=== PATIENT | female | born 1940 | race African-American/Black ===

== ENCOUNTER 2016-12-17 12:52 | Emergency (ER) | payer OTHER ==
[2016-12-17 12:58] VITALS: BP 150/73; PULSE 66; TEMP 97.8; BMI 30.1
[2016-12-17] MEDS ORDERED: DIPHTH,PERTUSS(ACELL),TET 0.5 ML DISP.SYRIN IM ONE (13:19)
--- NOTE | 2016-12-17 13:36 | PDOC ---
History of Present Illness - General Chief Complaint: Injury Stated Complaint: FALLL/ SWOLLEN LT EYE, PAIN Time Seen by Provider: 12/17/16 12:58 History Source: Patient - History of Present Illness Occurred: reports: yesterday Pain Location: reports: face Method of Injury: Yes: fall Past History - Past Medical History Allergies/Adverse Reactions: Allergies Allergy/AdvReac Type Severity Reaction Status Date / Time No Known Allergies Allergy Verified 12/17/16 12:57 Home Medications: Ambulatory Orders Clindamycin [Cleocin -] 300 mg PO Q6HPO #28 capsule 12/17/16 HTN: Yes - Psycho/Social/Smoking Cessation Hx Anxiety: No Suicidal Ideation: No Smoking History: Never smoked Information on smoking cessation initiated: No Hx Alcohol Use: No Drug/Substance Use Hx: No Substance Use Type: None Review of Systems - Review of Systems Respiratory: No: Shortness of Breath Cardiac (ROS): No: Chest Pain, Lightheadedness Musculoskeletal: No: Back Pain, Neck Pain Neurological: No: Headache, Dizziness *Physical Exam - Vital Signs Last Vital Signs Temp Pulse Resp BP Pulse Ox 97.8 F 66 20 150/73 97 12/17/16 12:53 12/17/16 12:53 12/17/16 12:53 12/17/16 12:53 12/17/16 12:53 - Physical Exam General Appearance: Yes: Appropriately Dressed. No: Apparent Distress HEENT: positive: Normal Voice, Other (moderate swelling with erythema and increased warmth to left periorbital area with small open wound with dried pus to lateral aspect of eyelid, + subconjunctival hemorrhage, EOMI w/ no facial crepitus or step-offs) Neck: positive: Supple. negative: Tender, Decreased range of motion Respiratory/Chest: negative: Respiratory Distress Gastrointestinal/Abdominal: positive: Soft. negative: Tender Integumentary: positive: Dry, Warm Neurologic: positive: Fully Oriented, Alert, Normal Mood/Affect, Motor Strength 5/5 ED Treatment Course - RADIOLOGY Radiology Studies Ordered: Category Date Time Status FACIAL BONES CT W/O CONTRAST [CT] Stat CT Scan 12/17/16 13:[address] WITHOUT CONTRAST [CT] Stat CT Scan 12/17/16 13:20 Ordered Medical Decision Making - Medical Decision Making 12/17/16 13:24 76 yo F, h/o HTN, not on blood thinners, here w/ facial injury s/p fall yesterday. Pt states while walking to [employer] yesterday afternoon, tripped over shopping cart and fell, hitting face. Denies LOC. States she was feeling ok after fall and was able to finish her shopping but states L eye since then L eye has been progressively swollen but denies pain. No visual changes, photophobia or tearing. Denies CUMMINGS, dizziness, n/v. No neck/back or hip pain and ambulating since fall. Denies dizziness or CP prior to fall. See exam Mechanical fall w/ head injury yesterday Witnessed by family No LOC Not on blood thinners Well juan and stable in ED Has L periorbital swelling/erythema/incr warmth w/ small wound to lateral lid w / minimal pus, concern for possible periorbital cellulitis No e/o entrapment or facial fx No uptake on slit lamp Rest of exam unremarkable -tetanus -CT head and facial bones -will consider abx for possible periorbital cellulitis -anticipate discharge 12/17/16 14:04 12/17/16 14:05 12/17/16 16:33 CT negative. Pt stable for discharge with abx. Wound check in 48 hrs 12/17/16 16:37 *DC/Admit/Observation/Transfer Diagnosis at time of Disposition: Periorbital swelling Facial injury Qualifiers: Encounter type: initial encounter Qualified Code(s): S09.93XA - Unspecified injury of face, initial encounter Fall Qualifiers: Encounter type: initial encounter Qualified Code(s): W19.XXXA - Unspecified fall, initial encounter Conjunctival hemorrhage Qualifiers: Laterality: left Qualified Code(s): H11.32 - Conjunctival hemorrhage, left eye - Discharge Dispostion Disposition: HOME Condition at time of disposition: Good - Prescriptions Prescriptions: Clindamycin [Cleocin -] 300 mg PO Q6HPO #28 capsule - Referrals Referrals: Anu Quinn MD [Primary Care Provider] - - Patient Instructions Printed Discharge Instructions: DI for Closed Head Injury Additional Instructions: The CAT scan of your head and facial bones were normal today. Your eye swelling could possibly be due from the trauma, but given small open wound and redness, we treated you for possible infection. Please return to ER 48 hours for wound reassessment.
--- NOTE | 2016-12-17 16:59 | PDOC ---
*Physical Exam - Vital Signs Last Vital Signs Temp Pulse Resp BP Pulse Ox 97.8 F 66 20 150/73 97 12/17/16 12:53 12/17/16 12:53 12/17/16 12:53 12/17/16 12:53 12/17/16 12:53 ED Treatment Course - RADIOLOGY Radiology Studies Ordered: Category Date Time Status FACIAL BONES CT W/O CONTRAST [CT] Stat CT Scan 12/17/16 13:[address] WITHOUT CONTRAST [CT] Stat CT Scan 12/17/16 13:20 Completed - Medications Given in the ED: ED Medications Discontinued Medications Generic Name Dose Route Start Last Admin Trade Name Freq PRN Reason Stop Dose Admin Diphtheria/Tetanus/Acell Pertussis 0.5 ml 12/17/16 13:19 12/17/16 13:24 Boostrix - IM 12/17/16 13:20 0.5 ml .ONCE ONE Administration *DC/Admit/Observation/Transfer Diagnosis at time of Disposition: Periorbital swelling Facial injury Qualifiers: Encounter type: initial encounter Qualified Code(s): S09.93XA - Unspecified injury of face, initial encounter Fall Qualifiers: Encounter type: initial encounter Qualified Code(s): W19.XXXA - Unspecified fall, initial encounter Conjunctival hemorrhage Qualifiers: Laterality: left Qualified Code(s): H11.32 - Conjunctival hemorrhage, left eye - Discharge Dispostion Disposition: HOME Condition at time of disposition: Good - Prescriptions Prescriptions: Clindamycin [Cleocin -] 300 mg PO Q6HPO #28 capsule - Referrals Referrals: Anu Quinn MD [Primary Care Provider] - - Patient Instructions Printed Discharge Instructions: DI for Closed Head Injury Additional Instructions: The CAT scan of your head and facial bones were normal today. Your eye swelling could possibly be due from the trauma, but given small open wound and redness, we treated you for possible infection. Please return to ER 48 hours for wound reassessment. - Post Discharge Activity
== END 2016-12-17 16:34 | disposition home or self-care (01) ==
LOC: JERFT 12:52
PROC: 3E0234Z Introduction of Serum, Toxoid and Vaccine into Muscle, Percutaneous Approach (ICD-10-PCS; principal; 2016-12-17)
DX: S09.8XXA Other specified injuries of head, initial encounter (principal); H05.222 Edema of left orbit; H11.32 Conjunctival hemorrhage, left eye; S01.102A Unspecified open wound of left eyelid and periocular area, initial encounter; I10 Essential (primary) hypertension; W01.198A Fall on same level from slipping, tripping and stumbling with subsequent striking against other object, initial encounter; Y93.89 Activity, other specified; Y92.512 Supermarket, store or market as the place of occurrence of the external cause; Y99.8 Other external cause status
CPT/HCPCS: 70450-TC; 70486-TC; 90471; 90715; 99281-25

== ENCOUNTER 2016-12-19 09:34 | Emergency (ER) | payer OTHER ==
[2016-12-19 09:43] VITALS: BMI 30.1
--- NOTE | 2016-12-19 12:07 | PDOC ---
History of Present Illness - General Chief Complaint: Eye Problem Stated Complaint: FOLLOW UP, LT EYE INJURY Time Seen by Provider: 12/19/16 11:08 History Source: Patient Exam Limitations: No Limitations - History of Present Illness Initial Comments: 12/19/16 12:02 My chief complaint: here for wound check of left eye area History of present illness: Patient is a 76-year-old female with a history of hypertension here today for a recheck of her left eye area due to a fall on . Patient was seen here and patient had fallen hitting her face while with her daughter at [employer]. Patient's daughter reports that she fell due to the shopping cart hitting a curb that patient was holding onto. She denies any loss of consciousness, nausea, vomiting, any change in vision or level of alertness or any severe headache or hemotympanum. Patient had a CT of her orbits that were negative for fracture and head CT that was negative for any intracranial bleed. Patient did have a very superficial cut to her left lateral eye area that has already healed. Patient denies any tenderness of area. Patient denies having had any fever. Patient's daughter also reports that her mother had been complaining about her right foot "not working well for about one month". Patient's daughter noticed today that her mother was walking differently with a slap of her rt. foot she had never noticed before. She reports that she's had decreased strength of her right foot prior to falling on 12/17/2016 that she cannot lacks her right foot or move her toes upward like her left foot. He denies any numbness of her right leg or any radiation of pain from her back to her legs. Patient denies any saddle anesthesia. Patient reports that last week she lost control of her bowels and also on 2016 remembers being incontinent of urine. Patient denies having any back pain or any abdominal pain. 12/19/16 12:08 12/19/16 12:17 Timing/Duration: changing over time Severity: mild Modifying Factors: improves with: other (not walking ) Associated Symptoms: reports: other (decreased strength rt. foot with flexion) Past History - Past Medical History Allergies/Adverse Reactions: Allergies Allergy/AdvReac Type Severity Reaction Status Date / Time No Known Allergies Allergy Verified 12/19/16 09:39 Home Medications: Ambulatory Orders Clindamycin [Cleocin -] 300 mg PO Q6HPO #28 capsule 12/17/16 Unobtainable 12/19/16 HTN: Yes - Immunization History Immunization Up to Date: No - Psycho/Social/Smoking Cessation Hx Anxiety: No Suicidal Ideation: No Smoking History: Never smoked Have you smoked in the past 12 months: No Information on smoking cessation initiated: No Hx Alcohol Use: No Drug/Substance Use Hx: No Substance Use Type: None Review of Systems - Review of Systems Able to Perform ROS?: Yes Constitutional: No: Symptoms Reported HEENTM: Yes: Other (left eye subconjuntiva hemorrhage noted ) Respiratory: No: Symptoms reported Cardiac (ROS): No: Symptoms Reported ABD/GI: No: Symptoms Reported : Yes: Incontinence (of urine on 12/17/16, incontinent of feces last week ). No: Flank Pain Musculoskeletal: No: Symptoms Reported Integumentary: Yes: Bruising (slight bruising b/l infraorbital area,), Erythema (minimal left lateral orbital area, no open areas ) Neurological: Yes: Weakness (of rt. foot with flexion of foot and toes), Other ( rt. foot slight slap of foot noted ). No: Numbness, Paresthesia, Tingling, Tremors *Physical Exam - Vital Signs Last Vital Signs Temp Pulse Resp BP Pulse Ox 98.0 F 69 18 150/100 100 12/19/16 09:40 12/19/16 09:40 12/19/16 09:40 12/19/16 09:40 12/19/16 09:40 - Physical Exam General Appearance: Yes: Appropriately Dressed HEENT: positive: EOMI, Other (pupils constricted equally reacts minimally to light, left sclera subconjunctiva hemorrhage noted ). negative: Orbits Neck: negative: Tender, Lymphadenopathy (R), Lymphadenopathy (L), Rigidity, Tender lateral, Tender midline Respiratory/Chest: positive: Lungs Clear, Normal Breath Sounds. negative: Chest Tender, Respiratory Distress Cardiovascular: positive: Regular Rhythm, Regular Rate, S1, S2 Rectal Exam: positive: other (decreased rectal tone ) Musculoskeletal: positive: Decreased Range of Motion (from waist ). negative: Normal Inspection, CVA Tenderness, CVA Tenderness (R), CVA Tenderness (L), Muscle Spasm, Vertebral Tenderness Extremity: positive: Normal Capillary Refill, Pedal Edema (slight b/l ), Swelling (ankles b/l non pitting ). 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 foot decreased motor/strengh), Respond to painful stimul (rt. leg), Responsive. negative: Numbness (legs ), Sensory Deficit (legs ), Babinski (rt. ) Deep Tendon Reflexes: Ankle (L): 3+, Ankle (R): 3+, Knee (L): 3+, Knee (R): 3+ ED Treatment Course - LABORATORY CBC & Chemistry Diagram: 12/19/16 13:15 12/19/16 13:15 Medical Decision Making - Medical Decision Making 12/19/16 12:17 Patient is a 76-year-old female with a history of hypertension here today for a recheck of her left eye area due to a fall on 12/17/2016. Patient was seen here and patient had fallen hitting her face while with her daughter at [employer]. Patient's daughter reports that she fell due to the shopping cart hitting a curb that patient was holding onto. She denies any loss of consciousness, nausea , vomiting, any change in vision or level of alertness or any severe headache or hemotympanum. Patient had a CT of her orbits that were negative for fracture and head CT that was negative for any intracranial bleed. Patient did have a very superficial cut to her left lateral eye area that has already healed. Patient denies any tenderness of area. Patient denies having had any fever. Patient's daughter also reports that her mother had been complaining about her right foot "not working well for about one month". Patient's daughter noticed today that her mother was walking differently with a slap of her rt. foot she had never noticed before. She reports that she's had decreased strength of her right foot prior to falling on 12/17/2016 that she cannot lacks her right foot or move her toes upward like her left foot. He denies any numbness of her right leg or any radiation of pain from her back to her legs. Patient denies any saddle anesthesia. Patient reports that last week she lost control of her bowels and also on 2016 remembers being incontinent of urine. Patient denies having any back pain or any abdominal pain. left eye subconjunctiva hemorrhage, no open area around left rt. foot decreased strength/motor with flexion, recent incontinency in last week feces and urine decreased rectal tone PLAN: spoke With Dr. zarate patient to be transferred to main ED for further evaluation , Teresita charge nurse aware 12/19/16 17:40 *DC/Admit/Observation/Transfer Diagnosis at time of Disposition: Spinal stenosis Qualifiers: Spinal region: lumbar Qualified Code(s): M48.06 - Spinal stenosis, lumbar region - Discharge Dispostion Disposition: HOME Condition at time of disposition: Improved - Referrals Referrals: Diana Mcnamara MD [Staff Physician] - Anu Quinn MD [Primary Care Provider] - - Patient Instructions Printed Discharge Instructions: Spinal Stenosis Additional Instructions: Return to the emergency department immediately with ANY new, persistent or worsening symptoms including any weakness, difficulty walking, back pain or any other concerns. You MUST call and follow up with your doctor and neurology within 3-4 days for further evaluation of your symptoms. Results were discussed with you. Please make sure your doctor reviews the results of your emergency evaluation. Print Language: AUSTRALIAN
--- NOTE | 2016-12-19 12:55 | PDOC ---
History of Present Illness - History of Present Illness Initial Comments: 12/19/16 16:15 The patient is a 76 year old female with a past medical hx of HTN who presents to the ED for a wound check. The patient was seen in the ED on 12/17/16 for evaluation of a fall on 12/16, no LOC, had a CT head and orbits that was negative. The patient came back to the ED today for a recheck of fo wound on her left eye, which was a result from the fall. The daughter notes that the pt has had a strange slapping sound when she is ambulating - pt notes that it has been going since atleast several days as the last time she went bowling approximately a week ago and had to ajust her technic for this. The pt also endorses occasional urinary leakage, but endroses that she is able to urinate/ stool when she wants to. Pt denies any back pain, headache, dizziness, f/c, cp, sob, vision changes, numbness/tingling. No weakness elsehwere. Pt notes her sypmtoms predates her fall. The patient denies blurred vision, changes in vision The patient denies back pain, neck pain Allergies: NKDA Social: No toxic habits reported PCP: Dr. Anu Quinn <Lin Aceves - Last Filed: 12/19/16 16:35> <Gopi English - Last Filed: 12/20/16 08:55> - General Chief Complaint: Eye Problem Stated Complaint: FOLLOW UP, LT EYE INJURY Time Seen by Provider: 12/19/16 11:08 Past History <Lin Aceves - Last Filed: 12/19/16 16:35> - Past Medical History HTN: Yes - Immunization History Immunization Up to Date: No - Psycho/Social/Smoking Cessation Hx Anxiety: No Suicidal Ideation: No Smoking History: Never smoked Have you smoked in the past 12 months: No Information on smoking cessation initiated: No Hx Alcohol Use: No Drug/Substance Use Hx: No Substance Use Type: None <Gopi English - Last Filed: 12/20/16 08:55> - Past Medical History Allergies/Adverse Reactions: Allergies Allergy/AdvReac Type Severity Reaction Status Date / Time No Known Allergies Allergy Verified 12/19/16 09:39 Home Medications: Ambulatory Orders Clindamycin [Cleocin -] 300 mg PO Q6HPO #28 capsule 12/17/16 Unobtainable 12/19/16 Review of Systems - Review of Systems Able to Perform ROS?: Yes Comments:: 12/19/16 16:16 CONSTITUTIONAL: No reported: Fever, Chills, Diaphoresis, Generalized Weakness, Malaise, Loss of Appetite HEENT: +Left eye redness. No reported: Rhinorrhea, Nasal Congestion, Throat Pain, Throat Swelling, Difficulty Swallowing, Mouth Swelling, Ear Pain, Eye Pain, Visual Changes CARDIOVASCULAR: No reported: Chest Pain, Syncope, Palpitations, Irregular Heart Rate, Lightheadedness, Peripheral Edema RESPIRATORY: No reported: Cough, Shortness of Breath, SOB with Exertion, Orthopnea, Wheezing , Stridor, Hemoptysis GASTROINTESTINAL: +Diarrhea. No reported: Abdominal pain, Abdominal Distension, Nausea, Vomiting, , Constipation, Melena, Hematochezia GENITOURINARY: No reported: Dysuria, Frequency, Urgency, Hesitancy, Flank Pain, Genital Pain MUSCULOSKELETAL: No reported: Myalgia, Arthralgia, Joint Swelling, Back pain, Neck Pain SKIN: No reported: Rash, Itching, Pallor HEMATOLOGIC/IMMUNOLOGIC: No reported: Easy Bleeding, Easy Bruising, Lymphadenopathy, Frequent infections ENDOCRINE: No reported: Unexplained Weight Gain, Unexplained Weight Loss, Heat Intolerance , Cold Intolerance NEUROLOGIC: +Difficulty moving right foot, numbness to bottom of right foot. +Urinary incontinence. +Bowel incontinence. No reported: Tingling, Headache, Focal Weakness, Vertigo, Lightheadedness, Seizure, Mental Status Changes, PSYCHIATRIC: No reported: Anxiety, Depression <Lin Aceves - Last Filed: 12/19/16 16:35> *Physical Exam - Vital Signs Last Vital Signs Temp Pulse Resp BP Pulse Ox 97.6 F 65 20 172/139 95 12/19/16 15:36 12/19/16 15:36 12/19/16 15:36 12/19/16 15:36 12/19/16 15:36 - Physical Exam Comments: 12/19/16 16:16 GENERAL: The patient is awake, alert, and fully oriented, Nontoxic - in no acute distress. HEAD: Normocephalic, contusion on the L orbit. EYES: +subconjunctival hemmorage. Extraocular movements intact ENT: Normal voice, Moist mucous membranes. NECK: Normal range of motion, No JVD LUNGS: Breath sounds equal, clear to auscultation bilaterally. No wheezes, no rhonchi, no rales. HEART: Regular rate and rhythm, normal S1 and S2 without murmur, rub or gallop. ABDOMEN: Soft, nontender, normoactive bowel sounds. No guarding, no rebound. No masses. No CVA tenderness EXTREMITIES: Normal range of motion, no edema. No clubbing or cyanosis. No cords , erythema, or tenderness. Mental status: The patient is oriented x3. Cranial nerves: Cranial nerves II through XII are intact Motor: +The upper extremities are 5/5 in the upper extremities, the lower extremities 5/5, 0/5 dorsiflexion of the right foot, 5/5 in left foot, plantar flexion 5/5 bilaterally, No pronator drift. Reflexes: + 2+ upper extremities, patellar reflex 2+ bilaterally Sensation: Sensation is intact to light touch throughout. Neg romberg. Gait: normal gait with foot drop. BACK: no focal tenderness in cerviacl/thoracic/lumbar region, no ecchymosis PSYCH: Normal mood, normal affect. SKIN: Warm, Dry, normal turgor. RECTAL: +rectal tone, No saddle anesthesia <Lin Aceves - Last Filed: 12/19/16 16:35> - Vital Signs Last Vital Signs Temp Pulse Resp BP Pulse Ox 98.0 F 69 18 150/100 100 12/19/16 09:40 12/19/16 09:40 12/19/16 09:40 12/19/16 09:40 12/19/16 09:40 <Gopi English - Last Filed: 12/20/16 08:55> ED Treatment Course - LABORATORY CBC & Chemistry Diagram: 12/19/16 13:15 12/19/16 13:15 - ADDITIONAL ORDERS Additional order review: Laboratory Results 12/19/16 12/19/16 13:53 13:15 Sodium 143 Potassium 3.7 Chloride 106 Carbon Dioxide 28 Anion Gap 9 BUN 26 H Creatinine 1.4 H Creat Clearance w eGFR 36.46 Random Glucose 105 Calcium 9.3 Total Bilirubin 0.5 AST 23 ALT 18 Alkaline Phosphatase 108 Total Protein 7.6 Albumin 3.8 Urine Color Yellow Urine Appearance Slcloudy Urine pH 5.0 Ur Specific Dow 1.015 Urine Protein 2+ H Urine Glucose (UA) Negative Urine Ketones Trace H Urine Blood Negative Urine Nitrite Negative Urine Bilirubin Negative Urine Urobilinogen Negative Ur Leukocyte Esterase Negative Urine RBC 1 Urine WBC 4 Ur Epithelial Cells Rare Urine Mucus Rare 12/19/16 13:15 RBC 4.75 MCV 87.9 MCHC 32.5 RDW 15.4 MPV 9.7 Neutrophils % 69.0 Lymphocytes % 17.6 Monocytes % 10.3 H Eosinophils % 2.6 Basophils % 0.5 - RADIOLOGY Radiograph Interpretation: 12/19/16 16:[address] Impression. No acute bony abnormalities are seen. L4-L5. Loss of disc space height. Vacuum phenomena. Moderate degenerative facet joint arthropathy with enlarged facet joints. Grade 1 degenerative anterior spondylolisthesis of L4 on L5. Spinal stenosis. Stenosis of the bilateral lateral recesses of L5. Horizontal orientation of the neural foramina with loss of vertical height. L5-S1. Loss of disc space height. Degenerative endplate sclerosis. Vacuum phenomena. Facet joint arthropathy. Reported By: Harsh Carrillo MD 12/19/[address] Impression. No evidence of acute intracranial hemorrhage, edema, midline shift, mass effect , or skull fracture. No CT evidence of acute territorial infarction Reported By: Harsh Carrillo MD 12/19/16 1510 <Lin Aceves - Last Filed: 12/19/16 16:35> - LABORATORY CBC & Chemistry Diagram: 12/19/16 13:15 12/19/16 13:15 <Gopi English - Last Filed: 12/20/16 08:55> Medical Decision Making - Medical Decision Making 12/19/16 13:42 76y F hx of htn presents s/p mechanical fall 3 days ago, presented to the ed 2 days ago for evaluation of eye swelling. Pt had CT head/orbit that was negative. The pt came back for a wound check in fast track and the pt was noted to have a food drop so was sent to the main ED for evaluation. The patient endorses having a foot drop that started atleast since last sunday (last time she went bowling) - she noticed it because she had to change her form when bowling. The pt also endorses that she has had occasionally urinary/bowel leakage - pt states she still has ability to go to the bathroom when she wants to. Pt denies any other weakness, numbness/tingling, neck pain, back pain, headache, vision changes. On exam pt has a R foot drop, but exam was otherwise unremarkable. Pts rectal tone also intact (thought to be slightly deminsihed in FT) 0 but i suspect this reyna be the pts baseline. will obtain CT head and L spine to r/o acute disease will discuss with neurology will obtain UA to ro UTI 12/19/16 15:[address] head negative ct lspine c/w spinal stenosis to L5 no signs of UTI on ua labs unremarkable case d/w dr. Mcnamara will d/c the pt to fu with dr. mcnamara as an outpatient for evalutaion of spinal stenosis I discussed the physical exam findings, ancillary test results and final diagnoses with the patient. I answered all of the patient's questions. The patient was satisfied with the care received and felt comfortable with the discharge plan and treatment plan. The patient will call their primary care physician within 24 hours to arrange follow-up and will return to the Emergency Department with any new, persistent or worsening symptoms. 12/19/16 16:08 pt is ambulating steadily without assistance will dc pt with outpatient fu <Gopi English - Last Filed: 12/20/16 08:55> *DC/Admit/Observation/Transfer - Attestations Scribe Attestion: 12/19/16 16:16 Documentation prepared by Lin Aceves, acting as medical and scientific illustrator for Gopi English MD. <Lin Aceves - Last Filed: 12/19/16 16:35> - Discharge Dispostion Admit: No <Gopi English - Last Filed: 12/20/16 08:55> Diagnosis at time of Disposition: Spinal stenosis Qualifiers: Spinal region: lumbar Qualified Code(s): M48.06 - Spinal stenosis, lumbar region - Discharge Dispostion Disposition: HOME Condition at time of disposition: Improved - Referrals Referrals: Anu Quinn MD [Primary Care Provider] - Diana Mcnamara MD [Staff Physician] - - Patient Instructions Printed Discharge Instructions: Spinal Stenosis Additional Instructions: Return to the emergency department immediately with ANY new, persistent or worsening symptoms including any weakness, difficulty walking, back pain or any other concerns. You MUST call and follow up with your doctor and neurology within 3-4 days for further evaluation of your symptoms. Results were discussed with you. Please make sure your doctor reviews the results of your emergency evaluation. Print Language: ARMENIAN
[2016-12-19 14:05] LABS: URINE APPEARANCE SLCLOUDY; URINE BILIRUBIN NEGATIVE (NEGATIVE); URINE BLOOD NEGATIVE (NEGATIVE); URINE COLOR YELLOW; URINE GLUCOSE (UA) NEGATIVE (NEGATIVE); URINE KETONE TRACE (NEGATIVE); URINE LEUK ESTERASE NEGATIVE (NEGATIVE); URINE NITRITE NEGATIVE (NEGATIVE); URINE UROBILINOGEN NEGATIVE E.U./dl (0.2-1.0)
[2016-12-19 14:21] LABS: BASOPHIL 0.5 % (0-2.0); EOSINOPHIL 2.6 % (0-4.5); MCH 28.6 pg (25.7-33.7); MCHC 32.5 g/dl (32.0-36.0); MEAN CELL VOLUME 87.9 fl (80-96); MEAN PLT VOLUME 9.7 fl (7.5-11.1); PLATELET COUNT 204 K/MM3 (134-434); RDW 15.4 % (11.6-15.6); WHITE BLOOD COUNT 5.9 K/mm3 (4.0-10.0)
[2016-12-19 14:25] LABS: URINE PROTEIN 2+ (NEGATIVE)
[2016-12-19 14:33] LABS: ALBUMIN 3.8 g/dl (3.4-5.0); BILIRUBIN,TOTAL 0.5 mg/dL (0.2-1.0); CALCIUM 9.3 mg/dL (8.5-10.1); CREATININE 1.4 mg/dL (0.55-1.02); TOT PROT 7.6 g/dl (6.4-8.2)
[2016-12-19 14:34] LABS: URINE MUCUS RARE; URINE RBC 1 /hpf (0-3); URINE WBC 4 /hpf (3-5)
[2016-12-19 16:44] VITALS: BP 215/94; PULSE 84; TEMP 98.6
--- NOTE | 2016-12-19 23:13 | EKG ---
Test Reason : Blood Pressure : / mmHG Vent. Rate : 062 BPM Atrial Rate : 062 BPM P-R Int : 160 ms QRS Dur : 078 ms QT Int : 440 ms P-R-T Axes : 089 001 007 degrees QTc Int : 446 ms NORMAL SINUS RHYTHM NORMAL ECG NO PREVIOUS ECGS AVAILABLE Confirmed by NAM RAMÍREZ MD ([id number]) on 12/19/2016 11:13:16 PM Referred By: Confirmed By:NAM RAMÍREZ MD
== END 2016-12-19 16:29 | disposition home or self-care (01) ==
LOC: JER 09:34 → JERFT 09:34 → JER 16:29
DX: M48.06 Spinal stenosis, lumbar region (principal); I10 Essential (primary) hypertension
CPT/HCPCS: 36415; 70450-TC; 72131-TC; 80053; 81003; 81015; 85025; 93005; 93010; 99283-25

== ENCOUNTER 2018-09-11 17:09 | Inpatient (IN) | payer OTHER ==
--- NOTE | 2018-09-11 17:25 | PDOC ---
Rapid Medical Evaluation Chief Complaint: Edema Time Seen by Provider: 09/11/18 17:16 Medical Evaluation: Allergies Allergy/AdvReac Type Severity Reaction Status Date / Time No Known Allergies Allergy Verified 12/19/16 09:39 09/11/18 17:22 I have performed a brief in-person evaluation of this patient. The patient presents with a chief complaint of: BLE edema x1 week Pertinent physical exam findings: 3+ b/l pedal edema. Irregular HR. I have ordered the following: labs, CXR, EKG The patient will proceed to the ED for further evaluation. Discharge Disposition - Diagnosis Edema - Referrals - Patient Instructions - Post Discharge Activity
[2018-09-11 17:36] VITALS: BMI 31.8
--- NOTE | 2018-09-11 18:17 | PDOC ---
History of Present Illness - History of Present Illness Initial Comments: Martha Bateman is a 77yo woman with a PMH of HTN who presents to the ED today complaining of BLE pitting edema and generalized fatigue. Ms Bateman is a poor historian, and it is difficult to determine the exact timeline of her symptoms. She states that about a week ago she started noticing swelling in her legs; she is unable to report whether she has had similar swelling in the past. She also noticed several wounds and blisters on her left leg, but she is not sure exactly when these appeared. She reports trying to " cut back" on her blood pressure medications, but she does not remember whether the swelling started before or afterwards. She is unable to state whether she stopped taking any of her medications entirely or whether she is taking a lower dose than prescribed. She presents with metoprolol, amlodipine, hydralazine, and hydrochlorothiazide. Neither Ms Bateman nor her know what she has been taking at home. She denies any SOB, chest pain, racing heart/palpitations, drainage from the wounds, leg pain or other new symptoms. Her , present at bedside, states that she has been walking more slowly than normal for a few days and appears very fatigued. Ms Bateman denies any ELDER or symptoms of claudication, but her reports that she is minimally ambulatory. Ms Bateman denies any medical history of diabetes, CHF, a-fib, or kidney disease. On questioning, she additionally reports incontinence and inability to hold urine when she stands. She has questionable dysuria and has noticed an unusual odor to her urine. She has never seen uro-gyne or been worked up for incontinence and does not have a known history of UTI. <Paz Mcgee - Last Filed: 09/11/18 19:05> <Alma Junior - Last Filed: 09/11/18 20:03> - General Chief Complaint: Edema Stated Complaint: BILATERAL LEG SWELLING Time Seen by Provider: 09/11/18 17:16 Past History - Past Medical History COPD: No CHF: No HTN: Yes - Immunization History Immunization Up to Date: No - Suicide/Smoking/Psychosocial Hx Smoking History: Never smoked Have you smoked in the past 12 months: No Information on smoking cessation initiated: No Hx Alcohol Use: No Drug/Substance Use Hx: No Substance Use Type: None <Paz Mcgee - Last Filed: 09/11/18 19:05> <Alma Junior - Last Filed: 09/11/18 20:03> - Past Medical History Allergies/Adverse Reactions: Allergies Allergy/AdvReac Type Severity Reaction Status Date / Time No Known Allergies Allergy Verified 12/19/16 09:39 Home Medications: Ambulatory Orders Clindamycin [Cleocin -] 300 mg PO Q6HPO #28 capsule 12/17/16 Unobtainable 12/19/16 Review of Systems - Review of Systems Comments:: General: No fevers, no chills, no weight or appetite change, no malaise. + Fatigue HEENT: No changes in vision, no changes in hearing, no congestion, no sore throat CV: No chest pain, no palpitations, no orthopnea. +BLE edema. Pulm: No SOB, no cough, no wheezing GI: No nausea or vomiting, no change in bowel habits, no melena, no change in abdominal girth : +incontinence, +dysuria Musc: No back pain, no joint swelling, no recent injury Skin:+ulcers and blisters on LE Endo: No excessive thirst, no heat/cold intolerance Heme: No unusual bruising or bleeding, no swollen glands Neuro: No syncope, no numbness/tingling, no focal weakness Vasc: No claudication Psych: No recent change in mood, no SI or HI <Paz Mcgee - Last Filed: 09/11/18 19:05> *Physical Exam - Vital Signs Last Vital Signs Temp Pulse Resp BP Pulse Ox 97.5 F L 67 16 143/89 98 09/11/18 17:20 09/11/18 17:20 09/11/18 17:20 09/11/18 17:20 09/11/18 17:20 - Physical Exam Comments: General: Fatigued, no acute distress HEENT: PERRL, EOMI, MMM, voice normal, normal neck ROM, no LAD Cards: Mildly tachycardic Pulm: Comfortable on room air, clear to auscultation bilaterally Abd: Soft, nontender, nondistended Ext: Atraumatic. BLE 4+ pitting edema to knees. Nickel-sized venous stasis ulcer on left anterior barnes. Fibrinous exudate in base. Nontender to palpation, no surrounding erythema or edema, no drainage (socks clean). Posterior distal LLE with multiple fluid-filled bullae, nontender, intact. Vasc: Extremities WWP. Neuro: A&Ox3, CN grossly intact, normal speech, motor/sensory grossly intact and symmetric Psych: Mood appropriate to situation <EverardoPaz - Last Filed: 09/11/18 19:05> - Vital Signs Last Vital Signs Temp Pulse Resp BP Pulse Ox 99.0 F 121 H 18 124/74 99 09/11/18 19:53 09/11/18 19:53 09/11/18 19:53 09/11/18 19:53 09/11/18 19:53 <Alma Junior - Last Filed: 09/11/18 20:03> ED Treatment Course - LABORATORY CBC & Chemistry Diagram: 09/11/18 17:51 09/11/18 17:51 <EverardoPaz - Last Filed: 09/11/18 19:05> - LABORATORY CBC & Chemistry Diagram: 09/11/18 17:51 09/11/18 17:51 - ADDITIONAL ORDERS Additional order review: Laboratory Results 09/11/18 17:51 Sodium Cancelled Potassium Cancelled Chloride Cancelled Carbon Dioxide Cancelled Anion Gap Cancelled BUN Cancelled Creatinine Cancelled Creat Clearance w eGFR Cancelled Random Glucose Cancelled Calcium Cancelled Total Bilirubin Cancelled AST Cancelled ALT Cancelled Alkaline Phosphatase Cancelled Troponin I Cancelled B-Natriuretic Peptide Cancelled Total Protein Cancelled Albumin Cancelled 09/11/18 17:51 RBC 5.37 H MCV 87.6 MCHC 31.4 L RDW 17.6 H MPV 10.5 Neutrophils % 92.0 H D Lymphocytes % 2.8 L D Monocytes % 4.9 Eosinophils % 0.1 D Basophils % 0.2 <Alma Junior - Last Filed: 09/11/18 20:03> Medical Decision Making - Medical Decision Making 09/11/18 18:23 Martha Bateman is a 77yo woman with a PMH of HTN who presents with BLE pitting edema, new LLE ulcers and bullae consistent with significant fluid overload and venous stasis, and fatigue - Poor historian, unclear whether she has any additional cardiac or renal disease. Edema and fatigue could be due to underlying CHF or CKD - Tachycardic on exam - concern for new onset a-fib as a cause of edema and fatigue - Symptoms may be due medication non-compliance as it is unclear which of her prescribed medications Ms Bateman has been taking and whether her symptoms started before or after she started "cutting back" on her meds - Also complaining of incontinence when standing up, most likely overflow incontinence, as well as possibly an unusual odor to her urine. UA and culture ordered. - CBC, CMP, trop, BNP, EKG, CXR, UA, urine culture - pending 09/11/18 19:05 - CBC returned with WBC 19 - Blood cultures ordered - If patient can be moved out of the hallway, will obtain rectal temperature - Remainder of labs pending - Vancomycin and ceftriaxone ordered for suspected UTI vs infected skin ulcer - B/L duplex ordered to r/o DVT. Pt is sedentary and may be at risk Ms Bateman was endorsed to Dr Rowell, who will take over care at this time. Discussed with Dr Junior. Paz Mcgee PGY1 <Paz Mcgee - Last Filed: 09/11/18 19:05> *DC/Admit/Observation/Transfer - Discharge Dispostion Decision to Admit order: Yes <Paz Mcgee - Last Filed: 09/11/18 19:05> - Discharge Dispostion Decision to Admit order: Yes Decision to Admit order Date/Time: Decision to Admit Order Category Date Time Status Decision to Admit to Hospital Routine Admission 09/11/18 20:02 Ordered <Alma Junior - Last Filed: 09/11/18 20:03> Diagnosis at time of Disposition: Edema, Bilateral leg ulcer, Leg edema, Left leg cellulitis, Atrial fibrillation with RVR - Discharge Dispostion Condition at time of disposition: Good - Referrals Referrals: Marco Ruiz MD [Staff Physician] -
[2018-09-11 18:25] LABS: BASO % 0.2 % (0-2.0); EOS % 0.1 % (0-4.5); HEMOGLOBIN 14.8 GM/dL (10.7-15.3); LYMPH % 2.8 % (8-40); MCH 27.5 pg (25.7-33.7); MCHC 31.4 g/dl (32.0-36.0); MEAN CELL VOLUME 87.6 fl (80-96); MEAN PLT VOLUME 10.5 fl (7.5-11.1); MONO % 4.9 % (3.8-10.2); PLATELET COUNT 176 K/MM3 (134-434); RBC 5.37 M/mm3 (3.60-5.2); RDW 17.6 % (11.6-15.6); WHITE BLOOD COUNT 19.2 K/mm3 (4.0-10.0)
[2018-09-11] MEDS ORDERED: CEFTRIAXONE 1,000 MG in DEXTROSE 5%-WATER - 50 ML IVPB ONE (19:04)
[2018-09-11] MEDS ORDERED: VANCOMYCIN 1 GRAM (PRE-DOCKED) 1,000 MG/250 ML BAG IVPB ONE ×2 (19:04→21:37)
[2018-09-11] MEDS ORDERED: FUROSEMIDE 40 MG/4 ML INJECTABLE VIAL IVPUSH ONE (19:05)
--- NOTE | 2018-09-11 19:32 | PDOC ---
*Physical Exam - Vital Signs Last Vital Signs Temp Pulse Resp BP Pulse Ox 97.5 F L 67 16 143/89 98 09/11/18 17:20 09/11/18 17:20 09/11/18 17:20 09/11/18 17:20 09/11/18 17:20 - Physical Exam Comments: 09/11/18 21:02 General Appearance: Nourished. No Apparent Distress HEENT: No Pharyngeal Erythema, Tonsillar Exudate, Tonsillar Erythema Neck: No Cervical Lymphadenopathy Respiratory/Chest: Lungs Clear, Normal Breath Sounds. No Crackles, Rales, Rhonchi, Wheezing Cardiovascular: Irregularly Irregular Rhythm, Tachycardic Rate. No Murmur, Gallops, Rubs Gastrointestinal/Abdominal: Normal Bowel Sounds, Soft. No Guarding, Rebound, Tenderness Musculoskeletal: No CVA Tenderness Extremity: Normal Capillary Refill Integumentary: Normal Color, Dry, Warm Neurologic:Fully Oriented, Alert, Normal Mood/Affect, Normal Response, ED Treatment Course - LABORATORY CBC & Chemistry Diagram: 09/11/18 17:51 09/11/18 21:31 - ADDITIONAL ORDERS Additional order review: Laboratory Results 09/11/18 17:51 Sodium Cancelled Potassium Cancelled Chloride Cancelled Carbon Dioxide Cancelled Anion Gap Cancelled BUN Cancelled Creatinine Cancelled Creat Clearance w eGFR Cancelled Random Glucose Cancelled Calcium Cancelled Total Bilirubin Cancelled AST Cancelled ALT Cancelled Alkaline Phosphatase Cancelled Troponin I Cancelled B-Natriuretic Peptide Cancelled Total Protein Cancelled Albumin Cancelled 09/11/18 17:51 RBC 5.37 H MCV 87.6 MCHC 31.4 L RDW 17.6 H MPV 10.5 Neutrophils % 92.0 H D Lymphocytes % 2.8 L D Monocytes % 4.9 Eosinophils % 0.1 D Basophils % 0.2 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 - 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: The patient is a 77 year old female who presents for concerns of edema and ulcerating wound to the lower extremity. She was found to have an elevated wbc to 19. The patient was also found to be in new onset afib with rvr with a rate of 120. The patient is pending cmp, troponin, bnp and admission for further management. Medical Decision Making - Medical Decision Making 09/12/18 03:49 CBC demonstrates an elevated wbc. CMP demonstrates an elevated bnp to 7000s. We discussed the case with the admitting team who accepted the patient for admission. *DC/Admit/Observation/Transfer Diagnosis at time of Disposition: Edema, Bilateral leg ulcer, Leg edema, Left leg cellulitis, Atrial fibrillation with RVR - Discharge Dispostion Condition at time of disposition: Good - Referrals - Patient Instructions - Post Discharge Activity
[2018-09-11] MEDS ORDERED: CEFTRIAXONE 1 GM/50 ML BAG ONE (19:56)
[2018-09-11] MEDS ORDERED: FUROSEMIDE 40 MG/4 ML INJECTABLE VIAL ONE (19:57)
[2018-09-11] MEDS ORDERED: dilTIAZem HCL 60 MG TABLET (FP) PO ONE (20:01)
[2018-09-11] MEDS ORDERED: dilTIAZem HCL 50 MG/10 ML - 10 ML VIAL IVPUSH ONE (20:01)
--- NOTE | 2018-09-11 20:01 | PDOC ---
Attending Attestation - Resident Resident Name: EverardoPaz - ED Attending Attestation I have performed the following: I have examined & evaluated the patient, The case was reviewed & discussed with the resident, I agree w/resident's findings & plan - HPI HPI: 09/11/18 19:55 The patient is a 77 year old female with past medical history is significant for HTN presents to the emergency department with bilateral leg edema a/w increased malaise and weakness, difficulty walking x 1 week. The patient presents with a week of bilateral lower extremity pitting edema with a new onset of L. leg venous stasis ulcer, no bloody or purulent discharge or draining. At baseline, patient is minimally ambulatory. The patient reports, for unclear reasons, patient decided to cut back on her HTN medication, unclear if the decision was make before or after the presentation of leg swelling. The patient is a poor historian. Denies any known history of heart failure, AFib, or cardiac issues. - Physicial Exam PE: 09/11/18 19:56 NAD, well appearing, MMM, nl conjunctiva, anicteric; neck supple. lungs clear, + irregularly irregular, tachycardic., abdomen soft nontender. COBOS x4, no focal neuro deficits. 4+ peripheral edema bilaterally with significant warm, erythema and tenderness in BLE. +ulcers without active drainage over LLE (one large crater like ulcer) and one superficial on RLE.. normal color for ethnicity, [facility]. 09/11/18 19:57 - Medical Decision Making 09/11/18 19:57 77 YOF with HTN presenting with leg edema, weakness, difficulty ambulating vitals notable for Tachycardia, temp mildly low 97.5 orally, needs rectal temp. continuous surveillance system monitor with new arrhythmia. basic labs and lytes notable for significant leukocytosis 19K. UA_signs of UTI, treated with abx. CT chest hiatal hernia. parenchymal scarring, cardiomegaly, copd changes, elevated PA pressure. Cardiac panel_trop neg, bnp elevated, +lymphedema vs chf. EKG new onset Afib RVR at 150s, nonspecific T wave abnormalities, normal intervals and QRS. no significant elevation or depressions in ST segments. ED course: no acute events, remained stable and well appearing. Clinically improved after interventions, including IV abx ceftriaxone and vancomycin for LE celluliitis. Duplex to r/o DVT. needs rectal temp blood cultures ordered and pending, infectious workup. cards cs for new onset arrhythmia. EKG with Afib RVR, will rate control with diltiazem for now. may need AC. Dispo: Admit for new onset Afib, leg ulcer/infection, PT eval and fall prevention/safety concerns. Discussed results and management plan with pt and family member at bedside, agree with impression and plan admit to Dr. Rendon 09/17/18 01:42 Heart Score/ECG Review - ECG Impressions Normal ECG: No Comment:: 09/17/18 01:43 EKG new onset Afib RVR at 150s, nonspecific T wave abnormalities, normal intervals and QRS. no significant elevation or depressions in ST segments.
[2018-09-11] MEDS ORDERED: dilTIAZem HCL 30 MG TABLET (FP) PO ONE (21:36)
[2018-09-11] MEDS ORDERED: dilTIAZem HCL 125 MG/25 ML - 25 ML VIAL ONE (21:44)
[2018-09-11 22:29] LABS: ALBUMIN 3.1 g/dl (3.4-5.0); ALK PHOS 178 U/L (45-117); ANION GAP 9 MMOL/L (8-16); BILIRUBIN,TOTAL 1.6 mg/dL (0.2-1); BLOOD UREA NITROGEN 46 mg/dL (7-18); CALCIUM 9.1 mg/dL (8.5-10.1); CHLORIDE 106 mmol/L (98-107); CO2 24 mmol/L (21-32); CREATININE 1.7 mg/dL (0.55-1.3); GLUCOSE,RANDOM 141 mg/dL (74-106); N-TERMINAL BNP 7300.9 pg/ml (5-450); POTASSIUM 4.7 mmol/L (3.5-5.1); SGOT/AST 28 U/L (15-37); SGPT/ALT 38 U/L (13-61); SODIUM 140 mmol/L (136-145); TOT PROT 6.8 g/dl (6.4-8.2)
[2018-09-11] MEDS ORDERED: dilTIAZem HCL 30 MG TABLET (FP) ONE (22:50)
--- NOTE | 2018-09-12 01:05 | HP ---
CHIEF COMPLAINT: leg swelling PCP: Kai HISTORY OF PRESENT ILLNESS: This is a 77 year old female with a past medical history of HTN who presented to the ED with bilat lower extremity edema and fatigue x 1 week. Pt reports that she has not been taking her BP medications as prescribed and has been skipping doses. She is unclear on exactly what meds she has been taking. Her brought in her medication bottles and she appears to be on norvasc, hydralazine, hydrochlorothiazide and ergocalciferol. notices pt has been more forgetful in general recently. ER course was notable for: (1) BP 143/89 (2) WBC 19.2 (3) US with DVT R popliteal and PT veins Recent Travel: pt denies PAST MEDICAL HISTORY: HTN PAST SURGICAL HISTORY: pt denies Social History: Smoking: pt denies Alcohol: occ glass of wine Drugs: pt denies Family History: unclear, mother may have due to liver disease Allergies No Known Allergies Allergy (Verified 12/19/16 09:39) HOME MEDICATIONS: 3 Medication Instructions Recorded Clindamycin [Cleocin -] 300 mg PO Q6HPO #28 capsule 12/17/16 Unobtainable 12/19/16 REVIEW OF SYSTEMS CONSTITUTIONAL: Present: malaise Absent: fever, chills, diaphoresis, generalized weakness, loss of appetite, weight change HEENT: Absent: rhinorrhea, nasal congestion, throat pain, throat swelling, difficulty swallowing, mouth swelling, ear pain, eye pain, visual changes CARDIOVASCULAR: Present: peripheral edema Absent: chest pain, syncope, palpitations, irregular heart rate, lightheadedness , RESPIRATORY: Absent: cough, shortness of breath, dyspnea with exertion, orthopnea, wheezing, stridor, hemoptysis GASTROINTESTINAL: Absent: abdominal pain, abdominal distension, nausea, vomiting, diarrhea, constipation, melena, hematochezia GENITOURINARY: Absent: dysuria, frequency, urgency, hesitancy, hematuria, flank pain, genital pain MUSCULOSKELETAL: Absent: myalgia, arthralgia, joint swelling, back pain, neck pain SKIN: Absent: rash, itching, pallor HEMATOLOGIC/IMMUNOLOGIC: Absent: easy bleeding, easy bruising, lymphadenopathy, frequent infections ENDOCRINE: Absent: unexplained weight gain, unexplained weight loss, heat intolerance, cold intolerance NEUROLOGIC: Absent: headache, focal weakness or paresthesias, dizziness, unsteady gait, seizure, mental status changes, bladder or bowel incontinence PSYCHIATRIC: Absent: anxiety, depression, suicidal or homicidal ideation, hallucinations. PHYSICAL EXAMINATION Vital Signs - 24 hr 3 09/11/18 09/11/18 17:20 19:53 Temperature 97.5 F L 99.0 F Pulse Rate 67 Pulse Rate [ 121 H Left Brachial] Respiratory 16 18 Rate Blood Pressure 143/89 Blood Pressure 124/74 [Left Arm] O2 Sat by Pulse 98 99 Oximetry (%) GENERAL: Awake, alert, and fully oriented, in no acute distress. HEAD: Normal with no signs of trauma. EYES: Pupils equal, round and reactive to light, extraocular movements intact, sclera anicteric, conjunctiva clear. No lid lag. EARS, NOSE, THROAT: Ears normal, nares patent, oropharynx clear without exudates. Moist mucous membranes. NECK: Normal range of motion, supple without lymphadenopathy, JVD, or masses. LUNGS: Breath sounds equal, clear to auscultation bilaterally. No wheezes, and no crackles. No accessory muscle use. HEART: Regular rate and rhythm, normal S1 and S2 without murmur, rub or gallop. ABDOMEN: Soft, nontender, not distended, normoactive bowel sounds, no guarding, no rebound, no masses. No hepatomegaly or splenomegaly. MUSCULOSKELETAL: Normal range of motion at all joints. No bony deformities or tenderness. No CVA tenderness. UPPER EXTREMITIES: 2+ pulses, warm, well-perfused. No cyanosis. No clubbing. No peripheral edema. LOWER EXTREMITIES: 2+ pulses, warm, well-perfused. No calf tenderness. peripheral edema 3+ bilat lower legs. NEUROLOGICAL: Cranial nerves II-XII intact. Normal speech. PSYCHIATRIC: Cooperative. Good eye contact. Appropriate mood and affect. SKIN: Warm, dry, normal turgor, no rashes or lesions noted, normal capillary refill. B/L LE with open areas, ? popped blisters, left barnes noted with approx 1.5cm x 1.5cm round open area with slough covering wound. Mild erythema to surrounding skin, no excessive warmth Laboratory Results - last 24 hr 3 09/11/18 09/11/18 09/11/18 17:51 17:51 21:31 WBC 19.2 H RBC 5.37 H Hgb 14.8 Hct 47.0 H D MCV 87.6 MCH 27.5 MCHC 31.4 L RDW 17.6 H Plt Count 176 D MPV 10.5 Absolute Neuts (auto) 17.7 H Neutrophils % 92.0 H D Lymphocytes % 2.8 L D Monocytes % 4.9 Eosinophils % 0.1 D Basophils % 0.2 Nucleated RBC % 0 Sodium Cancelled 140 Potassium Cancelled 4.7 Chloride Cancelled 106 Carbon Dioxide Cancelled 24 Anion Gap Cancelled 9 BUN Cancelled 46 H Creatinine Cancelled 1.7 H Creat Clearance w eGFR Cancelled 29.07 Random Glucose Cancelled 141 H Calcium Cancelled 9.1 Total Bilirubin Cancelled 1.6 H AST Cancelled 28 ALT Cancelled 38 Alkaline Phosphatase Cancelled 178 H Troponin I Cancelled < 0.02 B-Natriuretic Peptide Cancelled 7300.9 H Total Protein Cancelled 6.8 Albumin Cancelled 3.1 L ECG Atrial fibrillation with RVR vent rate 156, QTC 451 ST/T wave abnormality, TWI lead I, II, III, aVF, V5-V6, NO MAGDALENA/STD Radiology Reports EXAM: DUPLEX VASCULAR US-2 LEGS THIS IS A PRELIMINARY REPORT FROM IMAGING ON CALLFINDINGS/IMPRESSION: Occlusive intraluminal thrombus within the right popliteal vein and right posterior tibial vein No evidence of deep venous thrombosis within the left lower extremity THIS DOCUMENT HAS BEEN ELECTRONICALLY SIGNED Narciso Jimenez MD 09/12/2018 01:05 EST ASSESSMENT/PLAN: 77yF with PMH HTN presented to the ED with B/L LE edema and pain. New onset Afib - given cardizem IV and PO in ED with good response, start 30mg q6h - cardiology consult - echo - repeat ECG in am - trend troponins, unclear what triggered Afib - given lasix 40 in ED, cont daily for edema, possible CHF in setting of new onset afib HTN - hold home amlodipine in favor of cardizem for dual therapy rate control/ antihypertensive - hold hydralazine for now to allow room for cardizem increase if needed for rate control, would add back if BP elevated on cardizem once rate controlled DVT - will start eliquis, 10mg bid x 7 days then 5mg bid WILL - current - monitor BMP FEN - tolerating po fluids - bmp in am - low sodium diet as tolerated Dispo: pt currently requires further inpatient management of her emergent condition. Visit type - Emergency Visit Emergency Visit: Yes ED Registration Date: 09/11/18 Care time: The patient presented to the Emergency Department on the above date and was hospitalized for further evaluation of their emergent condition. - New Patient This patient is new to me today: Yes Date on this admission: 09/12/18 - Critical Care Critical Care patient: No
[2018-09-12 02:00] LABS: PLATELET ESTIMATE ADEQUATE
[2018-09-12] MEDS ORDERED: dilTIAZem HCL 30 MG TABLET (FP) PO ONE (02:58)
[2018-09-12] MEDS ORDERED: dilTIAZem HCL 30 MG TABLET (FP) ONE ×2 (03:30→06:59)
[2018-09-12] MEDS ORDERED: HEPARIN NA (PORCINE) 5,000 UNITS/ML 1ML VIAL SQ SCH (06:00)
[2018-09-12 06:56] LABS: BASO % 0.2 % (0-2.0); EOS % 0.1 % (0-4.5); HEMATOCRIT 43.9 % (32.4-45.2); HEMOGLOBIN 13.8 GM/dL (10.7-15.3); MCH 27.3 pg (25.7-33.7); MCHC 31.5 g/dl (32.0-36.0); MEAN CELL VOLUME 86.7 fl (80-96); MEAN PLT VOLUME 9.8 fl (7.5-11.1); MONO % 6.2 % (3.8-10.2); NEUT % 90.5 % (42.8-82.8); PLATELET COUNT 141 K/MM3 (134-434); RBC 5.07 M/mm3 (3.60-5.2); RDW 16.6 % (11.6-15.6)
[2018-09-12] MEDS: dilTIAZem HCL 30 MG TABLET (FP) PO SCH ×2 (07:04→13:42)
[2018-09-12 07:25] LABS: ANION GAP 9 MMOL/L (8-16); BLOOD UREA NITROGEN 45 mg/dL (7-18); CALCIUM 9.1 mg/dL (8.5-10.1); CHLORIDE 104 mmol/L (98-107); CO2 29 mmol/L (21-32); CREATININE 1.6 mg/dL (0.55-1.3); GLUCOSE,RANDOM 116 mg/dL (74-106); MAGNESIUM 2.2 mg/dL (1.8-2.4); PHOSPHOROUS 3.6 mg/dL (2.5-4.9); POTASSIUM 3.9 mmol/L (3.5-5.1); SODIUM 142 mmol/L (136-145)
[2018-09-12] MEDS ORDERED: hydrALAZINE HCL 25 MG TABLET (FP) PO SCH (10:00)
[2018-09-12] MEDS ORDERED: FUROSEMIDE 40 MG/4 ML INJECTABLE VIAL IVPUSH SCH (10:00)
[2018-09-12] MEDS ORDERED: APIXABAN 5 MG TABLET PO SCH (10:00)
[2018-09-12] MEDS: APIXABAN 5 MG TABLET PO SCH ×2 (10:15→21:46)
[2018-09-12 10:28] LABS: ANISOCYTOSIS 1+; MACROCYTOSIS 0; OVALOCYTE 1+; PLATELET ESTIMATE DECREASED; TEAR DROP CELLS 1+
--- NOTE | 2018-09-12 12:17 | EKG ---
Test Reason : Blood Pressure : / mmHG Vent. Rate : 156 BPM Atrial Rate : 150 BPM P-R Int : 000 ms QRS Dur : 078 ms QT Int : 280 ms P-R-T Axes : 000 041 207 degrees QTc Int : 451 ms ATRIAL FIBRILLATION WITH RAPID VENTRICULAR RESPONSE CANNOT RULE OUT ANTERIOR INFARCT , AGE UNDETERMINED ABNORMAL ECG WHEN COMPARED WITH ECG OF 19-DEC-2016 14:06, SIGNIFICANT CHANGES HAVE OCCURRED Confirmed by JUANY GUADARRAMA, [place] ([id number]) on 09/12/2018 12:17:47 PM Referred By: Confirmed By:PARIS HARRINGTON MD
--- NOTE | 2018-09-12 13:21 | ECHO ---
Name: SRIKANTH VALENZUELA Exam:Adult Echocardiogram Study Date: 09/12/2018 09:19 AM Age: 77 yrs Reason For Study: EDEMA,NEW ONSET A FIB Height: 63 in Weight: 180 lb BSA: 1.8 m2 MMode/2D Measurements & Calculations IVSd: 0.71 cm Ao root diam: 2.8 cm LVIDd: 3.8 cm LA dimension: 3.5 cm LVIDs: 2.5 cm ACS: 1.7 cm LVPWd: 0.91 cm IVSs: 1.1 cm LVPWs: 1.2 cm EDV(Teich): 62.0 ml ESV(Teich): 22.5 ml Doppler Measurements & Calculations Ao V2 max: 111.8 cm/sec AI max chivo: 184.8 cm/sec Ao max P.0 mmHg AI max P.7 mmHg Ao V2 mean: 86.6 cm/sec Ao mean P.2 mmHg AI dec slope: 185.0 cm/sec2 Ao V2 VTI: 18.9 cm AI P1/2t: 292.6 msec MR max chivo: 477.4 cm/sec TR max chivo: 304.8 cm/sec MR max P.2 mmHg TR max P.4 mmHg PI end-d chivo: 127.1 cm/sec Procedure A complete two-dimensional transthoracic echocardiogram was performed (2D, M-mode, Doppler and color flow Doppler). The patient was in atrial fibrillation with rapid ventricular response during the exam with a heart rate exceeding 100 bpm. Left Ventricle The left ventricular size, thickness and function are normal. The left ventricular ejection fraction is normal. Ejection Fraction = 55-60%. The left ventricular wall motion is normal. Right Ventricle The right ventricle is normal in size and function. Atria The left atrium is moderately dilated. The right atrium is moderately dilated. Mitral Valve There is mild mitral regurgitation. Tricuspid Valve There is moderate tricuspid regurgitation. Right ventricular systolic pressure is normal. Aortic Valve The aortic valve is trileaflet. No hemodynamically significant valvular aortic stenosis. No aortic regurgitation is present. Pulmonic Valve There is no pulmonic valvular regurgitation. Great Vessels The aortic root is normal size. Pericardium/Pleura There is no pericardial effusion. Interpretation Summary The patient was in atrial fibrillation with rapid ventricular response during the exam. The left ventricular size, thickness and function are normal The right ventricle is normal in size and function. The left atrium is moderately dilated. The right atrium is moderately dilated. There is mild mitral regurgitation. There is moderate tricuspid regurgitation. MD Jordan Malik 09/12/2018 01:21 PM
--- NOTE | 2018-09-12 16:25 | CON.CARD ---
Consult Consult Specialty:: Cardiology Referred by:: Dr. Quinn Reason for Consultation:: afib, chf - History of Present Illness Chief Complaint: edema, sob History of Present Illness: 77 year old woman with pmh HTN, admitted with progressively worsening b/l LE edema, sob, fatigue and found to be in newly dx Afib with RVR with a newly dx RLE DVT elevated wbc, DAYNA, peripheral and pulmonary edema. Pt seen and examined today in nad. states her symptoms have been going on for a few weeks. states she was previously very active playing bingo and [employer] but since her legs have been swollen she hasnt been able to walk much. denies chest pain, palpitations. no lightheadedness dizziness, syncope or near syncope - History Source History Provided By: Patient, Family Member, Medical Record Limitations to Obtaining History: No Limitations - Past Medical History Cardio/Vascular: Yes: HTN - Alcohol/Substance Use Hx Alcohol Use: No - Smoking History Smoking history: Never smoked Have you smoked in the past 12 months: No - Social History Usual Living Arrangement: Alone ADL: Independent History of Recent Travel: No Home Medications - Allergies Allergies/Adverse Reactions: Allergies Allergy/AdvReac Type Severity Reaction Status Date / Time No Known Allergies Allergy Verified 12/19/16 09:39 - Home Medications Home Medications: Ambulatory Orders Amlodipine Besylate 10 mg PO DAILY 09/12/18 Ergocalciferol (Vitamin D2) [Drisdol] 50,000 unit PO WEEKLY 09/12/18 Hydralazine HCl 25 mg PO BID 09/12/18 Hydrochlorothiazide 25 mg PO DAILY 09/12/18 Family Disease History - Family Disease History Family History: Denies Review of Systems - Review of Systems Constitutional: reports: Malaise, Weakness. denies: No Symptoms, Chills, Diaphoresis, Fever, Lethargy, Loss of Appetite, Night Sweats, Unintentional Wgt. Loss, Other Eyes: denies: No Symptoms, Blind Spots, Blurred Vision, Double Vision, Eye Pain , Floaters, Photophobia, Recent Change in Vision, Other HENT: denies: No Symptoms, Difficult Swallowing, Ear Discharge, Ear Pain, Epistaxis, Gingival Bleeding, Hearing Loss, Mouth Swelling, Nasal Congestion, Ocular Prosthesis, Throat Pain, Toothache, Ringing in Ears, Other Neck: denies: No Symptoms, Decreased ROM, Lumps, Pain on Movement, Stiffness, Swollen Glands, Tenderness, Other Cardiovascular: reports: Edema, Shortness of Breath. denies: No Symptoms, Chest Pain, Palpitations, Other Respiratory: reports: Exercise Intolerance, Orthopnea, SOB, SOB on Exertion. denies: No Symptoms, Cough, Hemoptysis, PND, Snoring, Wheezing, Other Gastrointestinal: denies: No Symptoms, Abdominal Pain, Bloating, Constipation, Diarrhea, Dysphagia, Indigestion, Melena, Nausea, Rectal Bleeding, Vomiting, Vomiting Blood, Other Genitourinary: denies: No Symptoms, Burning, Discharge, Dysuria, Flank Pain, Frequency, Hematuria, Incontinence, Lesions, Menses, Pain, Testicular Mass, Testicular Pain, Testicular Swelling, Urgency, Vaginal Bleeding, Other Breasts: denies: No Symptoms Reported, See HPI, Breast Implants, Discharge from Nipple, Lumps, Pain, Skin Changes, Other Musculoskeletal: denies: No Symptoms, Back Pain, Crepitus, Decreased ROM, Extremity Pain, Joint Pain, Joint Swelling, Muscle Pain, Muscle Cramps, Muscle Weakness, Other Integumentary: denies: No Symptoms, Blister, Bruising, Change in Color, Eczema, Erythema, Incision, Lesions, Lump, Pallor, Pruritis, Rash, Wound, Other Neurological: denies: No Symptoms, Change in LOC, Change in Speech, Confusion, Dizziness, Headache, Incoordination, Numbness, Parasthesia, Pre-Existing Deficit , Seizure, Syncope, Tremors, Unsteady Gait, Weakness, Other Endocrine: denies: No Symptoms, Excessive Sweating, Flushing, Increased Hunger, Increased Thirst, Intolerance to Cold, Intolerance to Heat, Unexplained Weight Gain, Unexplained Weight Loss, Other Hematology/Lymphatic: denies: No Symptoms, Easily Bruised, Excessive Bleeding, Swollen Glands, Other Psychiatric: denies: No Symptoms, Altered Sleep Pattern, Anxiety, Depression, Hallucinations, Panic, Paranoia, Suicidal, Other - Risk Factors Known Risk Factors: Yes: Hypertension Vital Signs: Vital Signs Temperature 98 F 09/12/18 13:09 Pulse Rate 120 H 09/12/18 13:09 Respiratory Rate 18 09/12/18 13:09 Blood Pressure 130/72 09/12/18 13:09 O2 Sat by Pulse Oximetry (%) 96 09/12/18 09:12 Constitutional: Yes: Well Nourished, No Distress, Calm Eyes: Yes: WNL, Conjunctiva Clear, EOM Intact, PERRL HENT: Yes: WNL, Atraumatic, Normocephalic Neck: Yes: WNL, Supple, Trachea Midline Respiratory: Yes: Regular, Diminished, Rales. No: Rhonchi, SOB, Wheezes Gastrointestinal: Yes: WNL, Normal Bowel Sounds, Soft. No: Distention, Tenderness Cardiovascular: Yes: Tachycardia, Pulse Irregular. No: Regular Rate and Rhythm , Bradycardia, Gallop, Rub, Varicosities JVD: No Carotid Bruit: No PMI: Non-Displaced Heart Sounds: Yes: S1, S2. No: Split S2, S3, S4, Clicks, Gallop, Rub, Bruit Murmur: No: Systolic Murmur, Diastolic Murmur Musculoskeletal: Yes: Muscle Weakness Edema: Yes Edema: LLE: 2+, RLE: 2+ Peripheral Pulses WNL: Yes Peripheral Pulses: 2+ Left Doralis Pedis, 2+ Right Dorsalis Pedis Neurological: Yes: Alert, Oriented Psychiatric: Yes: Alert, Oriented - Other Data Labs, Other Data: CBC, BMP 09/12/18 06:30 09/12/18 06:30 Troponin, BNP 09/11/18 09/11/18 09/12/18 17:51 21:31 06:30 Troponin I Cancelled < 0.02 < 0.02 B-Natriuretic Peptide Cancelled 7300.9 H Troponin, BNP 09/11/18 09/11/18 09/12/18 17:51 21:31 06:30 Troponin I Cancelled < 0.02 < 0.02 B-Natriuretic Peptide Cancelled 7300.9 H ekg-afib with RVR 150bpm, poor R progression Echo: Report Reviewed Imaging - Results Chest X-ray: Report Reviewed, Image Reviewed EKG: Report Reviewed, Image Reviewed Other: Report Reviewed, Image Reviewed Assessment/Plan 77 year old woman with pmh HTN, admitted with progressively worsening b/l LE edema, sob, fatigue and found to be in newly dx Afib with RVR with a newly dx RLE DVT elevated wbc, DAYNA, peripheral and pulmonary edema. states her symptoms have been going on for a few weeks. states she was previously very active playing bingo and bowling but since her legs have been swollen she hasnt been able to walk much. denies chest pain, palpitations. no lightheadedness dizziness, syncope or near syncope Edema/sob-acute decompensated diastolic CHF -likely related to AF with RVR -ECHO 09/12/18 showed normal LV/RV function, mild mr, mod tr, mod LAE/ANASTASIA -Control HR and ultimately may need to consider THOMAS/DCCV for episcopalian of NSR -start Lasix 40mg IV BID -monitor strict I/Os daily weights, bun/creat eletrolytes and replete as needed -Consider pulmonary embolism as source of new Afib given pt has a RLE DVT, cannot due CTA now due to DAYNA and she is already on eliquis, will have pulmonary evaluate Afib with RVR-newly diagnosed, unknown duration -HR control with Metoprolol uptitrate as needed -already on eliquis -tele monitoriong -may need consideration for THOMAS/DCCV during admission if not controlled -PE evaluation as above' -echo as above nl LVEF, no sig valvular abnl DVT -newly dx, unclear etiology -already on eliquis -will have Heme/onc evaluate to assist with possible etiologies, should have routine cancer screening
[2018-09-12] MEDS: FUROSEMIDE 40 MG/4 ML INJECTABLE VIAL IVPUSH SCH (16:50)
[2018-09-12] MEDS: metoPROLOL SUCCINATE 25 MG TAB.SR.24H (FP) PO SCH ×2 (16:50→21:46)
[2018-09-12] MEDS: METOPROLOL TARTRATE 5 MG/5 ML VIAL IVPUSH PRN (16:51)
[2018-09-12] MEDS ORDERED: PNEUMOC 13-VAL CONJ-DIP CRM/PF 0.5 ML DISP.SYRIN IM ONE (17:29)
[2018-09-12] MEDS ORDERED: FLU VACCINE QUAD 60 MCG/0.5 ML (MDV 18-19) IM ONE (17:31)
--- NOTE | 2018-09-12 20:35 | PN ---
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 (short form) - Note 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: events noted pt has B/L lower ext edema Vital Signs - 24 hr 09/12/18 09/12/18 09/12/18 09:09 09:12 13:09 Temperature 97.5 F L 98 F Pulse Rate 70 120 H Respiratory 18 18 Rate Blood Pressure 142/88 130/72 O2 Sat by Pulse 96 Oximetry (%) 09/12/18 09/12/18 09/12/18 16:51 17:00 17:25 Temperature 98.4 F Pulse Rate 151 H 125 H Respiratory 19 18 Rate Blood Pressure 118/80 118/80 O2 Sat by Pulse 96 Oximetry (%) 09/12/18 09/12/18 17:40 19:58 Temperature 98.4 F Pulse Rate 125 H Respiratory 19 Rate Blood Pressure 118/80 O2 Sat by Pulse 95 Oximetry (%) Current Medications Generic Name Dose Route Start Last Admin Trade Name Freq PRN Reason Stop Dose Admin Apixaban 5 mg 09/18/18 22:00 Eliquis - PO BID NEERAJ Apixaban 10 mg 09/12/18 03:01 09/12/18 10:15 Eliquis - PO 09/18/18 10:01 10 mg BID NEERAJ Administration Furosemide 40 mg 09/13/18 16:30 09/12/18 16:50 Lasix Injection - IVPUSH 40 mg BID@0600,1400 NEERAJ Administration Metoprolol Succinate 25 mg 09/12/18 16:29 09/12/18 16:50 Toprol Xl - PO 25 mg BID NEERAJ Administration Metoprolol Tartrate 5 mg 09/12/18 16:28 09/12/18 16:51 Lopressor Injection - IVPUSH 5 mg Q4H PRN Administration TACHYCARDIA Laboratory Results - last 24 hr 09/11/18 09/11/18 09/12/18 17:51 21:31 06:30 WBC 15.0 H RBC 5.07 Hgb 13.8 Hct 43.9 MCV 86.7 MCH 27.3 MCHC 31.5 L RDW 16.6 H Plt Count 141 MPV 9.8 Absolute Neuts (auto) 13.6 H Total Counted 100 Neutrophils % 90.5 H Neutrophils % (Manual) 86.0 H 95.0 H Band Neutrophils % 5.0 1.0 Lymphocytes % 3.0 L Lymphocytes % (Manual) 6.0 L 2.0 L D Monocytes % 6.2 Monocytes % (Manual) 3 L 0 L D Eosinophils % 0.1 Eosinophils % (Manual) 0.0 Basophils % 0.2 Basophils % (Manual) 0.0 Myelocytes % (Man) 0 Promyelocytes % (Man) 1 Blast Cells % (Manual) 0 Nucleated RBC % 0 Metamyelocytes 1 Hypochromia 0 Platelet Estimate Adequate Decreased Platelet Comment No clumping noted Present Polychromasia 1+ Poikilocytosis 1+ Anisocytosis 1+ Microcytosis 0 Macrocytosis 0 Spherocytes 1+ Tear Drop Cells 1+ Ovalocytes 1+ Sodium 140 Potassium 4.7 Chloride 106 Carbon Dioxide 24 Anion Gap 9 BUN 46 H Creatinine 1.7 H Creat Clearance w eGFR 29.07 Random Glucose 141 H Calcium 9.1 Phosphorus Magnesium Total Bilirubin 1.6 H AST 28 ALT 38 Alkaline Phosphatase 178 H Creatine Kinase Troponin I < 0.02 B-Natriuretic Peptide 7300.9 H Total Protein 6.8 Albumin 3.1 L 09/12/18 06:30 WBC RBC Hgb Hct MCV MCH MCHC RDW Plt Count MPV Absolute Neuts (auto) Total Counted Neutrophils % Neutrophils % (Manual) Band Neutrophils % Lymphocytes % Lymphocytes % (Manual) Monocytes % Monocytes % (Manual) Eosinophils % Eosinophils % (Manual) Basophils % Basophils % (Manual) Myelocytes % (Man) Promyelocytes % (Man) Blast Cells % (Manual) Nucleated RBC % Metamyelocytes Hypochromia Platelet Estimate Platelet Comment Polychromasia Poikilocytosis Anisocytosis Microcytosis Macrocytosis Spherocytes Tear Drop Cells Ovalocytes Sodium 142 Potassium 3.9 Chloride 104 Carbon Dioxide 29 Anion Gap 9 BUN 45 H Creatinine 1.6 H Creat Clearance w eGFR 31.17 Random Glucose 116 H Calcium 9.1 Phosphorus 3.6 Magnesium 2.2 Total Bilirubin AST ALT Alkaline Phosphatase Creatine Kinase 21 L Troponin I < 0.02 B-Natriuretic Peptide Total Protein Albumin S1 S2 irregular Lungs decreased Abd- soft,NT edema+ PLAN On [employer] noted BP control Tele monitoring Cardiology eval Problem List - Problems (1) CKD (chronic kidney disease) Code(s): N18.9 - CHRONIC KIDNEY DISEASE, UNSPECIFIED (2) DVT (deep venous thrombosis) Code(s): I82.409 - ACUTE EMBOLISM AND THOMBOS UNSP DEEP VN UNSP LOWER EXTREMITY (3) Edema Code(s): R60.9 - EDEMA, UNSPECIFIED (4) HTN (hypertension) Code(s): I10 - ESSENTIAL (PRIMARY) HYPERTENSION (5) Atrial fibrillation with RVR Code(s): I48.91 - UNSPECIFIED ATRIAL FIBRILLATION
[2018-09-13] MEDS: METOPROLOL TARTRATE 5 MG/5 ML VIAL IVPUSH PRN ×2 (00:28→18:12)
[2018-09-13] MEDS ORDERED: ACETAMINOPHEN 325 MG TABLET (FP) PO ONE (00:33)
[2018-09-13] MEDS ORDERED: SODIUM CHLORIDE 250 ML IV STA (00:34)
[2018-09-13 06:49] LABS: URINE APPEARANCE CLEAR; URINE BILIRUBIN NEGATIVE (<2.0 mg/dL); URINE COLOR LTYELLOW; URINE GLUCOSE (UA) NEGATIVE (NEGATIVE); URINE KETONE NEGATIVE (NEGATIVE); URINE LEUK ESTERASE TRACE (NEGATIVE); URINE NITRITE NEGATIVE (NEGATIVE); URINE PROTEIN NEGATIVE (NEGATIVE); URINE UROBILINOGEN NEGATIVE mg/dL (0.2-1.0)
[2018-09-13 06:52] LABS: EPI CELLS RARE /HPF (FEW); URINE BACTERIA RARE /hpf (NONE SEEN); URINE HYALINE CAST 4 /lpf; URINE MUCUS RARE
[2018-09-13] MEDS: APIXABAN 5 MG TABLET PO SCH ×2 (09:09→21:00)
[2018-09-13] MEDS: metoPROLOL SUCCINATE 25 MG TAB.SR.24H (FP) PO SCH ×2 (09:09→20:59)
--- NOTE | 2018-09-13 11:02 | PN ---
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 (short form) - Note 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: Pt seen / examined. Chart reviewed Office records reviewed-- Last visit 02/03-- did not come for f/u. Overall feels better Denies chest pain or shortness of breath Vital Signs Temp 98.3 F 09/13/18 10:20 Pulse 101 H 09/13/18 10:20 Resp 18 09/13/18 10:20 BP 131/69 09/13/18 10:20 Pulse Ox 98 09/13/18 10:20 Intake & Output 09/12/18 09/12/18 09/13/18 11:59 23:59 11:59 Intake Total 250 Balance 250 Weight 180 lb Intake: IVPB 250 Other: Voiding Method Diaper Diaper Diaper # Unmeasured Voids Void 4 Height 5 ft 3 in Body Mass Index (BMI) 31.8 Weight Measurement Method Stated by Patient Active Medications Apixaban (Eliquis -) 5 mg PO BID [facility] Apixaban (Eliquis -) 10 mg PO BID [facility] Stop: 09/18/18 10:01 Last Admin: 09/13/18 09:09 Dose: 10 mg Furosemide (Lasix Injection -) 40 mg IVPUSH BID@0600,1400 [facility] Last Admin: 09/12/18 16:50 Dose: 40 mg Metoprolol Succinate (Toprol Xl -) 25 mg PO BID [facility] Last Admin: 09/13/18 09:09 Dose: 25 mg Metoprolol Tartrate (Lopressor Injection -) 5 mg IVPUSH Q4H PRN PRN Reason: TACHYCARDIA Last Admin: 09/13/18 00:28 Dose: 5 mg CBC, BMP 09/12/18 06:30 09/12/18 06:30 Microbiology 09/11/18 21:31 Blood Culture - Preliminary Blood - Peripheral Venous NO GROWTH OBTAINED AFTER 24 HOURS, INCUBATION TO CONTINUE FOR 4 DAYS. 09/11/18 21:31 Blood Culture - Preliminary Blood - Peripheral Venous NO GROWTH OBTAINED AFTER 24 HOURS, INCUBATION TO CONTINUE FOR 4 DAYS. u/s / cxr/ ekg/ echo reviewed Physical exam Conscious cooperative alert and awake Neck--supple Lungs--diminished at bases Heart sounds--- regular Abdomen--soft Extremities--trace edema Neuro--alert and awake assessment and plan Medications reviewed clinically better Monitor on telemetry Pulmonary and hematology evaluations Monitor lites Consider--- CT chest--- as patient still tachycardic Will follow . Problem List - Problems (1) Atrial fibrillation with RVR Code(s): I48.91 - UNSPECIFIED ATRIAL FIBRILLATION (2) CKD (chronic kidney disease) Code(s): N18.9 - CHRONIC KIDNEY DISEASE, UNSPECIFIED (3) DVT (deep venous thrombosis) Code(s): I82.409 - ACUTE EMBOLISM AND THOMBOS UNSP DEEP VN UNSP LOWER EXTREMITY (4) HTN (hypertension) Code(s): I10 - ESSENTIAL (PRIMARY) HYPERTENSION
--- NOTE | 2018-09-13 11:56 | CONSULT ---
Consult Consult Specialty:: Heme/Onc Referred by:: Dr. Larkin Reason for Consultation:: new DVT - History of Present Illness Chief Complaint: brianne swelling and fatigue History of Present Illness: This is a 77 year old female with a past medical history of HTN who presented to the ED with bilateral lower extremity edema and weakness for the past 1-2 weeks. patient states she usually goes bowling on but lately has not had the energy to do it. She is accompanied by her daughter and son. Daughter reports her mom not taking her BP medications like she was supposed to and she has been more forgetful. She is not as sharp as she usually is although she does know where she is the date and her name and date of . She was found to have a RLE PT and popliteal DVT and started on eliqus. She denies a history of any blood or oncological disorders in her family. She has been recently having bilateral lower extremity edema and has not been ambulating as much as she used to. It is not uncommon for her to spend more than 4-6 hours in bed or on the couch without movement. She was found to have new onset A fib with RVR and also started on eliquis for that as well. Creatinine 1.6 which seems to be at baseline when compared to labs done last year. - History Source History Provided By: Patient, Family Member, Medical Record Limitations to Obtaining History: Poor Historian - Past Medical History Cardio/Vascular: Yes: HTN Renal/: Yes: Renal Inusuff - Alcohol/Substance Use Hx Alcohol Use: No - Smoking History Smoking history: Never smoked Have you smoked in the past 12 months: No - Social History Usual Living Arrangement: Alone ADL: Independent History of Recent Travel: No Home Medications - Allergies Allergies/Adverse Reactions: Allergies Allergy/AdvReac Type Severity Reaction Status Date / Time No Known Allergies Allergy Verified 12/19/16 09:39 - Home Medications Home Medications: Ambulatory Orders Amlodipine Besylate 10 mg PO DAILY 09/12/18 Ergocalciferol (Vitamin D2) [Drisdol] 50,000 unit PO WEEKLY 09/12/18 Hydralazine HCl 25 mg PO BID 09/12/18 Hydrochlorothiazide 25 mg PO DAILY 09/12/18 Family Disease History - Family Disease History Family History: Denies Review of Systems - Review of Systems Constitutional: reports: Weakness Eyes: reports: No Symptoms HENT: reports: No Symptoms Neck: reports: No Symptoms Cardiovascular: reports: Palpitations Gastrointestinal: reports: No Symptoms Genitourinary: reports: No Symptoms Breasts: reports: No Symptoms Reported Musculoskeletal: reports: No Symptoms Integumentary: reports: Blister (LLE noticed after admission by the patient and her family) Neurological: reports: No Symptoms Endocrine: reports: No Symptoms Hematology/Lymphatic: reports: No Symptoms Psychiatric: reports: Other (forgetful) Physical Exam Vital Signs: Vital Signs Temperature 98.3 F 09/13/18 10:20 Pulse Rate 101 H 09/13/18 10:20 Respiratory Rate 18 09/13/18 10:20 Blood Pressure 131/69 09/13/18 10:20 O2 Sat by Pulse Oximetry (%) 98 09/13/18 10:20 Constitutional: Yes: Well Nourished, No Distress Eyes: Yes: Conjunctiva Clear, EOM Intact HENT: Yes: Atraumatic, Normocephalic Neck: Yes: Supple. No: Lymphadenopathy Cardiovascular: Yes: Pulse Irregular Respiratory: Yes: Regular, CTA Bilaterally Gastrointestinal: Yes: Normal Bowel Sounds, Soft Renal/: No: CVA Tenderness - Left, CVA Tenderness - Right Breast(s): Yes: Other (no masses palpated no supraclavicular or inguinal lymphadenopathy). No: Dimpling, Discharge from Nipple, Nipple Inversion, Skin Changes Extremities: Yes: Other (bilateral lower extremity pitting edema. RLE with small 1cm skin tear anterior barnes. LLE with 2 about 2-3 cm ulcers on anterior barnes and lateral leg. do not look infected. minor ertyhema surrounding the ulcers. no drainage. tender left calf. negative homans sign.) Labs: CBC, BMP 09/12/18 06:30 09/12/18 06:30 Imaging - Results X-ray: Report Reviewed, Image Reviewed Ultrasound: Report Reviewed (duplex) Other: Report Reviewed (echo reviewed) Assessment/Plan 77F with history of HTN and CKD presents to the hospital with fatigue and bilateral lower extremity edema found to have LLE DVT and new onset A.fib with RVR. Problem List: A. fib with RVR - new onset RLE DVT-PT and popliteal - new onset LLE ulcers leukocytosis HTN CKD Plan: DVT likely from venous stasis drom lower extremity edema and not being mobile. Patient follow up with Dr. Gutierrez as an outpatient and have hypercoagulability workup as outpatient continue elquis per cardiology and primary team.- 10mg po daily for 7 days then 5mg po BID Thank you for this consultative opportunity
--- NOTE | 2018-09-13 15:06 | PN ---
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 (short form) - Note 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: PULMONARY CONSULTATION DICTATED 09/13/18 IMP RLL DVT AFIB NEW ONSET HTN CKD 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 PLAN ELIQUIS CHEST CT NON-CONTRAST V/Q RATE CONTROL PER CARDIOLOGY MONITOR LYTES,RENAL FUNCTION SLEEP SCREEN W/U FOR HYPERCOAGULABLE STATE OUTPATIENT DR WIN Problem List - Problems (1) Atrial fibrillation with RVR Code(s): I48.91 - UNSPECIFIED ATRIAL FIBRILLATION (2) Edema Code(s): R60.9 - EDEMA, UNSPECIFIED (3) Leg edema Code(s): R60.0 - LOCALIZED EDEMA (4) HTN (hypertension) Code(s): I10 - ESSENTIAL (PRIMARY) HYPERTENSION (5) DVT (deep venous thrombosis) Code(s): I82.409 - ACUTE EMBOLISM AND THOMBOS UNSP DEEP VN UNSP LOWER EXTREMITY (6) CKD (chronic kidney disease) Code(s): N18.9 - CHRONIC KIDNEY DISEASE, UNSPECIFIED
--- NOTE | 2018-09-13 15:47 | CONS ---
DATE OF CONSULTATION: 09/13/2018 REFERRING PHYSICIAN: Anu Quinn MD HISTORY: The patient is a 77-year-old white female with a past medical history of hypertension, nonsmoker admitted to [facility] with the complaint of bilateral lower extremity edema, increased malaise, and weakness for approximately 1 week and difficulty walking for approximately 1 week. The patient presented to the emergency room with bilateral lower extremity pitting edema. She also had the new onset of left lower extremity stasis ulcer. There was no bloody purulent drainage. The patient, according to the family, is ambulatory, works at a [employer] 4 hours a week, and does her housework. Apparently, at current hospitalization, the patient was noted to be in acute new onset atrial fibrillation. She also underwent a duplex to the lower extremities, which revealed an occlusive thrombus in the right popliteal and posterior tibial veins. She was subsequently started on Eliquis. A CTA was unable to be performed secondary to elevated creatinine. The patient denies any history of COPD or asthma. Denies any history of cardiac disease. There is no history of occupational exposure to chemicals or fumes. She denies any shortness of breath, PND, or orthopnea. Denies any chronic cough or hemoptysis. PAST MEDICAL HISTORY: Again, includes hypertension. REVIEW OF SYSTEMS: No orthopnea, no PND. Positive weakness. No chest pain, no palpitations, no nausea, no vomiting. Positive lower extremity edema. CURRENT MEDICATIONS: Include Eliquis, Toprol, Lopressor, and Lasix. PHYSICAL EXAMINATION: General: The patient is an elderly black female well developed, well nourished, awake, alert in no acute distress. Vital Signs: She is afebrile. Blood pressure 131/69, respiratory rate is 18, O2 saturation is 98% on 2 L. HEENT: Normocephalic and atraumatic. Neck: Supple. Heart: Irregularly irregular. S1, S2. Chest: Clear. Abdomen: Soft. Bowel sounds are positive. Extremities: Bilateral lower extremity edema. LABORATORIES: WBC 15, hemoglobin 13.8, hematocrit 43.9 with a platelet count of 141,000. BUN 45, creatinine 1.6. BNP 7300. Chest x-ray: Cardiomegaly right cardiophrenic angle. Duplex as noted earlier. IMPRESSION: 1. New onset atrial fibrillation. 2. Right lower extremity deep vein thrombosis. 3. Density right cardiophrenic angle. 4. Hypertension. 5. Chronic kidney disease. PLAN: Continue Eliquis. Supplemental O2. CT scan of the chest without contrast to evaluate right cardiophrenic density. Also obtain ventilation perfusion lung scan. Workup hypercoagulable state as an outpatient. Monitor renal function. ZOYA WIN M.D. BRAEDEN/[id number]
--- NOTE | 2018-09-13 16:06 | PN ---
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, Physician Chief Complaint: CHF History of Present Illness: This is a 77 year old woman with pmh HTN, admitted with progressively worsening b/l LE edema, sob, fatigue and found to be in newly dx Afib with RVR with a newly dx RLE DVT elevated wbc, DAYNA, peripheral and pulmonary edema. The symptoms have progressively worsened over the past weeks. ECHO 09/12/18 showed normal LV/RV function, mild mr, mod tr, mod LAE/ANASTASIA. - Current Medication List Current Medications: Active Medications Apixaban (Eliquis -) 5 mg PO BID [facility] Apixaban (Eliquis -) 10 mg PO BID [facility] Stop: 09/18/18 10:01 Last Admin: 09/13/18 09:09 Dose: 10 mg Furosemide (Lasix Injection -) 40 mg IVPUSH BID@0600,1400 [facility] Last Admin: 09/12/18 16:50 Dose: 40 mg Metoprolol Succinate (Toprol Xl -) 25 mg PO BID [facility] Last Admin: 09/13/18 09:09 Dose: 25 mg Metoprolol Tartrate (Lopressor Injection -) 5 mg IVPUSH Q4H PRN PRN Reason: TACHYCARDIA Last Admin: 09/13/18 00:28 Dose: 5 mg - Objective Vital Signs: Vital Signs Temperature 98.6 F 09/13/18 14:15 Pulse Rate 132 H 09/13/18 14:15 Respiratory Rate 18 09/13/18 14:15 Blood Pressure 106/60 09/13/18 14:15 O2 Sat by Pulse Oximetry (%) 98 09/13/18 10:20 Constitutional: Yes: Well Nourished Eyes: Yes: WNL HENT: Yes: WNL Neck: Yes: WNL Cardiovascular: Yes: Pulse Irregular (N1S2) Respiratory: Yes: Diminished (Basilar rales) Gastrointestinal: Yes: Normal Bowel Sounds Edema: LLE: 1+, RLE: 1+ Neurological: Yes: Alert, Oriented (Grossly nonfocal) Labs: CBC, BMP 09/12/18 06:30 09/12/18 06:30 Assessment/Plan 77 year old woman with pmh HTN, admitted with progressively worsening b/l LE edema, sob, fatigue and found to be in newly dx Afib with RVR with a newly dx RLE DVT elevated wbc, DAYNA, peripheral and pulmonary edema. The symptoms have progressively worsened over the past weeks. ECHO 09/12/18 showed normal LV/RV function, mild mr, mod tr, mod LAE/ANASTASIA. CHF Acute on chronic diastolic CHF Likely related to AF with RVR Continue Lasix 40 mg IVSS BID. Daily Wt's/Lytes/I's/O's AFIB Continue AC with Apixaban Continue rate control with Metoprolol Succinate 25 mg PO BID PE evaluation DVT Newly dx, unclear etiology Already on eliquis Heme/onc evaluate to assist with possible etiologies, should have routine cancer screening
[2018-09-13] MEDS: FUROSEMIDE 40 MG/4 ML INJECTABLE VIAL IVPUSH SCH (16:38)
[2018-09-13] MEDS: ACETAMINOPHEN 325 MG TABLET (FP) PO PRN (20:57)
[2018-09-14] MEDS: FUROSEMIDE 40 MG/4 ML INJECTABLE VIAL IVPUSH SCH ×2 (05:50→13:53)
[2018-09-14 07:36] LABS: BASO % 0.1 % (0-2.0); EOS % 0.2 % (0-4.5); HEMATOCRIT 41.1 % (32.4-45.2); HEMOGLOBIN 12.8 GM/dL (10.7-15.3); LYMPH % 3.5 % (8-40); MCH 26.9 pg (25.7-33.7); MCHC 31.2 g/dl (32.0-36.0); MEAN CELL VOLUME 86.4 fl (80-96); MEAN PLT VOLUME 9.9 fl (7.5-11.1); MONO % 4.8 % (3.8-10.2); NEUT % 91.4 % (42.8-82.8); PLATELET COUNT 139 K/MM3 (134-434); RBC 4.75 M/mm3 (3.60-5.2); RDW 16.7 % (11.6-15.6); WHITE BLOOD COUNT 18.1 K/mm3 (4.0-10.0)
[2018-09-14 08:29] LABS: ALK PHOS 124 U/L (45-117); ANION GAP 11 MMOL/L (8-16); BILIRUBIN,TOTAL 0.9 mg/dL (0.2-1); BLOOD UREA NITROGEN 37 mg/dL (7-18); CALCIUM 7.9 mg/dL (8.5-10.1); CHLORIDE 104 mmol/L (98-107); CHOLESTEROL 79 mg/dL (50-200); CO2 27 mmol/L (21-32); CREATININE 1.3 mg/dL (0.55-1.3); GLUCOSE,RANDOM 92 mg/dL (74-106); HDL CHOLESTEROL 37 mg/dL (40-60); POTASSIUM 3.2 mmol/L (3.5-5.1); SGOT/AST 23 U/L (15-37); SGPT/ALT 25 U/L (13-61); SODIUM 142 mmol/L (136-145); TOT PROT 4.8 g/dl (6.4-8.2); TRIGLYCERIDES 55 mg/dL (0-150)
[2018-09-14] MEDS: APIXABAN 5 MG TABLET PO SCH ×2 (09:30→21:31)
[2018-09-14] MEDS: metoPROLOL SUCCINATE 25 MG TAB.SR.24H (FP) PO SCH ×2 (09:30→21:31)
[2018-09-14 11:45] LABS: ACANTHOCYTES 0; ANISOCYTOSIS 0; HELMET CELLS 0; HOWELL-JOLLY BODIES 0; MACROCYTOSIS 0; OVALOCYTE 0; PLATELET ESTIMATE DECREASED; ROULEAU 0; SICKELED CELLS 0; TARGET CELLS 0; TEAR DROP CELLS 0; TOXIC GRANULATION 0
--- NOTE | 2018-09-14 11:47 | PN ---
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 (short form) - Note 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: pt seen/ examined comfortable non toxic appearance afebrile. ct chest-- Large Retrocardic hernia remains tachy overall feels ok Vital Signs Temp 98.1 F 09/14/18 10:00 Pulse 116 H 09/14/18 10:00 Resp 18 09/14/18 10:00 BP 114/62 09/14/18 10:00 Pulse Ox 97 09/14/18 10:06 Intake & Output 09/13/18 09/13/18 09/14/18 11:59 23:59 11:59 Intake Total 250 300 Balance 250 300 Weight 180 lb Intake: IVPB 250 Oral 300 Other: Voiding Method Diaper Diaper Incontinent # Unmeasured Voids Void 4 1 1 Bowel Movement No Height 5 ft 3 in Body Mass Index (BMI) 31.8 Active Medications Acetaminophen (Tylenol -) 650 mg PO Q6H PRN PRN Reason: FEVER Last Admin: 09/13/18 20:57 Dose: 650 mg Apixaban (Eliquis -) 5 mg PO BID [facility] Apixaban (Eliquis -) 10 mg PO BID [facility] Stop: 09/18/18 10:01 Last Admin: 09/14/18 09:30 Dose: 10 mg Furosemide (Lasix Injection -) 40 mg IVPUSH BID@0600,1400 [facility] Last Admin: 09/14/18 05:50 Dose: 40 mg Metoprolol Succinate (Toprol Xl -) 25 mg PO BID [facility] Last Admin: 09/14/18 09:30 Dose: 25 mg Metoprolol Tartrate (Lopressor Injection -) 5 mg IVPUSH Q4H PRN PRN Reason: TACHYCARDIA Last Admin: 09/13/18 18:12 Dose: 5 mg CBC, BMP 09/14/18 06:14 09/14/18 06:14 Microbiology 09/13/18 06:20 Urine Culture - Preliminary Urine - Urine - Catheterized Group D Strep Or Entero Coccus 09/11/18 21:31 Blood Culture - Preliminary Blood - Peripheral Venous NO GROWTH OBTAINED AFTER 48 HOURS, INCUBATION TO CONTINUE FOR 3 DAYS. 09/11/18 21:31 Blood Culture - Preliminary Blood - Peripheral Venous NO GROWTH OBTAINED AFTER 48 HOURS, INCUBATION TO CONTINUE FOR 3 DAYS. Physical exam Conscious cooperative alert and awake Neck--supple/ no jvd Lungs--diminished at bases Heart sounds--- regular Abdomen--soft/ non tender . Extremities--trace edema Neuro--alert and awake Assessment and plan clinically better/ stable. continue present care elevated wbc-- monitor off abx likely due to acute dvt hematology eval pending Hernia-- No active issues F/u with surgeon as out pt. daily oob - chair. Physical Therapy will follow. Problem List - Problems (1) Atrial fibrillation with RVR Code(s): I48.91 - UNSPECIFIED ATRIAL FIBRILLATION (2) CKD (chronic kidney disease) Code(s): N18.9 - CHRONIC KIDNEY DISEASE, UNSPECIFIED (3) DVT (deep venous thrombosis) Code(s): I82.409 - ACUTE EMBOLISM AND THOMBOS UNSP DEEP VN UNSP LOWER EXTREMITY (4) HTN (hypertension) Code(s): I10 - ESSENTIAL (PRIMARY) HYPERTENSION
[2018-09-14] MEDS: ACETAMINOPHEN 325 MG TABLET (FP) PO PRN (13:06)
--- NOTE | 2018-09-14 13:32 | PN ---
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, Physician Chief Complaint: Mild left leg pain Afib better controlled but still tachy History of Present Illness: 77 year old woman with pmh HTN, admitted with progressively worsening b/l LE edema, sob, fatigue and found to be in newly dx Afib with RVR with a newly dx RLE DVT elevated wbc, DAYNA, peripheral and pulmonary edema. The symptoms have progressively worsened over the past weeks. ECHO 09/12/18 showed normal LV/RV function, mild mr, mod tr, mod LAE/ANASTASIA. - Current Medication List Current Medications: Active Medications Acetaminophen (Tylenol -) 650 mg PO Q6H PRN PRN Reason: FEVER Last Admin: 09/14/18 13:06 Dose: 650 mg Apixaban (Eliquis -) 5 mg PO BID [facility] Apixaban (Eliquis -) 10 mg PO BID [facility] Stop: 09/18/18 10:01 Last Admin: 09/14/18 09:30 Dose: 10 mg Furosemide (Lasix Injection -) 40 mg IVPUSH BID@0600,1400 [facility] Last Admin: 09/14/18 05:50 Dose: 40 mg Metoprolol Succinate (Toprol Xl -) 25 mg PO BID [facility] Last Admin: 09/14/18 09:30 Dose: 25 mg Metoprolol Tartrate (Lopressor Injection -) 5 mg IVPUSH Q4H PRN PRN Reason: TACHYCARDIA Last Admin: 09/13/18 18:12 Dose: 5 mg - Objective Vital Signs: Vital Signs Temperature 98.1 F 09/14/18 10:00 Pulse Rate 116 H 09/14/18 10:00 Respiratory Rate 18 09/14/18 10:00 Blood Pressure 114/62 09/14/18 10:00 O2 Sat by Pulse Oximetry (%) 97 09/14/18 10:06 Constitutional: Yes: No Distress Neck: Yes: Supple Cardiovascular: Yes: Pulse Irregular, JVD, S1, S2 Respiratory: Yes: Rales Gastrointestinal: Yes: Soft Edema: LLE: 1+, RLE: 1+ Labs: CBC, BMP 09/14/18 06:14 09/14/18 06:14 Assessment/Plan 77 year old woman with pmh HTN, admitted with progressively worsening b/l LE edema, sob, fatigue and found to be in newly dx Afib with RVR with a newly dx RLE DVT elevated wbc, DAYNA, peripheral and pulmonary edema. The symptoms have progressively worsened over the past weeks. ECHO 09/12/18 showed normal LV/RV function, mild mr, mod tr, mod LAE/ANASTASIA. CHF Acute on chronic diastolic CHF Likely related to AF with RVR Continue Lasix 40 mg IVSS BID. Daily Wt's/Lytes/I's/O's AFIB Continue AC with Apixaban Continue rate control with Metoprolol Succinate 25 mg PO BID Would add digoxin for better rate control. Give two doses today of digoxin 0.25 once and second dose 6 hours later. Start daily digoxin 0.125 tomorrow PE evaluation DVT Newly dx, unclear etiology Already on eliquis Heme/onc evaluate to assist with possible etiologies, should have routine cancer screening
--- NOTE | 2018-09-14 14:58 | PN ---
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 (short form) - Note 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: PULMONARY Denies shortness of breath, chest pain or palpitations. Vital Signs Period Temp Pulse Resp BP Sys/Cisneros Pulse Ox Last 24 Hr 88 F-98.8 F 88-130 18-20 101-124/57-70 95-97 Gen: NAD at rest Heart: RRR Lung: decreased breath sounds at the bases Abd: soft, nontender Ext: LLE edema CBC, BMP 09/14/18 06:14 09/14/18 06:14 Active Medications Acetaminophen (Tylenol -) 650 mg PO Q6H PRN PRN Reason: FEVER Last Admin: 09/14/18 13:06 Dose: 650 mg Apixaban (Eliquis -) 5 mg PO BID [facility] Apixaban (Eliquis -) 10 mg PO BID [facility] Stop: 09/18/18 10:01 Last Admin: 09/14/18 09:30 Dose: 10 mg Furosemide (Lasix Injection -) 40 mg IVPUSH BID@0600,1400 [facility] Last Admin: 09/14/18 13:53 Dose: 40 mg Metoprolol Succinate (Toprol Xl -) 25 mg PO BID [facility] Last Admin: 09/14/18 09:30 Dose: 25 mg Metoprolol Tartrate (Lopressor Injection -) 5 mg IVPUSH Q4H PRN PRN Reason: TACHYCARDIA Last Admin: 09/13/18 18:12 Dose: 5 mg A/P Acute on Chronic Diastolic Heart Failure RLL DVT Atrial Fibrillation HTN CKD Likely EMELIA - rate control - continue anticoagulation - O2 as needed - continue lasix - monitor urine output, creatinine - replete lytes - can defer V/Q scan as pt already being anticoagulated for atrial fibrillation and DVT, no RV dysfunction on echocardiogram so V/Q scan will not change control analyst
--- NOTE | 2018-09-14 17:37 | PN ---
Teaching Attending Note ATTENDING PHYSICIAN STATEMENT I saw and evaluated the patient. I reviewed the resident's note and discussed the case with the resident. I agree with the resident's findings and plan as documented. SUBJECTIVE: OBJECTIVE: ASSESSMENT AND PLAN:
--- NOTE | 2018-09-14 17:38 | PN ---
Teaching Attending Note Name of Resident: Dilip Santos ATTENDING PHYSICIAN STATEMENT I saw and evaluated the patient. I reviewed the resident's note. I agree with the resident's findings and plan as documented, with exceptions noted below. ASSESSMENT AND PLAN: Newly diagnosed LE DVT. Possibly provoked in setting of recent decreased mobility - however cannot exclude possibility that DVT resulted in her decreased mobility. Requires full anticoagulation - agree with a DOAC. Also indicated for newly diagnosed AF. 'Hypercoagulability workup' NOT warranted in this 77 year old female, will in no way affect management. Age appropriate cancer screening. Directed screening for malignancy only if clinical findings suggestive thereof. Consideration of duration of anticoagulation for her DVT is diane, since long- term AC is indicated for her AF.
[2018-09-15] MEDS: FUROSEMIDE 40 MG/4 ML INJECTABLE VIAL IVPUSH SCH ×2 (06:39→14:45)
[2018-09-15 06:54] LABS: BASO % 0.2 % (0-2.0); EOS % 0.2 % (0-4.5); HEMATOCRIT 39.6 % (32.4-45.2); HEMOGLOBIN 12.7 GM/dL (10.7-15.3); LYMPH % 2.9 % (8-40); MCH 27.3 pg (25.7-33.7); MCHC 32.2 g/dl (32.0-36.0); MEAN CELL VOLUME 85.1 fl (80-96); MEAN PLT VOLUME 9.8 fl (7.5-11.1); MONO % 5.1 % (3.8-10.2); NEUT % 91.6 % (42.8-82.8); PLATELET COUNT 168 K/MM3 (134-434); RBC 4.66 M/mm3 (3.60-5.2); WHITE BLOOD COUNT 19.8 K/mm3 (4.0-10.0)
[2018-09-15 07:24] LABS: ALBUMIN 1.8 g/dl (3.4-5.0); ALK PHOS 119 U/L (45-117); ANION GAP 10 MMOL/L (8-16); BILIRUBIN,TOTAL 0.8 mg/dL (0.2-1); BLOOD UREA NITROGEN 35 mg/dL (7-18); CALCIUM 7.6 mg/dL (8.5-10.1); CHLORIDE 103 mmol/L (98-107); CO2 30 mmol/L (21-32); CREATININE 1.2 mg/dL (0.55-1.3); GLUCOSE,RANDOM 121 mg/dL (74-106); POTASSIUM 3.2 mmol/L (3.5-5.1); SGOT/AST 26 U/L (15-37); SGPT/ALT 26 U/L (13-61); SODIUM 143 mmol/L (136-145); TOT PROT 4.6 g/dl (6.4-8.2)
[2018-09-15] MEDS: METOPROLOL TARTRATE 5 MG/5 ML VIAL IVPUSH PRN (08:09)
[2018-09-15 09:15] LABS: ANISOCYTOSIS 2+; MACROCYTOSIS 1+; PLATELET ESTIMATE DECREASED
[2018-09-15] MEDS: APIXABAN 5 MG TABLET PO SCH ×2 (09:55→21:00)
[2018-09-15] MEDS: metoPROLOL SUCCINATE 25 MG TAB.SR.24H (FP) PO SCH (09:55)
--- NOTE | 2018-09-15 10:28 | PN ---
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 (short form) - Note 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: comfortable remains tachy otherwise ok Vital Signs Temp 97.9 F 09/15/18 08:13 Pulse 141 H 09/15/18 08:13 Resp 18 09/15/18 08:13 BP 137/80 09/15/18 08:13 Pulse Ox 97 09/14/18 21:00 Intake & Output 09/14/18 09/14/18 09/15/18 11:59 23:59 11:59 Intake Total 500 160 Balance 500 160 Intake: IV 40 sl 40 Oral 500 120 Other: Voiding Method Incontinent Incontinent Diaper # Unmeasured Voids Void 1 2 2 Bowel Movement No Active Medications Acetaminophen (Tylenol -) 650 mg PO Q6H PRN PRN Reason: FEVER Last Admin: 09/14/18 13:06 Dose: 650 mg Apixaban (Eliquis -) 5 mg PO BID [facility] Apixaban (Eliquis -) 10 mg PO BID [facility] Stop: 09/18/18 10:01 Last Admin: 09/15/18 09:55 Dose: 10 mg Furosemide (Lasix Injection -) 40 mg IVPUSH BID@0600,1400 [facility] Last Admin: 09/15/18 06:39 Dose: 40 mg Metoprolol Tartrate (Lopressor Injection -) 5 mg IVPUSH Q4H PRN PRN Reason: TACHYCARDIA Last Admin: 09/15/18 08:09 Dose: 5 mg CBC, BMP 09/15/18 06:19 09/15/18 06:19 Microbiology 09/11/18 21:31 Blood Culture - Preliminary Blood - Peripheral Venous NO GROWTH OBTAINED AFTER 72 HOURS, INCUBATION TO CONTINUE FOR 2 DAYS. 09/11/18 21:31 Blood Culture - Preliminary Blood - Peripheral Venous NO GROWTH OBTAINED AFTER 72 HOURS, INCUBATION TO CONTINUE FOR 2 DAYS. 09/13/18 06:20 Urine Culture - Preliminary Urine - Urine - Catheterized Group D Strep Or Entero Coccus Physical exam Conscious cooperative alert and awake Neck--supple/ no jvd Lungs--diminished at bases Heart sounds--- tachy Abdomen--soft/ non tender . Extremities--trace edema Neuro--alert and awake Assessment and plan clinically better/ stable. continue present care elevated wbc-- monitor off abx likely due to acute dvt hematology eval still pending Hernia-- No active issues F/u with surgeon as out pt. Increase metoprolol daily oob - chair. Physical Therapy will follow. Discussed with nursing staff Problem List - Problems (1) Atrial fibrillation with RVR Code(s): I48.91 - UNSPECIFIED ATRIAL FIBRILLATION (2) CKD (chronic kidney disease) Code(s): N18.9 - CHRONIC KIDNEY DISEASE, UNSPECIFIED (3) DVT (deep venous thrombosis) Code(s): I82.409 - ACUTE EMBOLISM AND THOMBOS UNSP DEEP VN UNSP LOWER EXTREMITY (4) HTN (hypertension) Code(s): I10 - ESSENTIAL (PRIMARY) HYPERTENSION
[2018-09-15] MEDS: POTASSIUM CHLORIDE ORAL LIQUID 20 MEQ/15 ML PO SCH (12:04)
[2018-09-15] MEDS: ACETAMINOPHEN 325 MG TABLET (FP) PO PRN (12:29)
--- NOTE | 2018-09-15 13:15 | PN ---
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, Physician Chief Complaint: SOB improved LE edema Afib with elevated heart rates - Current Medication List Current Medications: Active Medications Acetaminophen (Tylenol -) 650 mg PO Q6H PRN PRN Reason: FEVER Last Admin: 09/15/18 12:29 Dose: 650 mg Apixaban (Eliquis -) 5 mg PO BID [facility] Apixaban (Eliquis -) 10 mg PO BID [facility] Stop: 09/18/18 10:01 Last Admin: 09/15/18 09:55 Dose: 10 mg Furosemide (Lasix Injection -) 40 mg IVPUSH BID@0600,1400 [facility] Last Admin: 09/15/18 06:39 Dose: 40 mg Metoprolol Succinate (Toprol Xl -) 50 mg PO BID [facility] Last Admin: 09/15/18 12:03 Dose: Not Given Metoprolol Tartrate (Lopressor Injection -) 5 mg IVPUSH Q4H PRN PRN Reason: TACHYCARDIA Last Admin: 09/15/18 08:09 Dose: 5 mg Potassium Chloride (Potassium Chloride Oral Liquid) 40 meq PO DAILY [facility] Last Admin: 09/15/18 12:04 Dose: 40 meq - Objective Vital Signs: Vital Signs Temperature 97.9 F 09/15/18 08:13 Pulse Rate 141 H 09/15/18 08:13 Respiratory Rate 18 09/15/18 08:13 Blood Pressure 137/80 09/15/18 08:13 O2 Sat by Pulse Oximetry (%) 97 09/14/18 21:00 Constitutional: Yes: No Distress Neck: Yes: WNL Cardiovascular: Yes: Regular Rate and Rhythm, S1, S2. No: JVD Respiratory: Yes: CTA Bilaterally Gastrointestinal: Yes: WNL Edema: LLE: 1+, RLE: 1+ Labs: CBC, BMP 09/15/18 06:19 09/15/18 06:19 Problem List - Problems (1) Atrial fibrillation with RVR Code(s): I48.91 - UNSPECIFIED ATRIAL FIBRILLATION Assessment/Plan 77 year old woman with pmh HTN, admitted with progressively worsening b/l LE edema, sob, fatigue and found to be in newly dx Afib with RVR with a newly dx RLE DVT elevated wbc, DAYNA, peripheral and pulmonary edema. The symptoms have progressively worsened over the past weeks. ECHO 09/12/18 showed normal LV/RV function, mild mr, mod tr, mod LAE/ANASTASIA. CHF Acute on chronic diastolic CHF Likely related to AF with RVR Continue Lasix 40 mg IVSS BID. Daily Wt's/Lytes/I's/O's AFIB Continue AC with Apixaban Continue rate control with Metoprolol Succinate 25 mg PO BID Would add digoxin for better rate control. Give two doses today of digoxin 0.25 once and second dose 6 hours later. Start daily digoxin 0.125 tomorrow PE evaluation DVT Newly dx, unclear etiology Already on eliquis Heme/onc evaluate to assist with possible etiologies, should have routine cancer screening
[2018-09-15] MEDS ORDERED: DIGOXIN 0.25 MG TABLET (FP) PO ONE (13:16)
--- NOTE | 2018-09-15 13:30 | PN ---
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 (short form) - Note 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: PULMONARY Denies shortness of breath, chest pain or palpitations. Vital Signs Period Temp Pulse Resp BP Sys/Cisneros Pulse Ox Last 24 Hr 97.9 F-99.7 F 95-141 18-19 100-137/56-80 96-97 Gen: NAD at rest Heart: RRR Lung: decreased breath sounds at the bases Abd: soft, nontender Ext: LLE edema CBC, BMP 09/15/18 06:19 09/15/18 06:19 Active Medications Acetaminophen (Tylenol -) 650 mg PO Q6H PRN PRN Reason: FEVER Last Admin: 09/15/18 12:29 Dose: 650 mg Apixaban (Eliquis -) 5 mg PO BID [facility] Apixaban (Eliquis -) 10 mg PO BID [facility] Stop: 09/18/18 10:01 Last Admin: 09/15/18 09:55 Dose: 10 mg Digoxin (Lanoxin -) 0.25 mg PO ONCE ONE Stop: 09/15/18 13:17 Digoxin (Lanoxin -) 0.125 mg PO DAILY [facility] Furosemide (Lasix Injection -) 40 mg IVPUSH BID@0600,1400 [facility] Last Admin: 09/15/18 06:39 Dose: 40 mg Metoprolol Succinate (Toprol Xl -) 50 mg PO BID [facility] Last Admin: 09/15/18 12:03 Dose: Not Given Metoprolol Tartrate (Lopressor Injection -) 5 mg IVPUSH Q4H PRN PRN Reason: TACHYCARDIA Last Admin: 09/15/18 08:09 Dose: 5 mg Potassium Chloride (Potassium Chloride Oral Liquid) 40 meq PO DAILY [facility] Last Admin: 09/15/18 12:04 Dose: 40 meq A/P Acute on Chronic Diastolic Heart Failure RLL DVT Atrial Fibrillation HTN CKD Likely EMELIA - rate control - continue anticoagulation - O2 as needed - continue lasix - monitor urine output, creatinine - replete lytes - can defer V/Q scan as pt already being anticoagulated for atrial fibrillation and DVT, no RV dysfunction on echocardiogram so V/Q scan will not change management consultant
--- NOTE | 2018-09-15 22:02 | PN ---
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 (short form) - Note 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: Patient seen in follow up. No new complaints. No significant events overnight. Inpatient Meds reviewed. Current Medications Generic Name Dose Route Start Last Admin Trade Name Freq PRN Reason Stop Dose Admin Acetaminophen 650 mg 09/13/18 20:52 09/15/18 12:29 Tylenol - PO 650 mg Q6H PRN Administration FEVER Apixaban 5 mg 09/18/18 22:00 Eliquis - PO BID [facility] Apixaban 10 mg 09/12/18 03:01 09/15/18 21:00 Eliquis - PO 09/18/18 10:01 10 mg BID [facility] Administration Digoxin 0.125 mg 09/16/18 10:00 Lanoxin - PO DAILY [facility] Furosemide 40 mg 09/13/18 16:30 09/15/18 14:45 Lasix Injection - IVPUSH Not Given BID@0600,1400 [facility] Metoprolol Succinate 50 mg 09/15/18 11:00 09/15/18 21:00 Toprol Xl - PO 50 mg BID [facility] Administration Metoprolol Tartrate 5 mg 09/12/18 16:28 09/15/18 08:09 Lopressor Injection - IVPUSH 5 mg Q4H PRN Administration TACHYCARDIA Potassium Chloride 40 meq 09/15/18 11:15 09/15/18 12:04 Potassium Chloride Oral Liquid PO 40 meq DAILY [facility] Administration On Examination: Last Vital Signs Temp Pulse Resp BP Pulse Ox 98.0 F 112 H 18 114/50 L 95 09/15/18 21:37 09/15/18 21:37 09/15/18 21:37 09/15/18 21:37 09/15/18 21:00 General: In no acute distress, lying comfortably in bed. Extremities: No pallor or icterus. No pedal edema. No palpable lymphadenopathy. CVS: S1, S2, no gallop or murmur. Chest: good air entry bilaterally, clear Abdomen: Non-distended, non-tender, no palpable organomegaly. Neuro: Alert, oriented, non-focal. Labs: CBC, BMP 09/15/18 06:19 09/15/18 06:19 Assessment. Newly diagnosed LE DVT. Possibly provoked in setting of recent decreased mobility - however cannot exclude possibility that DVT resulted in her decreased mobility. Requires full anticoagulation - agree with a DOAC. Also indicated for newly diagnosed AF. 'Hypercoagulability workup' NOT warranted in this 77 year old female, will in no way affect management. Age appropriate cancer screening. Directed screening for malignancy only if clinical findings suggestive thereof. Consideration of duration of anticoagulation for her DVT is diane, since long- term AC is indicated for her AF. Persistent neutrophilia, unexplained, with no apparent signs of sepsis. Not typical as 'reactive' finding following DVT. If persists then will screen for CML,with BCR-ABL assay.
[2018-09-16] MEDS: FUROSEMIDE 40 MG/4 ML INJECTABLE VIAL IVPUSH SCH ×2 (05:52→14:06)
[2018-09-16 07:03] LABS: EOS % 0.2 % (0-4.5); HEMATOCRIT 39.9 % (32.4-45.2); HEMOGLOBIN 12.4 GM/dL (10.7-15.3); LYMPH % 3.1 % (8-40); MCH 26.7 pg (25.7-33.7); MCHC 31.2 g/dl (32.0-36.0); MEAN CELL VOLUME 85.6 fl (80-96); MEAN PLT VOLUME 9.7 fl (7.5-11.1); NEUT % 91.7 % (42.8-82.8); PLATELET COUNT 194 K/MM3 (134-434); RBC 4.66 M/mm3 (3.60-5.2); RDW 16.5 % (11.6-15.6); WHITE BLOOD COUNT 20.5 K/mm3 (4.0-10.0)
[2018-09-16 07:42] LABS: ALBUMIN 1.7 g/dl (3.4-5.0); ALK PHOS 116 U/L (45-117); ANION GAP 8 MMOL/L (8-16); BILIRUBIN,TOTAL 0.8 mg/dL (0.2-1); BLOOD UREA NITROGEN 32 mg/dL (7-18); CHLORIDE 102 mmol/L (98-107); CO2 31 mmol/L (21-32); CREATININE 1.2 mg/dL (0.55-1.3); GLUCOSE,RANDOM 110 mg/dL (74-106); MAGNESIUM 1.9 mg/dL (1.8-2.4); POTASSIUM 3.9 mmol/L (3.5-5.1); SGOT/AST 60 U/L (15-37); SGPT/ALT 40 U/L (13-61); SODIUM 140 mmol/L (136-145); TOT PROT 4.7 g/dl (6.4-8.2)
[2018-09-16] MEDS: DIGOXIN 0.125 MG TABLET (FP) PO SCH (09:29)
[2018-09-16] MEDS: POTASSIUM CHLORIDE ORAL LIQUID 20 MEQ/15 ML PO SCH (09:29)
[2018-09-16] MEDS: APIXABAN 5 MG TABLET PO SCH ×2 (09:30→21:37)
[2018-09-16 10:15] LABS: ANISOCYTOSIS 1+; MACROCYTOSIS 0; OVALOCYTE 1+; PLATELET ESTIMATE NORMAL; TEAR DROP CELLS 1+
--- NOTE | 2018-09-16 12:10 | PN ---
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, Physician History of Present Illness: pulmonary alert,no distress,-sob. sleep screen ahi 20.6 - Current Medication List Current Medications: Active Medications Acetaminophen (Tylenol -) 650 mg PO Q6H PRN PRN Reason: FEVER Last Admin: 09/15/18 12:29 Dose: 650 mg Apixaban (Eliquis -) 5 mg PO BID [facility] Apixaban (Eliquis -) 10 mg PO BID [facility] Stop: 09/18/18 10:01 Last Admin: 09/16/18 09:30 Dose: 10 mg Digoxin (Lanoxin -) 0.125 mg PO DAILY [facility] Last Admin: 09/16/18 09:29 Dose: 0.125 mg Furosemide (Lasix Injection -) 40 mg IVPUSH BID@0600,1400 [facility] Last Admin: 09/16/18 05:52 Dose: 40 mg Metoprolol Succinate (Toprol Xl -) 50 mg PO BID [facility] Last Admin: 09/16/18 09:29 Dose: 50 mg Metoprolol Tartrate (Lopressor Injection -) 5 mg IVPUSH Q4H PRN PRN Reason: TACHYCARDIA Last Admin: 09/15/18 08:09 Dose: 5 mg Potassium Chloride (Potassium Chloride Oral Liquid) 40 meq PO DAILY [facility] Last Admin: 09/16/18 09:29 Dose: 40 meq - Objective Vital Signs: Vital Signs Temperature 97.8 F 09/16/18 08:44 Pulse Rate 107 H 09/16/18 09:29 Respiratory Rate 18 09/16/18 08:44 Blood Pressure 107/75 09/16/18 08:44 O2 Sat by Pulse Oximetry (%) 95 09/16/18 08:44 Constitutional: Yes: Well Nourished, Calm Eyes: Yes: WNL HENT: Yes: WNL Neck: Yes: WNL Cardiovascular: Yes: Pulse Irregular, S1, S2 Respiratory: Yes: CTA Bilaterally Gastrointestinal: Yes: Normal Bowel Sounds, Soft Extremities: Yes: WNL Edema: Yes Labs: CBC, BMP 09/16/18 05:50 09/16/18 05:50 Problem List - Problems (1) Atrial fibrillation with RVR Code(s): I48.91 - UNSPECIFIED ATRIAL FIBRILLATION (2) Edema Code(s): R60.9 - EDEMA, UNSPECIFIED (3) Leg edema Code(s): R60.0 - LOCALIZED EDEMA (4) HTN (hypertension) Code(s): I10 - ESSENTIAL (PRIMARY) HYPERTENSION (5) DVT (deep venous thrombosis) Code(s): I82.409 - ACUTE EMBOLISM AND THOMBOS UNSP DEEP VN UNSP LOWER EXTREMITY (6) CKD (chronic kidney disease) Code(s): N18.9 - CHRONIC KIDNEY DISEASE, UNSPECIFIED Assessment/Plan IMP RLL DVT AFIB NEW ONSET HTN CKD 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 PLAN ELIQUIS SLEEP STUDIES OUTPATIENT RATE CONTROL PER CARDIOLOGY MONITOR LYTES,RENAL FUNCTION W/U FOR HYPERCOAGULABLE STATE OUTPATIENT DR WIN Problem List - Problems (1) Atrial fibrillation with RVR Code(s): I48.91 - UNSPECIFIED ATRIAL FIBRILLATION (2) Edema Code(s): R60.9 - EDEMA, UNSPECIFIED (3) Leg edema Code(s): R60.0 - LOCALIZED EDEMA (4) HTN (hypertension) Code(s): I10 - ESSENTIAL (PRIMARY) HYPERTENSION (5) DVT (deep venous thrombosis) Code(s): I82.409 - ACUTE EMBOLISM AND THOMBOS UNSP DEEP VN UNSP LOWER EXTREMITY (6) CKD (chronic kidney disease) Code(s): N18.9 - CHRONIC KIDNEY DISEASE, UNSPECIFIED
--- NOTE | 2018-09-16 13:37 | PN ---
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, Physician Chief Complaint: SOB improved LE edema Afib with elevated heart rates History of Present Illness: 77 year old woman with pmh HTN, admitted with progressively worsening b/l LE edema, sob, fatigue and found to be in newly dx Afib with RVR with a newly dx RLE DVT elevated wbc, DAYNA, peripheral and pulmonary edema. The symptoms have progressively worsened over the past weeks. ECHO 09/12/18 showed normal LV/RV function, mild mr, mod tr, mod LAE/ANASTASIA. - Current Medication List Current Medications: Active Medications Acetaminophen (Tylenol -) 650 mg PO Q6H PRN PRN Reason: FEVER Last Admin: 09/15/18 12:29 Dose: 650 mg Apixaban (Eliquis -) 5 mg PO BID [facility] Apixaban (Eliquis -) 10 mg PO BID [facility] Stop: 09/18/18 10:01 Last Admin: 09/16/18 09:30 Dose: 10 mg Digoxin (Lanoxin -) 0.125 mg PO DAILY [facility] Last Admin: 09/16/18 09:29 Dose: 0.125 mg Furosemide (Lasix Injection -) 40 mg IVPUSH BID@0600,1400 [facility] Last Admin: 09/16/18 05:52 Dose: 40 mg Metoprolol Succinate (Toprol Xl -) 50 mg PO BID [facility] Last Admin: 09/16/18 09:29 Dose: 50 mg Metoprolol Tartrate (Lopressor Injection -) 5 mg IVPUSH Q4H PRN PRN Reason: TACHYCARDIA Last Admin: 09/15/18 08:09 Dose: 5 mg Potassium Chloride (Potassium Chloride Oral Liquid) 40 meq PO DAILY [facility] Last Admin: 09/16/18 09:29 Dose: 40 meq - Objective Vital Signs: Vital Signs Temperature 97.8 F 09/16/18 08:44 Pulse Rate 107 H 09/16/18 09:29 Respiratory Rate 18 09/16/18 08:44 Blood Pressure 107/75 09/16/18 08:44 O2 Sat by Pulse Oximetry (%) 95 09/16/18 08:44 Constitutional: Yes: No Distress Neck: Yes: Supple Cardiovascular: Yes: Tachycardia, Pulse Irregular, S1, S2. No: JVD Respiratory: Yes: CTA Bilaterally Gastrointestinal: Yes: Soft Edema: LLE: 1+, RLE: 1+ Labs: CBC, BMP 09/16/18 05:50 09/16/18 05:50 Problem List - Problems (1) Atrial fibrillation with RVR Code(s): I48.91 - UNSPECIFIED ATRIAL FIBRILLATION Assessment/Plan 77 year old woman with pmh HTN, admitted with progressively worsening b/l LE edema, sob, fatigue and found to be in newly dx Afib with RVR with a newly dx RLE DVT elevated wbc, DAYNA, peripheral and pulmonary edema. The symptoms have progressively worsened over the past weeks. ECHO 09/12/18 showed normal LV/RV function, mild mr, mod tr, mod LAE/ANASTASIA. CHF Acute on chronic diastolic CHF Likely related to AF with RVR Continue Lasix 40 mg IVSS BID. Daily Wt's/Lytes/I's/O's AFIB Continue AC with Apixaban Continue rate control with Metoprolol Succinate which had been increased to 50 mg PO BID Digoxin started yesterday. Will monitor to see if HR's improve If no improvement in rate control tomorrow will discuss possible THOMAS/DCCV. Would tentatively make npo in am DVT Newly dx, unclear etiology Already on eliquis Heme/onc evaluate to assist with possible etiologies, should have routine cancer screening
--- NOTE | 2018-09-16 13:59 | PN ---
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 (short form) - Note 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: awake/ comfortable all f/u noted persistant leukocytosis afebrile denies pain Still tachy-- digoxin also added Vital Signs Temp 97.8 F 09/16/18 08:44 Pulse 107 H 09/16/18 09:29 Resp 18 09/16/18 08:44 BP 107/75 09/16/18 08:44 Pulse Ox 95 09/16/18 08:44 Intake & Output 09/15/18 09/16/18 09/16/18 23:59 11:59 23:59 Intake Total 420 Balance 420 Intake: Oral 420 Other: Voiding Method Diaper Incontinent # Unmeasured Voids Void 1 1 Bowel Movement No No Active Medications Acetaminophen (Tylenol -) 650 mg PO Q6H PRN PRN Reason: FEVER Last Admin: 09/15/18 12:29 Dose: 650 mg Apixaban (Eliquis -) 5 mg PO BID [facility] Apixaban (Eliquis -) 10 mg PO BID [facility] Stop: 09/18/18 10:01 Last Admin: 09/16/18 09:30 Dose: 10 mg Digoxin (Lanoxin -) 0.125 mg PO DAILY [facility] Last Admin: 09/16/18 09:29 Dose: 0.125 mg Furosemide (Lasix Injection -) 40 mg IVPUSH BID@0600,1400 [facility] Last Admin: 09/16/18 05:52 Dose: 40 mg Metoprolol Succinate (Toprol Xl -) 50 mg PO BID [facility] Last Admin: 09/16/18 09:29 Dose: 50 mg Metoprolol Tartrate (Lopressor Injection -) 5 mg IVPUSH Q4H PRN PRN Reason: TACHYCARDIA Last Admin: 09/15/18 08:09 Dose: 5 mg Potassium Chloride (Potassium Chloride Oral Liquid) 40 meq PO DAILY [facility] Last Admin: 09/16/18 09:29 Dose: 40 meq CBC, BMP 09/16/18 05:50 09/16/18 05:50 Microbiology 09/11/18 21:31 Blood Culture - Preliminary Blood - Peripheral Venous NO GROWTH OBTAINED AFTER 96 HOURS, INCUBATION TO CONTINUE FOR 1 DAYS. 09/11/18 21:31 Blood Culture - Preliminary Blood - Peripheral Venous NO GROWTH OBTAINED AFTER 96 HOURS, INCUBATION TO CONTINUE FOR 1 DAYS. 09/13/18 06:20 Urine Culture - Final Urine - Urine - Catheterized Enterococcus Faecalis Physical exam Conscious cooperative alert and awake Neck--supple/ no jvd Lungs--diminished at bases Heart sounds--- s1, s2 irregular Abdomen--soft/ non tender . Extremities--trace edema Neuro--alert and awake Assessment and plan clinically stable. continue present care elevated wbc-- monitor off abx likely due to acute dvt hematology eval noted Hernia-- No active issues F/u with surgeon as out pt for hernia will consult i/d also check ct abd daily oob - chair. Physical Therapy will follow. cardiology also considering cardioversion. Discussed with nursing staff Problem List - Problems (1) Atrial fibrillation with RVR Code(s): I48.91 - UNSPECIFIED ATRIAL FIBRILLATION (2) CKD (chronic kidney disease) Code(s): N18.9 - CHRONIC KIDNEY DISEASE, UNSPECIFIED (3) DVT (deep venous thrombosis) Code(s): I82.409 - ACUTE EMBOLISM AND THOMBOS UNSP DEEP VN UNSP LOWER EXTREMITY (4) HTN (hypertension) Code(s): I10 - ESSENTIAL (PRIMARY) HYPERTENSION
[2018-09-17] MEDS: FUROSEMIDE 40 MG/4 ML INJECTABLE VIAL IVPUSH SCH ×2 (05:55→13:05)
[2018-09-17 06:48] LABS: BASO % 0.1 % (0-2.0); EOS % 0.5 % (0-4.5); HEMATOCRIT 38.7 % (32.4-45.2); HEMOGLOBIN 12.1 GM/dL (10.7-15.3); MCH 26.8 pg (25.7-33.7); MCHC 31.4 g/dl (32.0-36.0); MEAN CELL VOLUME 85.5 fl (80-96); MEAN PLT VOLUME 9.4 fl (7.5-11.1); MONO % 4.9 % (3.8-10.2); NEUT % 91.5 % (42.8-82.8); PLATELET COUNT 229 K/MM3 (134-434); RBC 4.52 M/mm3 (3.60-5.2); RDW 16.2 % (11.6-15.6)
[2018-09-17 07:31] LABS: ALBUMIN 1.6 g/dl (3.4-5.0); ALK PHOS 126 U/L (45-117); ANION GAP 6 MMOL/L (8-16); BILIRUBIN,TOTAL 0.8 mg/dL (0.2-1); BLOOD UREA NITROGEN 30 mg/dL (7-18); CHLORIDE 102 mmol/L (98-107); CO2 32 mmol/L (21-32); CREATININE 1.1 mg/dL (0.55-1.3); GLUCOSE,RANDOM 109 mg/dL (74-106); POTASSIUM 4.3 mmol/L (3.5-5.1); SGOT/AST 155 U/L (15-37); SGPT/ALT 87 U/L (13-61); SODIUM 140 mmol/L (136-145); TOT PROT 4.6 g/dl (6.4-8.2)
[2018-09-17] MEDS: APIXABAN 5 MG TABLET PO SCH ×2 (09:16→21:25)
[2018-09-17 10:29] LABS: ANISOCYTOSIS 1+; MACROCYTOSIS 1+; PLATELET ESTIMATE NORMAL; TARGET CELLS 1+
[2018-09-17] MEDS: POTASSIUM CHLORIDE ORAL LIQUID 20 MEQ/15 ML PO SCH (10:52)
[2018-09-17] MEDS: DIGOXIN 0.125 MG TABLET (FP) PO SCH (10:52)
--- NOTE | 2018-09-17 11:50 | PN ---
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 (short form) - Note 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: ID Consult dictated Leukocytosis ? skin source Cellulitis L LE + urine c/s= contaminant Elevted LFTs Repeat BC Cefazolin 1gm q8h
[2018-09-17] MEDS ORDERED: ceFAZolin SODIUM 1 GM VIAL ONE ×2 (12:04→17:23)
[2018-09-17] MEDS ORDERED: DEXTROSE 5%-WATER - 50 ML IVPB ONE ×2 (12:04→17:23)
[2018-09-17] MEDS: CEFAZOLIN 1 GM in DEXTROSE 5%-WATER - 50 ML IVPB SCH ×2 (12:15→17:30)
--- NOTE | 2018-09-17 12:19 | PN ---
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, Physician History of Present Illness: seen and examined today in nad. feeling better. no overnight events. no new complaints. - Current Medication List Current Medications: Active Medications Acetaminophen (Tylenol -) 650 mg PO Q6H PRN PRN Reason: FEVER Last Admin: 09/15/18 12:29 Dose: 650 mg Apixaban (Eliquis -) 5 mg PO BID [facility] Apixaban (Eliquis -) 10 mg PO BID [facility] Stop: 09/18/18 10:01 Last Admin: 09/17/18 09:16 Dose: 10 mg Digoxin (Lanoxin -) 0.125 mg PO DAILY [facility] Last Admin: 09/17/18 10:52 Dose: 0.125 mg Furosemide (Lasix Injection -) 40 mg IVPUSH BID@0600,1400 [facility] Last Admin: 09/17/18 05:55 Dose: 40 mg Cefazolin Sodium 1 gm/ (Dextrose) 50 mls @ 100 mls/hr IVPB Q8H-IV [facility] Last Admin: 09/17/18 12:15 Dose: 100 mls/hr Metoprolol Succinate (Toprol Xl -) 50 mg PO BID [facility] Last Admin: 09/17/18 09:16 Dose: 50 mg Metoprolol Tartrate (Lopressor Injection -) 5 mg IVPUSH Q4H PRN PRN Reason: TACHYCARDIA Last Admin: 09/15/18 08:09 Dose: 5 mg Potassium Chloride (Potassium Chloride Oral Liquid) 40 meq PO DAILY [facility] Last Admin: 09/17/18 10:52 Dose: 40 meq - Objective Vital Signs: Vital Signs Temperature 98.0 F 09/17/18 11:00 Pulse Rate 100 H 09/17/18 11:00 Respiratory Rate 18 09/17/18 11:00 Blood Pressure 137/69 09/17/18 11:00 O2 Sat by Pulse Oximetry (%) 95 09/17/18 09:00 Constitutional: Yes: No Distress, Calm Eyes: Yes: Conjunctiva Clear, EOM Intact HENT: Yes: Atraumatic, Normocephalic Neck: Yes: Supple, Trachea Midline Cardiovascular: Yes: Pulse Irregular, Murmur, S1, S2. No: Regular Rate and Rhythm, Bradycardia, Tachycardia, Bruit, JVD, Gallop, Rub, S3, S4, Varicosities Respiratory: Yes: Regular, Diminished, Rales, Rhonchi. No: SOB Gastrointestinal: Yes: Normal Bowel Sounds, Soft Extremities: Yes: WNL Edema: Yes Edema: LLE: Trace, RLE: 1+ Peripheral Pulses WNL: Yes Neurological: Yes: Alert, Oriented Psychiatric: Yes: Alert, Oriented Labs: CBC, BMP 09/17/18 06:00 09/17/18 06:00 - ....Imaging Chest X-ray: Report Reviewed, Image Reviewed EKG: Report Reviewed, Image Reviewed Other: Report Reviewed, Image Reviewed (tele-AF HR trend improving 90s-100s) Assessment/Plan 77 year old woman with pmh HTN, admitted with progressively worsening b/l LE edema, sob, fatigue and found to be in newly dx Afib with RVR with a newly dx RLE DVT elevated wbc, DAYNA, peripheral and pulmonary edema. The symptoms have progressively worsened over the past weeks. ECHO 09/12/18 showed normal LV/RV function, mild mr, mod tr, mod LAE/ANASTASIA. CHF Acute on chronic diastolic CHF Still volume overloaded but improving Likely related to AF with RVR Continue Lasix 40 mg IVSS BID. Daily Wt's/Lytes/I's/O's AFIB Continue AC with Apixaban Continue rate control with Metoprolol Succinate which had been increased to 50 mg PO BID Digoxin started yesterday, cont 0.125mg daily, fup levels HR trend is improving Would hold off on THOMAS/DCCV at this time as HR is improving cont tele monitoring DVT Newly dx, unclear etiology Already on eliquis Heme/onc felt no role in hypercoagulable work up, should have routine cancer screening uncertain etiology of elevated wbc, currently being monitored off Abx
--- NOTE | 2018-09-17 12:25 | CONS ---
DATE OF CONSULTATION: DATE OF DICTATION: 09/17/2018 The patient is a 77-year-old female who is evaluated for leukocytosis. She was admitted to the hospital on September 11, 2018, with worsening bilateral lower extremity edema for 1 week prior to admission. Hospital course has been complicated by new-onset atrial fibrillation with rapid ventricular response and development of a right lower extremity DVT. During her hospitalization, she had been noted to have a persistently elevated white blood cell count. She has had 1 or 2 low-grade temperatures, however, has generally been afebrile. She is awake and alert. She has no focal complaint. She denies any chest pain, shortness of breath, cough, or sputum production. No dysuria or hematuria. No vomiting or diarrhea. She is noted to have an ulceration of the left lower extremity with some surrounding erythema. Past medical history positive for hypothyroidism and hypertension. No known allergies. Medications include Tylenol, Eliquis, Toprol, Lopressor, Lanoxin, Lasix. SOCIAL HISTORY: She resides in the community with her significant other. She is a nonsmoker, nondrinker. SYSTEMS REVIEW: Neurologic: No loss of consciousness, seizure activity, or focal weakness. Cardiac: As per HPI. Respiratory: Negative cough or sputum production. Gastrointestinal: Negative vomiting or diarrhea. Genitourinary: Negative for urinary tract infection. LABORATORY DATA: White count 18.0, neutrophils 91, lymphocytes 3, monocytes 4. Hematocrit 38.7, platelets 229. Creatinine 1.1. Urinalysis: White cells 12. Urine culture: 10,000 to 20,000 enterococcus species. Total bilirubin 1.9, alkaline phosphatase 126, AST 155. CAT scan of the chest shows a pulmonary nodule, no focal consolidation. There is some subcutaneous emphysema in the flanks. PHYSICAL EXAMINATION: General: She is an awake and alert elderly female. She is in no acute distress. Vital Signs: Temperature 98.0. Blood pressure 137/69. Pulse 100, regular. Respirations 18 per minute. Eyes: Sclerae anicteric. Heart Sounds: Irregular, S1, S2. Lungs: Clear bilaterally. No rhonchi, rales, or wheezing. Abdomen: Soft. No tenderness elicited. No mass, rebound or rigidity. Extremities: Examination of the lower extremities, there is an ulceration present over the lateral aspect of the left lower extremity. There is some surrounding erythema and warmth present and slightly tender to palpation. IMPRESSION: 1. Leukocytosis, possible skin source. 2. Cellulitis of the left lower extremity. 3. Positive urine culture, likely contaminant. 4. Elevated liver enzymes. The left lower extremity ulceration does not appear infected, however, there is surrounding erythema consistent with a cellulitis. Will repeat blood cultures, start cefazolin 1 g IV piggyback every 8 hours for coverage of skin pathogens. No treatment for urine culture. Local wound care. Follow up liver enzymes. Case discussed with family members present at the time of the examination. Thank you for the kind referral. SANTOSH PATTERSON M.D. [id number]
--- NOTE | 2018-09-17 12:48 | PN ---
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 (short form) - Note 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: pt seen/ examined all f/u noted hr better i/d consult noted started on abx. family at bedside denies cp/sob. Vital Signs Temp 98.0 F 09/17/18 11:00 Pulse 100 H 09/17/18 11:00 Resp 18 09/17/18 11:00 BP 137/69 09/17/18 11:00 Pulse Ox 95 09/17/18 09:00 Intake & Output 09/16/18 09/17/18 09/17/18 23:59 11:59 23:59 Intake Total 300 Balance 300 Intake: Oral 300 Other: Voiding Method Diaper Diaper # Unmeasured Voids Void 1 Bowel Movement No Active Medications Acetaminophen (Tylenol -) 650 mg PO Q6H PRN PRN Reason: FEVER Last Admin: 09/15/18 12:29 Dose: 650 mg Apixaban (Eliquis -) 5 mg PO BID [facility] Apixaban (Eliquis -) 10 mg PO BID [facility] Stop: 09/18/18 10:01 Last Admin: 09/17/18 09:16 Dose: 10 mg Digoxin (Lanoxin -) 0.125 mg PO DAILY [facility] Last Admin: 09/17/18 10:52 Dose: 0.125 mg Furosemide (Lasix Injection -) 40 mg IVPUSH BID@0600,1400 [facility] Last Admin: 09/17/18 05:55 Dose: 40 mg Cefazolin Sodium 1 gm/ (Dextrose) 50 mls @ 100 mls/hr IVPB Q8H-IV [facility] Last Admin: 09/17/18 12:15 Dose: 100 mls/hr Metoprolol Succinate (Toprol Xl -) 50 mg PO BID [facility] Last Admin: 09/17/18 09:16 Dose: 50 mg Metoprolol Tartrate (Lopressor Injection -) 5 mg IVPUSH Q4H PRN PRN Reason: TACHYCARDIA Last Admin: 09/15/18 08:09 Dose: 5 mg Potassium Chloride (Potassium Chloride Oral Liquid) 40 meq PO DAILY [facility] Last Admin: 09/17/18 10:52 Dose: 40 meq CBC, BMP 09/17/18 06:00 09/17/18 06:00 Microbiology 09/11/18 21:31 Blood Culture - Final Blood - Peripheral Venous NO GROWTH AFTER 5 DAYS INCUBATION 09/11/18 21:31 Blood Culture - Final Blood - Peripheral Venous NO GROWTH AFTER 5 DAYS INCUBATION Physical exam Conscious cooperative alert and awake Neck--supple/ no jvd Lungs--diminished at bases Heart sounds--- s1, s2 irregular Abdomen--soft/ non tender . Extremities--trace edema. Neuro--alert and awake Assessment and plan clinically stable. continue present care abx f/u labs ct abd-- pending daily oob - chair. Physical Therapy will follow. Discussed with nursing staff also. Problem List - Problems (1) Atrial fibrillation with RVR Code(s): I48.91 - UNSPECIFIED ATRIAL FIBRILLATION (2) CKD (chronic kidney disease) Code(s): N18.9 - CHRONIC KIDNEY DISEASE, UNSPECIFIED (3) DVT (deep venous thrombosis) Code(s): I82.409 - ACUTE EMBOLISM AND THOMBOS UNSP DEEP VN UNSP LOWER EXTREMITY (4) HTN (hypertension) Code(s): I10 - ESSENTIAL (PRIMARY) HYPERTENSION
--- NOTE | 2018-09-17 12:55 | PN ---
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, Physician History of Present Illness: pulmonary alert,no distress,-cp,-sob - Current Medication List Current Medications: Active Medications Acetaminophen (Tylenol -) 650 mg PO Q6H PRN PRN Reason: FEVER Last Admin: 09/15/18 12:29 Dose: 650 mg Apixaban (Eliquis -) 5 mg PO BID [facility] Apixaban (Eliquis -) 10 mg PO BID [facility] Stop: 09/18/18 10:01 Last Admin: 09/17/18 09:16 Dose: 10 mg Digoxin (Lanoxin -) 0.125 mg PO DAILY [facility] Last Admin: 09/17/18 10:52 Dose: 0.125 mg Furosemide (Lasix Injection -) 40 mg IVPUSH BID@0600,1400 [facility] Last Admin: 09/17/18 05:55 Dose: 40 mg Cefazolin Sodium 1 gm/ (Dextrose) 50 mls @ 100 mls/hr IVPB Q8H-IV [facility] Last Admin: 09/17/18 12:15 Dose: 100 mls/hr Metoprolol Succinate (Toprol Xl -) 50 mg PO BID [facility] Last Admin: 09/17/18 09:16 Dose: 50 mg Metoprolol Tartrate (Lopressor Injection -) 5 mg IVPUSH Q4H PRN PRN Reason: TACHYCARDIA Last Admin: 09/15/18 08:09 Dose: 5 mg Potassium Chloride (Potassium Chloride Oral Liquid) 40 meq PO DAILY [facility] Last Admin: 09/17/18 10:52 Dose: 40 meq - Objective Vital Signs: Vital Signs Temperature 98.0 F 09/17/18 11:00 Pulse Rate 100 H 09/17/18 11:00 Respiratory Rate 18 09/17/18 11:00 Blood Pressure 137/69 09/17/18 11:00 O2 Sat by Pulse Oximetry (%) 95 09/17/18 09:00 Constitutional: Yes: Well Nourished, Calm Eyes: Yes: WNL HENT: Yes: WNL Neck: Yes: WNL Cardiovascular: Yes: Pulse Irregular, S1, S2 Respiratory: Yes: CTA Bilaterally Gastrointestinal: Yes: Normal Bowel Sounds, Soft Extremities: Yes: WNL Edema: Yes Labs: CBC, BMP 09/17/18 06:00 09/17/18 06:00 Problem List - Problems (1) Atrial fibrillation with RVR Code(s): I48.91 - UNSPECIFIED ATRIAL FIBRILLATION (2) Edema Code(s): R60.9 - EDEMA, UNSPECIFIED (3) Leg edema Code(s): R60.0 - LOCALIZED EDEMA (4) HTN (hypertension) Code(s): I10 - ESSENTIAL (PRIMARY) HYPERTENSION (5) DVT (deep venous thrombosis) Code(s): I82.409 - ACUTE EMBOLISM AND THOMBOS UNSP DEEP VN UNSP LOWER EXTREMITY (6) CKD (chronic kidney disease) Code(s): N18.9 - CHRONIC KIDNEY DISEASE, UNSPECIFIED Assessment/Plan IMP RLL DVT AFIB NEW ONSET HTN CKD 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 PLAN ELIQUIS SLEEP STUDIES OUTPATIENT RATE CONTROL PER CARDIOLOGY MONITOR LYTES,RENAL FUNCTION W/U FOR HYPERCOAGULABLE STATE OUTPATIENT DR WIN Problem List - Problems (1) Atrial fibrillation with RVR Code(s): I48.91 - UNSPECIFIED ATRIAL FIBRILLATION (2) Edema Code(s): R60.9 - EDEMA, UNSPECIFIED (3) Leg edema Code(s): R60.0 - LOCALIZED EDEMA (4) HTN (hypertension) Code(s): I10 - ESSENTIAL (PRIMARY) HYPERTENSION (5) DVT (deep venous thrombosis) Code(s): I82.409 - ACUTE EMBOLISM AND THOMBOS UNSP DEEP VN UNSP LOWER EXTREMITY (6) CKD (chronic kidney disease) Code(s): N18.9 - CHRONIC KIDNEY DISEASE, UNSPECIFIED
[2018-09-18] MEDS ORDERED: ceFAZolin SODIUM 1 GM VIAL ONE ×3 (02:29→16:46)
[2018-09-18] MEDS ORDERED: DEXTROSE 5%-WATER - 50 ML IVPB ONE ×3 (02:29→16:46)
[2018-09-18] MEDS: CEFAZOLIN 1 GM in DEXTROSE 5%-WATER - 50 ML IVPB SCH ×3 (02:31→17:00)
[2018-09-18] MEDS: FUROSEMIDE 40 MG/4 ML INJECTABLE VIAL IVPUSH SCH ×2 (05:59→15:01)
[2018-09-18] MEDS: APIXABAN 5 MG TABLET PO SCH ×2 (10:12→21:10)
[2018-09-18] MEDS: DIGOXIN 0.125 MG TABLET (FP) PO SCH (10:15)
[2018-09-18] MEDS: POTASSIUM CHLORIDE ORAL LIQUID 20 MEQ/15 ML PO SCH (10:15)
--- NOTE | 2018-09-18 11:48 | PN ---
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, Physician History of Present Illness: PULMONARY NO DISTRESS,-CP,-SOB,-COUGH - Current Medication List Current Medications: Active Medications Acetaminophen (Tylenol -) 650 mg PO Q6H PRN PRN Reason: FEVER Last Admin: 09/15/18 12:29 Dose: 650 mg Apixaban (Eliquis -) 5 mg PO BID [facility] Digoxin (Lanoxin -) 0.125 mg PO DAILY [facility] Last Admin: 09/18/18 10:15 Dose: 0.125 mg Furosemide (Lasix Injection -) 40 mg IVPUSH BID@0600,1400 [facility] Last Admin: 09/18/18 05:59 Dose: 40 mg Cefazolin Sodium 1 gm/ (Dextrose) 50 mls @ 100 mls/hr IVPB Q8H-IV [facility] Last Admin: 09/18/18 10:12 Dose: 100 mls/hr Metoprolol Succinate (Toprol Xl -) 50 mg PO BID [facility] Last Admin: 09/18/18 10:15 Dose: 50 mg Metoprolol Tartrate (Lopressor Injection -) 5 mg IVPUSH Q4H PRN PRN Reason: TACHYCARDIA Last Admin: 09/15/18 08:09 Dose: 5 mg Potassium Chloride (Potassium Chloride Oral Liquid) 40 meq PO DAILY [facility] Last Admin: 09/18/18 10:15 Dose: 40 meq - Objective Vital Signs: Vital Signs Temperature 97.8 F 09/18/18 10:15 Pulse Rate 100 H 09/18/18 10:15 Respiratory Rate 19 09/18/18 10:15 Blood Pressure 106/77 09/18/18 10:15 O2 Sat by Pulse Oximetry (%) 95 09/18/18 09:00 Constitutional: Yes: Well Nourished, Calm Eyes: Yes: WNL HENT: Yes: WNL Neck: Yes: WNL Cardiovascular: Yes: Pulse Irregular, S1, S2 Respiratory: Yes: Diminished Gastrointestinal: Yes: Normal Bowel Sounds, Soft Extremities: Yes: WNL Edema: Yes Labs: CBC, BMP Problem List - Problems (1) Atrial fibrillation with RVR Code(s): I48.91 - UNSPECIFIED ATRIAL FIBRILLATION (2) Edema Code(s): R60.9 - EDEMA, UNSPECIFIED (3) Leg edema Code(s): R60.0 - LOCALIZED EDEMA (4) HTN (hypertension) Code(s): I10 - ESSENTIAL (PRIMARY) HYPERTENSION (5) DVT (deep venous thrombosis) Code(s): I82.409 - ACUTE EMBOLISM AND THOMBOS UNSP DEEP VN UNSP LOWER EXTREMITY (6) CKD (chronic kidney disease) Code(s): N18.9 - CHRONIC KIDNEY DISEASE, UNSPECIFIED Assessment/Plan IMP RLL DVT AFIB NEW ONSET HTN CKD 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 PLAN ELIQUIS SLEEP STUDIES OUTPATIENT RATE CONTROL PER CARDIOLOGY MONITOR LYTES,RENAL FUNCTION W/U FOR HYPERCOAGULABLE STATE OUTPATIENT DR WIN Problem List - Problems (1) Atrial fibrillation with RVR Code(s): I48.91 - UNSPECIFIED ATRIAL FIBRILLATION (2) Edema Code(s): R60.9 - EDEMA, UNSPECIFIED (3) Leg edema Code(s): R60.0 - LOCALIZED EDEMA (4) HTN (hypertension) Code(s): I10 - ESSENTIAL (PRIMARY) HYPERTENSION (5) DVT (deep venous thrombosis) Code(s): I82.409 - ACUTE EMBOLISM AND THOMBOS UNSP DEEP VN UNSP LOWER EXTREMITY (6) CKD (chronic kidney disease) Code(s): N18.9 - CHRONIC KIDNEY DISEASE, UNSPECIFIED
--- NOTE | 2018-09-18 12:28 | PN ---
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 (short form) - Note 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: events noted pt has B/L lower ext edema- decreased left leg wound family at bedside Vital Signs - 24 hr 09/17/18 09/17/18 09/17/18 14:19 18:34 21:00 Temperature 97.3 F L 99.5 F Pulse Rate 121 H 101 H Respiratory 16 18 18 Rate Blood Pressure 130/77 107/67 O2 Sat by Pulse 97 Oximetry (%) 09/17/18 09/18/18 09/18/18 22:00 02:00 06:00 Temperature 98.4 F 98.8 F 98.0 F Pulse Rate 108 H 102 H 99 H Respiratory 18 18 18 Rate Blood Pressure 129/78 118/74 101/58 L O2 Sat by Pulse Oximetry (%) 09/18/18 09/18/18 09/18/18 08:39 09:00 10:15 Temperature 98.2 F 97.8 F Pulse Rate 100 H 100 H Respiratory 18 19 Rate Blood Pressure 103/42 L 106/77 O2 Sat by Pulse 95 Oximetry (%) Current Medications Generic Name Dose Route Start Last Admin Trade Name Freq PRN Reason Stop Dose Admin Acetaminophen 650 mg 09/13/18 20:52 09/15/18 12:29 Tylenol - PO 650 mg Q6H PRN Administration FEVER Apixaban 5 mg 09/18/18 22:00 Eliquis - PO BID [facility] Digoxin 0.125 mg 09/16/18 10:00 09/18/18 10:15 Lanoxin - PO 0.125 mg DAILY [facility] Administration Furosemide 40 mg 09/13/18 16:30 09/18/18 05:59 Lasix Injection - IVPUSH 40 mg BID@0600,1400 [facility] Administration Cefazolin Sodium 1 gm/ 50 mls @ 100 mls/hr 09/17/18 12:00 09/18/18 10:12 Dextrose IVPB 100 mls/hr Q8H-IV [facility] Administration Metoprolol Succinate 50 mg 09/15/18 11:00 09/18/18 10:15 Toprol Xl - PO 50 mg BID [facility] Administration Metoprolol Tartrate 5 mg 09/12/18 16:28 09/15/18 08:09 Lopressor Injection - IVPUSH 5 mg Q4H PRN Administration TACHYCARDIA Mupirocin 1 applic 09/18/18 13:00 Bactroban 2% Ointment - TP BID [facility] Potassium Chloride 40 meq 09/15/18 11:15 09/18/18 10:15 Potassium Chloride Oral Liquid PO 40 meq DAILY [facility] Administration Silver Sulfadiazine 1 applic 09/18/18 13:00 Silvadene - TP DAILY [facility] Laboratory Results - last 24 hr 09/16/18 05:50 Digoxin 0.53 L S1 S2 irregular Lungs decreased Abd- soft,NT edema+ PLAN On Eliquis rate is controlled PT eval- pt has unsteady gait - may need STR meds noted BP control Tele monitoring iv antibiotics for cellulitis CT abd noted on Lasix Problem List - Problems (1) CKD (chronic kidney disease) Code(s): N18.9 - CHRONIC KIDNEY DISEASE, UNSPECIFIED (2) DVT (deep venous thrombosis) Code(s): I82.409 - ACUTE EMBOLISM AND THOMBOS UNSP DEEP VN UNSP LOWER EXTREMITY (3) Edema Code(s): R60.9 - EDEMA, UNSPECIFIED (4) HTN (hypertension) Code(s): I10 - ESSENTIAL (PRIMARY) HYPERTENSION (5) Atrial fibrillation with RVR Code(s): I48.91 - UNSPECIFIED ATRIAL FIBRILLATION (6) Left leg cellulitis Code(s): L03.116 - CELLULITIS OF LEFT LOWER LIMB
--- NOTE | 2018-09-18 14:41 | PN ---
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, Physician History of Present Illness: seen and examined today in nad. states she is feeling better. no overnight events. no new complaints. - Current Medication List Current Medications: Active Medications Acetaminophen (Tylenol -) 650 mg PO Q6H PRN PRN Reason: FEVER Last Admin: 09/15/18 12:29 Dose: 650 mg Apixaban (Eliquis -) 5 mg PO BID [facility] Digoxin (Lanoxin -) 0.125 mg PO DAILY [facility] Last Admin: 09/18/18 10:15 Dose: 0.125 mg Furosemide (Lasix Injection -) 40 mg IVPUSH BID@0600,1400 [facility] Last Admin: 09/18/18 05:59 Dose: 40 mg Cefazolin Sodium 1 gm/ (Dextrose) 50 mls @ 100 mls/hr IVPB Q8H-IV [facility] Last Admin: 09/18/18 10:12 Dose: 100 mls/hr Metoprolol Succinate (Toprol Xl -) 50 mg PO BID [facility] Last Admin: 09/18/18 10:15 Dose: 50 mg Metoprolol Tartrate (Lopressor Injection -) 5 mg IVPUSH Q4H PRN PRN Reason: TACHYCARDIA Last Admin: 09/15/18 08:09 Dose: 5 mg Mupirocin (Bactroban 2% Ointment -) 1 applic TP BID [facility] Potassium Chloride (Potassium Chloride Oral Liquid) 40 meq PO DAILY [facility] Last Admin: 09/18/18 10:15 Dose: 40 meq Silver Sulfadiazine (Silvadene -) 1 applic TP DAILY [facility] - Objective Vital Signs: Vital Signs Temperature 98 F 09/18/18 14:00 Pulse Rate 90 09/18/18 14:00 Respiratory Rate 18 09/18/18 14:00 Blood Pressure 98/66 09/18/18 14:00 O2 Sat by Pulse Oximetry (%) 95 09/18/18 09:00 Constitutional: Yes: No Distress, Calm Eyes: Yes: Conjunctiva Clear, EOM Intact, PERRL HENT: Yes: Atraumatic, Normocephalic Neck: Yes: Supple, Trachea Midline Cardiovascular: Yes: Pulse Irregular, S1, S2. No: Regular Rate and Rhythm, Bradycardia, Tachycardia, Bruit, JVD, Gallop, Murmur, Rub, S3, S4, Varicosities Respiratory: Yes: Regular, Diminished, Rales. No: Rhonchi, SOB, Wheezes Gastrointestinal: Yes: Normal Bowel Sounds, Soft. No: Distention, Tenderness Musculoskeletal: Yes: Muscle Weakness Extremities: Yes: WNL Edema: Yes Edema: LLE: Trace, RLE: 1+ Peripheral Pulses WNL: Yes Peripheral Pulses: Left Doralis Pedis: 2+, Right Dorsalis Pedis: 2+ Neurological: Yes: Alert, Oriented Psychiatric: Yes: Alert, Oriented Labs: CBC, BMP 09/17/18 06:00 09/17/18 06:00 - ....Imaging Chest X-ray: Report Reviewed, Image Reviewed EKG: Report Reviewed, Image Reviewed Other: Report Reviewed, Image Reviewed (tele-AFib/aflutter, HR control improving 90s-100s) Assessment/Plan 77 year old woman with pmh HTN, admitted with progressively worsening b/l LE edema, sob, fatigue and found to be in newly dx Afib with RVR with a newly dx RLE DVT elevated wbc, DAYNA, peripheral and pulmonary edema. The symptoms have progressively worsened over the past weeks. ECHO 09/12/18 showed normal LV/RV function, mild mr, mod tr, mod LAE/ANASTASIA. CHF Acute on chronic diastolic CHF Still volume overloaded but improving Likely related to AF with RVR Continue Lasix 40 mg IVSS BID. Daily Wt's/Lytes/I's/O's AFIB Continue AC with Apixaban Continue rate control with Metoprolol Succinate 50 mg PO BID Cont 0.125mg daily, fup level HR trend is improving Would hold off on THOMAS/DCCV at this time as HR is improving. Additionally pt has a Hiatal hernia with stomach in the thorax, This would make performing a THOMAS very difficult. The risk > benefit at this time. cont tele monitoring DVT Newly dx, unclear etiology Already on eliquis Heme/onc felt no role in hypercoagulable work up, should have routine cancer screening uncertain etiology of elevated wbc, currently on Abx
[2018-09-18] MEDS: MUPIROCIN 2% TOPICAL OINTMENT 22 GM TUBE TP SCH (14:55)
[2018-09-18] MEDS: SILVER SULFADIAZINE 1% TOP CREAM 50 GM JAR TP SCH (14:56)
[2018-09-18] MEDS ORDERED: PT OWN MED DRAWER 7, Y5N ONE (16:53)
[2018-09-19] MEDS ORDERED: ceFAZolin SODIUM 1 GM VIAL ONE ×2 (01:26→08:51)
[2018-09-19] MEDS ORDERED: DEXTROSE 5%-WATER - 50 ML IVPB ONE ×2 (01:27→08:51)
[2018-09-19] MEDS: CEFAZOLIN 1 GM in DEXTROSE 5%-WATER - 50 ML IVPB SCH ×2 (01:34→09:07)
[2018-09-19 06:44] LABS: BASO % 0.2 % (0-2.0); HEMATOCRIT 39.5 % (32.4-45.2); HEMOGLOBIN 12.2 GM/dL (10.7-15.3); LYMPH % 5.2 % (8-40); MCH 26.6 pg (25.7-33.7); MEAN CELL VOLUME 85.8 fl (80-96); MEAN PLT VOLUME 9.2 fl (7.5-11.1); MONO % 5.3 % (3.8-10.2); NEUT % 88.3 % (42.8-82.8); PLATELET COUNT 340 K/MM3 (134-434); RBC 4.61 M/mm3 (3.60-5.2); RDW 16.2 % (11.6-15.6); WHITE BLOOD COUNT 11.9 K/mm3 (4.0-10.0)
[2018-09-19] MEDS: MUPIROCIN 2% TOPICAL OINTMENT 22 GM TUBE TP SCH ×3 (06:55→21:31)
[2018-09-19] MEDS: FUROSEMIDE 40 MG/4 ML INJECTABLE VIAL IVPUSH SCH ×2 (06:56→13:25)
[2018-09-19 07:19] LABS: ALBUMIN 1.5 g/dl (3.4-5.0); ALK PHOS 137 U/L (45-117); ANION GAP 10 MMOL/L (8-16); BILIRUBIN,TOTAL 0.5 mg/dL (0.2-1); BLOOD UREA NITROGEN 28 mg/dL (7-18); CALCIUM 7.8 mg/dL (8.5-10.1); CHLORIDE 97 mmol/L (98-107); CO2 32 mmol/L (21-32); CREATININE 1.2 mg/dL (0.55-1.3); GLUCOSE,RANDOM 96 mg/dL (74-106); POTASSIUM 4.6 mmol/L (3.5-5.1); SGOT/AST 267 U/L (15-37); SGPT/ALT 107 U/L (13-61); SODIUM 139 mmol/L (136-145); TOT PROT 4.5 g/dl (6.4-8.2)
[2018-09-19] MEDS: APIXABAN 5 MG TABLET PO SCH ×2 (09:08→21:31)
[2018-09-19] MEDS: DIGOXIN 0.125 MG TABLET (FP) PO SCH (09:08)
[2018-09-19] MEDS: POTASSIUM CHLORIDE ORAL LIQUID 20 MEQ/15 ML PO SCH (09:08)
[2018-09-19] MEDS: SILVER SULFADIAZINE 1% TOP CREAM 50 GM JAR TP SCH (09:09)
--- NOTE | 2018-09-19 12:30 | PN ---
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 (short form) - Note 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: Resting in NAD. No CP or SOB. No acute events overnight. Intake & Output 09/16/18 09/17/18 09/18/18 09/19/18 23:59 23:59 23:59 23:59 Intake Total 514 980 2761 520 Balance 521 850 7991 520 Last Vital Signs Temp Pulse Resp BP Pulse Ox 97.4 F L 89 18 133/76 95 09/19/18 10:00 09/19/18 10:00 09/19/18 10:00 09/19/18 10:00 09/19/18 09:00 Active Medications Acetaminophen (Tylenol -) 650 mg PO Q6H PRN PRN Reason: FEVER Last Admin: 09/15/18 12:29 Dose: 650 mg Apixaban (Eliquis -) 5 mg PO BID [facility] Last Admin: 09/19/18 09:08 Dose: 5 mg Digoxin (Lanoxin -) 0.125 mg PO DAILY [facility] Last Admin: 09/19/18 09:08 Dose: 0.125 mg Furosemide (Lasix Injection -) 40 mg IVPUSH BID@0600,1400 [facility] [place] Last Admin: 09/19/18 06:56 Dose: 40 mg Cefazolin Sodium 1 gm/ (Dextrose) 50 mls @ 100 mls/hr IVPB Q8H-IV [facility] [place] Last Admin: 09/19/18 09:07 Dose: 100 mls/hr Metoprolol Succinate (Toprol Xl -) 50 mg PO BID [facility] [place] Last Admin: 09/19/18 09:08 Dose: 50 mg Metoprolol Tartrate (Lopressor Injection -) 5 mg IVPUSH Q4H PRN PRN Reason: TACHYCARDIA Last Admin: 09/15/18 08:09 Dose: 5 mg Mupirocin (Bactroban 2% Ointment -) 1 applic TP BID [facility] [place] Last Admin: 09/19/18 09:08 Dose: Not Given Potassium Chloride (Potassium Chloride Oral Liquid) 40 meq PO DAILY [facility] [place] Last Admin: 09/19/18 09:08 Dose: 40 meq Silver Sulfadiazine (Silvadene -) 1 applic TP DAILY [facility] [place] Last Admin: 09/19/18 09:09 Dose: Not Given Constitutional: Yes: NAD Eyes: Yes: WNL HENT: Yes: WNL Neck: Yes: WNL Cardiovascular: Yes: Pulse Irregular, S1, S2 Respiratory: Yes: Diminished at the bases Gastrointestinal: Yes: Normal Bowel Sounds, Soft Extremities: Yes: WNL Edema: Yes Labs: Laboratory Results - last 24 hr 09/19/18 09/19/18 06:00 06:00 WBC 11.9 H RBC 4.61 Hgb 12.2 Hct 39.5 MCV 85.8 MCH 26.6 MCHC 31.0 L RDW 16.2 H Plt Count 340 D MPV 9.2 Absolute Neuts (auto) 10.5 H Neutrophils % 88.3 H Lymphocytes % 5.2 L D Monocytes % 5.3 Eosinophils % 1.0 D Basophils % 0.2 Nucleated RBC % 0 Sodium 139 Potassium 4.6 Chloride 97 L Carbon Dioxide 32 Anion Gap 10 BUN 28 H Creatinine 1.2 Creat Clearance w eGFR 43.45 Random Glucose 96 Calcium 7.8 L Total Bilirubin 0.5 AST 267 H ALT 107 H Alkaline Phosphatase 137 H Total Protein 4.5 L Albumin 1.5 L Problem List - Problems (1) Atrial fibrillation with RVR Code(s): I48.91 - UNSPECIFIED ATRIAL FIBRILLATION (2) Edema Code(s): R60.9 - EDEMA, UNSPECIFIED (3) Leg edema Code(s): R60.0 - LOCALIZED EDEMA (4) HTN (hypertension) Code(s): I10 - ESSENTIAL (PRIMARY) HYPERTENSION (5) DVT (deep venous thrombosis) Code(s): I82.409 - ACUTE EMBOLISM AND THOMBOS UNSP DEEP VN UNSP LOWER EXTREMITY (6) CKD (chronic kidney disease) Code(s): N18.9 - CHRONIC KIDNEY DISEASE, UNSPECIFIED Assessment/Plan IMP RLL DVT AFIB NEW ONSET HTN CKD 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
--- NOTE | 2018-09-19 12:46 | PN ---
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 (short form) - Note 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: events noted no complaints feels well pt has B/L lower ext edema- decreased left leg wound family at bedside Vital Signs - 24 hr 09/18/18 09/18/18 09/18/18 13:59 14:00 18:21 Temperature 97.7 F 98 F 99.1 F Pulse Rate 117 H 90 100 H Respiratory 18 18 20 Rate Blood Pressure 100/59 L 98/66 116/61 O2 Sat by Pulse Oximetry (%) 09/18/18 09/18/18 09/19/18 20:30 22:00 02:00 Temperature 98.4 F 97.8 F Pulse Rate 88 96 H Respiratory 20 20 20 Rate Blood Pressure 119/66 116/76 O2 Sat by Pulse 95 Oximetry (%) 09/19/18 09/19/18 09/19/18 06:00 09:00 09:08 Temperature 97.9 F Pulse Rate 100 H 80 Respiratory 20 Rate Blood Pressure 111/64 O2 Sat by Pulse 95 Oximetry (%) 09/19/18 10:00 Temperature 97.4 F L Pulse Rate 89 Respiratory 18 Rate Blood Pressure 133/76 O2 Sat by Pulse Oximetry (%) Current Medications Generic Name Dose Route Start Last Admin Trade Name Freq PRN Reason Stop Dose Admin Acetaminophen 650 mg 09/13/18 20:52 09/15/18 12:29 Tylenol - PO 650 mg Q6H PRN Administration FEVER Apixaban 5 mg 09/18/18 22:00 09/19/18 09:08 Eliquis - PO 5 mg BID [facility] Administration Digoxin 0.125 mg 09/16/18 10:00 09/19/18 09:08 Lanoxin - PO 0.125 mg DAILY [facility] Administration Furosemide 40 mg 09/13/18 16:30 09/19/18 06:56 Lasix Injection - IVPUSH 40 mg BID@0600,1400 [facility] Administration Cefazolin Sodium 1 gm/ 50 mls @ 100 mls/hr 09/17/18 12:00 09/19/18 09:07 Dextrose IVPB 100 mls/hr Q8H-IV [facility] Administration Metoprolol Succinate 50 mg 09/15/18 11:00 09/19/18 09:08 Toprol Xl - PO 50 mg BID [facility] Administration Metoprolol Tartrate 5 mg 09/12/18 16:28 09/15/18 08:09 Lopressor Injection - IVPUSH 5 mg Q4H PRN Administration TACHYCARDIA Mupirocin 1 applic 09/18/18 13:00 09/19/18 09:08 Bactroban 2% Ointment - TP Not Given BID [facility] Potassium Chloride 40 meq 09/15/18 11:15 09/19/18 09:08 Potassium Chloride Oral Liquid PO 40 meq DAILY [facility] Administration Silver Sulfadiazine 1 applic 09/18/18 13:00 09/19/18 09:09 Silvadene - TP Not Given DAILY [facility] Laboratory Results - last 24 hr 09/19/18 09/19/18 06:00 06:00 WBC 11.9 H RBC 4.61 Hgb 12.2 Hct 39.5 MCV 85.8 MCH 26.6 MCHC 31.0 L RDW 16.2 H Plt Count 340 D MPV 9.2 Absolute Neuts (auto) 10.5 H Neutrophils % 88.3 H Lymphocytes % 5.2 L D Monocytes % 5.3 Eosinophils % 1.0 D Basophils % 0.2 Nucleated RBC % 0 Sodium 139 Potassium 4.6 Chloride 97 L Carbon Dioxide 32 Anion Gap 10 BUN 28 H Creatinine 1.2 Creat Clearance w eGFR 43.45 Random Glucose 96 Calcium 7.8 L Total Bilirubin 0.5 AST 267 H ALT 107 H Alkaline Phosphatase 137 H Total Protein 4.5 L Albumin 1.5 L S1 S2 irregular Lungs decreased Abd- soft,NT edema+ PLAN On Eliquis rate is controlled PT eval- pt has unsteady gait - may need STR meds noted BP control Tele monitoring iv antibiotics for cellulitis- may need to DC as LFT elevated-- CT abd does not show abnormality in the liver Check hep profile CT abd noted on Lasix Problem List - Problems (1) CKD (chronic kidney disease) Code(s): N18.9 - CHRONIC KIDNEY DISEASE, UNSPECIFIED (2) DVT (deep venous thrombosis) Code(s): I82.409 - ACUTE EMBOLISM AND THOMBOS UNSP DEEP VN UNSP LOWER EXTREMITY (3) Edema Code(s): R60.9 - EDEMA, UNSPECIFIED (4) HTN (hypertension) Code(s): I10 - ESSENTIAL (PRIMARY) HYPERTENSION (5) Atrial fibrillation with RVR Code(s): I48.91 - UNSPECIFIED ATRIAL FIBRILLATION (6) Left leg cellulitis Code(s): L03.116 - CELLULITIS OF LEFT LOWER LIMB
--- NOTE | 2018-09-19 14:25 | PN ---
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, Physician Chief Complaint: No sob or chest pain Aflutter with VR 90s History of Present Illness: 77 year old woman with pmh HTN, admitted with progressively worsening b/l LE edema, sob, fatigue and found to be in newly dx Afib with RVR with a newly dx RLE DVT elevated wbc, DAYNA, peripheral and pulmonary edema. The symptoms have progressively worsened over the past weeks. ECHO 09/12/18 showed normal LV/RV function, mild mr, mod tr, mod LAE/ANASTASIA. - Current Medication List Current Medications: Active Medications Acetaminophen (Tylenol -) 650 mg PO Q6H PRN PRN Reason: FEVER Last Admin: 09/15/18 12:29 Dose: 650 mg Apixaban (Eliquis -) 5 mg PO BID [facility] Last Admin: 09/19/18 09:08 Dose: 5 mg Digoxin (Lanoxin -) 0.125 mg PO DAILY [facility] Last Admin: 09/19/18 09:08 Dose: 0.125 mg Furosemide (Lasix Injection -) 40 mg IVPUSH BID@0600,1400 [facility] Last Admin: 09/19/18 13:25 Dose: 40 mg Cefazolin Sodium 1 gm/ (Dextrose) 50 mls @ 100 mls/hr IVPB Q8H-IV [facility] Last Admin: 09/19/18 09:07 Dose: 100 mls/hr Metoprolol Succinate (Toprol Xl -) 50 mg PO BID [facility] Last Admin: 09/19/18 09:08 Dose: 50 mg Metoprolol Tartrate (Lopressor Injection -) 5 mg IVPUSH Q4H PRN PRN Reason: TACHYCARDIA Last Admin: 09/15/18 08:09 Dose: 5 mg Mupirocin (Bactroban 2% Ointment -) 1 applic TP BID [facility] Last Admin: 09/19/18 09:08 Dose: Not Given Potassium Chloride (Potassium Chloride Oral Liquid) 40 meq PO DAILY [facility] Last Admin: 09/19/18 09:08 Dose: 40 meq Silver Sulfadiazine (Silvadene -) 1 applic TP DAILY [facility] Last Admin: 09/19/18 09:09 Dose: Not Given - Objective Vital Signs: Vital Signs Temperature 97.4 F L 09/19/18 10:00 Pulse Rate 89 09/19/18 10:00 Respiratory Rate 18 09/19/18 10:00 Blood Pressure 133/76 09/19/18 10:00 O2 Sat by Pulse Oximetry (%) 95 09/19/18 09:00 Constitutional: Yes: No Distress Neck: Yes: Supple Cardiovascular: Yes: Pulse Irregular, S1, S2. No: JVD Respiratory: Yes: Diminished Gastrointestinal: Yes: Soft Edema: LLE: Trace, RLE: Trace Labs: CBC, BMP 09/19/18 06:00 09/19/18 06:00 Problem List - Problems (1) Atrial fibrillation with RVR Code(s): I48.91 - UNSPECIFIED ATRIAL FIBRILLATION Assessment/Plan 77 year old woman with pmh HTN, admitted with progressively worsening b/l LE edema, sob, fatigue and found to be in newly dx Afib with RVR with a newly dx RLE DVT elevated wbc, DAYNA, peripheral and pulmonary edema. The symptoms have progressively worsened over the past weeks. ECHO 09/12/18 showed normal LV/RV function, mild mr, mod tr, mod LAE/ANASTASIA. CHF Acute on chronic diastolic CHF Likely related to AF with RVR Continue Lasix 40 mg IVSS BID. Daily Wt's/Lytes/I's/O's. Improving. AFIB Continue AC with Apixaban HR's controlled in 90s all day. Continue metoprolol and digoxin DVT Newly dx, unclear etiology Already on eliquis Heme/onc evaluate to assist with possible etiologies, should have routine cancer screening LFTs - trending up last few days. Unclear why. Volume status seems to be improving. Consider liver sono. Trends labs.
--- NOTE | 2018-09-19 16:43 | PN ---
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, Physician History of Present Illness: Awake, alert in bed Offers no complaints No c/o leg pain Afebrile WBC improved Elevated LFTs noted - Current Medication List Current Medications: Active Medications Acetaminophen (Tylenol -) 650 mg PO Q6H PRN PRN Reason: FEVER Last Admin: 09/15/18 12:29 Dose: 650 mg Apixaban (Eliquis -) 5 mg PO BID [facility] Last Admin: 09/19/18 09:08 Dose: 5 mg Digoxin (Lanoxin -) 0.125 mg PO DAILY [facility] Last Admin: 09/19/18 09:08 Dose: 0.125 mg Furosemide (Lasix Injection -) 40 mg IVPUSH BID@0600,1400 [facility] Last Admin: 09/19/18 13:25 Dose: 40 mg Cefazolin Sodium 1 gm/ (Dextrose) 50 mls @ 100 mls/hr IVPB Q8H-IV [facility] Last Admin: 09/19/18 09:07 Dose: 100 mls/hr Metoprolol Succinate (Toprol Xl -) 50 mg PO BID [facility] Last Admin: 09/19/18 09:08 Dose: 50 mg Metoprolol Tartrate (Lopressor Injection -) 5 mg IVPUSH Q4H PRN PRN Reason: TACHYCARDIA Last Admin: 09/15/18 08:09 Dose: 5 mg Mupirocin (Bactroban 2% Ointment -) 1 applic TP BID [facility] Last Admin: 09/19/18 09:08 Dose: Not Given Potassium Chloride (Potassium Chloride Oral Liquid) 40 meq PO DAILY [facility] Last Admin: 09/19/18 09:08 Dose: 40 meq Silver Sulfadiazine (Silvadene -) 1 applic TP DAILY [facility] Last Admin: 09/19/18 09:09 Dose: Not Given - Objective Vital Signs: Vital Signs Temperature 98.1 F 09/19/18 14:05 Pulse Rate 88 09/19/18 14:05 Respiratory Rate 16 09/19/18 14:05 Blood Pressure 104/64 09/19/18 14:05 O2 Sat by Pulse Oximetry (%) 95 09/19/18 09:00 Constitutional: Yes: No Distress Cardiovascular: Yes: S1, S2. No: Regular Rate and Rhythm Respiratory: Yes: Diminished Gastrointestinal: Yes: Normal Bowel Sounds, Soft. No: Tenderness Extremities: Yes: Other (L leg ulcer with necrotic eschar. no purulent drainage. + erythema) Labs: CBC, BMP 09/19/18 06:00 09/19/18 06:00 Assessment/Plan Necrotic leg ulcer with surrounding cellulitis Leukocytosis- improved Elevated LFTs ? RX Will switch to vancomycin qd Repeat CBC LFTs
[2018-09-19] MEDS: VANCOMYCIN 1 GRAM (PRE-DOCKED) 1,000 MG/250 ML BAG IVPB SCH (17:13)
[2018-09-20] MEDS: FUROSEMIDE 40 MG/4 ML INJECTABLE VIAL IVPUSH SCH ×2 (06:05→13:14)
[2018-09-20 07:08] LABS: BASO % 0.6 % (0-2.0); EOS % 1.6 % (0-4.5); HEMATOCRIT 40.2 % (32.4-45.2); HEMOGLOBIN 12.7 GM/dL (10.7-15.3); LYMPH % 5.1 % (8-40); MCHC 31.7 g/dl (32.0-36.0); MEAN CELL VOLUME 85.2 fl (80-96); MEAN PLT VOLUME 9.4 fl (7.5-11.1); MONO % 5.7 % (3.8-10.2); PLATELET COUNT 395 K/MM3 (134-434); RBC 4.71 M/mm3 (3.60-5.2); RDW 16.1 % (11.6-15.6); WHITE BLOOD COUNT 9.9 K/mm3 (4.0-10.0)
[2018-09-20 07:23] LABS: ALBUMIN 1.6 g/dl (3.4-5.0); ALK PHOS 145 U/L (45-117); ANION GAP 6 MMOL/L (8-16); BILIRUBIN,TOTAL 0.5 mg/dL (0.2-1); BLOOD UREA NITROGEN 29 mg/dL (7-18); CALCIUM 8.3 mg/dL (8.5-10.1); CHLORIDE 95 mmol/L (98-107); CO2 36 mmol/L (21-32); CREATININE 1.1 mg/dL (0.55-1.3); GAMMA GLUTAMYL TRANSPEPTIDASE 124 U/L (5-85); GLUCOSE,RANDOM 93 mg/dL (74-106); POTASSIUM 4.8 mmol/L (3.5-5.1); SGOT/AST 282 U/L (15-37); SGPT/ALT 86 U/L (13-61); SODIUM 137 mmol/L (136-145); TOT PROT 4.6 g/dl (6.4-8.2)
[2018-09-20] MEDS: APIXABAN 5 MG TABLET PO SCH ×2 (09:14→22:34)
[2018-09-20] MEDS: POTASSIUM CHLORIDE ORAL LIQUID 20 MEQ/15 ML PO SCH (09:15)
[2018-09-20] MEDS: DIGOXIN 0.125 MG TABLET (FP) PO SCH (09:15)
[2018-09-20] MEDS: SILVER SULFADIAZINE 1% TOP CREAM 50 GM JAR TP SCH (09:16)
[2018-09-20] MEDS: MUPIROCIN 2% TOPICAL OINTMENT 22 GM TUBE TP SCH ×2 (09:16→22:35)
--- NOTE | 2018-09-20 10:32 | PN ---
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 (short form) - Note 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: PULMONARY AWAKE/ALERT/? MILD CONFUSION AFEBRILE HR 88 IRREGULAR ANICTERIC DIMINISHED BREATH SOUNDS BILATERALLY/MORE AT BASES S1S2 SYST M APEX/LSB IRREG BS+ SOFT LEFT LOWER EXT BANDAGED/RIGHT CALF DVT/2+ B/L EDEMA LABS/IMAGES/MEDS/NOTES REVIEWED RLL DVT/LLL VENOUS ULCER/CELLULITIS AFIB NEW ONSET RISING LFT'S HTN CKD DENSITY R CARDIO-PHRENIC ANGLE/HIATAL HERNIA LIKELY OSAS PLAN ELIQUIS/ANTIBIOTICS HEPATIC SEROLOGY PENDING SLEEP STUDIES OUTPATIENT RATE CONTROL PER CARDIOLOGY MONITOR LYTES,RENAL FUNCTION/LFT'S W/U FOR HYPERCOAGULABLE STATE OUTPATIENT CONSIDER GI RANJIT KULKARNI MD
--- NOTE | 2018-09-20 11:48 | PN ---
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 (short form) - Note 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: Patient seen and examined today. chart reviewed Comfortable All follow-ups noted at bedside Antibiotics changed to vancomycin--due to elevated LFTs Vital Signs Temp 97.5 F L 09/20/18 10:00 Pulse 83 09/20/18 10:00 Resp 18 09/20/18 10:00 BP 115/79 09/20/18 10:00 Pulse Ox 99 09/20/18 09:00 Intake & Output 09/19/18 09/19/18 09/20/18 11:59 23:59 11:59 Intake Total 520 630 370 Balance 520 630 370 Intake: IVPB 50 Oral 470 630 370 Other: Voiding Method Incontinent Incontinent Incontinent # Unmeasured Voids Void 1 1 2 Bowel Movement No Active Medications Acetaminophen (Tylenol -) 650 mg PO Q6H PRN PRN Reason: FEVER Last Admin: 09/15/18 12:29 Dose: 650 mg Apixaban (Eliquis -) 5 mg PO BID [facility] Last Admin: 09/20/18 09:14 Dose: 5 mg Digoxin (Lanoxin -) 0.125 mg PO DAILY [facility] Last Admin: 09/20/18 09:15 Dose: 0.125 mg Furosemide (Lasix Injection -) 40 mg IVPUSH BID@0600,1400 [facility] Last Admin: 09/20/18 06:05 Dose: 40 mg Vancomycin HCl (Vancomycin (Pre-Docked)) 1,000 mg in 250 mls @ 166.667 mls/hr IVPB DAILY@1700 [facility]; Protocol Last Admin: 09/19/18 17:13 Dose: 166.667 mls/hr Metoprolol Succinate (Toprol Xl -) 50 mg PO BID [facility] Last Admin: 09/20/18 09:11 Dose: 50 mg Metoprolol Tartrate (Lopressor Injection -) 5 mg IVPUSH Q4H PRN PRN Reason: TACHYCARDIA Last Admin: 09/15/18 08:09 Dose: 5 mg Mupirocin (Bactroban 2% Ointment -) 1 applic TP BID [facility] Last Admin: 09/20/18 09:16 Dose: 1 applic Potassium Chloride (Potassium Chloride Oral Liquid) 40 meq PO DAILY [facility] Last Admin: 09/20/18 09:15 Dose: 40 meq Silver Sulfadiazine (Silvadene -) 1 applic TP DAILY [facility] Last Admin: 09/20/18 09:16 Dose: 1 applic CBC, BMP 09/20/18 05:50 09/20/18 05:50 Microbiology 09/17/18 12:45 Blood Culture - Preliminary Blood - Peripheral Venous NO GROWTH OBTAINED AFTER 48 HOURS, INCUBATION TO CONTINUE FOR 3 DAYS. 09/17/18 12:40 Blood Culture - Preliminary Blood - Peripheral Venous NO GROWTH OBTAINED AFTER 48 HOURS, INCUBATION TO CONTINUE FOR 3 DAYS. Physical exam S1 S2 irregular Lungs decreased Abd- soft,NT edema+ left leg--- dressing alert and awake Assessment and plan On Eliquis rate is controlled PT eval- pt has unsteady gait - may need STR ---so far patient and family refusing meds noted BP control Tele monitoring iv antibiotics for cellulitis- vancomycin Monitor liver function tests Check hep profile--- pending follow-up labs Daily out of bed to chair Will follow Discussed with nursing staff also Problem List - Problems (1) Atrial fibrillation with RVR Code(s): I48.91 - UNSPECIFIED ATRIAL FIBRILLATION (2) CKD (chronic kidney disease) Code(s): N18.9 - CHRONIC KIDNEY DISEASE, UNSPECIFIED (3) DVT (deep venous thrombosis) Code(s): I82.409 - ACUTE EMBOLISM AND THOMBOS UNSP DEEP VN UNSP LOWER EXTREMITY (4) HTN (hypertension) Code(s): I10 - ESSENTIAL (PRIMARY) HYPERTENSION
--- NOTE | 2018-09-20 16:08 | PN ---
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, Physician Chief Complaint: The patient feels good. She reports no palpitation, SOB or chest pain. Tele shows persistent afib with average VR 70-90 BPM. Occasional slow afib in the low 50s. No pauses longer than 3 seconds. History of Present Illness: 77 year old woman with a PMHx of HTN, admitted with progressively worsening b/l LE edema, sob, fatigue and found to be in newly Afib with RVR with a newly dx RLE DVT elevated wbc, DAYNA, peripheral and pulmonary edema. The symptoms have progressively worsened over the past weeks. ECHO 09/12/18 showed normal LV/RV function, mild mr, mod tr, mod LAE/ANASTASIA. VR is under control with current regimen. - Current Medication List Current Medications: Active Medications Acetaminophen (Tylenol -) 650 mg PO Q6H PRN PRN Reason: FEVER Last Admin: 09/15/18 12:29 Dose: 650 mg Apixaban (Eliquis -) 5 mg PO BID [facility] Last Admin: 09/20/18 09:14 Dose: 5 mg Digoxin (Lanoxin -) 0.125 mg PO DAILY [facility] Last Admin: 09/20/18 09:15 Dose: 0.125 mg Furosemide (Lasix Injection -) 40 mg IVPUSH BID@0600,1400 [facility] Last Admin: 09/20/18 13:14 Dose: 40 mg Vancomycin HCl (Vancomycin (Pre-Docked)) 1,000 mg in 250 mls @ 166.667 mls/hr IVPB DAILY@1700 [facility]; Protocol Last Admin: 09/19/18 17:13 Dose: 166.667 mls/hr Metoprolol Succinate (Toprol Xl -) 50 mg PO BID [facility] Last Admin: 09/20/18 09:11 Dose: 50 mg Metoprolol Tartrate (Lopressor Injection -) 5 mg IVPUSH Q4H PRN PRN Reason: TACHYCARDIA Last Admin: 09/15/18 08:09 Dose: 5 mg Mupirocin (Bactroban 2% Ointment -) 1 applic TP BID [facility] Last Admin: 09/20/18 09:16 Dose: 1 applic Potassium Chloride (Potassium Chloride Oral Liquid) 40 meq PO DAILY [facility] Last Admin: 09/20/18 09:15 Dose: 40 meq Silver Sulfadiazine (Silvadene -) 1 applic TP DAILY [facility] Last Admin: 09/20/18 09:16 Dose: 1 applic - Objective Vital Signs: Vital Signs Temperature 97.8 F 09/20/18 14:35 Pulse Rate 82 09/20/18 14:35 Respiratory Rate 16 09/20/18 14:35 Blood Pressure 105/50 L 09/20/18 14:35 O2 Sat by Pulse Oximetry (%) 99 09/20/18 09:00 General: Well developed. Well nourished. No acute distress. Head: Normocephalic. Atraumatic, Eyes: PERRLA, EOMI. Sclerae anicteric. Conjunctivae clear. Neck: Supple. No JVD. No bruits. Heart: Normal S1, S2: Irregular rhythm and rate. No murmur. No gallop or rub. Lungs: Symmetrical air entry. Clear to auscultation. No crackles. No wheezing or rhonchi. Abdomen: Soft. Bowel sound positive. Non tender. No masses. Extremities: 1+ edema. No clubbing or cyanosis. PD 2+, equal bilaterally. Neuro: Intact, no focal findings. AAO X3. Labs: CBC, BMP 09/20/18 05:50 09/20/18 05:50 Assessment/Plan 77 year old woman with a PMHx of HTN, admitted with progressively worsening b/l LE edema, sob, fatigue and found to be in newly Afib with RVR with a newly dx RLE DVT elevated wbc, DAYNA, peripheral and pulmonary edema. The symptoms have progressively worsened over the past weeks. ECHO 09/12/18 showed normal LV/RV function, mild mr, mod tr, mod LAE/ANASTASIA. VR is under control with current regimen. CHF Acute on chronic diastolic CHF: Improved. Likely related to AF with RVR May change Lasix to PO 40 mg BID. AFIB: VR controlled 70-90 BPM. Continue AC with Apixaban Continue metoprolol and digoxin May d/c tele. DVT Newly dx, unclear etiology Already on eliquis Heme/onc evaluate to assist with possible etiologies, should have routine cancer screening Please call us for reconsult as needed.
--- NOTE | 2018-09-20 17:34 | PN ---
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, Physician History of Present Illness: Awake, alert in bed Offers no complaints No c/o leg pain Afebrile WBC improved Now WNL LFTs remain elevated - Current Medication List Current Medications: Active Medications Acetaminophen (Tylenol -) 650 mg PO Q6H PRN PRN Reason: FEVER Last Admin: 09/15/18 12:29 Dose: 650 mg Apixaban (Eliquis -) 5 mg PO BID [facility] Last Admin: 09/20/18 09:14 Dose: 5 mg Digoxin (Lanoxin -) 0.125 mg PO DAILY [facility] Last Admin: 09/20/18 09:15 Dose: 0.125 mg Furosemide (Lasix Injection -) 40 mg IVPUSH BID@0600,1400 [facility] Last Admin: 09/20/18 13:14 Dose: 40 mg Vancomycin HCl (Vancomycin (Pre-Docked)) 1,000 mg in 250 mls @ 166.667 mls/hr IVPB DAILY@1700 [facility]; Protocol Last Admin: 09/19/18 17:13 Dose: 166.667 mls/hr Metoprolol Succinate (Toprol Xl -) 50 mg PO BID [facility] Last Admin: 09/20/18 09:11 Dose: 50 mg Metoprolol Tartrate (Lopressor Injection -) 5 mg IVPUSH Q4H PRN PRN Reason: TACHYCARDIA Last Admin: 09/15/18 08:09 Dose: 5 mg Mupirocin (Bactroban 2% Ointment -) 1 applic TP BID [facility] Last Admin: 09/20/18 09:16 Dose: 1 applic Potassium Chloride (Potassium Chloride Oral Liquid) 40 meq PO DAILY [facility] Last Admin: 09/20/18 09:15 Dose: 40 meq Silver Sulfadiazine (Silvadene -) 1 applic TP DAILY [facility] Last Admin: 09/20/18 09:16 Dose: 1 applic - Objective Vital Signs: Vital Signs Temperature 97.8 F 09/20/18 14:35 Pulse Rate 82 09/20/18 14:35 Respiratory Rate 16 09/20/18 14:35 Blood Pressure 105/50 L 09/20/18 14:35 O2 Sat by Pulse Oximetry (%) 99 09/20/18 09:00 Constitutional: Yes: No Distress Eyes: Yes: Conjunctiva Clear Cardiovascular: Yes: S1, S2. No: Regular Rate and Rhythm Respiratory: Yes: CTA Bilaterally Gastrointestinal: Yes: Normal Bowel Sounds, Soft. No: Tenderness Extremities: Yes: Other (+ L LE with necrotic tissue No purulence Cellulitis resolved) Labs: CBC, BMP 09/20/18 05:50 09/20/18 05:50 Assessment/Plan Necrotic leg ulcer with surrounding cellulitis improved Leukocytosis- resolved Elevated LFTs ? RX D/C antibiotics, observe off
[2018-09-20] MEDS: VANCOMYCIN 1 GRAM (PRE-DOCKED) 1,000 MG/250 ML BAG IVPB SCH (17:42)
[2018-09-20] MEDS ORDERED: PT OWN MED DRAWER 7, Y5N ONE (23:42)
[2018-09-21 06:11] LABS: HBSAG SCREEN Negative (Negative); HEP B CORE AB, TOT Negative (Negative)
[2018-09-21] MEDS: FUROSEMIDE 40 MG/4 ML INJECTABLE VIAL IVPUSH SCH ×2 (06:22→15:05)
[2018-09-21 08:35] LABS: BASO % 0.7 % (0-2.0); EOS % 1.5 % (0-4.5); HEMOGLOBIN 13.7 GM/dL (10.7-15.3); LYMPH % 7.2 % (8-40); MCH 28.8 pg (25.7-33.7); MCHC 33.6 g/dl (32.0-36.0); MEAN CELL VOLUME 85.8 fl (80-96); MEAN PLT VOLUME 9.7 fl (7.5-11.1); MONO % 6.9 % (3.8-10.2); NEUT % 83.7 % (42.8-82.8); PLATELET COUNT 529 K/MM3 (134-434); RBC 4.77 M/mm3 (3.60-5.2)
[2018-09-21] MEDS ORDERED: PT OWN MED DRAWER 7, Y5N ONE ×2 (08:35→17:24)
[2018-09-21 08:52] LABS: ALBUMIN 1.8 g/dl (3.4-5.0); ALK PHOS 155 U/L (45-117); ANION GAP 9 MMOL/L (8-16); BILIRUBIN,TOTAL 0.5 mg/dL (0.2-1); BLOOD UREA NITROGEN 29 mg/dL (7-18); CALCIUM 8.4 mg/dL (8.5-10.1); CHLORIDE 95 mmol/L (98-107); CO2 33 mmol/L (21-32); CREATININE 1.1 mg/dL (0.55-1.3); GLUCOSE,RANDOM 84 mg/dL (74-106); POTASSIUM 5.1 mmol/L (3.5-5.1); SGOT/AST 185 U/L (15-37); SGPT/ALT 73 U/L (13-61); SODIUM 137 mmol/L (136-145)
[2018-09-21] MEDS: SILVER SULFADIAZINE 1% TOP CREAM 50 GM JAR TP SCH (09:11)
[2018-09-21] MEDS: DIGOXIN 0.125 MG TABLET (FP) PO SCH (09:11)
[2018-09-21] MEDS: APIXABAN 5 MG TABLET PO SCH ×2 (09:11→21:10)
[2018-09-21] MEDS: POTASSIUM CHLORIDE ORAL LIQUID 20 MEQ/15 ML PO SCH (09:11)
[2018-09-21] MEDS: MUPIROCIN 2% TOPICAL OINTMENT 22 GM TUBE TP SCH ×2 (09:12→21:12)
--- NOTE | 2018-09-21 14:19 | PN ---
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 (short form) - Note 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: awake no complaints pt has unsteady gait left leg wound family at bedside Vital Signs - 24 hr 09/20/18 09/20/18 09/20/18 14:35 18:00 20:19 Temperature 97.8 F 98.5 F Pulse Rate 82 79 Respiratory 16 18 Rate Blood Pressure 105/50 L 123/61 O2 Sat by Pulse 100 Oximetry (%) 09/20/18 09/21/18 09/21/18 20:30 02:00 06:00 Temperature 97.9 F 98.0 F 97.8 F Pulse Rate 80 78 93 H Respiratory 18 20 16 Rate Blood Pressure 106/60 105/70 136/75 O2 Sat by Pulse Oximetry (%) 09/21/18 09/21/18 09/21/18 09:11 10:00 13:52 Temperature 97.6 F 98.7 F Pulse Rate 77 77 81 Respiratory 16 18 Rate Blood Pressure 126/68 119/64 O2 Sat by Pulse 98 Oximetry (%) Current Medications Generic Name Dose Route Start Last Admin Trade Name Freq PRN Reason Stop Dose Admin Acetaminophen 650 mg 09/13/18 20:52 09/15/18 12:29 Tylenol - PO 650 mg Q6H PRN Administration FEVER Apixaban 5 mg 09/18/18 22:00 09/21/18 09:11 Eliquis - PO 5 mg BID [facility] Administration Digoxin 0.125 mg 09/16/18 10:00 09/21/18 09:11 Lanoxin - PO 0.125 mg DAILY [facility] Administration Furosemide 40 mg 09/13/18 16:30 09/21/18 06:22 Lasix Injection - IVPUSH 40 mg BID@0600,1400 [facility] Administration Metoprolol Succinate 50 mg 09/15/18 11:00 09/21/18 09:11 Toprol Xl - PO 50 mg BID [facility] Administration Metoprolol Tartrate 5 mg 09/12/18 16:28 09/15/18 08:09 Lopressor Injection - IVPUSH 5 mg Q4H PRN Administration TACHYCARDIA Mupirocin 1 applic 09/18/18 13:00 09/21/18 09:12 Bactroban 2% Ointment - TP 1 applic BID [facility] Administration Potassium Chloride 40 meq 09/15/18 11:15 09/21/18 09:11 Potassium Chloride Oral Liquid PO 40 meq DAILY [facility] Administration Silver Sulfadiazine 1 applic 09/18/18 13:00 09/21/18 09:11 Silvadene - TP 1 applic DAILY [facility] Administration Laboratory Results - last 24 hr 09/20/18 09/21/18 09/21/18 05:50 06:10 06:10 WBC 9.0 RBC 4.77 Hgb 13.7 Hct 41.0 MCV 85.8 MCH 28.8 MCHC 33.6 RDW 16.0 H Plt Count 529 H D MPV 9.7 Absolute Neuts (auto) 7.5 Neutrophils % 83.7 H Lymphocytes % 7.2 L D Monocytes % 6.9 Eosinophils % 1.5 Basophils % 0.7 Nucleated RBC % 0 Sodium 137 Potassium 5.1 Chloride 95 L Carbon Dioxide 33 H Anion Gap 9 BUN 29 H Creatinine 1.1 Creat Clearance w eGFR 48.04 Random Glucose 84 Calcium 8.4 L Total Bilirubin 0.5 AST 185 H ALT 73 H Alkaline Phosphatase 155 H Total Protein 5.0 L Albumin 1.8 L Hepatitis A Ab Total Negative Hep Bs Antigen Negative Hep Bs Antibody Non reactive Hep B Core Total Ab Negative S1 S2 irregular Lungs decreased B/L Abd- soft,NT edema+ PLAN On Eliquis rate is controlled PT eval- pt has unsteady gait - may need STR - family now agreeing meds noted BP control Tele monitoring iv antibiotics for cellulitis-LFT trending down- antibiotics changed Check hep profile- so far unremarkable CT abd noted on Lasix Problem List - Problems (1) CKD (chronic kidney disease) Code(s): N18.9 - CHRONIC KIDNEY DISEASE, UNSPECIFIED (2) DVT (deep venous thrombosis) Code(s): I82.409 - ACUTE EMBOLISM AND THOMBOS UNSP DEEP VN UNSP LOWER EXTREMITY (3) Edema Code(s): R60.9 - EDEMA, UNSPECIFIED (4) HTN (hypertension) Code(s): I10 - ESSENTIAL (PRIMARY) HYPERTENSION (5) Atrial fibrillation with RVR Code(s): I48.91 - UNSPECIFIED ATRIAL FIBRILLATION (6) Left leg cellulitis Code(s): L03.116 - CELLULITIS OF LEFT LOWER LIMB
[2018-09-22] MEDS: FUROSEMIDE 40 MG/4 ML INJECTABLE VIAL IVPUSH SCH (05:48)
[2018-09-22 08:51] LABS: ALBUMIN 1.9 g/dl (3.4-5.0); ALK PHOS 163 U/L (45-117); ANION GAP 9 MMOL/L (8-16); BILIRUBIN,TOTAL 0.6 mg/dL (0.2-1); BLOOD UREA NITROGEN 24 mg/dL (7-18); CALCIUM 8.6 mg/dL (8.5-10.1); CHLORIDE 95 mmol/L (98-107); CO2 34 mmol/L (21-32); CREATININE 1.2 mg/dL (0.55-1.3); GLUCOSE,RANDOM 73 mg/dL (74-106); POTASSIUM 5.2 mmol/L (3.5-5.1); SGOT/AST 99 U/L (15-37); SGPT/ALT 60 U/L (13-61); SODIUM 138 mmol/L (136-145); TOT PROT 5.4 g/dl (6.4-8.2)
[2018-09-22] MEDS: DIGOXIN 0.125 MG TABLET (FP) PO SCH (09:35)
[2018-09-22] MEDS: APIXABAN 5 MG TABLET PO SCH ×2 (09:35→21:10)
[2018-09-22] MEDS: POTASSIUM CHLORIDE ORAL LIQUID 20 MEQ/15 ML PO SCH (09:35)
[2018-09-22] MEDS: MUPIROCIN 2% TOPICAL OINTMENT 22 GM TUBE TP SCH ×2 (09:36→21:12)
[2018-09-22] MEDS: SILVER SULFADIAZINE 1% TOP CREAM 50 GM JAR TP SCH (09:36)
[2018-09-22] MEDS ORDERED: APIXABAN 2.5 MG TABLET PO SCH (10:00)
--- NOTE | 2018-09-22 11:56 | PN ---
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 (short form) - Note 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: PULMONARY AWAKE/ALERT/FAMILY PRESENT AFEBRILE HR 88 IRREGULAR ANICTERIC DIMINISHED BREATH SOUNDS BILATERALLY/MORE AT BASES S1S2 SYST M APEX/LSB BS+ SOFT LEFT LOWER EXT BANDAGED/RIGHT CALF DVT/2+ B/L EDEMA LABS/IMAGES/MEDS/NOTES REVIEWED RLL DVT/LLL VENOUS ULCER/CELLULITIS AFIB NEW ONSET TRANSAMINITIS IMPROVED HTN CKD DENSITY R CARDIO-PHRENIC ANGLE/HIATAL HERNIA LIKELY OSAS PLAN ELIQUIS/ANTIBIOTICS HEPATIC SEROLOGY NEGATIVE THUS FAR SLEEP STUDIES OUTPATIENT RATE CONTROL PER CARDIOLOGY MONITOR LYTES,RENAL FUNCTION/LFT'S W/U FOR HYPERCOAGULABLE STATE OUTPATIENT James KULKARNI MD
--- NOTE | 2018-09-22 13:22 | PN ---
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 (short form) - Note 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: awake no complaints pt has unsteady gait left leg wound family at bedside Vital Signs - 24 hr 09/21/18 09/21/18 09/21/18 18:00 21:00 22:00 Temperature 97.9 F 98 F Pulse Rate 79 84 Respiratory 18 18 18 Rate Blood Pressure 128/66 125/66 O2 Sat by Pulse 98 Oximetry (%) 09/22/18 09/22/18 09/22/18 02:00 05:33 09:00 Temperature 97.7 F 97.6 F 98.4 F Pulse Rate 72 86 83 Respiratory 20 18 18 Rate Blood Pressure 121/59 L 122/67 107/73 O2 Sat by Pulse 98 Oximetry (%) 09/22/18 09:35 Temperature Pulse Rate 83 Respiratory Rate Blood Pressure O2 Sat by Pulse Oximetry (%) Current Medications Generic Name Dose Route Start Last Admin Trade Name Freq PRN Reason Stop Dose Admin Acetaminophen 650 mg 09/13/18 20:52 09/15/18 12:29 Tylenol - PO 650 mg Q6H PRN Administration FEVER Apixaban 5 mg 09/18/18 22:00 09/22/18 09:35 Eliquis - PO 5 mg BID [facility] Administration Digoxin 0.125 mg 09/16/18 10:00 09/22/18 09:35 Lanoxin - PO 0.125 mg DAILY [facility] Administration Furosemide 40 mg 09/22/18 14:00 Lasix - PO BID@0600,1400 [facility] Metoprolol Succinate 50 mg 09/15/18 11:00 09/22/18 09:35 Toprol Xl - PO 50 mg BID [facility] Administration Metoprolol Tartrate 5 mg 09/12/18 16:28 09/15/18 08:09 Lopressor Injection - IVPUSH 5 mg Q4H PRN Administration TACHYCARDIA Mupirocin 1 applic 09/18/18 13:00 09/22/18 09:36 Bactroban 2% Ointment - TP 1 applic BID [facility] Administration Silver Sulfadiazine 1 applic 09/18/18 13:00 09/22/18 09:36 Silvadene - TP 1 applic DAILY [facility] Administration Laboratory Results - last 24 hr 09/22/18 06:30 Sodium 138 Potassium 5.2 H Chloride 95 L Carbon Dioxide 34 H Anion Gap 9 BUN 24 H Creatinine 1.2 Creat Clearance w eGFR 43.45 Random Glucose 73 L Calcium 8.6 Total Bilirubin 0.6 AST 99 H ALT 60 Alkaline Phosphatase 163 H Total Protein 5.4 L Albumin 1.9 L S1 S2 irregular Lungs decreased B/L Abd- soft,NT edema+ PLAN On Eliquis rate is controlled PT eval- pt has unsteady gait - may need STR - family now agreeing meds noted BP control Tele monitoring iv antibiotics for cellulitis-LFT trending down- antibiotics discontinued change IV lasix to PO dc planning hep profile- negative CT abd noted Problem List - Problems (1) CKD (chronic kidney disease) Code(s): N18.9 - CHRONIC KIDNEY DISEASE, UNSPECIFIED (2) DVT (deep venous thrombosis) Code(s): I82.409 - ACUTE EMBOLISM AND THOMBOS UNSP DEEP VN UNSP LOWER EXTREMITY (3) Edema Code(s): R60.9 - EDEMA, UNSPECIFIED (4) HTN (hypertension) Code(s): I10 - ESSENTIAL (PRIMARY) HYPERTENSION (5) Atrial fibrillation with RVR Code(s): I48.91 - UNSPECIFIED ATRIAL FIBRILLATION (6) Left leg cellulitis Code(s): L03.116 - CELLULITIS OF LEFT LOWER LIMB
[2018-09-22] MEDS: FUROSEMIDE 40 MG TABLET (FP) PO SCH (15:10)
[2018-09-23] MEDS: FUROSEMIDE 40 MG TABLET (FP) PO SCH (05:53)
[2018-09-23 07:54] LABS: ALBUMIN 1.9 g/dl (3.4-5.0); ALK PHOS 150 U/L (45-117); ANION GAP 8 MMOL/L (8-16); BILIRUBIN,TOTAL 0.8 mg/dL (0.2-1); BLOOD UREA NITROGEN 25 mg/dL (7-18); CALCIUM 8.3 mg/dL (8.5-10.1); CHLORIDE 97 mmol/L (98-107); CO2 34 mmol/L (21-32); CREATININE 1.2 mg/dL (0.55-1.3); GLUCOSE,RANDOM 70 mg/dL (74-106); POTASSIUM 5.1 mmol/L (3.5-5.1); SGOT/AST 77 U/L (15-37); SGPT/ALT 48 U/L (13-61); SODIUM 140 mmol/L (136-145)
[2018-09-23 08:36] VITALS: BP 134/70; PULSE 78; TEMP 97.4
[2018-09-23] MEDS: APIXABAN 5 MG TABLET PO SCH (09:05)
[2018-09-23] MEDS: DIGOXIN 0.125 MG TABLET (FP) PO SCH (09:05)
--- NOTE | 2018-09-23 11:08 | PN ---
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, Physician History of Present Illness: pulmonary alert,feeling better,-resp distress - Current Medication List Current Medications: Active Medications Acetaminophen (Tylenol -) 650 mg PO Q6H PRN PRN Reason: FEVER Last Admin: 09/15/18 12:29 Dose: 650 mg Apixaban (Eliquis -) 5 mg PO BID [facility] Last Admin: 09/23/18 09:05 Dose: 5 mg Digoxin (Lanoxin -) 0.125 mg PO DAILY [facility] Last Admin: 09/23/18 09:05 Dose: 0.125 mg Furosemide (Lasix -) 40 mg PO BID@0600,1400 [facility] Last Admin: 09/23/18 05:53 Dose: 40 mg Metoprolol Succinate (Toprol Xl -) 50 mg PO BID [facility] Last Admin: 09/23/18 09:05 Dose: 50 mg Metoprolol Tartrate (Lopressor Injection -) 5 mg IVPUSH Q4H PRN PRN Reason: TACHYCARDIA Last Admin: 09/15/18 08:09 Dose: 5 mg Mupirocin (Bactroban 2% Ointment -) 1 applic TP BID [facility] Last Admin: 09/22/18 21:12 Dose: 1 applic Silver Sulfadiazine (Silvadene -) 1 applic TP DAILY [facility] Last Admin: 09/22/18 09:36 Dose: 1 applic - Objective Vital Signs: Vital Signs Temperature 97.4 F L 09/23/18 08:35 Pulse Rate 78 09/23/18 09:05 Respiratory Rate 18 09/23/18 08:35 Blood Pressure 134/70 09/23/18 08:35 O2 Sat by Pulse Oximetry (%) 97 09/23/18 09:00 Constitutional: Yes: Well Nourished, Calm Eyes: Yes: WNL HENT: Yes: WNL Neck: Yes: WNL Cardiovascular: Yes: Pulse Irregular, S1, S2 Respiratory: Yes: CTA Bilaterally Gastrointestinal: Yes: Normal Bowel Sounds, Soft Extremities: Yes: WNL Edema: Yes Labs: CBC, BMP 09/23/18 05:50 Problem List - Problems (1) Atrial fibrillation with RVR Code(s): I48.91 - UNSPECIFIED ATRIAL FIBRILLATION (2) Edema Code(s): R60.9 - EDEMA, UNSPECIFIED (3) Leg edema Code(s): R60.0 - LOCALIZED EDEMA (4) HTN (hypertension) Code(s): I10 - ESSENTIAL (PRIMARY) HYPERTENSION (5) DVT (deep venous thrombosis) Code(s): I82.409 - ACUTE EMBOLISM AND THOMBOS UNSP DEEP VN UNSP LOWER EXTREMITY (6) CKD (chronic kidney disease) Code(s): N18.9 - CHRONIC KIDNEY DISEASE, UNSPECIFIED Assessment/Plan IMP RLL DVT AFIB NEW ONSET HTN CKD 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 PLAN ELIQUIS SLEEP STUDIES OUTPATIENT W/U FOR HYPERCOAGULABLE STATE OUTPATIENT DR WIN Problem List - Problems (1) Atrial fibrillation with RVR Code(s): I48.91 - UNSPECIFIED ATRIAL FIBRILLATION (2) Edema Code(s): R60.9 - EDEMA, UNSPECIFIED (3) Leg edema Code(s): R60.0 - LOCALIZED EDEMA (4) HTN (hypertension) Code(s): I10 - ESSENTIAL (PRIMARY) HYPERTENSION (5) DVT (deep venous thrombosis) Code(s): I82.409 - ACUTE EMBOLISM AND THOMBOS UNSP DEEP VN UNSP LOWER EXTREMITY (6) CKD (chronic kidney disease) Code(s): N18.9 - CHRONIC KIDNEY DISEASE, UNSPECIFIED
--- NOTE | 2018-09-23 11:31 | PN ---
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 (short form) - Note 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: Heme/Onc follow up Patient is for discharge today Patient can continue eluqis for DVT Should followup with Pulmonology and have a repeat CT scan in 3 months to monitor of possible right middle lobe nodule
[2018-09-23] MEDS: MUPIROCIN 2% TOPICAL OINTMENT 22 GM TUBE TP SCH (12:21)
[2018-09-23] MEDS: SILVER SULFADIAZINE 1% TOP CREAM 50 GM JAR TP SCH (12:21)
--- NOTE | 2018-09-23 12:28 | DS ---
Physical Examination Vital Signs: Vital Signs Temperature 97.4 F L 09/23/18 08:35 Pulse Rate 78 09/23/18 09:05 Respiratory Rate 18 09/23/18 08:35 Blood Pressure 134/70 09/23/18 08:35 O2 Sat by Pulse Oximetry (%) 97 09/23/18 09:00 Findings/Remarks: Patient seen and examined. Feels better Denies chest pain or shortness of breath Denies abdominal pain Afebrile off antibiotics Constitutional: Yes: No Distress, Calm Eyes: Yes: Conjunctiva Clear Neck: Yes: Supple Cardiovascular: Yes: Pulse Irregular Respiratory: Yes: Diminished Gastrointestinal: Yes: Normal Bowel Sounds, Soft Extremities: Yes: Other (Left lower extremity--- dressing in place) Edema: No Neurological: Yes: Alert Psychiatric: Yes: Alert Labs: CBC, BMP 09/21/18 06:10 09/23/18 05:50 Discharge Summary Reason For Visit: LEUKOCYTOSIS Current Active Problems Atrial fibrillation with RVR (Acute) Bilateral leg ulcer (Acute) CKD (chronic kidney disease) (Acute) DVT (deep venous thrombosis) (Acute) DVT of axillary vein, acute right (Acute) Edema (Acute) HTN (hypertension) (Acute) Left leg cellulitis (Acute) Leg edema (Acute) Hospital Course: patient with extensive past medical history--- admitted due to leg swelling Workup showed positive for DVT and rapid A. fib Cardiology and ID followed Treated with antibiotics for left lower extremity cellulitis LFTs--- worsened with antibiotics---antibiotics when she stopped LFT started improving Hepatitis profile negative Heart rate also better controlled Patient overall still weak and unsteady gait Stable for discharge to [facility]--- for short-term rehabilitation I also discussed with patient's family in detail Medications reconciled Discussed with nursing staff Blood work to be monitored in [facility] Patient to follow in office--- after discharge from [facility] Patient and patient's family in agreement Compliance stressed Time spend approximately 30 minutes--examining documenting and coordinating care. Condition: Good - Instructions Referrals: Marco Ruiz MD [Staff Physician] - Anu Quinn MD [Primary Care Provider] - Disposition: [facility] - Home Medications Comprehensive Discharge Medication List: Ambulatory Orders Ergocalciferol (Vitamin D2) [Drisdol] 50,000 unit PO WEEKLY 09/12/18 Acetaminophen [Tylenol .Regular Strength -] 650 mg PO Q6H PRN tablet 09/22/18 Apixaban [Eliquis -] 5 mg PO BID #60 tablet 09/22/18 Digoxin [Lanoxin -] 0.125 mg PO DAILY #60 tablet 09/22/18 Furosemide [Lasix -] 40 mg PO BID@0600,1400 #60 tablet 09/22/18 Metoprolol Succinate [Toprol XL -] 50 mg PO BID #60 tab.sr.24h 09/22/18 Silver Sulfadiazine 1% Top Cr [Silvadene -] 1 applic TP DAILY #1 jar 09/22/18
== END 2018-09-23 14:34 | DRG 299 ==
LOC: JER 17:09 → JERBED 19:11 → UNDOADMIN 23:54 → J4S 09-12 15:59
PROVIDERS: ADMIT Internal Medicine; ATTEND Internal Medicine
DX: I82.431 Acute embolism and thrombosis of right popliteal vein (principal); I50.33 Acute on chronic diastolic (congestive) heart failure; L03.116 Cellulitis of left lower limb; I13.0 Hypertensive heart and chronic kidney disease with heart failure and stage 1 through stage 4 chronic kidney disease, or unspecified chronic kidney disease; L97.929 Non-pressure chronic ulcer of unspecified part of left lower leg with unspecified severity; L97.919 Non-pressure chronic ulcer of unspecified part of right lower leg with unspecified severity; N17.9 Acute kidney failure, unspecified; I82.441 Acute embolism and thrombosis of right tibial vein; N18.9 Chronic kidney disease, unspecified; I48.91 Unspecified atrial fibrillation; G47.33 Obstructive sleep apnea (adult) (pediatric); I34.0 Nonrheumatic mitral (valve) insufficiency; K44.9 Diaphragmatic hernia without obstruction or gangrene
CPT/HCPCS: 36415; 71046-TC-FY; 71250-TC; 74176-TC; 80048; 80053; 80061; 80162; 81003; 81015; 82550; 82962; 82977; 83721; 83735; 83880; 84100; 84443; 84484; 85025; 86704; 86706; 86708; 87040; 87086; 87186; 87340; 87522; 90670; 90688; 93005; 93010; 93306-TC; 93970-TC; 97116-GP; 97161-GP; 99283-25; G0008; G0009; Q9967

== ENCOUNTER 2019-03-14 11:23 | Emergency (ER) | payer OTHER ==
[2019-03-14 11:38] VITALS: TEMP 98; BMI 22.4
--- NOTE | 2019-03-14 13:41 | PDOC ---
History of Present Illness - General Chief Complaint: Pain, Acute Stated Complaint: LT LEG SWOLLEN Time Seen by Provider: 03/14/19 12:04 History Source: Patient Exam Limitations: No Limitations - History of Present Illness Initial Comments: 03/14/19 13:41 78 y/o female presents to the ED with c/o left knee swelling x 1 week causing difficulty walking. Pt goes to wound clinic for a lower posteriow wound x 1 year. pt denies pain, swelling, or increased drainage from wound since onset. pt states dsg last changed 3 days ago. pt denies redness to left knee, decreased sensation, or previous sx to left knee Timing/Duration: 1 week Severity: mild Associated Symptoms: reports: other Past History - Travel Traveled outside of the country in the last 30 days: No - Past Medical History Allergies/Adverse Reactions: Allergies Allergy/AdvReac Type Severity Reaction Status Date / Time No Known Allergies Allergy Verified 03/14/19 11:32 Home Medications: Ambulatory Orders Ergocalciferol (Vitamin D2) [Drisdol] 50,000 unit PO WEEKLY 09/12/18 Acetaminophen [Tylenol .Regular Strength -] 650 mg PO Q6H PRN tablet 09/22/18 Apixaban [Eliquis -] 5 mg PO BID #60 tablet 09/22/18 Digoxin [Lanoxin -] 0.125 mg PO DAILY #60 tablet 09/22/18 Metoprolol Succinate [Toprol XL -] 50 mg PO BID #60 tab.sr.24h 09/22/18 Furosemide [Lasix -] 40 mg PO DAILY 01/03/19 Lisinopril 10 mg PO DAILY 03/04/19 Anemia: No Asthma: No Cancer: No Cardiac Disorders: Yes (Afib- on eliquis) CVA: No COPD: No CHF: No Diabetes: No GI Disorders: No Disorders: No HTN: Yes Hypercholesterolemia: No Liver Disease: No Seizures: No Other medical history: BLOOD CLOT - Surgical History Abdominal Surgery: No Appendectomy: No Cardiac Surgery: No Cholecystectomy: No Lung Surgery: No Neurologic Surgery: No Orthopedic Surgery: No - Immunization History Immunization Up to Date: No - Suicide/Smoking/Psychosocial Hx Smoking History: Never smoked Have you smoked in the past 12 months: No Hx Alcohol Use: No Drug/Substance Use Hx: No Substance Use Type: None Hx Substance Use Treatment: No Patient Lives Alone: No Lives with/in: spouse/SO Review of Systems - Review of Systems Able to Perform ROS?: No Is the patient limited Wallisian proficient: No Constitutional: No: Symptoms Reported HEENTM: No: Symptoms Reported Respiratory: No: Symptoms reported ABD/GI: No: Symptoms Reported : No: Symptoms Reported Musculoskeletal: Yes: Joint Pain (left knee), Joint Swelling (left knee) Integumentary: No: Symptoms Reported Neurological: No: Symptoms reported *Physical Exam - Vital Signs Last Vital Signs Temp Pulse Resp BP Pulse Ox 98.0 F 62 18 198/114 H 96 03/14/19 11:35 03/14/19 11:35 03/14/19 11:35 03/14/19 11:35 03/14/19 11:35 - Physical Exam General Appearance: Yes: Nourished, Appropriately Dressed. No: Apparent Distress HEENT: negative: Pale Conjunctivae Respiratory/Chest: positive: Lungs Clear, Normal Breath Sounds. negative: Respiratory Distress, Accessory Muscle Use Cardiovascular: positive: Regular Rhythm, Regular Rate. negative: Murmur Vascular Pulses: Doralis-Pedis (L): 2+ Integumentary: positive: Normal Color, Warm, Swelling (noted diffuse nonpitting edema to left patella, no tenderness or increased warmth, no skin discoloration) , Other (noted 1 x 2 cm to posterior distal aspect of left calf, area dry, no drainage) Neurologic: positive: Normal Mood/Affect, Motor Strength 5/5 (FROM of left patella) ED Treatment Course - RADIOLOGY Radiology Studies Ordered: Category Date Time Status DUPLEX VASCUL US-1 LEG [US] Stat Ultrasound 03/14/19 13:19 Ordered Medical Decision Making - Medical Decision Making 03/14/19 13:57 CC: left knee swelling x 1 week, no other complaints Exam : noted diffuse edema to left patella, no other abnormal findings Plan: duplex of lower extremity 03/14/19 14:48 repeat bp 181/90. Pt takes 10mg of lisinopril at 2pm. Dose given here 03/14/19 16:04 DUPLEX - FOR DVT. Pt will be dc'd home with info on dependent edema. pt will also be given referral to ortho if swelling continues for further w/u. Felix wrap applied 03/14/19 16:07 *DC/Admit/Observation/Transfer Diagnosis at time of Disposition: Edema, lower extremity - Discharge Dispostion Disposition: HOME Condition at time of disposition: Good - Referrals Referrals: Anu Quinn MD [Primary Care Provider] - Felipe Solomon MD [Staff Physician] - - Patient Instructions Printed Discharge Instructions: DI for Knee Effusion Additional Instructions: Please elevate when not walking. use felix wrap during day and remove at night. If no improvement in 1 week, please make appt with orthopedist - Post Discharge Activity
[2019-03-14] MEDS ORDERED: LISINOPRIL 5 MG TABLET (FP) ONE (14:35)
[2019-03-14] MEDS ORDERED: LISINOPRIL 10 MG TABLET (FP) PO ONE (14:47)
[2019-03-14 16:58] VITALS: BP 140/96; PULSE 72
== END 2019-03-14 16:59 | disposition home or self-care (01) ==
LOC: JER 11:23
DX: M79.89 Other specified soft tissue disorders (principal); I10 Essential (primary) hypertension; I74.9 Embolism and thrombosis of unspecified artery; I48.91 Unspecified atrial fibrillation; Z79.01 Long term (current) use of anticoagulants
CPT/HCPCS: 93971-TC; 99281-25

== ENCOUNTER 2019-10-28 13:51 | Inpatient (IN) | payer OTHER ==
[2019-10-28] MEDS ORDERED: FUROSEMIDE 40 MG/4 ML INJECTABLE VIAL IVPUSH ONE (14:46)
[2019-10-28] MEDS ORDERED: METOPROLOL TARTRATE 5 MG/5 ML VIAL IVPUSH ONE (14:46)
--- NOTE | 2019-10-28 14:46 | PDOC ---
History of Present Illness - General Chief Complaint: Congestive Heart Failure Stated Complaint: SENT BY PCP LEG PAIN Time Seen by Provider: 10/28/19 14:36 History Source: Patient Exam Limitations: No Limitations - History of Present Illness Initial Comments: Martha is a 78 yo F w a pmh of HTN, heart failure, and A-fib with RVR who presents to the [facility] er sent by Dr. Larkin because she has been experiencing increased leg swelling, SOB, dyspnea with exertion, and non-stop palpitations associated with her A-fib which have been hard to manage as an outpatient. She presents for admission for a medication tune-up/optimization. She states her legs have been swelling up very badly for the past week and now she is having a hard time walking because her legs are getting heavy and she feels tired all the time. She says that even walking around the house is getting to be very difficult for her. Denies chest pain, nausea, vomiting, diaphoresis, abdominal or back pain, headache, blurry vision, dysuria, frequency, or urgency PCP: Na Quinn Cards: Dr. Larkin PSH: None reported Allergies: NKA, NKDA Social Hx: Occasional glasses of wine. Denies smoking or other substance abuse. Past History - Past Medical History Allergies/Adverse Reactions: Allergies Allergy/AdvReac Type Severity Reaction Status Date / Time No Known Allergies Allergy Verified 10/28/19 17:48 Home Medications: Ambulatory Orders Ergocalciferol (Vitamin D2) [Drisdol] 50,000 unit PO WEEKLY 09/12/18 Apixaban [Eliquis -] 5 mg PO BID #60 tablet 09/22/18 Metoprolol Succinate [Toprol XL -] 50 mg PO BID #60 tab.sr.24h 09/22/18 Furosemide [Lasix -] 40 mg PO DAILY 01/03/19 Lisinopril 10 mg PO DAILY 03/04/19 Mirtazapine 15 mg PO DAILY 03/21/19 Anemia: No Asthma: No Cancer: No Cardiac Disorders: Yes (Afib -on eliquis) CVA: No COPD: No CHF: No Diabetes: No GI Disorders: No Disorders: No HTN: Yes Hypercholesterolemia: No Liver Disease: No Seizures: No - Surgical History Abdominal Surgery: No Appendectomy: No Cardiac Surgery: No Cholecystectomy: No Lung Surgery: No Neurologic Surgery: No Orthopedic Surgery: No - Immunization History Immunization Up to Date: No - Psycho Social/Smoking Cessation Hx Smoking History: Never smoked Have you smoked in the past 12 months: No Information on smoking cessation initiated: No Hx Alcohol Use: No Drug/Substance Use Hx: No Substance Use Type: None Hx Substance Use Treatment: No Cardiac Specific PMH - Complaint Specific PMHX Pacemaker: No Review of Systems - Review of Systems Able to Perform ROS?: Yes Comments:: CONSTITUTIONAL: Present: fatigue Absent: fever, no chills EYES: Absent: visual changes ENT: Absent: ear pain, no sore throat CARDIOVASCULAR: Absent: chest pain, no palpitations RESPIRATORY: Present: SOB Absent: cough GI: Absent: abdominal pain, no nausea, no vomiting, no constipation, no diarrhea GENITOURINARY: Absent: dysuria, no frequency, no hematuria MUSKULOSKELETAL: Absent: back pain, no arthralgia, no myalgia SKIN: Absent: rash NEURO: Absent: headache *Physical Exam - Vital Signs Last Vital Signs Temp Pulse Resp BP Pulse Ox 99.1 F 95 H 18 121/89 99 10/28/19 17:40 10/28/19 17:40 10/28/19 17:40 10/28/19 17:40 10/28/19 17:40 - Physical Exam GENERAL: Well-appearing, well-nourished. Mild distress. HEENT: Normocephalic, atraumatic. PERRL, EOM intact. CARDIOVASCULAR: Tachycardic rate. Irregularly irregular. Normal S1, S2. PULMONARY: bilateral crackles at the bases. Mild evidence of respiratory distress. No wheezing or rhonchi. ABDOMEN: Soft, non-distended, non-tender. EXTREMITIES: 3+ edema in both lower legs. Normal ROM in all four extremities. SKIN: Warm, dry. No rash NEUROLOGICAL: No focal neurological deficits. ED Treatment Course - LABORATORY CBC & Chemistry Diagram: 10/28/19 15:46 10/28/19 15:46 - ADDITIONAL ORDERS Additional order review: Laboratory Results 10/28/19 10/28/19 15:46 15:46 PT with INR Cancelled INR Cancelled PTT (Actin FS) Cancelled Sodium 143 Potassium 5.4 H Chloride 106 Carbon Dioxide 31 Anion Gap 6 L BUN 32.3 H Creatinine 1.6 H Est GFR (CKD-EPI)AfAm 35.15 Est GFR (CKD-EPI)NonAf 30.33 Random Glucose 119 H Calcium 9.5 Magnesium 2.3 Total Bilirubin 0.9 AST 46 H ALT 21 Alkaline Phosphatase 134 H Creatine Kinase 145 Troponin I < 0.02 B-Natriuretic Peptide 6368.4 H Total Protein 6.8 Albumin 2.8 L 10/28/19 15:46 RBC 5.44 H MCV 88.0 MCHC 32.0 RDW 18.0 H MPV 9.8 Neutrophils % 86.0 H Lymphocytes % 5.2 L D Monocytes % 8.0 Eosinophils % 0.4 Basophils % 0.4 - RADIOLOGY Radiology Studies Ordered: Category Date Time Status CHEST X-RAY PORTABLE* [RAD] Stat Radiology 10/28/19 14:47 Ordered - Medications Given in the ED: ED Medications Discontinued Medications Generic Name Dose Route Start Last Admin Trade Name Freq PRN Reason Stop Dose Admin Furosemide 40 mg 10/28/19 14:46 10/28/19 16:38 Lasix Injection - IVPUSH 10/28/19 14:47 40 mg ONCE ONE Administration Metoprolol Tartrate 5 mg 10/28/19 14:46 10/28/19 16:38 Lopressor Injection - IVPUSH 10/28/19 14:47 5 mg ONCE ONE Administration Medical Decision Making - Medical Decision Making Martha is a 78 yo F w a pmh of HTN, heart failure, and A-fib with RVR who presents to the [facility] er sent by Dr. Larkin because she has been experiencing increased leg swelling, SOB, dyspnea with exertion, and non-stop palpitations associated with her A-fib which have been hard to manage as an outpatient. She presents for admission for a medication tune-up/optimization. She states her legs have been swelling up very badly for the past week and now she is having a hard time walking because her legs are getting heavy and she feels tired all the time. She says that even walking around the house is getting to be very difficult for her. Denies chest pain, nausea, vomiting, diaphoresis, abdominal or back pain, headache, blurry vision, dysuria, frequency, or urgency Vital Signs Temp Pulse Resp BP Pulse Ox 98.7 F 92 H 18 145/98 99 10/28/19 13:57 10/28/19 13:57 10/28/19 13:57 10/28/19 13:57 10/28/19 13:57 DDx IBNLT: Heart failure, renal injury, electrolyte/metabolic disturbance, ACS/ [place], PNA, pulm edema vs pleural effusion, A-fib w RVR, other Arrythmia Plan: Labs, Urine, EKG, CXR, Cardiac consult, admission to hospital EKG: Irregularly irregular vent rate of 114, narrow complexes, normal axis, no hypertrophy, no ST elevations or depressions, TWI's in III and aVF, QTc 416 cardiac Consult: Dr. larkin - recommends starting with lasix and lopressor and then admit to hospital disposition: [facility] Discharge - Discharge Information Problems reviewed: Yes Clinical Impression/Diagnosis: Leg edema, Atrial fibrillation with RVR Edema Qualifiers: Edema type: localized Qualified Code(s): R60.0 - Localized edema Heart failure Qualifiers: Heart failure type: unspecified Heart failure chronicity: unspecified Qualified Code(s): I50.9 - Heart failure, unspecified - Admission Yes - Follow up/Referral - Patient Discharge Instructions - Post Discharge Activity
[2019-10-28] MEDS ORDERED: FUROSEMIDE 40 MG/4 ML INJECTABLE VIAL ONE (15:07)
[2019-10-28] MEDS ORDERED: METOPROLOL TARTRATE 5 MG/5 ML VIAL ONE (15:07)
--- NOTE | 2019-10-28 15:15 | PDOC ---
Documentation entered by Ruby Haro SCRIBE, acting as scribe for Kuldip Wilkins MD. Kuldip Wilkins MD: This documentation has been prepared by the Estrellita nieves Adrianna, SCRIBE, under my direction and personally reviewed by me in its entirety. I confirm that the documentation accurately reflects all work, treatment, procedures, and medical decision making performed by me. Attending Attestation - Resident Resident Name: Manolo Boone - ED Attending Attestation I have performed the following: I have examined & evaluated the patient, The case was reviewed & discussed with the resident, I agree w/resident's findings & plan, Exceptions are as noted - HPI HPI: The patient is a 78 year old female, with a significant PMH of Afib with RVR ( on Eliquis), HTN, and heart failure, who presents to the ED sent by Dr. Larkin for evaluation of lower extremity edema, SOB, and palpitations. Patient complains of progressively worsening bilateral lower extremity edema for the past week, and notes it has become hard for her to walk as her legs are too heavy and she constantly feels tired. She reports feeling SOB, and endorses dyspnea on exertion. Patient notes ambulating around the house has become difficult to do. She reports constant palpitations, which she notes are related to her Afib (patient has had difficulty managing this as an outpatient). Allergies: NKA, NKDA Surgical History: None reported Social History: Occasional EtoH use. Denies tobacco or illicit drug use PCP: Dr. Quinn End Lathe Operator: Dr. Larkin - Physicial Exam PE: 10/28/19 15:15 See resident exam - Critical Care Time Total Critical Care Time: 60 Critical Care Statement: The care of this patient involved high complexity decision making to prevent further life threatening deterioration of the patient 's condition and/or to evaluate & treat vital organ system(s) failure or risk of failure. - Medical Decision Making 10/28/19 15:15 78 F presenting with afib w/ RVR and signs of volume overload. - Labs - CXR - Rate control with metoprolol - IV diuresis - Admit tele
[2019-10-28 15:56] LABS: BASO % 0.4 % (0-2.0); EOS % 0.4 % (0-4.5); HEMATOCRIT 47.9 % (32.4-45.2); HEMOGLOBIN 15.3 GM/dL (10.7-15.3); LYMPH % 5.2 % (8-40); MCH 28.2 pg (25.7-33.7); MEAN PLT VOLUME 9.8 fl (7.5-11.1); PLATELET COUNT 236 K/MM3 (134-434); RBC 5.44 M/mm3 (3.60-5.2); WHITE BLOOD COUNT 12.5 K/mm3 (4.0-10.0)
[2019-10-28 16:47] LABS: ALBUMIN 2.8 g/dl (3.4-5.0); ALK PHOS 134 U/L (45-117); BILIRUBIN,TOTAL 0.9 mg/dL (0.2-1); BLOOD UREA NITROGEN 32.3 mg/dL (7-18); CALCIUM 9.5 mg/dL (8.5-10.1); CHLORIDE 106 mmol/L (98-107); CO2 31 mmol/L (21-32); CREATININE 1.6 mg/dL (0.55-1.3); GLUCOSE,RANDOM 119 mg/dL (74-106); N-TERMINAL BNP 6368.4 pg/ml (5-450); SGPT/ALT 21 U/L (13-61); SODIUM 143 mmol/L (136-145); TOT PROT 6.8 g/dl (6.4-8.2)
[2019-10-28 16:48] LABS: ANION GAP 6 MMOL/L (8-16); MAGNESIUM 2.3 mg/dL (1.8-2.4); POTASSIUM 5.4 mmol/L (3.5-5.1); SGOT/AST 46 U/L (15-37)
[2019-10-28 19:27] LABS: EPI CELLS 4.2 /HPF (0-5/HPF); HYALINE CASTS 36 /lpf (0-8); URINE APPEARANCE CLOUDY; URINE BACTERIA 2219.7 /hpf (NEGATIVE); URINE BILIRUBIN NEGATIVE (NEGATIVE); URINE COLOR YELLOW; URINE GLUCOSE (UA) NEGATIVE (NEGATIVE); URINE KETONE NEGATIVE (NEGATIVE); URINE LEUK ESTERASE 3+ (NEGATIVE); URINE NITRITE POSITIVE (NEGATIVE); URINE PROTEIN 2+ (NEGATIVE); URINE RBC 37 /hpf (0-4); URINE UROBILINOGEN 0.2 mg/dL (0.2-1.0); URINE WBC 132 /hpf (0-5)
--- NOTE | 2019-10-28 22:20 | HP ---
Admitting History and Physical - Primary Care Physician PCP: Anu Quinn - Admission Chief Complaint: Palpitations, LE Edema History of Present Illness: This is a 78 y/o woman with a PMHx of HTN, CHF, Afib with RVR. Who presents to the ED sent in by her optical scientist for worsening lower extremity edema, SOB, ELDER and palpitations. Patient reports having difficulty ambulating due to her leg swelling. She reports increased fatigue as well for the past week. Patient denies fever, chills, CUMMINGS, CP, AP, N/V/D, constipation, dysuria. History Source: Patient, Family Member, Caregiver Limitations to Obtaining History: Clinical Condition - Past Medical History Cardiovascular: Yes: AFIB, HTN Renal/: Yes: Renal Inusuff Endocrine: Yes: Hypothyroidism - Past Surgical History Past Surgical History: Yes: None - Smoking History Smoking history: Never smoked Have you smoked in the past 12 months: No - Alcohol/Substance Use Hx Alcohol Use: No History of Substance Use: reports: None - Social History Usual Living Arrangement: Yes: With Spouse ADL: Family Assistance History of Recent Travel: No Home Medications - Allergies Allergies/Adverse Reactions: Allergies Allergy/AdvReac Type Severity Reaction Status Date / Time No Known Allergies Allergy Verified 10/28/19 17:48 - Home Medications Home Medications: Ambulatory Orders Ergocalciferol (Vitamin D2) [Drisdol] 50,000 unit PO WEEKLY 09/12/18 Apixaban [Eliquis -] 5 mg PO BID #60 tablet 09/22/18 Metoprolol Succinate [Toprol XL -] 50 mg PO BID #60 tab.sr.24h 09/22/18 Furosemide [Lasix -] 40 mg PO DAILY 01/03/19 Lisinopril 10 mg PO DAILY 03/04/19 Mirtazapine 15 mg PO DAILY 03/21/19 Family Medical History Family History: Unable to Obtain Review of Systems - Review of Systems Constitutional: reports: No Symptoms Eyes: reports: No Symptoms HENT: reports: No Symptoms Neck: reports: No Symptoms Cardiovascular: reports: Edema, Palpitations Respiratory: reports: SOB Gastrointestinal: reports: No Symptoms Genitourinary: reports: Frequency, Incontinence Breasts: reports: No Symptoms Reported Musculoskeletal: reports: No Symptoms Integumentary: reports: No Symptoms Neurological: reports: Confusion Endocrine: reports: Increased Thirst Hematology/Lymphatic: reports: No Symptoms Psychiatric: reports: No Symptoms Physical Examination Vital Signs: Vital Signs Temperature 99.1 F 10/28/19 17:40 Pulse Rate 95 H 10/28/19 17:40 Respiratory Rate 18 10/28/19 17:40 Blood Pressure 121/89 10/28/19 17:40 O2 Sat by Pulse Oximetry (%) 99 10/28/19 17:40 Constitutional: Yes: No Distress, Calm Eyes: Yes: WNL, Conjunctiva Clear, EOM Intact, PERRL HENT: Yes: WNL, Atraumatic, Normocephalic Neck: Yes: WNL, Supple, Trachea Midline Cardiovascular: Yes: Pulse Irregular, JVD, S1, S2 Respiratory: Yes: Diminished Gastrointestinal: Yes: WNL, Normal Bowel Sounds, Soft Renal/: Yes: Incontinence Breast(s): Yes: WNL Musculoskeletal: Yes: WNL Extremities: Yes: WNL Edema: Yes Edema: LLE: 2+, RLE: 3+ Peripheral Pulses WNL: Yes Neurological: Yes: Alert, Confusion, Cran Nerves II-XII Intact ...Motor Strength: WNL Psychiatric: Yes: WNL, Alert Labs: CBC, BMP 10/28/19 15:46 10/28/19 15:46 Laboratory Results - last 24 hr 10/28/19 10/28/19 10/28/19 15:46 15:46 15:46 WBC 12.5 H RBC 5.44 H Hgb 15.3 Hct 47.9 H D MCV 88.0 MCH 28.2 MCHC 32.0 RDW 18.0 H Plt Count 236 D MPV 9.8 Absolute Neuts (auto) 10.8 H Neutrophils % 86.0 H Lymphocytes % 5.2 L D Monocytes % 8.0 Eosinophils % 0.4 Basophils % 0.4 Nucleated RBC % 0 PT with INR Cancelled INR Cancelled PTT (Actin FS) Cancelled Sodium 143 Potassium 5.4 H Chloride 106 Carbon Dioxide 31 Anion Gap 6 L BUN 32.3 H Creatinine 1.6 H Est GFR (CKD-EPI)AfAm 35.15 Est GFR (CKD-EPI)NonAf 30.33 Random Glucose 119 H Calcium 9.5 Magnesium 2.3 Total Bilirubin 0.9 AST 46 H ALT 21 Alkaline Phosphatase 134 H Creatine Kinase 145 Troponin I < 0.02 B-Natriuretic Peptide 6368.4 H Total Protein 6.8 Albumin 2.8 L Urine Color Urine Appearance Urine pH Ur Specific [place] Urine Protein Urine Glucose (UA) Urine Ketones Urine Blood Urine Nitrite Urine Bilirubin Urine Urobilinogen Ur Leukocyte Esterase Urine WBC (Auto) Urine RBC (Auto) Urine Casts (Auto) U Epithel Cells (Auto) Urine Bacteria (Auto) 10/28/19 19:08 WBC RBC Hgb Hct MCV MCH MCHC RDW Plt Count MPV Absolute Neuts (auto) Neutrophils % Lymphocytes % Monocytes % Eosinophils % Basophils % Nucleated RBC % PT with INR INR PTT (Actin FS) Sodium Potassium Chloride Carbon Dioxide Anion Gap BUN Creatinine Est GFR (CKD-EPI)AfAm Est GFR (CKD-EPI)NonAf Random Glucose Calcium Magnesium Total Bilirubin AST ALT Alkaline Phosphatase Creatine Kinase Troponin I B-Natriuretic Peptide Total Protein Albumin Urine Color Yellow Urine Appearance Cloudy Urine pH 7.0 D Ur Specific [place] 1.009 L Urine Protein 2+ H Urine Glucose (UA) Negative Urine Ketones Negative Urine Blood 2+ H Urine Nitrite Positive H Urine Bilirubin Negative Urine Urobilinogen 0.2 Ur Leukocyte Esterase 3+ H Urine WBC (Auto) 132 Urine RBC (Auto) 37 Urine Casts (Auto) 36 U Epithel Cells (Auto) 4.2 Urine Bacteria (Auto) 2219.7 Intake & Output 10/25/19 10/26/19 10/27/19 10/28/19 23:59 23:59 23:59 23:59 Weight 65.771 kg Imaging - Results Chest X-ray: Image Reviewed Ultrasound: Image Reviewed EKG: Image Reviewed Assessment/Plan This is a 78 y/o woman admitted to Telemetry for Afib with RVR, Acute on Chronic Diastolic CHF for further evaluation of their emergent condition. Plan: Admit to Telemetry Serial Enzymes Appreciate Cardiology consult Chest Xray reviewed- cardiomegaly, hiatal hernia, no infiltrate no effusion EKG- Afib with RVR Continue Lasix Strict INOs Daily weights Duplex of LE- neg for DVT Cr 1.6 Monitor renal function Consider Nephrology consult if condition worsens Appreciate Neurology consult- Confusion, ? Dementia Continue home meds with parameters FEN- Fluid restriction 1L, replete lytes prn, Low Na Diet DVT ppx- OOB, SCDs, Continue Eliquis Code Status: Full Code Dispo: Requires Inpatient Care Visit type - Emergency Visit Emergency Visit: Yes ED Registration Date: 10/28/19 Care time: The patient presented to the Emergency Department on the above date and was hospitalized for further evaluation of their emergent condition. - New Patient This patient is new to me today: Yes Date on this admission: 10/28/19 - Critical Care Critical Care patient: No
[2019-10-28] MEDS ORDERED: CEFTRIAXONE 1 GM in DEXTROSE 5%-WATER - 50 ML IVPB ONE (22:27)
[2019-10-28] MEDS ORDERED: APIXABAN 5 MG TABLET ONE (23:29)
[2019-10-28] MEDS: APIXABAN 5 MG TABLET PO SCH (23:32)
[2019-10-28] MEDS ORDERED: CEFTRIAXONE 1 GM/50 ML BAG ONE (23:47)
[2019-10-29 00:53] VITALS: BMI 26.2
[2019-10-29] MEDS ORDERED: ACETAMINOPHEN 1000 MG/100 ML VIAL (NON FORMULARY) IVPB ONE (01:24)
[2019-10-29] MEDS: FUROSEMIDE 40 MG/4 ML INJECTABLE VIAL IVPUSH SCH ×2 (06:12→13:29)
[2019-10-29 07:56] LABS: BASO % 0.7 % (0-2.0); EOS % 0.2 % (0-4.5); HEMATOCRIT 46.6 % (32.4-45.2); HEMOGLOBIN 15.2 GM/dL (10.7-15.3); MCH 28.6 pg (25.7-33.7); MCHC 32.6 g/dl (32.0-36.0); MEAN CELL VOLUME 87.6 fl (80-96); MEAN PLT VOLUME 9.8 fl (7.5-11.1); MONO % 6.2 % (3.8-10.2); NEUT % 84.9 % (42.8-82.8); PLATELET COUNT 222 K/MM3 (134-434); RBC 5.31 M/mm3 (3.60-5.2); WHITE BLOOD COUNT 8.2 K/mm3 (4.0-10.0)
[2019-10-29 08:56] LABS: BLOOD UREA NITROGEN 35.7 mg/dL (7-18); CALCIUM 9.3 mg/dL (8.5-10.1); CREATININE 1.5 mg/dL (0.55-1.3); POTASSIUM 4.2 mmol/L (3.5-5.1)
--- NOTE | 2019-10-29 09:15 | CONSULT ---
Consult - text type - Consultation Consultation Note: Neurology History of Present Illness - General Chief Complaint: Congestive Heart Failure Stated Complaint: SENT BY PCP LEG PAIN Time Seen by Provider: 10/28/19 14:36 History Source: Patient Exam Limitations: No Limitations - History of Present Illness Martha is a 78 yo F w a pmh of HTN, heart failure, and A-fib with RVR who presents to the [facility] er sent by Dr. Larkin because she has been experiencing increased leg swelling, SOB, dyspnea with exertion, and non-stop palpitations associated with her A-fib which have been hard to manage as an outpatient. She presents for admission for a medication tune-up/optimization and per notes sent in by her signal helper, Dr. Larkin. She states her legs have been swelling up very badly for the past week and now she is having a hard time walking because her legs are getting heavy and she feels tired all the time. She says that even walking around the house is getting to be very difficult for her. Denies chest pain, nausea, vomiting, diaphoresis, abdominal or back pain, headache, blurry vision, dysuria, frequency, or urgency. I was consulted regarding mental status and patient this morning was able to me that she is in the hospital but had difficulty identifying the correct name. She was not able to toe me the month or the year and seems to me she may have underlying cognitive impairment. Unclear duration of the symptoms and her baseline mental status. We will order noncontrast head CT to rule out any acute structural abnormalities. Will add low dose Aricept 5mg for now, may benefit from outpatient re-evaluation and further cognitive studies. PSH: None reported Allergies: NKA, NKDA Social Hx: Occasional glasses of wine. Denies smoking or other substance abuse. Past History - Past Medical History Allergies/Adverse Reactions: Allergies Allergy/AdvReac Type Severity Reaction Status Date / Time No Known Allergies Allergy Verified 10/28/19 17:48 Home Medications: Ambulatory Orders Ergocalciferol (Vitamin D2) [Drisdol] 50,000 unit PO WEEKLY 09/12/18 Apixaban [Eliquis -] 5 mg PO BID #60 tablet 09/22/18 Metoprolol Succinate [Toprol XL -] 50 mg PO BID #60 tab.sr.24h 09/22/18 Furosemide [Lasix -] 40 mg PO DAILY 01/03/19 Lisinopril 10 mg PO DAILY 03/04/19 Mirtazapine 15 mg PO DAILY 03/21/19 Anemia: No Asthma: No Cancer: No Cardiac Disorders: Yes (Afib -on eliquis) CVA: No COPD: No CHF: No Diabetes: No GI Disorders: No Disorders: No HTN: Yes Hypercholesterolemia: No Liver Disease: No Seizures: No - Surgical History Abdominal Surgery: No Appendectomy: No Cardiac Surgery: No Cholecystectomy: No Lung Surgery: No Neurologic Surgery: No Orthopedic Surgery: No - Immunization History Immunization Up to Date: No - Psycho Social/Smoking Cessation Hx Smoking History: Never smoked Have you smoked in the past 12 months: No Information on smoking cessation initiated: No Hx Alcohol Use: No Drug/Substance Use Hx: No Substance Use Type: None Hx Substance Use Treatment: No Review of Systems CONSTITUTIONAL: Present: fatigue Absent: fever, no chills EYES: Absent: visual changes ENT: Absent: ear pain, no sore throat CARDIOVASCULAR: Absent: chest pain, no palpitations RESPIRATORY: Present: SOB Absent: cough GI: Absent: abdominal pain, no nausea, no vomiting, no constipation, no diarrhea GENITOURINARY: Absent: dysuria, no frequency, no hematuria MUSKULOSKELETAL: Absent: back pain, no arthralgia, no myalgia SKIN: Absent: rash NEURO: Absent: headache *Physical Exam Vital Signs Period Temp Pulse Resp BP Sys/Cisneros Pulse Ox Last 24 Hr 97.4 F-99.1 F 92-127 18-18 121-145/79-106 95-99 GENERAL: Well-appearing, well-nourished. Mild distress. Does not know exact location, day , date HEENT: Normocephalic, atraumatic. PERRL, EOM intact. CARDIOVASCULAR: Tachycardic rate. Irregularly irregular. Normal S1, S2. PULMONARY: bilateral crackles at the bases. Mild evidence of respiratory distress. No wheezing or rhonchi. ABDOMEN: Soft, non-distended, non-tender. EXTREMITIES: 3+ edema in both lower legs. Normal ROM in all four extremities. SKIN: Warm, dry. No rash NEUROLOGICAL: awake, alert, no cranial nerve deficits, moves all extremities equally, sensory intact, [id number] normal Laboratory Results 10/28/19 10/28/19 15:46 15:46 PT with INR Cancelled INR Cancelled PTT (Actin FS) Cancelled Sodium 143 Potassium 5.4 H Chloride 106 Carbon Dioxide 31 Anion Gap 6 L BUN 32.3 H Creatinine 1.6 H Est GFR (CKD-EPI)AfAm 35.15 Est GFR (CKD-EPI)NonAf 30.33 Random Glucose 119 H Calcium 9.5 Magnesium 2.3 Total Bilirubin 0.9 AST 46 H ALT 21 Alkaline Phosphatase 134 H Creatine Kinase 145 Troponin I < 0.02 B-Natriuretic Peptide 6368.4 H Total Protein 6.8 Albumin 2.8 L 10/28/19 15:46 RBC 5.44 H MCV 88.0 MCHC 32.0 RDW 18.0 H MPV 9.8 Neutrophils % 86.0 H Lymphocytes % 5.2 L D Monocytes % 8.0 Eosinophils % 0.4 Basophils % 0.4 Medical Decision Making Martha is a 78 yo F w a pmh of HTN, heart failure, and A-fib with RVR who presents to the [facility] er sent by Dr. Larkin because she has been experiencing increased leg swelling, SOB, dyspnea with exertion, and non-stop palpitations associated with her A-fib which have been hard to manage as an outpatient. She presents for admission for a medication tune-up/optimization and per notes sent in by her signal helper, Dr. Larkin. She states her legs have been swelling up very badly for the past week and now she is having a hard time walking because her legs are getting heavy and she feels tired all the time. She says that even walking around the house is getting to be very difficult for her. Denies chest pain, nausea, vomiting, diaphoresis, abdominal or back pain, headache, blurry vision, dysuria, frequency, or urgency. I was consulted regarding mental status and patient this morning was able to me that she is in the hospital but had difficulty identifying the correct name. She was not able to toe me the month or the year and seems to me she may have underlying cognitive impairment. Unclear duration of the symptoms and her baseline mental status. We will order noncontrast head CT to rule out any acute structural abnormalities. Will add low dose Aricept 5mg for now, may benefit from outpatient re-evaluation and further cognitive studies. Continue medical optimization, slight elevation in BUN and creatinine on admission, possibly dehydration, maintain adequate hydration. Check for any underlying infectious etiologies, some confusion may be attributed to unfamiliar environment and being in the hospital. Continue monitor mental status while cardiac optimization occurring.
[2019-10-29] MEDS ORDERED: cefTRIAXone SODIUM 1 GM VIAL ONE (09:22)
[2019-10-29] MEDS ORDERED: DEXTROSE 5%-WATER - 50 ML IVPB ONE (09:22)
[2019-10-29] MEDS: CEFTRIAXONE 1 GM in DEXTROSE 5%-WATER - 50 ML IVPB SCH (09:28)
[2019-10-29] MEDS: APIXABAN 5 MG TABLET PO SCH ×2 (09:29→21:24)
[2019-10-29] MEDS: DONEPEZIL HCL 5 MG TABLET (FP) PO SCH (09:39)
[2019-10-29] MEDS ORDERED: FLU VACCINE QUAD 60 MCG/0.5 ML (MDV 19-20) IM ONE (10:00)
--- NOTE | 2019-10-29 10:28 | EKG ---
Test Reason : Blood Pressure : / mmHG Vent. Rate : 114 BPM Atrial Rate : 127 BPM P-R Int : 248 ms QRS Dur : 070 ms QT Int : 302 ms P-R-T Axes : 000 019 -21 degrees QTc Int : 416 ms ATRIAL FIBRILLATION NONSPECIFIC T WAVE ABNORMALITY ABNORMAL ECG Confirmed by SALENA TAVARES MD ([id number]) on 10/29/2019 10:28:10 AM Referred By: Confirmed By:SALENA TAVARES MD
--- NOTE | 2019-10-29 10:40 | CONSULT ---
- Consultation REQUESTING PROVIDER: Vascular Surgery - Maximo Tam CONSULT REQUEST: We have been asked to surgically evaluate this patient for ( specify). PCP: Anu Quinn HPI: Called to evaluate 78 yo female w/ PMHx as noted below. Sent to [facility] for further evaluation by Dr. Larkin due to increased LE swelling (h/o CHF), SOB & ELDER. CRIMINAL LEGAL ASSISTANT requested Vasc eval due to the LE swelling. Currently, patient resting comfortably with HOB at 45 degrees. No complaints. PMHx: HTN, heart failure, and A-fib with RVR PSHx: Home Meds Ergocalciferol (Vitamin D2) [Drisdol] 50,000 unit PO WEEKLY 09/12/18 Apixaban [Eliquis -] 5 mg PO BID #60 tablet 09/22/18 Metoprolol Succinate [Toprol XL -] 50 mg PO BID #60 tab.sr.24h 09/22/18 Furosemide [Lasix -] 40 mg PO DAILY 01/03/19 Lisinopril 10 mg PO DAILY 03/04/19 Mirtazapine 15 mg PO DAILY 03/21/19 Allergies: NKDA ROS: Unremarkable PE: GENERAL: Awake, alert, in no acute distress. HEAD: Normal with no signs of trauma. EYES: PERRL, sclera anicteric, conjunctiva clear. NECK: Normal ROM, supple without lymphadenopathy, JVD, or masses. LUNGS: unlabored respiration. 96% on RA HEART: afib ABDOMEN: Soft, nontender, not distended, normoactive bowel sounds, no guarding, no rebound, no masses. MUSCULOSKELETAL: No CVA tenderness. UE: 2+ pulses, warm, well-perfused. No cyanosis. Cap refill <2 seconds. No peripheral edema. LE: bilat +2 pitting edema. Feet warm bilat. Unable to palpate pulses 2/2 edema....however, does have dopplerable DP/PT bilat. No calf tenderness. NEUROLOGICAL: Normal speech, gait not observed. PSYCH: Cooperative. Good eye contact. Appropriate mood and affect. Last Vital Signs Temp Pulse Resp BP Pulse Ox 97.4 F L 105 H 18 144/96 96 10/29/19 08:45 10/29/19 08:45 10/29/19 08:45 10/29/19 08:45 10/29/19 00:25 CBC, BMP 10/29/19 06:25 10/29/19 06:25 INR, PTT INR Cancelled 10/28/19 15:46 Problem List - Problems (1) Heart failure Assessment/Plan: LE swelling associated with water retention 2/2 CHF Diuresis LE elevation while in bed or seated in chair Cont management per primary team Reconsult Surgery PRN Above discussed with my attending and agrees On behalf of Dr. Tam, thank you for the opportunity to participate in your patient's care Code(s): I50.9 - HEART FAILURE, UNSPECIFIED Qualifiers: Heart failure type: unspecified Heart failure chronicity: unspecified Qualified Code(s): I50.9 - Heart failure, unspecified (2) Atrial fibrillation with RVR Code(s): I48.91 - UNSPECIFIED ATRIAL FIBRILLATION (3) CKD (chronic kidney disease) Code(s): N18.9 - CHRONIC KIDNEY DISEASE, UNSPECIFIED (4) HTN (hypertension) Code(s): I10 - ESSENTIAL (PRIMARY) HYPERTENSION Visit type - Case Type Case Type: ED Admission - Emergency Emergency Visit: Yes ED Registration Date: 10/28/19 Care time: The patient presented to the Emergency Department on the above date and was hospitalized for further evaluation of their emergent condition. - New patient This patient is new to me today: Yes Date on this admission: 10/29/19
--- NOTE | 2019-10-29 14:01 | PN ---
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, Physician Chief Complaint: sob, leg edema History of Present Illness: at bedside Pt states she has been feeling SOB on lying down and on exertion for a few days now No chest pain no dizziness Sent by Drupal Developer for further evaluation - Current Medication List Current Medications: Active Medications Apixaban (Eliquis -) 5 mg PO BID [facility] Last Admin: 10/29/19 09:29 Dose: 5 mg Donepezil HCl (Aricept -) 5 mg PO DAILY [facility] Last Admin: 10/29/19 09:39 Dose: 5 mg Furosemide (Lasix Injection -) 40 mg IVPUSH BID@0600,1400 [facility] Last Admin: 10/29/19 13:29 Dose: 40 mg Ceftriaxone Sodium 1 gm/ (Dextrose) 50 mls @ 100 mls/hr IVPB DAILY [facility]; Protocol Last Admin: 10/29/19 09:28 Dose: 100 mls/hr Metoprolol Succinate (Toprol Xl -) 75 mg PO DAILY [facility] Last Admin: 10/29/19 09:29 Dose: 75 mg - Objective Vital Signs: Vital Signs Temperature 97.4 F L 10/29/19 08:45 Pulse Rate 105 H 10/29/19 08:45 Respiratory Rate 18 10/29/19 08:45 Blood Pressure 144/96 10/29/19 08:45 O2 Sat by Pulse Oximetry (%) 96 10/29/19 00:25 Constitutional: Yes: No Distress, Calm Cardiovascular: Yes: Tachycardia, Pulse Irregular Respiratory: Yes: Diminished Gastrointestinal: Yes: Normal Bowel Sounds, Soft. No: Tenderness Edema: Yes Edema: LLE: 2+, RLE: 2+ Psychiatric: Yes: Alert, Oriented Labs: CBC, BMP 10/29/19 06:25 10/29/19 06:25 INR, PTT INR Cancelled 10/28/19 15:46 Problem List - Problems (1) Dementia Code(s): F03.90 - UNSPECIFIED DEMENTIA WITHOUT BEHAVIORAL DISTURBANCE (2) Atrial fibrillation with RVR Code(s): I48.91 - UNSPECIFIED ATRIAL FIBRILLATION (3) Edema Code(s): R60.9 - EDEMA, UNSPECIFIED Qualifiers: Edema type: localized Qualified Code(s): R60.0 - Localized edema (4) Heart failure Code(s): I50.9 - HEART FAILURE, UNSPECIFIED Qualifiers: Heart failure type: unspecified Heart failure chronicity: unspecified Qualified Code(s): I50.9 - Heart failure, unspecified (5) Leg edema Code(s): R60.0 - LOCALIZED EDEMA (6) CKD (chronic kidney disease) Code(s): N18.9 - CHRONIC KIDNEY DISEASE, UNSPECIFIED Assessment/Plan PLAN IV lasix BID Monitor renal function IV antibiotics urine cultures pending cardiology eval check Echo
--- NOTE | 2019-10-29 15:07 | CON.CARD ---
Consult Consult Specialty:: cardiology Referred by:: gagandeep stanley Reason for Consultation:: afib/chf - History of Present Illness Chief Complaint: LE edema History of Present Illness: 78 year old with a pmhx of htn, afib on apixaban, and chronic diastolic CHF sent by Dr. Larkin for worsening b/l LE edema, sob, and palpitations. - History Source History Provided By: Patient, Family Member, Medical Record - Past Medical History Cardio/Vascular: Yes: AFIB, HTN Renal/: Yes: Renal Inusuff Endocrine: Yes: Hypothyroidism - Alcohol/Substance Use Hx Alcohol Use: No History of Substance Use: reports: None - Smoking History Smoking history: Never smoked Have you smoked in the past 12 months: No - Social History Usual Living Arrangement: Alone ADL: Family Assistance History of Recent Travel: No Home Medications - Allergies Allergies/Adverse Reactions: Allergies Allergy/AdvReac Type Severity Reaction Status Date / Time No Known Allergies Allergy Verified 10/28/19 17:48 - Home Medications Home Medications: Ambulatory Orders Ergocalciferol (Vitamin D2) [Drisdol] 50,000 unit PO WEEKLY 09/12/18 Apixaban [Eliquis -] 5 mg PO BID #60 tablet 09/22/18 Metoprolol Succinate [Toprol XL -] 50 mg PO BID #60 tab.sr.24h 09/22/18 Furosemide [Lasix -] 40 mg PO DAILY 01/03/19 Lisinopril 10 mg PO DAILY 03/04/19 Mirtazapine 15 mg PO DAILY 03/21/19 Vital Signs: Vital Signs Temperature 97.4 F L 10/29/19 08:45 Pulse Rate 105 H 10/29/19 08:45 Respiratory Rate 18 10/29/19 08:45 Blood Pressure 144/96 10/29/19 08:45 O2 Sat by Pulse Oximetry (%) 97 10/29/19 14:12 HENT: Yes: WNL Neck: Yes: Other (JVD) Respiratory: Yes: Diminished (bibasilar BS decreased) Gastrointestinal: Yes: Soft Cardiovascular: Yes: Tachycardia, Pulse Irregular JVD: Yes Carotid Bruit: No Heart Sounds: Yes: S1, S2 Edema: LLE: 1+, RLE: 1+ - Other Data Labs, Other Data: CBC, BMP 10/29/19 06:25 10/29/19 06:25 INR, PTT INR Cancelled 10/28/19 15:46 Troponin, BNP 10/28/19 10/28/19 10/29/19 15:46 23:30 03:30 Troponin I < 0.02 < 0.02 < 0.02 B-Natriuretic Peptide 6368.4 H Troponin, BNP 10/28/19 10/28/19 12 15:46 23:30 03:30 Troponin I < 0.02 < 0.02 < 0.02 B-Natriuretic Peptide 6368.4 H Imaging - Results Chest X-ray: Report Reviewed EKG: Image Reviewed Assessment/Plan 78 year old with a pmhx of htn, afib on apixaban, and chronic diastolic CHF sent by Dr. Larkin for worsening b/l LE edema, sob, and palpitations. CXR no chf BNP over 6k Cr 1.6 EKG: afib with VR 114bpm, nonspecific T wave abnormalities 1) Acute on chronic diastolic CHF -no LE duplex needed as edema is due to CHF -Continue to diurese with furosemide 40mg IV bid Monitor daily weights, lytes, I/O's and bun/cr Treat lytes as needed -Aim for better rate control 2) Afib Would increase metoprolol to 100mg Continue apixaban for AC. Dose based on Cr, weight, age.
[2019-10-30] MEDS: FUROSEMIDE 40 MG/4 ML INJECTABLE VIAL IVPUSH SCH ×2 (05:58→14:49)
--- NOTE | 2019-10-30 08:34 | PN ---
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 (short form) - Note 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: Neurology History of Present Illness 78 yo F w a pmh of HTN, heart failure, and A-fib with RVR who presents to the [facility] er sent by Dr. Larkin because she has been experiencing increased leg swelling, SOB, dyspnea with exertion, and non-stop palpitations associated with her A-fib which have been hard to manage as an outpatient. She presents for admission for a medication tune-up/optimization and per notes sent in by her auto camp attendant, Dr. Larkin. She states her legs have been swelling up very badly for the past week and now she is having a hard time walking because her legs are getting heavy and she feels tired all the time. She says that even walking around the house is getting to be very difficult for her. Denies chest pain, nausea, vomiting, diaphoresis, abdominal or back pain, headache, blurry vision, dysuria, frequency, or urgency. I was consulted regarding mental status and ordered noncontrast head CT which we reviewed and discussed and did not show any significant structural abnormalities. Her mental status is improved this morning as she was able to tell me the name of the hospital as well as the month and the year. She ooked up at the board in order to determine the date but this is acceptable considering it shows insight into her surroundings. is receiving antibiotics and appears to have improvement in mental status as a result. Aricept 5 mg daily added to her regiment. Active Medications Apixaban (Eliquis -) 5 mg PO BID [facility] Last Admin: 10/29/19 21:24 Dose: 5 mg Donepezil HCl (Aricept -) 5 mg PO DAILY [facility] Last Admin: 10/29/19 09:39 Dose: 5 mg Furosemide (Lasix Injection -) 40 mg IVPUSH BID@0600,1400 [facility] Last Admin: 10/30/19 05:58 Dose: 40 mg Ceftriaxone Sodium 1 gm/ (Dextrose) 50 mls @ 100 mls/hr IVPB DAILY [facility]; Protocol Last Admin: 10/29/19 09:28 Dose: 100 mls/hr Metoprolol Succinate (Toprol Xl -) 75 mg PO DAILY [facility] Last Admin: 10/29/19 09:29 Dose: 75 mg *Physical Exam Vital Signs Period Temp Pulse Resp BP Sys/Cisneros Pulse Ox Last 24 Hr 97.4 F-99.4 F 94-112 - 118-153/58-100 97-99 GENERAL: Well-appearing, well-nourished. Mild distress. Does not know exact location, day , date HEENT: Normocephalic, atraumatic. PERRL, EOM intact. CARDIOVASCULAR: Tachycardic rate. Irregularly irregular. Normal S1, S2. PULMONARY: bilateral crackles at the bases. Mild evidence of respiratory distress. No wheezing or rhonchi. ABDOMEN: Soft, non-distended, non-tender. EXTREMITIES: 3+ edema in both lower legs. Normal ROM in all four extremities. SKIN: Warm, dry. No rash NEUROLOGICAL: awake, alert, no cranial nerve deficits, moves all extremities equally, sensory intact, [id number] normal CBCD WBC 8.2 K/mm3 (4.0-10.0) 10/29/19 06:25 RBC 5.31 M/mm3 (3.60-5.2) H 10/29/19 06:25 Hgb 15.2 GM/dL (10.7-15.3) 10/29/19 06:25 Hct 46.6 % (32.4-45.2) H 10/29/19 06:25 MCV 87.6 fl (80-96) 10/29/19 06:25 MCHC 32.6 g/dl (32.0-36.0) 10/29/19 06:25 RDW 18.0 % (11.6-15.6) H 10/29/19 06:25 Plt Count 222 K/MM3 (134-434) 10/29/19 06:25 MPV 9.8 fl (7.5-11.1) 10/29/19 06:25 CMP Sodium 141 mmol/L (136-145) 10/29/19 06:25 Potassium 4.2 mmol/L (3.5-5.1) 10/29/19 06:25 Chloride 104 mmol/L (98-107) 10/29/19 06:25 Carbon Dioxide 29 mmol/L (21-32) 10/29/19 06:25 Anion Gap 9 MMOL/L (8-16) 10/29/19 06:25 BUN 35.7 mg/dL (7-18) H 10/29/19 06:25 Creatinine 1.5 mg/dL (0.55-1.3) H 10/29/19 06:25 Random Glucose 109 mg/dL (74-106) H 10/29/19 06:25 Calcium 9.3 mg/dL (8.5-10.1) 10/29/19 06:25 Total Bilirubin 0.9 mg/dL (0.2-1) 10/28/19 15:46 AST 46 U/L (15-37) H 10/28/19 15:46 ALT 21 U/L (13-61) 10/28/19 15:46 Alkaline Phosphatase 134 U/L (45-117) H 10/28/19 15:46 Total Protein 6.8 g/dl (6.4-8.2) 10/28/19 15:46 Albumin 2.8 g/dl (3.4-5.0) L 10/28/19 15:46 CARDIAC ENZYMES Creatine Kinase 145 U/L (26-192) 10/28/19 15:46 Troponin I < 0.02 ng/ml (0.00-0.05) 10/29/19 03:30 Medical Decision Making Martha is a 78 yo F w a pmh of HTN, heart failure, and A-fib with RVR who presents to the [facility] er sent by Dr. Larkin because she has been experiencing increased leg swelling, SOB, dyspnea with exertion, and non-stop palpitations associated with her A-fib which have been hard to manage as an outpatient. She presents for admission for a medication tune-up/optimization and per notes sent in by her auto camp attendant, Dr. Larkin. She states her legs have been swelling up very badly for the past week and now she is having a hard time walking because her legs are getting heavy and she feels tired all the time. She says that even walking around the house is getting to be very difficult for her. Denies chest pain, nausea, vomiting, diaphoresis, abdominal or back pain, headache, blurry vision, dysuria, frequency, or urgency. I was consulted regarding mental status and ordered noncontrast head CT which we reviewed and discussed and did not show any significant structural abnormalities. Her mental status is improved this morning as she was able to tell me the name of the hospital as well as the month and the year. She looked up at the board in order to determine the date but this is acceptable considering it shows insight into her surroundings. is receiving antibiotics and appears to have improvement in mental status as a result. Aricept 5 mg daily added to her regiment. Continue medical optimization , slight elevation in BUN and creatinine on admission, possibly dehydration, maintain adequate hydration. Check for any underlying infectious etiologies, some confusion may be attributed to unfamiliar environment and being in the hospital. On Abx, defer to primary. Continue monitor mental status which seems to be improving
[2019-10-30] MEDS ORDERED: METOPROLOL TARTRATE 5 MG/5 ML VIAL ONE (09:20)
[2019-10-30] MEDS ORDERED: METOPROLOL TARTRATE 5 MG/5 ML VIAL IVPB ONE (09:45)
[2019-10-30] MEDS ORDERED: cefTRIAXone SODIUM 1 GM VIAL ONE (10:43)
[2019-10-30] MEDS ORDERED: DEXTROSE 5%-WATER - 50 ML IVPB ONE (10:43)
[2019-10-30] MEDS: DONEPEZIL HCL 5 MG TABLET (FP) PO SCH (10:53)
--- NOTE | 2019-10-30 11:03 | PN ---
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 (short form) - Note 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: Was confused last night and was trying to take out the monitor leads refused her morning meds heart rate in the 140's denies chest pain No SOB was agitated this AM Her at bedside now seems more calm Vital Signs - 24 hr 10/29/19 10/29/19 10/29/19 14:12 15:00 18:00 Temperature 98.3 F 98.9 F Pulse Rate 104 H 101 H Respiratory 18 18 Rate Blood Pressure 118/58 L 153/100 O2 Sat by Pulse 97 Oximetry (%) 10/29/19 10/29/19 10/30/19 21:00 22:00 02:00 Temperature 99.4 F 98.5 F Pulse Rate 101 H 94 H Respiratory 18 18 Rate Blood Pressure 126/79 136/77 O2 Sat by Pulse 99 Oximetry (%) 10/30/19 10/30/19 10/30/19 06:00 09:37 09:55 Temperature 98.2 F 98.4 F Pulse Rate 112 H 148 H 149 H Respiratory 19 18 Rate Blood Pressure 150/96 178/75 H 178/75 H O2 Sat by Pulse Oximetry (%) Current Medications Generic Name Dose Route Start Last Admin Trade Name Freq PRN Reason Stop Dose Admin Apixaban 5 mg 10/28/19 22:30 10/30/19 11:08 Eliquis - PO 5 mg BID [facility]ER[facility] Administration Donepezil HCl 5 mg 10/29/19 10:00 10/30/19 10:53 Aricept - PO 5 mg DAILY [facility] Administration Furosemide 40 mg 10/29/19 06:00 10/30/19 05:58 Lasix Injection - IVPUSH 40 mg BID@0600,1400 [facility]ER[facility] Administration Ceftriaxone Sodium 1 gm/ 50 mls @ 100 mls/hr 10/29/19 10:00 10/30/19 11:09 Dextrose IVPB 100 mls/hr DAILY [facility] Administration Protocol Metoprolol Succinate 75 mg 10/29/19 10:00 10/30/19 10:53 Toprol Xl - PO 75 mg DAILY [facility]ER[facility] Administration S1 S2 Irregular Lungs decreased Abd- soft, NT decreased edema alert , pleasant now PLAN AMS-- toxic metabolic encephalopathy due to dementia, UTI likely sun downing as well dc wrist restraints and place left mittens-- will prevent her from pulling out iv line IV lasix BID obtain urine cultures-- none in system ! took meds from [place] monitor heart rate -- may need to increase Toprol if rate is not controlled spoke with Neurology-- may give seroquel HS prn if agitated Problem List - Problems (1) Atrial fibrillation with RVR Code(s): I48.91 - UNSPECIFIED ATRIAL FIBRILLATION (2) Dementia Code(s): F03.90 - UNSPECIFIED DEMENTIA WITHOUT BEHAVIORAL DISTURBANCE (3) Edema Code(s): R60.9 - EDEMA, UNSPECIFIED Qualifiers: Edema type: localized Qualified Code(s): R60.0 - Localized edema (4) Heart failure Code(s): I50.9 - HEART FAILURE, UNSPECIFIED Qualifiers: Heart failure type: unspecified Heart failure chronicity: unspecified Qualified Code(s): I50.9 - Heart failure, unspecified (5) Leg edema Code(s): R60.0 - LOCALIZED EDEMA (6) CKD (chronic kidney disease) Code(s): N18.9 - CHRONIC KIDNEY DISEASE, UNSPECIFIED
[2019-10-30] MEDS: APIXABAN 5 MG TABLET PO SCH ×2 (11:08→21:24)
[2019-10-30] MEDS: CEFTRIAXONE 1 GM in DEXTROSE 5%-WATER - 50 ML IVPB SCH (11:09)
--- NOTE | 2019-10-30 14:19 | PN ---
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, Physician Chief Complaint: Agitated this am and was refusing meds now compliant History of Present Illness: 78 year old with a pmhx of htn, afib on apixaban, and chronic diastolic CHF sent by Dr. Larkin for worsening b/l LE edema, sob, and palpitations. - Current Medication List Current Medications: Active Medications Apixaban (Eliquis -) 5 mg PO BID [facility] Last Admin: 10/30/19 11:08 Dose: 5 mg Donepezil HCl (Aricept -) 5 mg PO DAILY [facility] Last Admin: 10/30/19 10:53 Dose: 5 mg Furosemide (Lasix Injection -) 40 mg IVPUSH BID@0600,1400 [facility] Last Admin: 10/30/19 05:58 Dose: 40 mg Ceftriaxone Sodium 1 gm/ (Dextrose) 50 mls @ 100 mls/hr IVPB DAILY [facility]; Protocol Last Admin: 10/30/19 11:09 Dose: 100 mls/hr Metoprolol Succinate (Toprol Xl -) 100 mg PO DAILY [facility] Quetiapine Fumarate (Seroquel -) 25 mg PO HS [facility] - Objective Vital Signs: Vital Signs Temperature 98.4 F 10/30/19 09:37 Pulse Rate 149 H 10/30/19 09:55 Respiratory Rate 18 10/30/19 09:37 Blood Pressure 178/75 H 10/30/19 09:55 O2 Sat by Pulse Oximetry (%) 99 10/29/19 21:00 Constitutional: Yes: No Distress Neck: Yes: Supple Cardiovascular: Yes: Pulse Irregular, JVD, S1, S2 Respiratory: Yes: Diminished Gastrointestinal: Yes: Soft Edema: LLE: 1+, RLE: 1+ Labs: CBC, BMP 10/29/19 06:25 10/29/19 06:25 INR, PTT INR Cancelled 10/28/19 15:46 Assessment/Plan 78 year old with a pmhx of htn, afib on apixaban, and chronic diastolic CHF sent by Dr. Larkin for worsening b/l LE edema, sob, and palpitations. CXR no chf BNP over 6k Cr 1.6 EKG: afib with VR 114bpm, nonspecific T wave abnormalities 1) Acute on chronic diastolic CHF -no LE duplex needed as edema is due to CHF -Continue to diurese with furosemide 40mg IV bid Monitor daily weights, lytes, I/O's and bun/cr Treat lytes as needed -Rate control 2) Afib Metoprolol to 100mg Continue apixaban for AC. Dose based on Cr, weight, age.
[2019-10-30] MEDS: QUEtiapine FUMARATE 25 MG TABLET (FP) PO SCH (21:24)
[2019-10-31] MEDS: FUROSEMIDE 40 MG/4 ML INJECTABLE VIAL IVPUSH SCH ×2 (05:46→13:04)
[2019-10-31 07:04] LABS: HEMATOCRIT 42.7 % (32.4-45.2); MCH 28.2 pg (25.7-33.7); MCHC 32.7 g/dl (32.0-36.0); MEAN CELL VOLUME 86.4 fl (80-96); MEAN PLT VOLUME 9.6 fl (7.5-11.1); PLATELET COUNT 195 K/MM3 (134-434); RBC 4.95 M/mm3 (3.60-5.2); RDW 17.6 % (11.6-15.6); WHITE BLOOD COUNT 9.4 K/mm3 (4.0-10.0)
[2019-10-31 07:49] LABS: ALBUMIN 2.4 g/dl (3.4-5.0); BILIRUBIN,TOTAL 0.8 mg/dL (0.2-1); BLOOD UREA NITROGEN 33.4 mg/dL (7-18); CALCIUM 8.7 mg/dL (8.5-10.1); CREATININE 1.4 mg/dL (0.55-1.3); MAGNESIUM 2.1 mg/dL (1.8-2.4); POTASSIUM 3.7 mmol/L (3.5-5.1)
--- NOTE | 2019-10-31 09:01 | PN ---
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 (short form) - Note 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: Neurology History of Present Illness 78 yo F w a pmh of HTN, heart failure, and A-fib with RVR who presents to the [facility] er sent by Dr. Larkin because she has been experiencing increased leg swelling, SOB, dyspnea with exertion, and non-stop palpitations associated with her A-fib which have been hard to manage as an outpatient. She presents for admission for a medication tune-up/optimization and per notes sent in by her bracelet and brooch maker, Dr. Larkin. She states her legs have been swelling up very badly for the past week and now she is having a hard time walking because her legs are getting heavy and she feels tired all the time. She says that even walking around the house is getting to be very difficult for her. Denies chest pain, nausea, vomiting, diaphoresis, abdominal or back pain, headache, blurry vision, dysuria, frequency, or urgency. I was consulted regarding mental status and ordered noncontrast head CT which we reviewed and discussed and did not show any significant structural abnormalities. This morning, is awake alert, verbal but limited in responses. Was aware that she is in the hospital but did not give me the correct location, able to tell me the month and year. Still some residual fatigue and disorientation from underlying UTI. Contacted by her primary care physician yesterday and patient does demonstrate some behavior which likely from being in the hospital an unfamiliar environment. If needed, Seroquel 25 mg can be used at bedtime, though not likely to be needed as outpatient or upon discharge. Aricept 5 mg daily added to her regiment, can be continued. BUN and Cr elevated 33.4/1.4, trending down. Remains on ceftriaxone for UTI Active Medications Apixaban (Eliquis -) 5 mg PO BID [facility] Last Admin: 10/30/19 21:24 Dose: 5 mg Donepezil HCl (Aricept -) 5 mg PO DAILY [facility] Last Admin: 10/30/19 10:53 Dose: 5 mg Furosemide (Lasix Injection -) 40 mg IVPUSH BID@0600,1400 [facility] Last Admin: 10/31/19 05:46 Dose: 40 mg Ceftriaxone Sodium 1 gm/ (Dextrose) 50 mls @ 100 mls/hr IVPB DAILY [facility]; Protocol Last Admin: 10/30/19 11:09 Dose: 100 mls/hr Metoprolol Succinate (Toprol Xl -) 100 mg PO DAILY [facility] Quetiapine Fumarate (Seroquel -) 25 mg PO HS [facility] Last Admin: 10/30/19 21:24 Dose: 25 mg *Physical Exam Vital Signs Period Temp Pulse Resp BP Sys/Cisneros Pulse Ox Last 24 Hr 98.2 F-99.9 F 99-149 16-18 128-178/66-84 98-99 GENERAL: Well-appearing, well-nourished. Mild distress. Does not know exact location, day , date HEENT: Normocephalic, atraumatic. PERRL, EOM intact. CARDIOVASCULAR: Tachycardic rate. Irregularly irregular. Normal S1, S2. PULMONARY: bilateral crackles at the bases. Mild evidence of respiratory distress. No wheezing or rhonchi. ABDOMEN: Soft, non-distended, non-tender. EXTREMITIES: 3+ edema in both lower legs. Normal ROM in all four extremities. SKIN: Warm, dry. No rash NEUROLOGICAL: awake, alert, no cranial nerve deficits, moves all extremities equally, sensory intact, [id number] normal CBCD WBC 9.4 K/mm3 (4.0-10.0) 10/31/19 06:25 RBC 4.95 M/mm3 (3.60-5.2) 10/31/19 06:25 Hgb 14.0 GM/dL (10.7-15.3) 10/31/19 06:25 Hct 42.7 % (32.4-45.2) 10/31/19 06:25 MCV 86.4 fl (80-96) 10/31/19 06:25 MCHC 32.7 g/dl (32.0-36.0) 10/31/19 06:25 RDW 17.6 % (11.6-15.6) H 10/31/19 06:25 Plt Count 195 K/MM3 (134-434) 10/31/19 06:25 MPV 9.6 fl (7.5-11.1) 10/31/19 06:25 CMP Sodium 143 mmol/L (136-145) 10/31/19 06:25 Potassium 3.7 mmol/L (3.5-5.1) 10/31/19 06:25 Chloride 104 mmol/L (98-107) 10/31/19 06:25 Carbon Dioxide 31 mmol/L (21-32) 10/31/19 06:25 Anion Gap 8 MMOL/L (8-16) 10/31/19 06:25 BUN 33.4 mg/dL (7-18) H 10/31/19 06:25 Creatinine 1.4 mg/dL (0.55-1.3) H 10/31/19 06:25 Random Glucose 135 mg/dL (74-106) H 10/31/19 06:25 Calcium 8.7 mg/dL (8.5-10.1) 10/31/19 06:25 Total Bilirubin 0.8 mg/dL (0.2-1) 10/31/19 06:25 AST 19 U/L (15-37) 10/31/19 06:25 ALT 14 U/L (13-61) 10/31/19 06:25 Alkaline Phosphatase 110 U/L (45-117) 10/31/19 06:25 Total Protein 6.0 g/dl (6.4-8.2) L 10/31/19 06:25 Albumin 2.4 g/dl (3.4-5.0) L 10/31/19 06:25 CARDIAC ENZYMES Creatine Kinase 145 U/L (26-192) 10/28/19 15:46 Troponin I < 0.02 ng/ml (0.00-0.05) 10/29/19 03:30 Medical Decision Making Martha is a 78 yo F w a pmh of HTN, heart failure, and A-fib with RVR who presents to the [facility] er sent by Dr. Larkin because she has been experiencing increased leg swelling, SOB, dyspnea with exertion, and non-stop palpitations associated with her A-fib which have been hard to manage as an outpatient. She presents for admission for a medication tune-up/optimization and per notes sent in by her bracelet and brooch maker, Dr. Larkin. She states her legs have been swelling up very badly for the past week and now she is having a hard time walking because her legs are getting heavy and she feels tired all the time. She says that even walking around the house is getting to be very difficult for her. Denies chest pain, nausea, vomiting, diaphoresis, abdominal or back pain, headache, blurry vision, dysuria, frequency, or urgency. I was consulted regarding mental status and ordered noncontrast head CT which we reviewed and discussed and did not show any significant structural abnormalities. This morning, is awake alert, verbal but limited in responses. Was aware that she is in the hospital but did not give me the correct location, able to tell me the month and year. Still some residual fatigue and disorientation from underlying UTI. Contacted by her primary care physician yesterday and patient does demonstrate some ing behavior which likely from being in the hospital an unfamiliar environment. If needed, Seroquel 25 mg can be used at bedtime, though not likely to be needed as outpatient or upon discharge. Aricept 5 mg daily added to her regiment, can be continued. BUN and Cr elevated 33.4/1.4, trending down. Remains on ceftriaxone for UTI. Continue medical optimization, infectious management, antibiotics as per primary. Maintain adequate hydration, Seroquel added to regimen
[2019-10-31] MEDS ORDERED: cefTRIAXone SODIUM 1 GM VIAL ONE (09:32)
[2019-10-31] MEDS ORDERED: DEXTROSE 5%-WATER - 50 ML IVPB ONE (09:32)
[2019-10-31] MEDS: APIXABAN 5 MG TABLET PO SCH ×2 (09:40→22:25)
[2019-10-31] MEDS: DONEPEZIL HCL 5 MG TABLET (FP) PO SCH (09:40)
[2019-10-31] MEDS: CEFTRIAXONE 1 GM in DEXTROSE 5%-WATER - 50 ML IVPB SCH (09:40)
--- NOTE | 2019-10-31 11:42 | PN ---
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 (short form) - Note 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: pt seen/ examined. chart reviewed awake/ comfortable. denies pain feels better at bedside Vital Signs Temp 98.5 F 10/31/19 07:43 Pulse 121 H 10/31/19 07:43 Resp 18 10/31/19 09:00 BP 144/66 10/31/19 07:43 Pulse Ox 97 10/31/19 09:00 Intake & Output 10/30/19 10/30/19 10/31/19 11:59 23:59 11:59 Intake Total 715 130 Balance 715 130 Intake: IV 15 10 saline lock 15 10 IVPB 50 Oral 650 120 Other: Voiding Method Diaper Incontinent Incontinent # Unmeasured Voids Void 2 2 1 Bowel Movement No No Active Medications Apixaban (Eliquis -) 5 mg PO BID [facility] Last Admin: 10/31/19 09:40 Dose: 5 mg Donepezil HCl (Aricept -) 5 mg PO DAILY [facility] Last Admin: 10/31/19 09:40 Dose: 5 mg Furosemide (Lasix Injection -) 40 mg IVPUSH BID@0600,1400 [facility] Last Admin: 10/31/19 05:46 Dose: 40 mg Ceftriaxone Sodium 1 gm/ (Dextrose) 50 mls @ 100 mls/hr IVPB DAILY [facility]; Protocol Last Admin: 10/31/19 09:40 Dose: 100 mls/hr Metoprolol Succinate (Toprol Xl -) 100 mg PO DAILY [facility] Last Admin: 10/31/19 09:40 Dose: 100 mg Quetiapine Fumarate (Seroquel -) 25 mg PO HS [facility] Last Admin: 10/30/19 21:24 Dose: 25 mg CBC, BMP 10/31/19 06:25 10/31/19 06:25 Microbiology 10/29/19 17:15 MRSA Screen - Final Nares - Mrsa Screen - Right NO MRSA ISOLATED 10/29/19 17:15 MRSA Screen - Final Nares - Mrsa Screen - Left NO MRSA ISOLATED Physical Exam S1 S2 Irregular Lungs decreased Abd- soft, NT decreased edema alert , awake. PLAN AMS-- toxic metabolic encephalopathy due to dementia, UTI likely sun downing as well dc wrist restraints and place left mittens-- will prevent her from pulling out iv line IV lasix BID obtain urine cultures-- none in system ! None done !! d/w RN -- I ordered Stat. continue present care daily oob - chair will follow Problem List - Problems (1) Atrial fibrillation with RVR Code(s): I48.91 - UNSPECIFIED ATRIAL FIBRILLATION (2) Dementia Code(s): F03.90 - UNSPECIFIED DEMENTIA WITHOUT BEHAVIORAL DISTURBANCE (3) Edema Code(s): R60.9 - EDEMA, UNSPECIFIED Qualifiers: Edema type: localized Qualified Code(s): R60.0 - Localized edema (4) Heart failure Code(s): I50.9 - HEART FAILURE, UNSPECIFIED Qualifiers: Heart failure type: unspecified Heart failure chronicity: unspecified Qualified Code(s): I50.9 - Heart failure, unspecified (5) Leg edema Code(s): R60.0 - LOCALIZED EDEMA (6) CKD (chronic kidney disease) Code(s): N18.9 - CHRONIC KIDNEY DISEASE, UNSPECIFIED
--- NOTE | 2019-10-31 14:23 | PN ---
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, Physician Chief Complaint: No complaints LE edema improving Afib with VR 120s History of Present Illness: 78 year old with a pmhx of htn, afib on apixaban, and chronic diastolic CHF sent by Dr. Larkin for worsening b/l LE edema, sob, and palpitations. - Current Medication List Current Medications: Active Medications Apixaban (Eliquis -) 5 mg PO BID [facility] Last Admin: 10/31/19 09:40 Dose: 5 mg Donepezil HCl (Aricept -) 5 mg PO DAILY [facility] Last Admin: 10/31/19 09:40 Dose: 5 mg Furosemide (Lasix Injection -) 40 mg IVPUSH DAILY [facility] Ceftriaxone Sodium 1 gm/ (Dextrose) 50 mls @ 100 mls/hr IVPB DAILY [facility]; Protocol Last Admin: 10/31/19 09:40 Dose: 100 mls/hr Metoprolol Succinate (Toprol Xl -) 100 mg PO DAILY [facility] Last Admin: 10/31/19 09:40 Dose: 100 mg Quetiapine Fumarate (Seroquel -) 25 mg PO HS [facility] Last Admin: 10/30/19 21:24 Dose: 25 mg - Objective Vital Signs: Vital Signs Temperature 98.5 F 10/31/19 07:43 Pulse Rate 121 H 10/31/19 07:43 Respiratory Rate 18 10/31/19 09:00 Blood Pressure 144/66 10/31/19 07:43 O2 Sat by Pulse Oximetry (%) 97 10/31/19 09:00 Constitutional: Yes: No Distress Neck: Yes: Supple Cardiovascular: Yes: Pulse Irregular, JVD, S1, S2 Respiratory: Yes: CTA Bilaterally Gastrointestinal: Yes: Soft Edema: Yes Edema: LLE: 1+, RLE: 1+ Labs: CBC, BMP 10/31/19 06:25 10/31/19 06:25 INR, PTT INR Cancelled 10/28/19 15:46 Assessment/Plan 78 year old with a pmhx of htn, afib on apixaban, and chronic diastolic CHF sent by Dr. Larkin for worsening b/l LE edema, sob, and palpitations. CXR no chf BNP over 6k Cr 1.6 EKG: afib with VR 114bpm, nonspecific T wave abnormalities 1) Acute on chronic diastolic CHF -Continue to diurese but will slow down and change furosemide 40mg IV to daily Monitor daily weights, lytes, I/O's and bun/cr Treat lytes as needed -Rate control 2) Afib Metoprolol to 100mg xl daily Continue apixaban for AC. Dose based on Cr, weight, age. HR's still elevated. Will restart digoxin 0.125 daily. Will monitor on tele. If patient develops tachy/mervat will than need PPM evaluation.
[2019-10-31] MEDS: DIGOXIN 0.125 MG TABLET (FP) PO SCH (15:11)
[2019-10-31] MEDS: QUEtiapine FUMARATE 25 MG TABLET (FP) PO SCH (22:25)
[2019-11-01] MEDS ORDERED: cefTRIAXone SODIUM 1 GM VIAL ONE (09:08)
[2019-11-01] MEDS ORDERED: DEXTROSE 5%-WATER - 50 ML IVPB ONE (09:08)
[2019-11-01] MEDS: DIGOXIN 0.125 MG TABLET (FP) PO SCH (09:20)
[2019-11-01] MEDS: DONEPEZIL HCL 5 MG TABLET (FP) PO SCH (09:20)
[2019-11-01] MEDS: APIXABAN 5 MG TABLET PO SCH ×2 (09:20→21:24)
[2019-11-01] MEDS: FUROSEMIDE 40 MG/4 ML INJECTABLE VIAL IVPUSH SCH (10:45)
[2019-11-01] MEDS: CEFTRIAXONE 1 GM in DEXTROSE 5%-WATER - 50 ML IVPB SCH (10:45)
--- NOTE | 2019-11-01 10:58 | PN ---
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 (short form) - Note 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: Neurology History of Present Illness 78 yo F w a pmh of HTN, heart failure, and A-fib with RVR who presents to the [facility] er sent by Dr. Larkin because she has been experiencing increased leg swelling, SOB, dyspnea with exertion, and non-stop palpitations associated with her A-fib which have been hard to manage as an outpatient. She presents for admission for a medication tune-up/optimization and per notes sent in by her casual shoe inspector, Dr. Larkin. She states her legs have been swelling up very badly for the past week and now she is having a hard time walking because her legs are getting heavy and she feels tired all the time. She says that even walking around the house is getting to be very difficult for her. Denies chest pain, nausea, vomiting, diaphoresis, abdominal or back pain, headache, blurry vision, dysuria, frequency, or urgency. I was consulted regarding mental status and ordered noncontrast head CT which we reviewed and discussed and did not show any significant structural abnormalities. This morning, is awake alert, verbal but limited in responses. Was aware that she is in the hospital but did not give me the correct location, able to tell me the month and year. Still some residual fatigue and disorientation from underlying UTI. Contacted by her primary care physician yesterday and patient does demonstrate some behavior which likely from being in the hospital an unfamiliar environment. If needed, Seroquel 25 mg can be used at bedtime, though not likely to be needed as outpatient or upon discharge. Aricept 5 mg daily added to her regiment, can be continued. BUN and Cr elevated 33.4/1.4, trending down. Remains on ceftriaxone for UTI. Discussed with nurse and waxing/waning mental status still , likely from UTI. Expect improved mental status when in familiar enviorment and infection fully cleared, delay between infection clearing and mental status being at baseline. Active Medications Apixaban (Eliquis -) 5 mg PO BID [facility] Last Admin: 11/01/19 09:20 Dose: 5 mg Digoxin (Lanoxin -) 0.125 mg PO DAILY [facility] Last Admin: 11/01/19 09:20 Dose: 0.125 mg Donepezil HCl (Aricept -) 5 mg PO DAILY [facility] Last Admin: 11/01/19 09:20 Dose: 5 mg Furosemide (Lasix Injection -) 40 mg IVPUSH DAILY [facility] Last Admin: 11/01/19 10:45 Dose: 40 mg Ceftriaxone Sodium 1 gm/ (Dextrose) 50 mls @ 100 mls/hr IVPB DAILY [facility]; Protocol Last Admin: 11/01/19 10:45 Dose: 100 mls/hr Metoprolol Succinate (Toprol Xl -) 100 mg PO DAILY [facility] Last Admin: 11/01/19 09:20 Dose: 100 mg Quetiapine Fumarate (Seroquel -) 25 mg PO HS [facility] Last Admin: 10/31/19 22:25 Dose: 25 mg *Physical Exam Vital Signs Period Temp Pulse Resp BP Sys/Cisneros Pulse Ox Last 24 Hr 97.9 F-99.6 F 110-124 16-18 123-156/72-93 96-97 GENERAL: Well-appearing, well-nourished. Mild distress. Does not know exact location, day , date HEENT: Normocephalic, atraumatic. PERRL, EOM intact. CARDIOVASCULAR: Tachycardic rate. Irregularly irregular. Normal S1, S2. PULMONARY: bilateral crackles at the bases. Mild evidence of respiratory distress. No wheezing or rhonchi. ABDOMEN: Soft, non-distended, non-tender. EXTREMITIES: 3+ edema in both lower legs. Normal ROM in all four extremities. SKIN: Warm, dry. No rash NEUROLOGICAL: awake, alert, no cranial nerve deficits, moves all extremities equally, sensory intact, [id number] normal CBCD WBC 9.4 K/mm3 (4.0-10.0) 10/31/19 06:25 RBC 4.95 M/mm3 (3.60-5.2) 10/31/19 06:25 Hgb 14.0 GM/dL (10.7-15.3) 10/31/19 06:25 Hct 42.7 % (32.4-45.2) 10/31/19 06:25 MCV 86.4 fl (80-96) 10/31/19 06:25 MCHC 32.7 g/dl (32.0-36.0) 10/31/19 06:25 RDW 17.6 % (11.6-15.6) H 10/31/19 06:25 Plt Count 195 K/MM3 (134-434) 10/31/19 06:25 MPV 9.6 fl (7.5-11.1) 10/31/19 06:25 CMP Sodium 143 mmol/L (136-145) 10/31/19 06:25 Potassium 3.7 mmol/L (3.5-5.1) 10/31/19 06:25 Chloride 104 mmol/L (98-107) 10/31/19 06:25 Carbon Dioxide 31 mmol/L (21-32) 10/31/19 06:25 Anion Gap 8 MMOL/L (8-16) 10/31/19 06:25 BUN 33.4 mg/dL (7-18) H 10/31/19 06:25 Creatinine 1.4 mg/dL (0.55-1.3) H 10/31/19 06:25 Random Glucose 135 mg/dL (74-106) H 10/31/19 06:25 Calcium 8.7 mg/dL (8.5-10.1) 10/31/19 06:25 Total Bilirubin 0.8 mg/dL (0.2-1) 10/31/19 06:25 AST 19 U/L (15-37) 10/31/19 06:25 ALT 14 U/L (13-61) 10/31/19 06:25 Alkaline Phosphatase 110 U/L (45-117) 10/31/19 06:25 Total Protein 6.0 g/dl (6.4-8.2) L 10/31/19 06:25 Albumin 2.4 g/dl (3.4-5.0) L 10/31/19 06:25 CARDIAC ENZYMES Creatine Kinase 145 U/L (26-192) 10/28/19 15:46 Troponin I < 0.02 ng/ml (0.00-0.05) 10/29/19 03:30 Medical Decision Making Martha is a 78 yo F w a pmh of HTN, heart failure, and A-fib with RVR who presents to the [facility] er sent by Dr. Larkin because she has been experiencing increased leg swelling, SOB, dyspnea with exertion, and non-stop palpitations associated with her A-fib which have been hard to manage as an outpatient. She presents for admission for a medication tune-up/optimization and per notes sent in by her casual shoe inspector, Dr. Larkin. She states her legs have been swelling up very badly for the past week and now she is having a hard time walking because her legs are getting heavy and she feels tired all the time. She says that even walking around the house is getting to be very difficult for her. Denies chest pain, nausea, vomiting, diaphoresis, abdominal or back pain, headache, blurry vision, dysuria, frequency, or urgency. I was consulted regarding mental status and ordered noncontrast head CT which we reviewed and discussed and did not show any significant structural abnormalities. This morning, is awake alert, verbal but limited in responses. Was aware that she is in the hospital but did not give me the correct location, able to tell me the month and year. Still some residual fatigue and disorientation from underlying UTI. Contacted by her primary care physician yesterday and patient does demonstrate some behavior which likely from being in the hospital an unfamiliar environment. If needed, Seroquel 25 mg can be used at bedtime, though not likely to be needed as outpatient or upon discharge. Aricept 5 mg daily added to her regiment, can be continued. BUN and Cr elevated 33.4/1.4, trending down. Remains on ceftriaxone for UTI. Discussed with nurse and waxing/waning mental status still , likely from UTI. Expect improved mental status when in familiar enviorment and infection fully cleared, delay between infection clearing and mental status being at baseline. Continue medical optimization, infectious management, antibiotics as per primary. Maintain adequate hydration, Seroquel added to regimen
--- NOTE | 2019-11-01 11:29 | PN ---
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, Physician Chief Complaint: Generalized weakness History of Present Illness: 78 year old with a pmhx of htn, afib on apixaban, and chronic diastolic CHF sent by Dr. Larkin for worsening b/l LE edema, sob, and palpitations. CXR no chf BNP over 6k Cr 1.6 EKG: afib with VR 114bpm, nonspecific T wave abnormalities - Current Medication List Current Medications: Active Medications Apixaban (Eliquis -) 5 mg PO BID [facility] Last Admin: 11/01/19 09:20 Dose: 5 mg Digoxin (Lanoxin -) 0.125 mg PO DAILY [facility] Last Admin: 11/01/19 09:20 Dose: 0.125 mg Donepezil HCl (Aricept -) 5 mg PO DAILY [facility] Last Admin: 11/01/19 09:20 Dose: 5 mg Furosemide (Lasix Injection -) 40 mg IVPUSH DAILY [facility] Last Admin: 11/01/19 10:45 Dose: 40 mg Ceftriaxone Sodium 1 gm/ (Dextrose) 50 mls @ 100 mls/hr IVPB DAILY [facility]; Protocol Last Admin: 11/01/19 10:45 Dose: 100 mls/hr Metoprolol Succinate (Toprol Xl -) 100 mg PO DAILY [facility] Last Admin: 11/01/19 09:20 Dose: 100 mg Quetiapine Fumarate (Seroquel -) 25 mg PO HS [facility] Last Admin: 10/31/19 22:25 Dose: 25 mg - Objective Vital Signs: Vital Signs Temperature 99.6 F 11/01/19 08:27 Pulse Rate 116 H 11/01/19 09:20 Respiratory Rate 16 11/01/19 09:30 Blood Pressure 156/93 11/01/19 08:27 O2 Sat by Pulse Oximetry (%) 96 11/01/19 10:00 Constitutional: Yes: Well Nourished, No Distress, Calm Eyes: Yes: WNL, Conjunctiva Clear, EOM Intact HENT: Yes: WNL, Atraumatic, Normocephalic Neck: Yes: WNL, Supple, Trachea Midline Cardiovascular: Yes: Tachycardia, Pulse Irregular, S1, S2 Respiratory: Yes: WNL, Regular, CTA Bilaterally Gastrointestinal: Yes: WNL, Normal Bowel Sounds, Soft ...Rectal Exam: Yes: Deferred Musculoskeletal: Yes: WNL Extremities: Yes: WNL Edema: No Peripheral Pulses: Left Radial: 1+, Right Radial: 1+, Left Doralis Pedis: 1+, Right Dorsalis Pedis: 1+, Left Femoral: 1+, Right Femoral: 1+ Integumentary: Yes: WNL Neurological: Yes: WNL, Alert, Oriented ...Motor Strength: WNL Psychiatric: Yes: WNL, Alert, Oriented Labs: CBC, BMP 10/31/19 06:25 10/31/19 06:25 INR, PTT INR Cancelled 10/28/19 15:46 Assessment/Plan 78 year old with a pmhx of htn, afib on apixaban, and chronic diastolic CHF sent by Dr. Larkin for worsening b/l LE edema, sob, and palpitations. CXR no chf BNP over 6k Cr 1.6 EKG: afib with VR 114bpm, nonspecific T wave abnormalities please increase Toprol-XL from 100 -150 mg daily. continue digoxin as currently. continue telemetry switch to oral Lasix 40 mg daily. Clinically improving.
--- NOTE | 2019-11-01 14:37 | PN ---
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 (short form) - Note 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: calm now but gets agitated in the evenings family at bedside Vital Signs - 24 hr 10/31/19 10/31/19 10/31/19 15:11 18:00 21:00 Temperature 98.8 F Pulse Rate 124 H 116 H Respiratory 18 18 Rate Blood Pressure 136/72 O2 Sat by Pulse 97 Oximetry (%) 10/31/19 11/01/19 11/01/19 22:29 01:54 06:16 Temperature 98.1 F 98.1 F 97.9 F Pulse Rate 111 H 110 H 119 H Respiratory 16 18 16 Rate Blood Pressure 139/81 123/75 141/85 O2 Sat by Pulse Oximetry (%) 11/01/19 11/01/19 11/01/19 08:27 09:20 09:30 Temperature 99.6 F Pulse Rate 116 H 116 H Respiratory 16 16 Rate Blood Pressure 156/93 O2 Sat by Pulse 96 Oximetry (%) 11/01/19 10:00 Temperature Pulse Rate Respiratory Rate Blood Pressure O2 Sat by Pulse 96 Oximetry (%) Current Medications Generic Name Dose Route Start Last Admin Trade Name Freq PRN Reason Stop Dose Admin Apixaban 5 mg 10/28/19 22:30 11/01/19 09:20 Eliquis - PO 5 mg BID [facility] Administration Digoxin 0.125 mg 10/31/19 14:30 11/01/19 09:20 Lanoxin - PO 0.125 mg DAILY [facility] Administration Donepezil HCl 10 mg 11/01/19 14:38 Aricept - PO DAILY [facility] Furosemide 40 mg 11/01/19 10:00 11/01/19 10:45 Lasix Injection - IVPUSH 40 mg DAILY [facility] Administration Ceftriaxone Sodium 1 gm/ 50 mls @ 100 mls/hr 10/29/19 10:00 11/01/19 10:45 Dextrose IVPB 100 mls/hr DAILY [facility] Administration Protocol Metoprolol Succinate 50 mg 11/01/19 14:38 Toprol Xl - PO 11/01/19 14:39 ONCE ONE Metoprolol Succinate 150 mg 11/01/19 14:38 Toprol Xl - PO DAILY [facility] Quetiapine Fumarate 25 mg 10/30/19 22:00 10/31/19 22:25 Seroquel - PO 25 mg HS [facility] Administration S1S2 irregular Lungs decreased Abd- soft, NT decreased edema alert , pleasant now PLAN AMS-- toxic metabolic encephalopathy due to dementia, UTI-->urine culture pending ? sun downing as well dc wrist restraints and place left mittens-- will prevent her from pulling out iv line IV lasix BID-->change to PO cardiology follow up noted she has a low grade temp-- will monitor Problem List - Problems (1) Atrial fibrillation with RVR Code(s): I48.91 - UNSPECIFIED ATRIAL FIBRILLATION (2) Dementia Code(s): F03.90 - UNSPECIFIED DEMENTIA WITHOUT BEHAVIORAL DISTURBANCE (3) Edema Code(s): R60.9 - EDEMA, UNSPECIFIED Qualifiers: Edema type: localized Qualified Code(s): R60.0 - Localized edema (4) Heart failure Code(s): I50.9 - HEART FAILURE, UNSPECIFIED Qualifiers: Heart failure type: unspecified Heart failure chronicity: unspecified Qualified Code(s): I50.9 - Heart failure, unspecified (5) Leg edema Code(s): R60.0 - LOCALIZED EDEMA (6) CKD (chronic kidney disease) Code(s): N18.9 - CHRONIC KIDNEY DISEASE, UNSPECIFIED
[2019-11-01] MEDS: ACETAMINOPHEN 325 MG TABLET (FP) PO PRN (16:18)
[2019-11-01] MEDS ORDERED: ACETAMINOPHEN 1000 MG/100 ML VIAL (NON FORMULARY) IVPB ONE (18:00)
[2019-11-01] MEDS: QUEtiapine FUMARATE 25 MG TABLET (FP) PO SCH (21:24)
[2019-11-02] MEDS ORDERED: DEXTROSE 5%-WATER - 50 ML IVPB ONE (09:27)
[2019-11-02] MEDS ORDERED: cefTRIAXone SODIUM 1 GM VIAL ONE (09:27)
[2019-11-02] MEDS: FUROSEMIDE 40 MG/4 ML INJECTABLE VIAL IVPUSH SCH (10:07)
[2019-11-02] MEDS: CEFTRIAXONE 1 GM in DEXTROSE 5%-WATER - 50 ML IVPB SCH (10:07)
[2019-11-02] MEDS: APIXABAN 5 MG TABLET PO SCH ×2 (10:08→21:53)
[2019-11-02] MEDS: DIGOXIN 0.125 MG TABLET (FP) PO SCH (10:08)
[2019-11-02] MEDS: DONEPEZIL HCL 10 MG TABLET (FP) PO SCH (10:08)
--- NOTE | 2019-11-02 10:38 | PN ---
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 (short form) - Note 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: calm now but gets agitated in the evenings family at bedside had temp yesterday Vital Signs - 24 hr 11/01/19 11/01/19 11/02/19 16:45 21:00 01:54 Temperature 102.4 F H 98.2 F 97.4 F L Pulse Rate 89 83 Respiratory 16 16 Rate Blood Pressure 108/68 131/87 O2 Sat by Pulse 96 Oximetry (%) 11/02/19 11/02/19 11/02/19 08:43 09:00 10:08 Temperature 98.8 F Pulse Rate 87 100 H Respiratory 18 Rate Blood Pressure 144/76 O2 Sat by Pulse 95 Oximetry (%) 11/02/19 11/02/19 13:43 16:02 Temperature 98.9 F 100.6 F H Pulse Rate 91 H Respiratory 18 Rate Blood Pressure 109/55 L O2 Sat by Pulse Oximetry (%) Current Medications Generic Name Dose Route Start Last Admin Trade Name Freq PRN Reason Stop Dose Admin Acetaminophen 650 mg 11/01/19 14:40 11/02/19 16:18 Tylenol - PO 650 mg Q4H PRN Administration FEVER Apixaban 5 mg 10/28/19 22:30 11/02/19 10:08 Eliquis - PO 5 mg BID [facility] Administration Digoxin 0.125 mg 10/31/19 14:30 11/02/19 10:08 Lanoxin - PO 0.125 mg DAILY [facility] Administration Donepezil HCl 10 mg 11/02/19 10:00 11/02/19 10:08 Aricept - PO 10 mg DAILY [facility] Administration Furosemide 40 mg 11/01/19 10:00 11/02/19 10:07 Lasix Injection - IVPUSH 40 mg DAILY [facility] Administration Ceftriaxone Sodium 1 gm/ 50 mls @ 100 mls/hr 10/29/19 10:00 11/02/19 10:07 Dextrose IVPB 100 mls/hr DAILY [facility] Administration Protocol Metoprolol Succinate 150 mg 11/01/19 14:38 11/02/19 10:07 Toprol Xl - PO 150 mg DAILY [facility] Administration Quetiapine Fumarate 25 mg 10/30/19 22:00 11/01/19 21:24 Seroquel - PO 25 mg HS [facility] Administration Laboratory Results - last 24 hr 11/02/19 11/02/19 10:50 10:50 WBC 12.4 H RBC 4.90 Hgb 13.9 Hct 43.0 MCV 87.8 MCH 28.3 MCHC 32.2 RDW 17.5 H Plt Count 208 MPV 9.8 Absolute Neuts (auto) 10.8 H Neutrophils % 86.9 H Lymphocytes % 5.9 L D Monocytes % 6.0 Eosinophils % 0.9 D Basophils % 0.3 Nucleated RBC % 0 Sodium 139 Potassium 3.7 Chloride 99 Carbon Dioxide 30 Anion Gap 10 BUN 32.0 H Creatinine 1.4 H Est GFR (CKD-EPI)AfAm 41.31 Est GFR (CKD-EPI)NonAf 35.65 Random Glucose 135 H Calcium 8.6 Total Bilirubin 0.4 AST 32 ALT 29 Alkaline Phosphatase 109 Total Protein 5.6 L Albumin 1.9 L S1S2 irregular Lungs decreased Abd- soft, NT decreased edema alert , pleasant now PLAN AMS-- toxic metabolic encephalopathy due to dementia, UTI-->urine culture pending ? sun downing as well IV lasix BID-->change to PO cardiology follow up noted blood cultures repeated iv antibiotics Problem List - Problems (1) Atrial fibrillation with RVR Code(s): I48.91 - UNSPECIFIED ATRIAL FIBRILLATION (2) Dementia Code(s): F03.90 - UNSPECIFIED DEMENTIA WITHOUT BEHAVIORAL DISTURBANCE (3) Edema Code(s): R60.9 - EDEMA, UNSPECIFIED Qualifiers: Edema type: localized Qualified Code(s): R60.0 - Localized edema (4) Heart failure Code(s): I50.9 - HEART FAILURE, UNSPECIFIED Qualifiers: Heart failure type: unspecified Heart failure chronicity: unspecified Qualified Code(s): I50.9 - Heart failure, unspecified (5) Leg edema Code(s): R60.0 - LOCALIZED EDEMA (6) CKD (chronic kidney disease) Code(s): N18.9 - CHRONIC KIDNEY DISEASE, UNSPECIFIED
--- NOTE | 2019-11-02 11:02 | PN ---
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 (short form) - Note 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: Neurology History of Present Illness 78 yo F w a pmh of HTN, heart failure, and A-fib with RVR who presents to the [facility] er sent by Dr. Larkin because she has been experiencing increased leg swelling, SOB, dyspnea with exertion, and non-stop palpitations associated with her A-fib which have been hard to manage as an outpatient. She presents for admission for a medication tune-up/optimization and per notes sent in by her personalization specialist, Dr. Larkin. She states her legs have been swelling up very badly for the past week and now she is having a hard time walking because her legs are getting heavy and she feels tired all the time. She says that even walking around the house is getting to be very difficult for her. Denies chest pain, nausea, vomiting, diaphoresis, abdominal or back pain, headache, blurry vision, dysuria, frequency, or urgency. I was consulted regarding mental status and ordered noncontrast head CT which we reviewed and discussed and did not show any significant structural abnormalities. This morning, is awake alert, verbal but limited in responses. Was aware that she is in the hospital but did not give me the correct location, able to tell me the month and year. Still some residual fatigue and disorientation from underlying UTI. Contacted by her primary care physician yesterday and patient does demonstrate some behavior which likely from being in the hospital an unfamiliar environment. If needed, Seroquel 25 mg can be used at bedtime, though not likely to be needed as outpatient or upon discharge. Aricept 5 mg daily added to her regiment, can be continued. BUN and Cr elevated 33.4/1.4, trending down. Remains on ceftriaxone for UTI. Expect improved mental status when in familiar enviorment and infection fully cleared, delay between infection clearing and mental status being at baseline. Discussed with at bedside and explained this to him as well. She remains calm and cooperative Active Medications Acetaminophen (Tylenol -) 650 mg PO Q4H PRN PRN Reason: FEVER Last Admin: 11/01/19 16:18 Dose: 650 mg Apixaban (Eliquis -) 5 mg PO BID [facility] Last Admin: 11/02/19 10:08 Dose: 5 mg Digoxin (Lanoxin -) 0.125 mg PO DAILY [facility] Last Admin: 11/02/19 10:08 Dose: 0.125 mg Donepezil HCl (Aricept -) 10 mg PO DAILY [facility] Last Admin: 11/02/19 10:08 Dose: 10 mg Furosemide (Lasix Injection -) 40 mg IVPUSH DAILY [facility] Last Admin: 11/02/19 10:07 Dose: 40 mg Ceftriaxone Sodium 1 gm/ (Dextrose) 50 mls @ 100 mls/hr IVPB DAILY [facility]; Protocol Last Admin: 11/02/19 10:07 Dose: 100 mls/hr Metoprolol Succinate (Toprol Xl -) 150 mg PO DAILY [facility] Last Admin: 11/02/19 10:07 Dose: 150 mg Quetiapine Fumarate (Seroquel -) 25 mg PO HS [facility] Last Admin: 11/01/19 21:24 Dose: 25 mg *Physical Exam Vital Signs Period Temp Pulse Resp BP Sys/Cisneros Pulse Ox Last 24 Hr 97.4 F-102.4 F 83-112 16-18 108-144/65-87 96 GENERAL: Well-appearing, well-nourished. Mild distress. Does not know exact location, day , date HEENT: Normocephalic, atraumatic. PERRL, EOM intact. CARDIOVASCULAR: Tachycardic rate. Irregularly irregular. Normal S1, S2. PULMONARY: bilateral crackles at the bases. Mild evidence of respiratory distress. No wheezing or rhonchi. ABDOMEN: Soft, non-distended, non-tender. EXTREMITIES: 3+ edema in both lower legs. Normal ROM in all four extremities. SKIN: Warm, dry. No rash NEUROLOGICAL: awake, alert, no cranial nerve deficits, moves all extremities equally, sensory intact, [id number] normal CBCD WBC 9.4 K/mm3 (4.0-10.0) 10/31/19 06:25 RBC 4.95 M/mm3 (3.60-5.2) 10/31/19 06:25 Hgb 14.0 GM/dL (10.7-15.3) 10/31/19 06:25 Hct 42.7 % (32.4-45.2) 10/31/19 06:25 MCV 86.4 fl (80-96) 10/31/19 06:25 MCHC 32.7 g/dl (32.0-36.0) 10/31/19 06:25 RDW 17.6 % (11.6-15.6) H 10/31/19 06:25 Plt Count 195 K/MM3 (134-434) 10/31/19 06:25 MPV 9.6 fl (7.5-11.1) 10/31/19 06:25 CMP Sodium 143 mmol/L (136-145) 10/31/19 06:25 Potassium 3.7 mmol/L (3.5-5.1) 10/31/19 06:25 Chloride 104 mmol/L (98-107) 10/31/19 06:25 Carbon Dioxide 31 mmol/L (21-32) 10/31/19 06:25 Anion Gap 8 MMOL/L (8-16) 10/31/19 06:25 BUN 33.4 mg/dL (7-18) H 10/31/19 06:25 Creatinine 1.4 mg/dL (0.55-1.3) H 10/31/19 06:25 Random Glucose 135 mg/dL (74-106) H 10/31/19 06:25 Calcium 8.7 mg/dL (8.5-10.1) 10/31/19 06:25 Total Bilirubin 0.8 mg/dL (0.2-1) 10/31/19 06:25 AST 19 U/L (15-37) 10/31/19 06:25 ALT 14 U/L (13-61) 10/31/19 06:25 Alkaline Phosphatase 110 U/L (45-117) 10/31/19 06:25 Total Protein 6.0 g/dl (6.4-8.2) L 10/31/19 06:25 Albumin 2.4 g/dl (3.4-5.0) L 10/31/19 06:25 CARDIAC ENZYMES Creatine Kinase 145 U/L (26-192) 10/28/19 15:46 Troponin I < 0.02 ng/ml (0.00-0.05) 10/29/19 03:30 Medical Decision Making Martha is a 78 yo F w a pmh of HTN, heart failure, and A-fib with RVR who presents to the [facility] er sent by Dr. Larkin because she has been experiencing increased leg swelling, SOB, dyspnea with exertion, and non-stop palpitations associated with her A-fib which have been hard to manage as an outpatient. She presents for admission for a medication tune-up/optimization and per notes sent in by her personalization specialist, Dr. Larkin. She states her legs have been swelling up very badly for the past week and now she is having a hard time walking because her legs are getting heavy and she feels tired all the time. She says that even walking around the house is getting to be very difficult for her. Denies chest pain, nausea, vomiting, diaphoresis, abdominal or back pain, headache, blurry vision, dysuria, frequency, or urgency. I was consulted regarding mental status and ordered noncontrast head CT which we reviewed and discussed and did not show any significant structural abnormalities. This morning, is awake alert, verbal but limited in responses. Was aware that she is in the hospital but did not give me the correct location, able to tell me the month and year. Still some residual fatigue and disorientation from underlying UTI. Contacted by her primary care physician yesterday and patient does demonstrate some ing behavior which likely from being in the hospital an unfamiliar environment. If needed, Seroquel 25 mg can be used at bedtime, though not likely to be needed as outpatient or upon discharge. Aricept 5 mg daily added to her regiment, can be continued. BUN and Cr elevated 33.4/1.4, trending down. Remains on ceftriaxone for UTI. Expect improved mental status when in familiar enviorment and infection fully cleared, delay between infection clearing and mental status being at baseline. Discussed with at bedside and explained this to him as well. She remains calm and cooperative Continue medical optimization, infectious management, antibiotics as per primary. Maintain adequate hydration , Seroquel added to regimen for owning.
--- NOTE | 2019-11-02 11:20 | PN ---
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, Physician Chief Complaint: Leg swelling History of Present Illness: 78 year old with a pmhx of htn, afib on apixaban, and chronic diastolic CHF sent by Dr. Larkin for worsening b/l LE edema, sob, and palpitations. CXR no chf BNP over 6k Cr 1.6 EKG: afib with VR 114bpm, nonspecific T wave abnormalities - Current Medication List Current Medications: Active Medications Acetaminophen (Tylenol -) 650 mg PO Q4H PRN PRN Reason: FEVER Last Admin: 11/01/19 16:18 Dose: 650 mg Apixaban (Eliquis -) 5 mg PO BID [facility] Last Admin: 11/02/19 10:08 Dose: 5 mg Digoxin (Lanoxin -) 0.125 mg PO DAILY [facility] Last Admin: 11/02/19 10:08 Dose: 0.125 mg Donepezil HCl (Aricept -) 10 mg PO DAILY [facility] Last Admin: 11/02/19 10:08 Dose: 10 mg Furosemide (Lasix Injection -) 40 mg IVPUSH DAILY [facility] Last Admin: 11/02/19 10:07 Dose: 40 mg Ceftriaxone Sodium 1 gm/ (Dextrose) 50 mls @ 100 mls/hr IVPB DAILY [facility]; Protocol Last Admin: 11/02/19 10:07 Dose: 100 mls/hr Metoprolol Succinate (Toprol Xl -) 150 mg PO DAILY [facility] Last Admin: 11/02/19 10:07 Dose: 150 mg Quetiapine Fumarate (Seroquel -) 25 mg PO HS [facility] Last Admin: 11/01/19 21:24 Dose: 25 mg - Objective Vital Signs: Vital Signs Temperature 98.8 F 11/02/19 08:43 Pulse Rate 100 H 11/02/19 10:08 Respiratory Rate 18 11/02/19 08:43 Blood Pressure 144/76 11/02/19 08:43 O2 Sat by Pulse Oximetry (%) 96 11/01/19 21:00 Constitutional: Yes: Well Nourished, No Distress, Calm Eyes: Yes: WNL, Conjunctiva Clear, EOM Intact HENT: Yes: WNL, Atraumatic, Normocephalic Neck: Yes: WNL, Supple, Trachea Midline Cardiovascular: Yes: Pulse Irregular, S1, S2 Respiratory: Yes: WNL, Regular, CTA Bilaterally Gastrointestinal: Yes: WNL, Normal Bowel Sounds, Soft ...Rectal Exam: Yes: Deferred Genitourinary: Yes: WNL Musculoskeletal: Yes: WNL Edema: Yes Edema: LLE: Trace, RLE: Trace Peripheral Pulses: Left Radial: 1+, Right Radial: 1+, Left Doralis Pedis: 1+, Right Dorsalis Pedis: 1+, Left Femoral: 1+, Right Femoral: 1+ Integumentary: Yes: WNL Neurological: Yes: WNL, Alert, Oriented ...Motor Strength: WNL Psychiatric: Yes: WNL, Alert, Oriented Labs: INR, PTT INR Cancelled 10/28/19 15:46 Assessment/Plan 78 year old with a pmhx of htn, afib on apixaban, and chronic diastolic CHF sent by Dr. Larkin for worsening b/l LE edema, sob, and palpitations. CXR no chf BNP over 6k Cr 1.6 EKG: afib with VR 114bpm, nonspecific T wave abnormalities The patient is doing quite well. Leg edema improved. Ventricular rates are better controlled in atrial fibrillation. May switch to oral Lasix 40 mgdaily. Continue the other medications as currently. No need for further cardiac workup at this point. Please do not hesitate to call us PRN
[2019-11-02 11:22] LABS: BASO % 0.3 % (0-2.0); EOS % 0.9 % (0-4.5); HEMOGLOBIN 13.9 GM/dL (10.7-15.3); LYMPH % 5.9 % (8-40); MCH 28.3 pg (25.7-33.7); MCHC 32.2 g/dl (32.0-36.0); MEAN CELL VOLUME 87.8 fl (80-96); MEAN PLT VOLUME 9.8 fl (7.5-11.1); NEUT % 86.9 % (42.8-82.8); PLATELET COUNT 208 K/MM3 (134-434); RDW 17.5 % (11.6-15.6); WHITE BLOOD COUNT 12.4 K/mm3 (4.0-10.0)
[2019-11-02 11:54] LABS: ALBUMIN 1.9 g/dl (3.4-5.0); BILIRUBIN,TOTAL 0.4 mg/dL (0.2-1); CALCIUM 8.6 mg/dL (8.5-10.1); CREATININE 1.4 mg/dL (0.55-1.3); POTASSIUM 3.7 mmol/L (3.5-5.1); TOT PROT 5.6 g/dl (6.4-8.2)
[2019-11-02] MEDS: ACETAMINOPHEN 325 MG TABLET (FP) PO PRN (16:18)
[2019-11-02] MEDS: QUEtiapine FUMARATE 25 MG TABLET (FP) PO SCH (21:52)
[2019-11-03 07:05] LABS: BASO % 0.3 % (0-2.0); EOS % 1.8 % (0-4.5); HEMATOCRIT 39.9 % (32.4-45.2); HEMOGLOBIN 13.2 GM/dL (10.7-15.3); LYMPH % 7.5 % (8-40); MCH 28.6 pg (25.7-33.7); MEAN CELL VOLUME 86.6 fl (80-96); MONO % 8.2 % (3.8-10.2); NEUT % 82.2 % (42.8-82.8); PLATELET COUNT 212 K/MM3 (134-434); RBC 4.61 M/mm3 (3.60-5.2); WHITE BLOOD COUNT 9.5 K/mm3 (4.0-10.0)
[2019-11-03 07:29] LABS: ALBUMIN 1.8 g/dl (3.4-5.0); BILIRUBIN,TOTAL 0.4 mg/dL (0.2-1); BLOOD UREA NITROGEN 38.9 mg/dL (7-18); CALCIUM 8.6 mg/dL (8.5-10.1); CREATININE 1.3 mg/dL (0.55-1.3); POTASSIUM 3.8 mmol/L (3.5-5.1); TOT PROT 5.4 g/dl (6.4-8.2)
--- NOTE | 2019-11-03 08:54 | PN ---
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 (short form) - Note 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: Neurology History of Present Illness 78 yo F w a pmh of HTN, heart failure, and A-fib with RVR who presents to the [facility] er sent by Dr. Larkin because she has been experiencing increased leg swelling, SOB, dyspnea with exertion, and non-stop palpitations associated with her A-fib which have been hard to manage as an outpatient. She presents for admission for a medication tune-up/optimization and per notes sent in by her sample dye mixer, Dr. Larkin. She states her legs have been swelling up very badly for the past week and now she is having a hard time walking because her legs are getting heavy and she feels tired all the time. She says that even walking around the house is getting to be very difficult for her. Denies chest pain, nausea, vomiting, diaphoresis, abdominal or back pain, headache, blurry vision, dysuria, frequency, or urgency. I was consulted regarding mental status and ordered noncontrast head CT which we reviewed and discussed and did not show any significant structural abnormalities. This morning, is awake alert, verbal but limited in responses. Was aware that she is in the hospital but did not give me the correct location, able to tell me the month and year. Still some residual fatigue and disorientation from underlying UTI. Contacted by her primary care physician yesterday and patient does demonstrate some behavior which likely from being in the hospital an unfamiliar environment. If needed, Seroquel 25 mg can be used at bedtime, though not likely to be needed as outpatient or upon discharge. Aricept 5 mg daily added to her regiment, can be continued. BUN and Cr elevated 33.4/1.4, trending down. Remains on ceftriaxone for UTI. Expect improved mental status when in familiar enviorment and infection fully cleared, delay between infection clearing and mental status being at baseline. She remains calm and not agitated, does note the month as well as her location at this time. Active Medications Acetaminophen (Tylenol -) 650 mg PO Q4H PRN PRN Reason: FEVER Last Admin: 11/02/19 16:18 Dose: 650 mg Apixaban (Eliquis -) 5 mg PO BID [facility] Last Admin: 11/02/19 21:53 Dose: 5 mg Digoxin (Lanoxin -) 0.125 mg PO DAILY [facility] Last Admin: 11/02/19 10:08 Dose: 0.125 mg Donepezil HCl (Aricept -) 10 mg PO DAILY [facility] Last Admin: 11/02/19 10:08 Dose: 10 mg Furosemide (Lasix -) 40 mg PO DAILY [facility] Ceftriaxone Sodium 1 gm/ (Dextrose) 50 mls @ 100 mls/hr IVPB DAILY [facility]; Protocol Last Admin: 11/02/19 10:07 Dose: 100 mls/hr Metoprolol Succinate (Toprol Xl -) 150 mg PO DAILY [facility] Last Admin: 11/02/19 10:07 Dose: 150 mg Quetiapine Fumarate (Seroquel -) 25 mg PO HS [facility] Last Admin: 11/02/19 21:52 Dose: 25 mg *Physical Exam Vital Signs Period Temp Pulse Resp BP Sys/Cisneros Pulse Ox Last 24 Hr 97.9 F-100.6 F 70-100 16-18 103-132/55-79 95-95 GENERAL: Well-appearing, well-nourished. Mild distress. Does not know exact location, day , date HEENT: Normocephalic, atraumatic. PERRL, EOM intact. CARDIOVASCULAR: Tachycardic rate. Irregularly irregular. Normal S1, S2. PULMONARY: bilateral crackles at the bases. Mild evidence of respiratory distress. No wheezing or rhonchi. ABDOMEN: Soft, non-distended, non-tender. EXTREMITIES: 3+ edema in both lower legs. Normal ROM in all four extremities. SKIN: Warm, dry. No rash NEUROLOGICAL: awake, alert, no cranial nerve deficits, moves all extremities equally, sensory intact, [id number] normal CBCD WBC 9.5 K/mm3 (4.0-10.0) 11/03/19 06:34 RBC 4.61 M/mm3 (3.60-5.2) 11/03/19 06:34 Hgb 13.2 GM/dL (10.7-15.3) 11/03/19 06:34 Hct 39.9 % (32.4-45.2) 11/03/19 06:34 MCV 86.6 fl (80-96) 11/03/19 06:34 MCHC 33.0 g/dl (32.0-36.0) 11/03/19 06:34 RDW 17.0 % (11.6-15.6) H 11/03/19 06:34 Plt Count 212 K/MM3 (134-434) 11/03/19 06:34 MPV 10.0 fl (7.5-11.1) 11/03/19 06:34 CMP Sodium 141 mmol/L (136-145) 11/03/19 06:34 Potassium 3.8 mmol/L (3.5-5.1) 11/03/19 06:34 Chloride 102 mmol/L (98-107) 11/03/19 06:34 Carbon Dioxide 32 mmol/L (21-32) 11/03/19 06:34 Anion Gap 7 MMOL/L (8-16) L 11/03/19 06:34 BUN 38.9 mg/dL (7-18) H 11/03/19 06:34 Creatinine 1.3 mg/dL (0.55-1.3) 11/03/19 06:34 Random Glucose 108 mg/dL (74-106) H 11/03/19 06:34 Calcium 8.6 mg/dL (8.5-10.1) 11/03/19 06:34 Total Bilirubin 0.4 mg/dL (0.2-1) 11/03/19 06:34 AST 28 U/L (15-37) 11/03/19 06:34 ALT 26 U/L (13-61) 11/03/19 06:34 Alkaline Phosphatase 104 U/L (45-117) 11/03/19 06:34 Total Protein 5.4 g/dl (6.4-8.2) L 11/03/19 06:34 Albumin 1.8 g/dl (3.4-5.0) L 11/03/19 06:34 CARDIAC ENZYMES Creatine Kinase 145 U/L (26-192) 10/28/19 15:46 Troponin I < 0.02 ng/ml (0.00-0.05) 10/29/19 03:30 Medical Decision Making Martha is a 78 yo F w a pmh of HTN, heart failure, and A-fib with RVR who presents to the [facility] er sent by Dr. Larkin because she has been experiencing increased leg swelling, SOB, dyspnea with exertion, and non-stop palpitations associated with her A-fib which have been hard to manage as an outpatient. She presents for admission for a medication tune-up/optimization and per notes sent in by her sample dye mixer, Dr. Larkin. She states her legs have been swelling up very badly for the past week and now she is having a hard time walking because her legs are getting heavy and she feels tired all the time. She says that even walking around the house is getting to be very difficult for her. Denies chest pain, nausea, vomiting, diaphoresis, abdominal or back pain, headache, blurry vision, dysuria, frequency, or urgency. I was consulted regarding mental status and ordered noncontrast head CT which we reviewed and discussed and did not show any significant structural abnormalities. This morning, is awake alert, verbal but limited in responses. Was aware that she is in the hospital but did not give me the correct location, able to tell me the month and year. Still some residual fatigue and disorientation from underlying UTI. Contacted by her primary care physician yesterday and patient does demonstrate some ing behavior which likely from being in the hospital an unfamiliar environment. If needed, Seroquel 25 mg can be used at bedtime, though not likely to be needed as outpatient or upon discharge. Aricept 5 mg daily added to her regiment, can be continued. BUN and Cr elevated 33.4/1.4, trending down. Remains on ceftriaxone for UTI. Expect improved mental status when in familiar enviorment and infection fully cleared, delay between infection clearing and mental status being at baseline. Discussed with at bedside and explained this to him as well. She remains calm and not agitated, does note the month as well as her location at this time. Continue medical optimization, infectious management, antibiotics as per primary. Maintain adequate hydration, Seroquel added to regimen for owning.
--- NOTE | 2019-11-03 10:30 | PN ---
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 (short form) - Note 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: Pt seen/ examined chart reviewed awake/ comfortable. sitting in chair. Vital Signs Temp 98.0 F 11/03/19 08:49 Pulse 88 11/03/19 08:49 Resp 18 11/03/19 08:49 BP 132/71 11/03/19 08:49 Pulse Ox 95 11/02/19 21:00 Intake & Output 11/02/19 11/02/19 11/03/19 11:59 23:59 11:59 Intake Total 150 170 150 Balance 150 170 150 Intake: IVPB 50 Oral 150 120 150 Other: Voiding Method Incontinent Incontinent # Unmeasured Voids Void 2 2 2 Bowel Movement No # Bowel Movements 1 Active Medications Acetaminophen (Tylenol -) 650 mg PO Q4H PRN PRN Reason: FEVER Last Admin: 11/02/19 16:18 Dose: 650 mg Apixaban (Eliquis -) 5 mg PO BID [facility] Last Admin: 11/02/19 21:53 Dose: 5 mg Digoxin (Lanoxin -) 0.125 mg PO DAILY [facility] Last Admin: 11/02/19 10:08 Dose: 0.125 mg Donepezil HCl (Aricept -) 10 mg PO DAILY [facility] Last Admin: 11/02/19 10:08 Dose: 10 mg Furosemide (Lasix -) 40 mg PO DAILY [facility] Ceftriaxone Sodium 1 gm/ (Dextrose) 50 mls @ 100 mls/hr IVPB DAILY [facility]; Protocol Last Admin: 11/02/19 10:07 Dose: 100 mls/hr Metoprolol Succinate (Toprol Xl -) 150 mg PO DAILY [facility] Last Admin: 11/02/19 10:07 Dose: 150 mg Quetiapine Fumarate (Seroquel -) 25 mg PO [facility] Last Admin: 11/02/19 21:52 Dose: 25 mg CBC, BMP 11/03/19 06:34 11/03/19 06:34 Microbiology 11/01/19 12:50 Urine Culture - Final Urine - Urine Clean Catch NO GROWTH OBTAINED Repeat BC -- send yesterday Physical Exam Awake/ comfortable S1S2 irregular Lungs decreased Abd- soft, NT decreased edema alert , awake. PLAN AMS-- toxic metabolic encephalopathy due to dementia, UTI--> Resolved ? sun downing as well much better u/c -ve -- But was done later when she was on Abx blood cultures repeated- Pending as she had fever yesterday iv antibiotics Spoke with PT- Recommending STR D/W pt/ also Agree with same Spoke with upper caser also. If stable- consider d/c tomorrow- STR Will follow D/w RN also Problem List - Problems (1) Atrial fibrillation with RVR Code(s): I48.91 - UNSPECIFIED ATRIAL FIBRILLATION (2) Dementia Code(s): F03.90 - UNSPECIFIED DEMENTIA WITHOUT BEHAVIORAL DISTURBANCE (3) Edema Code(s): R60.9 - EDEMA, UNSPECIFIED Qualifiers: Edema type: localized Qualified Code(s): R60.0 - Localized edema (4) Heart failure Code(s): I50.9 - HEART FAILURE, UNSPECIFIED Qualifiers: Heart failure type: unspecified Heart failure chronicity: unspecified Qualified Code(s): I50.9 - Heart failure, unspecified (5) Leg edema Code(s): R60.0 - LOCALIZED EDEMA (6) CKD (chronic kidney disease) Code(s): N18.9 - CHRONIC KIDNEY DISEASE, UNSPECIFIED
[2019-11-03] MEDS ORDERED: DEXTROSE 5%-WATER - 50 ML IVPB ONE (11:03)
[2019-11-03] MEDS ORDERED: cefTRIAXone SODIUM 1 GM VIAL ONE (11:03)
[2019-11-03] MEDS: CEFTRIAXONE 1 GM in DEXTROSE 5%-WATER - 50 ML IVPB SCH (11:07)
[2019-11-03] MEDS: APIXABAN 5 MG TABLET PO SCH ×2 (11:08→21:06)
[2019-11-03] MEDS: FUROSEMIDE 40 MG TABLET (FP) PO SCH (11:08)
[2019-11-03] MEDS: DONEPEZIL HCL 10 MG TABLET (FP) PO SCH (11:08)
[2019-11-03] MEDS: DIGOXIN 0.125 MG TABLET (FP) PO SCH (11:08)
[2019-11-03] MEDS: QUEtiapine FUMARATE 25 MG TABLET (FP) PO SCH (21:06)
--- NOTE | 2019-11-04 08:36 | PN ---
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 (short form) - Note 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: Neurology History of Present Illness 78 yo F w a pmh of HTN, heart failure, and A-fib with RVR who presents to the [facility] er sent by Dr. Larkin because she has been experiencing increased leg swelling, SOB, dyspnea with exertion, and non-stop palpitations associated with her A-fib which have been hard to manage as an outpatient. She presents for admission for a medication tune-up/optimization and per notes sent in by her corrective and manual arts therapist, Dr. Larkin. She states her legs have been swelling up very badly for the past week and now she is having a hard time walking because her legs are getting heavy and she feels tired all the time. She says that even walking around the house is getting to be very difficult for her. Denies chest pain, nausea, vomiting, diaphoresis, abdominal or back pain, headache, blurry vision, dysuria, frequency, or urgency. I was consulted regarding mental status and ordered noncontrast head CT which we reviewed and discussed and did not show any significant structural abnormalities. This morning, is awake alert, verbal but limited in responses. Was aware that she is in the hospital but did not give me the correct location, able to tell me the month and year. Still some residual fatigue and disorientation from underlying UTI. Contacted by her primary care physician yesterday and patient does demonstrate some behavior which likely from being in the hospital an unfamiliar environment. If needed, Seroquel 25 mg can be used at bedtime, though not likely to be needed as outpatient or upon discharge. Aricept 5 mg daily added to her regiment, can be continued. BUN and Remains on ceftriaxone for UTI. Expect improved mental status when in familiar enviorment and infection fully cleared, delay between infection clearing and mental status being at baseline. She remains calm and not agitated, she was able to tell me the month as well as the year and her location this morning, seems close to baseline Active Medications Acetaminophen (Tylenol -) 650 mg PO Q4H PRN PRN Reason: FEVER Last Admin: 11/02/19 16:18 Dose: 650 mg Apixaban (Eliquis -) 5 mg PO BID [facility] Last Admin: 11/03/19 21:06 Dose: 5 mg Digoxin (Lanoxin -) 0.125 mg PO DAILY [facility] Last Admin: 11/03/19 11:08 Dose: 0.125 mg Donepezil HCl (Aricept -) 10 mg PO DAILY [facility] Last Admin: 11/03/19 11:08 Dose: 10 mg Furosemide (Lasix -) 40 mg PO DAILY [facility] Last Admin: 11/03/19 11:08 Dose: 40 mg Ceftriaxone Sodium 1 gm/ (Dextrose) 50 mls @ 100 mls/hr IVPB DAILY [facility]; Protocol Last Admin: 11/03/19 11:07 Dose: 100 mls/hr Metoprolol Succinate (Toprol Xl -) 150 mg PO DAILY [facility] Last Admin: 11/03/19 11:08 Dose: 150 mg Quetiapine Fumarate (Seroquel -) 25 mg PO HS [facility] Last Admin: 11/03/19 21:06 Dose: 25 mg *Physical Exam Vital Signs Period Temp Pulse Resp BP Sys/Cisneros Pulse Ox Last 24 Hr 97.3 F-98.5 F 76-95 16-20 125-148/50-97 95-97 GENERAL: Well-appearing, well-nourished. Mild distress. Does not know exact location, day , date HEENT: Normocephalic, atraumatic. PERRL, EOM intact. CARDIOVASCULAR: Tachycardic rate. Irregularly irregular. Normal S1, S2. PULMONARY: bilateral crackles at the bases. Mild evidence of respiratory distress. No wheezing or rhonchi. ABDOMEN: Soft, non-distended, non-tender. EXTREMITIES: 3+ edema in both lower legs. Normal ROM in all four extremities. SKIN: Warm, dry. No rash NEUROLOGICAL: awake, alert, no cranial nerve deficits, moves all extremities equally, sensory intact, [id number] normal CBCD WBC 9.5 K/mm3 (4.0-10.0) 11/03/19 06:34 RBC 4.61 M/mm3 (3.60-5.2) 11/03/19 06:34 Hgb 13.2 GM/dL (10.7-15.3) 11/03/19 06:34 Hct 39.9 % (32.4-45.2) 11/03/19 06:34 MCV 86.6 fl (80-96) 11/03/19 06:34 MCHC 33.0 g/dl (32.0-36.0) 11/03/19 06:34 RDW 17.0 % (11.6-15.6) H 11/03/19 06:34 Plt Count 212 K/MM3 (134-434) 11/03/19 06:34 MPV 10.0 fl (7.5-11.1) 11/03/19 06:34 CMP Sodium 141 mmol/L (136-145) 11/03/19 06:34 Potassium 3.8 mmol/L (3.5-5.1) 11/03/19 06:34 Chloride 102 mmol/L (98-107) 11/03/19 06:34 Carbon Dioxide 32 mmol/L (21-32) 11/03/19 06:34 Anion Gap 7 MMOL/L (8-16) L 11/03/19 06:34 BUN 38.9 mg/dL (7-18) H 11/03/19 06:34 Creatinine 1.3 mg/dL (0.55-1.3) 11/03/19 06:34 Random Glucose 108 mg/dL (74-106) H 11/03/19 06:34 Calcium 8.6 mg/dL (8.5-10.1) 11/03/19 06:34 Total Bilirubin 0.4 mg/dL (0.2-1) 11/03/19 06:34 AST 28 U/L (15-37) 11/03/19 06:34 ALT 26 U/L (13-61) 11/03/19 06:34 Alkaline Phosphatase 104 U/L (45-117) 11/03/19 06:34 Total Protein 5.4 g/dl (6.4-8.2) L 11/03/19 06:34 Albumin 1.8 g/dl (3.4-5.0) L 11/03/19 06:34 CARDIAC ENZYMES Creatine Kinase 145 U/L (26-192) 10/28/19 15:46 Troponin I < 0.02 ng/ml (0.00-0.05) 10/29/19 03:30 Medical Decision Making Martha is a 78 yo F w a pmh of HTN, heart failure, and A-fib with RVR who presents to the [facility] er sent by Dr. Larkin because she has been experiencing increased leg swelling, SOB, dyspnea with exertion, and non-stop palpitations associated with her A-fib which have been hard to manage as an outpatient. She presents for admission for a medication tune-up/optimization and per notes sent in by her corrective and manual arts therapist, Dr. Larkin. She states her legs have been swelling up very badly for the past week and now she is having a hard time walking because her legs are getting heavy and she feels tired all the time. She says that even walking around the house is getting to be very difficult for her. Denies chest pain, nausea, vomiting, diaphoresis, abdominal or back pain, headache, blurry vision, dysuria, frequency, or urgency. I was consulted regarding mental status and ordered noncontrast head CT which we reviewed and discussed and did not show any significant structural abnormalities. This morning, is awake alert, verbal but limited in responses. Was aware that she is in the hospital but did not give me the correct location, able to tell me the month and year. Still some residual fatigue and disorientation from underlying UTI. Contacted by her primary care physician yesterday and patient does demonstrate some owning behavior which likely from being in the hospital an unfamiliar environment. If needed, Seroquel 25 mg can be used at bedtime, though not likely to be needed as outpatient or upon discharge. Aricept 5 mg daily added to her regiment, can be continued. BUN and Cr elevated 33.4/1.4, trending down. Remains on ceftriaxone for UTI. Expect improved mental status when in familiar enviorment and infection fully cleared, delay between infection clearing and mental status being at baseline. Discussed with at bedside and explained this to him as well. Expect improved mental status when in familiar enviorment and infection fully cleared, delay between infection clearing and mental status being at baseline. She remains calm and not agitated, she was able to tell me the month as well as the year and her location this morning, seems close to baseline. Continue medical optimization, infectious management, antibiotics as per primary. Maintain adequate hydration, Seroquel added to regimen for owning which has been stable.
[2019-11-04] MEDS ORDERED: DEXTROSE 5%-WATER - 50 ML IVPB ONE (09:52)
[2019-11-04] MEDS ORDERED: cefTRIAXone SODIUM 1 GM VIAL ONE (09:52)
[2019-11-04] MEDS: CEFTRIAXONE 1 GM in DEXTROSE 5%-WATER - 50 ML IVPB SCH (09:55)
[2019-11-04] MEDS: DONEPEZIL HCL 10 MG TABLET (FP) PO SCH (09:56)
[2019-11-04] MEDS: FUROSEMIDE 40 MG TABLET (FP) PO SCH (09:56)
[2019-11-04] MEDS: DIGOXIN 0.125 MG TABLET (FP) PO SCH (09:56)
[2019-11-04] MEDS: APIXABAN 5 MG TABLET PO SCH (09:56)
--- NOTE | 2019-11-04 12:59 | DS ---
Physical Examination Vital Signs: Vital Signs Temperature 98.1 F 11/04/19 09:53 Pulse Rate 87 11/04/19 09:56 Respiratory Rate 17 11/04/19 09:53 Blood Pressure 148/88 11/04/19 09:53 O2 Sat by Pulse Oximetry (%) 95 11/04/19 09:00 Constitutional: Yes: No Distress, Calm Cardiovascular: Yes: Pulse Irregular Respiratory: Yes: Diminished Gastrointestinal: Yes: Normal Bowel Sounds, Soft. No: Tenderness Edema: Yes Labs: CBC, BMP 11/03/19 06:34 11/03/19 06:34 Discharge Summary Problems reviewed: Yes Reason For Visit: EDEMA OF LOWER EXTREMITY Current Active Problems Atrial fibrillation with RVR (Acute) Dementia (Acute) Edema (Acute) Heart failure (Acute) Leg edema (Acute) Hospital Course: Admitted for rapid afib-- sent by Cardiology Found to have UTI-- on ceftriaxone seen by cardiology, neurology Had worsening dementia due to UTI, Afib Was started on IV Lasix for CHF decompensation Pt better but deconditioned Stable for dc to NH for STR -- will need PO ceftin x 3 days more Blood cultures negative Condition: Improved - Instructions Referrals: Anu Quinn MD [Primary Care Provider] - Disposition: [facility] - Home Medications Comprehensive Discharge Medication List: Ambulatory Orders Ergocalciferol (Vitamin D2) [Drisdol] 50,000 unit PO WEEKLY 09/12/18 Apixaban [Eliquis -] 5 mg PO BID #60 tablet 09/22/18 Furosemide [Lasix -] 40 mg PO DAILY 01/03/19 Lisinopril 10 mg PO DAILY 03/04/19 Cefuroxime Axetil [Ceftin -] 500 mg PO Q12H #6 tablet 11/04/19 Digoxin [Lanoxin -] 0.125 mg PO DAILY #30 tablet 11/04/19 Donepezil HCl [Aricept -] 10 mg PO DAILY #30 tablet 11/04/19 Metoprolol Succinate [Toprol XL -] 150 mg PO DAILY #30 tab.sr.24h 11/04/19 Quetiapine Fumarate [Seroquel -] 25 mg PO HS #30 tablet 11/04/19
[2019-11-04 14:10] VITALS: BP 141/83; PULSE 96; TEMP 98.5
== END 2019-11-04 17:22 | DRG 291 ==
LOC: JER 13:51 → JERBED 17:12 → J4S 10-29 00:21
PROVIDERS: ADMIT Internal Medicine; ATTEND Internal Medicine
DX: I13.0 Hypertensive heart and chronic kidney disease with heart failure and stage 1 through stage 4 chronic kidney disease, or unspecified chronic kidney disease (principal); G93.41 Metabolic encephalopathy; I50.33 Acute on chronic diastolic (congestive) heart failure; N39.0 Urinary tract infection, site not specified; J98.11 Atelectasis; I48.91 Unspecified atrial fibrillation; F03.90 Unspecified dementia, unspecified severity, without behavioral disturbance, psychotic disturbance, mood disturbance, and anxiety; N18.9 Chronic kidney disease, unspecified
CPT/HCPCS: 36415; 70450-TC; 71045-TC-FY; 80048; 80053; 81003; 82550; 83735; 83880; 84484; 85025; 85027; 87040; 87081; 87086; 93005; 93010; 93970-TC; 97116-GP; 97162-GP; 99285-25; G0008; J0131; Q2036

== ENCOUNTER 2020-05-14 17:29 | Emergency (ER) | payer OTHER ==
[2020-05-14 18:08] VITALS: BMI 25.6
[2020-05-14 18:20] VITALS: TEMP 99.6
[2020-05-14] MEDS ORDERED: ACETAMINOPHEN 500 MG TABLET (FP) PO ONE (21:43)
[2020-05-14] MEDS ORDERED: ACETAMINOPHEN 325 MG TABLET (FP) ONE (22:01)
[2020-05-14 22:05] VITALS: BP 130/100; PULSE 67
== END 2020-05-14 23:08 | disposition home or self-care (01) ==
LOC: JER 17:29
DX: M25.532 Pain in left wrist (principal); R03.0 Elevated blood-pressure reading, without diagnosis of hypertension
CPT/HCPCS: 73110-TC-LT-FY; 93005; 93010; 99284-25

== ENCOUNTER 2020-07-04 15:29 | Inpatient (IN) | payer OTHER ==
--- NOTE | 2020-07-04 15:37 | PDOC ---
History of Present Illness - General Chief Complaint: Weakness Stated Complaint: WEAKNESS Time Seen by Provider: 07/04/20 15:36 History Source: Patient Exam Limitations: No Limitations - History of Present Illness Initial Comments: 07/04/20 15:38 79 y/o F with hx of AFib on eliquis, CHF, HTN, dementia presenting w 1d generalized weakness. This morning pt did not have enough strength to raise her arms to take her own home meds or walk. Pt usually able to walk intermittently w walker and feed her own meds independently at baseline, last normal yesterday. Recently f/u with all doctors this past week w normal checkups. Denies fever, n/v, chest/ABD pain/swelling, dysuria, diarrhea, leg swelling, rectal bleeding Past History - Medical History Allergies/Adverse Reactions: Allergies Allergy/AdvReac Type Severity Reaction Status Date / Time No Known Allergies Allergy Verified 07/04/20 15:42 Home Medications: Ambulatory Orders Donepezil HCl 10 mg PO DAILY 06/25/20 Eliquis - 5 mg PO BID 06/25/20 Furosemide 40 mg PO DAILY 06/25/20 Lisinopril 20 mg PO DAILY 06/25/20 Metoprolol Succinate 75 mg PO DAILY 06/25/20 Mirtazapine 7.5 mg PO HS 06/25/20 Potassium 20 meq PO DAILY 06/25/20 Vitamin D - 50,000 units WEEKLY 06/25/20 Anemia: Yes Asthma: No Cancer: No Cardiac Disorders: Yes (Afib -on eliquis) CVA: No COPD: No CHF: No Diabetes: No GI Disorders: No Disorders: No HTN: Yes Hypercholesterolemia: No Liver Disease: No Seizures: No - Surgical History Abdominal Surgery: No Appendectomy: No Cardiac Surgery: No Cholecystectomy: No Lung Surgery: No Neurologic Surgery: No Orthopedic Surgery: No - Immunization History Immunization Up to Date: No - Psycho-Social/Smoking History Smoking History: Never smoked Have you smoked in the past 12 months: No Review of Systems - Review of Systems Constitutional: No: Chills, Fever HEENTM: No: Eye Pain, Nose Congestion Respiratory: No: Cough, Shortness of Breath Cardiac (ROS): No: Chest Pain, Palpitations ABD/GI: No: Constipated, Diarrhea, Nausea, Vomiting : No: Burning, Dysuria Musculoskeletal: No: Back Pain, Joint Pain Integumentary: No: Bruising, Flushing Neurological: No: Headache, Seizure Psychiatric: No: Anxiety, Depression Endocrine: No: Intolerance to Cold, Intolerance to Heat Hematologic/Lymphatic: No: Anemia, Blood Clots *Physical Exam - Physical Exam General Appearance: Yes: Nourished, Appropriately Dressed. No: Apparent Distress HEENT: positive: EOMI, LISA, Normal Voice, Hearing Grossly Normal. negative: Scleral Icterus (R), Scleral Icterus (L) Respiratory/Chest: positive: Lungs Clear, Normal Breath Sounds, Crackles (intermittent judie base). negative: Chest Tender, Respiratory Distress, Rhonchi, Stridor, Wheezing Cardiovascular: positive: Regular Rate, S1, S2, Irregularly Irregular. negative: Murmur Gastrointestinal/Abdominal: positive: Normal Bowel Sounds, Flat, Soft. negative: Tender, Organomegaly Musculoskeletal: positive: Normal Inspection. negative: Vertebral Tenderness (no midline vertebral tenderness/stepoffs) Extremity: negative: Pedal Edema Integumentary: positive: Normal Color, Warm Neurologic: positive: manager customer service II-XII NML intact, Alert, Normal Mood/Affect, Normal Response, Respond to painful stimul, Responsive. negative: Fully Oriented (AOx2 (not time, baseline)), Motor Strength 5/5 (3/5 judie upper/lower extremities), Facial Droop, Numbness, Sensory Deficit ED Treatment Course - LABORATORY CBC & Chemistry Diagram: 07/04/20 17:10 07/04/20 17:10 Medical Decision Making - Medical Decision Making 07/04/20 16:04 EKG - afib, HR 92, QTc 435, TWI V4-6, unchanged vs 09/11/18 CXR - cardiomegaly, R hiatal hernia, no consolidation/infiltrates, unchanged CT head/cs/chest/abd - no acute brain bleed/infarct, no acute fx, 1.5mm anterior subluxation C4-5, 1.4mm anterior subluxation C5-6, enlarged R thyroid nodule 1.7cm , mild interstitial changes L base likely chronic, significant stool in rectosigmoid, intrathoracic stomach Cr 4.3, lactic 4.6 --- 79 y/o F with hx of AFib on eliquis, CHF, HTN, dementia presenting w 1d generalized weakness (3/5 strength judie upper/lower extremities) d/t UTI and WILL (Cr 4.3 from 1.8) and elevated lactic 4.6. Low concern for CHF (no abd/leg swelling) vs PNA (clear CXR) vs ACS vs CVA (no focal neuro deficits) vs anemia. BNP elevated d/t WILL CT showed R thyroid nodule. stool burden, cervical subluxations. Pt moving back, no spine tenderness. Previous ABD CT 09/17/18 showed hiatal hernia, intrathoracic stomach, pt denies abd pain/vomiting. Lactic 4.6 likely 2/2 dehydration vs infection Given rocephin, vanc, 0.5L NS. 30mL/kg not given d/t past hx CHF Contacted gen surg Dr Rucker intrathoracic stomach/hiatal hernia - advised he does not deal with intrathoracic stomach/hiatal hernia, has same finding in 2018 CT A/P, contact someone else Contacted thoracic surg Dr Salgado - advised trend lactate likely d/t infection/dehydration, f/u outpatient since pt does not have abd pain/vomiting requiring urgent intervention Admitted m/s hospitalist for generalized weakness, WILL, urosepsis, inability to walk, R thyroid nodule PCP Elisa Quinn Discharge - Discharge Information Problems reviewed: Yes Clinical Impression/Diagnosis: Generalized weakness, Leg weakness, bilateral, WILL (acute kidney injury), Thyroid nodule UTI (urinary tract infection) Qualifiers: Urinary tract infection type: acute cystitis Hematuria presence: with hematuria Qualified Code(s): N30.01 - Acute cystitis with hematuria Constipation Qualifiers: Constipation type: unspecified constipation type Qualified Code(s): K59.00 - Constipation, unspecified Condition: Stable - Follow up/Referral - Patient Discharge Instructions - Post Discharge Activity Vital Signs - Vital Signs Blood Pressure: 114/85
--- NOTE | 2020-07-04 16:48 | PDOC ---
Documentation entered by Amada Talavera SCRIBE, acting as scribe for Abby Hernandez DO. Abby Hernandez DO: This documentation has been prepared by the scr Ilan orozco Ana, SCRIBE, under my direction and personally reviewed by me in its entirety. I confirm that the documentation accurately reflects all work, treatment, procedures, and medical decision making performed by me. Attending Attestation - Resident Resident Name: Chip Franks - ED Attending Attestation I have performed the following: I have examined & evaluated the patient, The case was reviewed & discussed with the resident, I agree w/resident's findings & plan, Exceptions are as noted - HPI HPI: 07/04/20 16:41 Patient is an 79 year old female with a significant past medical history of dementia, Afib, hypertension, and congestive heart failure, who presents to the ED with generalized weakness x1 day. Patient stated she was unable to take medications or move arms this morning because she "did not have enough stress". At baseline: patient can walk with walker and take her own medications. Patient denies: fever, nausea, vomiting, chest pain, abdominal pain, edema, dysuria, diarrhea, rectal bleeding, or any other related symptoms. Allergies: NKDA Last known well: yesterday. - Physicial Exam PE: 07/04/20 16:48 see resident exam - Critical Care Time Total Critical Care Time: 75 Critical Care Statement: The care of this patient involved high complexity decision making to prevent further life threatening deterioration of the patient's condition and/or to evaluate & treat vital organ system(s) failure or risk of failure. - Medical Decision Making 07/04/20 20:15 79-year-old female with decline in function, poor historian with reports of decreased p.o. intake and loss of ability to ambulate CT scans performed of the head cervical spine chest abdomen and pelvis which showed no significant acute abnormality Labs are consistent with acute kidney injury likely secondary to prerenal causes as well as urinary tract infection Lactic acid is also markedly elevated, Antibiotics and IV fluids given in light of possible sepsis with close attention to patient's respiratory status as she has history of CHF Patient currently resting comfortably and is in no respiratory distress We will admit to medical service for further management 07/04/20 20:16 Discharge - Discharge Information Problems reviewed: Yes Clinical Impression/Diagnosis: Generalized weakness, Leg weakness, bilateral, WILL (acute kidney injury), Thyroid nodule UTI (urinary tract infection) Qualifiers: Urinary tract infection type: acute cystitis Hematuria presence: with hematuria Qualified Code(s): N30.01 - Acute cystitis with hematuria Condition: Stable - Follow up/Referral - Patient Discharge Instructions - Post Discharge Activity
[2020-07-04 17:10] LABS: EPI CELLS >36 /uL (0-25.1); HYALINE CASTS 6 /uL (0-3.1); URINE APPEARANCE TURBID; URINE BILIRUBIN NEGATIVE (NEGATIVE); URINE COLOR YELLOW; URINE GLUCOSE (UA) NEGATIVE (NEGATIVE); URINE KETONE NEGATIVE (NEGATIVE); URINE LEUK ESTERASE 3+ (NEGATIVE); URINE NITRITE NEGATIVE (NEGATIVE); URINE PROTEIN 1+ (NEGATIVE); URINE RBC 95 /uL (0-23.9); URINE UROBILINOGEN 0.2 mg/dL (0.2-1.0); URINE WBC 9170 /uL (0-25.8)
[2020-07-04] MEDS ORDERED: CEFTRIAXONE 1 GM in DEXTROSE 5%-WATER - 100 ML IVPB ONE (17:18)
[2020-07-04] MEDS ORDERED: CEFTRIAXONE 1 GM/50 ML BAG ONE (17:24)
[2020-07-04 17:51] LABS: BASO % 0.5 % (0-2.0); EOS % 0.9 % (0-4.5); HEMATOCRIT 48.3 % (32.4-45.2); HEMOGLOBIN 15.9 GM/dL (10.7-15.3); LYMPH % 7.1 % (8-40); MCH 30.3 pg (25.7-33.7); MCHC 32.9 g/dl (32.0-36.0); MEAN CELL VOLUME 92.2 fl (80-96); MONO % 6.6 % (3.8-10.2); NEUT % 84.9 % (42.8-82.8); PLATELET COUNT 227 K/MM3 (134-434); RBC 5.24 M/mm3 (3.60-5.2); RDW 15.7 % (11.6-15.6); WHITE BLOOD COUNT 7.1 K/mm3 (4.0-10.0)
[2020-07-04 18:03] LABS: ALBUMIN 3.8 g/dl (3.4-5.0); BILIRUBIN,TOTAL 0.6 mg/dL (0.2-1); CALCIUM 9.3 mg/dL (8.5-10.1); CREATININE 4.3 mg/dL (0.55-1.3); MAGNESIUM 3.1 mg/dL (1.8-2.4); PHOSPHOROUS 5.1 mg/dL (2.5-4.9); POTASSIUM 4.5 mmol/L (3.5-5.1); TOT PROT 7.9 g/dl (6.4-8.2)
[2020-07-04] MEDS ORDERED: SODIUM CHLORIDE 0.9% 500 ML INFUS.BAG IV ONE (18:13)
[2020-07-04] MEDS: VANCOMYCIN 750 MG in DEXTROSE 5%-WATER - 100 ML IVPB ONE ×2 (18:45→19:16)
[2020-07-04] MEDS ORDERED: VANCOMYCIN 750 MG in DEXTROSE 5%-WATER - 250 ML IVPB ONE (18:45)
[2020-07-04 18:48] LABS: BLOOD UREA NITROGEN 121.2 mg/dL (7-18)
--- NOTE | 2020-07-04 20:58 | HP ---
Admitting History and Physical - Primary Care Physician PCP: Anu Quinn - Admission Chief Complaint: Generalized Weakness History of Present Illness: This is a 79 y/o female with a PMHx of Diastolic CHF, Afib (on Eliquis), HTN, Dementia, Renal Insufficiency. Who presents to the ED with generalized weakness, decreased appetite, poor PO intake. Per patient's son at bedside, he reports having to visit more regular due to her weakness, unsteady gait with walker and poor appetite. he states" I have concerns about her falling". He reports that the patient usually ambulates with her walker, but is too weak to steady herself. He denies patient having fever, chills, cough, SOB, Nagy, CP, palpiations, AP, N/V/D. No sick contacts no recent travel. 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) History of Recent Travel: No Home Medications - Allergies Allergies/Adverse Reactions: Allergies Allergy/AdvReac Type Severity Reaction Status Date / Time No Known Allergies Allergy Verified 07/04/20 15:42 - Home Medications Home Medications: Ambulatory Orders Donepezil HCl 10 mg PO DAILY 06/25/20 Eliquis - 5 mg PO BID 06/25/20 Furosemide 40 mg PO DAILY 06/25/20 Lisinopril 20 mg PO DAILY 06/25/20 Metoprolol Succinate 75 mg PO DAILY 06/25/20 Mirtazapine 7.5 mg PO HS 06/25/20 Potassium 20 meq PO DAILY 06/25/20 Vitamin D - 50,000 units WEEKLY 06/25/20 Family Medical History Family History: Unable to Obtain Review of Systems - Review of Systems Constitutional: reports: Weakness Eyes: reports: No Symptoms HENT: reports: No Symptoms Neck: reports: No Symptoms Cardiovascular: reports: No Symptoms Respiratory: reports: No Symptoms Gastrointestinal: reports: No Symptoms Genitourinary: reports: Incontinence Breasts: reports: No Symptoms Reported Musculoskeletal: reports: No Symptoms Integumentary: reports: Other (Sacral Ulcer) Neurological: reports: Weakness Endocrine: reports: No Symptoms Hematology/Lymphatic: reports: No Symptoms Psychiatric: reports: No Symptoms Physical Examination Vital Signs: Vital Signs Temperature 96.9 F L 07/04/20 16:03 Pulse Rate 95 H 07/04/20 15:30 Respiratory Rate 18 07/04/20 15:30 Blood Pressure 114/85 07/04/20 20:49 O2 Sat by Pulse Oximetry (%) 100 07/04/20 15:40 Constitutional: Yes: No Distress, Calm, Thin Eyes: Yes: Conjunctiva Clear, EOM Intact, PERRL HENT: Yes: Atraumatic, Normocephalic, Other (dry mucous membranes) Neck: Yes: Supple, Trachea Midline Cardiovascular: Yes: Pulse Irregular, S1, S2 Respiratory: Yes: Diminished, Rhonchi (bases) Gastrointestinal: Yes: Normal Bowel Sounds, Soft Renal/: Yes: Incontinence Breast(s): Yes: WNL Musculoskeletal: Yes: WNL Extremities: Yes: WNL Edema: No Peripheral Pulses WNL: Yes Integumentary: Yes: Pressure Ulcer (sacrum) Neurological: Yes: Alert, Confusion, Cran Nerves II-XII Intact, Weakness Psychiatric: Yes: Alert Labs: CBC, BMP 07/04/20 17:10 07/04/20 17:10 Laboratory Results - last 24 hr 07/04/20 07/04/20 07/04/20 15:52 16:34 17:10 WBC 7.1 RBC 5.24 H Hgb 15.9 H Hct 48.3 H D MCV 92.2 MCH 30.3 MCHC 32.9 RDW 15.7 H Plt Count 227 MPV 10.0 Absolute Neuts (auto) 6.1 Neutrophils % 84.9 H Lymphocytes % 7.1 L Monocytes % 6.6 Eosinophils % 0.9 Basophils % 0.5 Nucleated RBC % 0 Sodium Potassium Chloride Carbon Dioxide Anion Gap BUN Creatinine Est GFR (CKD-EPI)AfAm Est GFR (CKD-EPI)NonAf POC Glucometer 120 Random Glucose Lactic Acid Calcium Phosphorus Magnesium Total Bilirubin AST ALT Alkaline Phosphatase Creatine Kinase Creatine Kinase Index CK-MB (CK-2) Troponin I B-Natriuretic Peptide Total Protein Albumin Urine Color Yellow Urine Appearance Turbid Urine pH 5.0 D Ur Specific [place] 1.014 Urine Protein 1+ H Urine Glucose (UA) Negative Urine Ketones Negative Urine Blood 2+ H Urine Nitrite Negative Urine Bilirubin Negative Urine Urobilinogen 0.2 Ur Leukocyte Esterase 3+ H Urine WBC (Auto) 9170 Urine RBC (Auto) 95 Urine Casts (Auto) 6 U Pathogenic Cast Auto Negative U Epithel Cells (Auto) >36 Urine Bacteria (Auto) >10,000 07/04/20 07/04/20 07/04/20 17:10 17:10 17:25 WBC RBC Hgb Hct MCV MCH MCHC RDW Plt Count MPV Absolute Neuts (auto) Neutrophils % Lymphocytes % Monocytes % Eosinophils % Basophils % Nucleated RBC % Sodium 139 Potassium 4.5 Chloride 100 Carbon Dioxide 29 Anion Gap 11 BUN 121.2 H* Creatinine 4.3 H Est GFR (CKD-EPI)AfAm 10.56 Est GFR (CKD-EPI)NonAf 9.11 POC Glucometer Random Glucose 111 H Lactic Acid 4.6 H* Calcium 9.3 Phosphorus 5.1 H Magnesium 3.1 H Total Bilirubin 0.6 AST 51 H ALT 27 Alkaline Phosphatase 119 H Creatine Kinase 458 H Creatine Kinase Index 3.2 CK-MB (CK-2) 14.7 H Troponin I 0.02 B-Natriuretic Peptide 6513.8 H Total Protein 7.9 Albumin 3.8 Urine Color Urine Appearance Urine pH Ur Specific [place] Urine Protein Urine Glucose (UA) Urine Ketones Urine Blood Urine Nitrite Urine Bilirubin Urine Urobilinogen Ur Leukocyte Esterase Urine WBC (Auto) Urine RBC (Auto) Urine Casts (Auto) U Pathogenic Cast Auto U Epithel Cells (Auto) Urine Bacteria (Auto) 07/04/20 21:27 WBC RBC Hgb Hct MCV MCH MCHC RDW Plt Count MPV Absolute Neuts (auto) Neutrophils % Lymphocytes % Monocytes % Eosinophils % Basophils % Nucleated RBC % Sodium Potassium Chloride Carbon Dioxide Anion Gap BUN Creatinine Est GFR (CKD-EPI)AfAm Est GFR (CKD-EPI)NonAf POC Glucometer Random Glucose Lactic Acid 3.6 H* Calcium Phosphorus Magnesium Total Bilirubin AST ALT Alkaline Phosphatase Creatine Kinase Creatine Kinase Index CK-MB (CK-2) Troponin I B-Natriuretic Peptide Total Protein Albumin Urine Color Urine Appearance Urine pH Ur Specific [place] Urine Protein Urine Glucose (UA) Urine Ketones Urine Blood Urine Nitrite Urine Bilirubin Urine Urobilinogen Ur Leukocyte Esterase Urine WBC (Auto) Urine RBC (Auto) Urine Casts (Auto) U Pathogenic Cast Auto U Epithel Cells (Auto) Urine Bacteria (Auto) Intake & Output 07/02/20 07/03/20 07/04/20 07/05/20 23:59 23:59 23:59 23:59 Weight 54.431 kg Current Medications Generic Name Dose Route Start Last Admin Trade Name Freq PRN Reason Stop Dose Admin Apixaban 2.5 mg 07/04/20 22:00 07/04/20 22:56 Eliquis - PO 2.5 mg BID NEERAJ Administration Donepezil HCl 10 mg 07/05/20 22:00 Aricept - PO HS NEERAJ Ceftriaxone Sodium 1 gm/ 50 mls @ 100 mls/hr 07/05/20 10:00 Dextrose IVPB DAILY [facility] Protocol Imaging - Results Chest X-ray: Image Reviewed Cat Scan: Image Reviewed EKG: Image Reviewed Problem List - Problems (1) Sepsis Assessment/Plan: Likely due to UTI qSOFA 1 Sepsis Criteria Met: P 95, BUN 121, Lactic Acid 4.6 UA- +2 blood, +3 leukocyte esterase, 9170 WBC, >10,000 Bacteria Urine Culture-pending Blood Cultures-pending Vancomycin, Ceftriaxone given in ED, will continue renal dosing Appreciate ID consult NS bolus given Will reserve IVF for absolute necessity 2/2 CHF hx Maintain MAP > 65 Monitor CBC, CMP Monitor vitals Tylenol prn Code(s): A41.9 - SEPSIS, UNSPECIFIED ORGANISM (2) UTI (urinary tract infection) Assessment/Plan: UA showed- +1 protein, +2 blood, + 3 leukoctye esterase, 9170 WBC, >10,000 Bacteria Urine Culture-pending Hx enterococcus faecalis +leukocytosis with L-shift +Lactic Acidosis Ceftriaxone given in ED, will continue Monitor CBC, CMP Monitor vitals Code(s): N39.0 - URINARY TRACT INFECTION, SITE NOT SPECIFIED Qualifiers: Urinary tract infection type: acute cystitis Hematuria presence: with hematuria Qualified Code(s): N30.01 - Acute cystitis with hematuria (3) Generalized weakness Assessment/Plan: Likely secondary to Sepsis due to UTI vs Dehydration Head CT- report no ICH Fall Precautions Consider Neurology consult PT eval Consider STR Code(s): R53.1 - WEAKNESS (4) Afib Assessment/Plan: stable EKG- afib rate control [id number] 5 Continue Eliquis renal dosing 2/2 Acute on Chronic WILL Hold Metoprolol for now 2/2 hypotension Code(s): I48.91 - UNSPECIFIED ATRIAL FIBRILLATION (5) Diastolic CHF Assessment/Plan: BNP 6000 Chest Xray image, report reviewed- no acute pathology Continue Lasix with parameters Strict INOs Daily weight Last echo 2017 showed- EF 55-60%, lvsf-nl, mod dilated- la, mod dilated- ra, mild mr, mod tr Code(s): I50.30 - UNSPECIFIED DIASTOLIC (CONGESTIVE) HEART FAILURE (6) HTN (hypertension) Assessment/Plan: Initial BP low NS fluid bolus given 2/2 Sepsis with Lactic Acidosis Will hold antihypertensive meds for now, reassess tomorrow Monitor BP Monitor renal function Code(s): I10 - ESSENTIAL (PRIMARY) HYPERTENSION (7) Dementia Assessment/Plan: stable Continue Aricept Fall Precautions Code(s): F03.90 - UNSPECIFIED DEMENTIA WITHOUT BEHAVIORAL DISTURBANCE (8) Encounter for screening laboratory testing for COVID-19 virus Assessment/Plan: Smart PEDIATRIC NURSE PRACTITIONER- 1, low risk COVID PCR-pending Isolation Precautions Code(s): Z11.59 - ENCOUNTER FOR SCREENING FOR OTHER VIRAL DISEASES Assessment/Plan This is a 79 y/o female with a PMHx of Diastolic CHF, Afib (on Eliquis), HTN, Dementia, Renal Insufficiency. Admitted to M/S for Sepsis, UTI, WILL, Generalized Weakness, Dehydration for further evaluation of their emergent condition. Plan: See Problem List FEN Fluid Restriction 1L Replete lytes prn Low Na Diet DVT ppx OOB SCDs Continue Eliquis Dispo: Requires Inpatient Care Visit type - Medication Review Med list reviewed for High Risk Meds patients 65 and older: Yes (Her son provided med list) - Emergency Visit Emergency Visit: Yes ED Registration Date: 07/04/20 Care time: The patient presented to the Emergency Department on the above date a nd was hospitalized for further evaluation of their emergent condition. - New Patient This patient is new to me today: Yes Date on this admission: 07/04/20 - Critical Care Critical Care patient: No
[2020-07-04] MEDS ORDERED: APIXABAN 2.5 MG TABLET ONE (22:36)
[2020-07-04] MEDS: APIXABAN 2.5 MG TABLET PO SCH (22:56)
[2020-07-05 07:49] LABS: BASO % 0.4 % (0-2.0); HEMATOCRIT 46.4 % (32.4-45.2); HEMOGLOBIN 15.3 GM/dL (10.7-15.3); LYMPH % 7.9 % (8-40); MCH 29.9 pg (25.7-33.7); MCHC 33.1 g/dl (32.0-36.0); MEAN CELL VOLUME 90.5 fl (80-96); MEAN PLT VOLUME 9.1 fl (7.5-11.1); MONO % 6.3 % (3.8-10.2); NEUT % 84.4 % (42.8-82.8); PLATELET COUNT 202 K/MM3 (134-434); RBC 5.13 M/mm3 (3.60-5.2); RDW 15.7 % (11.6-15.6); WHITE BLOOD COUNT 5.6 K/mm3 (4.0-10.0)
[2020-07-05 08:41] LABS: ALBUMIN 2.9 g/dl (3.4-5.0); BILIRUBIN,TOTAL 1.2 mg/dL (0.2-1); CREATININE 3.3 mg/dL (0.55-1.3); POTASSIUM 4.3 mmol/L (3.5-5.1); TOT PROT 6.6 g/dl (6.4-8.2)
[2020-07-05 08:47] LABS: BLOOD UREA NITROGEN 112.5 mg/dL (7-18)
--- NOTE | 2020-07-05 09:17 | EKG ---
Test Reason : Blood Pressure : / mmHG Vent. Rate : 092 BPM Atrial Rate : 340 BPM P-R Int : 000 ms QRS Dur : 080 ms QT Int : 352 ms P-R-T Axes : 000 013 -34 degrees QTc Int : 435 ms ATRIAL FIBRILLATION NONSPECIFIC T WAVE ABNORMALITY ABNORMAL ECG WHEN COMPARED WITH ECG OF 14-MAY-2020 18:43, VENT. RATE HAS DECREASED T WAVE VARIATION Confirmed by NAM RAMÍREZ MD ([id number]) on 07/05/2020 9:17:17 AM Referred By: Confirmed By:NAM RAMÍREZ MD
[2020-07-05] MEDS: DEXTROSE 5%-0.45% SALINE 1,000 ML IV SCH (09:57)
[2020-07-05] MEDS ORDERED: GABAPENTIN 100 MG CAPSULE ONE (10:06)
[2020-07-05] MEDS ORDERED: APIXABAN 2.5 MG TABLET ONE (10:06)
[2020-07-05] MEDS ORDERED: CEFTRIAXONE 1 GM/50 ML BAG ONE (10:06)
--- NOTE | 2020-07-05 10:11 | PN ---
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, Physician Chief Complaint: Pt seen/ examined in er Chart reviewed Awake Weak No distress History of Present Illness: Pt seen/ examined in ER Chart reviewed - Current Medication List Current Medications: Active Medications Apixaban (Eliquis -) 2.5 mg PO BID NEERAJ Last Admin: 07/04/20 22:56 Dose: 2.5 mg Documented by: Donepezil HCl (Aricept -) 10 mg PO HS NEERAJ Gabapentin (Neurontin -) 100 mg PO BID NEERAJ Ceftriaxone Sodium 1 gm/ (Dextrose) 50 mls @ 100 mls/hr IVPB DAILY NEERAJ; Protocol Dextrose/Sodium Chloride (D5-1/2ns -) 1,000 mls @ 100 mls/hr IV ASDIR NEERAJ Last Admin: 07/05/20 09:57 Dose: 100 mls/hr Documented by: - Objective Vital Signs: Vital Signs Temperature 98.3 F 07/05/20 05:29 Pulse Rate 82 07/05/20 05:29 Respiratory Rate 16 07/05/20 08:41 Blood Pressure 122/87 07/05/20 05:29 O2 Sat by Pulse Oximetry (%) 96 07/05/20 08:41 Eyes: Yes: Conjunctiva Clear Neck: Yes: Supple Cardiovascular: Yes: Pulse Irregular. No: Regular Rate and Rhythm Respiratory: Yes: Diminished Gastrointestinal: Yes: Soft Edema: No Neurological: Yes: Alert Labs: CBC, BMP 07/05/20 07:15 07/05/20 07:15 Problem List - Problems (1) WILL (acute kidney injury) Code(s): N17.9 - ACUTE KIDNEY FAILURE, UNSPECIFIED (2) Afib Code(s): I48.91 - UNSPECIFIED ATRIAL FIBRILLATION (3) Constipation Code(s): K59.00 - CONSTIPATION, UNSPECIFIED Qualifiers: Constipation type: unspecified constipation type Qualified Code(s): K59.00 - Constipation, unspecified (4) Encounter for screening laboratory testing for COVID-19 virus Code(s): Z11.59 - ENCOUNTER FOR SCREENING FOR OTHER VIRAL DISEASES (5) Generalized weakness Code(s): R53.1 - WEAKNESS (6) Sepsis Code(s): A41.9 - SEPSIS, UNSPECIFIED ORGANISM (7) Thyroid nodule Code(s): E04.1 - NONTOXIC SINGLE THYROID NODULE (8) UTI (urinary tract infection) Code(s): N39.0 - URINARY TRACT INFECTION, SITE NOT SPECIFIED Qualifiers: Urinary tract infection type: acute cystitis Hematuria presence: with hematuria Qualified Code(s): N30.01 - Acute cystitis with hematuria (9) Dementia Code(s): F03.90 - UNSPECIFIED DEMENTIA WITHOUT BEHAVIORAL DISTURBANCE Assessment/Plan Will start on mild hydration f/u labs f/u cultures abx i/d, renal consults thyroid u/s-- as out pt close monitoring will follow d/w Rn also
[2020-07-05] MEDS: CEFTRIAXONE 1 GM in DEXTROSE 5%-WATER - 50 ML IVPB SCH (10:13)
[2020-07-05] MEDS: GABAPENTIN 100 MG CAPSULE PO SCH ×2 (10:13→22:13)
[2020-07-05] MEDS: APIXABAN 2.5 MG TABLET PO SCH ×2 (10:13→22:13)
[2020-07-05] MEDS: POLYETHYLENE GLYCOL 3350 119 GM BTL PO SCH (15:34)
--- NOTE | 2020-07-05 16:13 | CONSULT ---
Consult Consult Specialty:: Nephrology Reason for Consultation:: WILL - History of Present Illness Chief Complaint: weakness and constipation History of Present Illness: Pt is an 79 year old female with pmhx of dhf, a-fib, htn, dementia, and ckd who presents to the ER with generalized weakness. She is a poor historian however her is at bedside and assisted. She has had poor PO intake and has been constipated for the last two weeks. She has also had unsteady gait with the walker. says that they are aware of her having some kidney disease however have never seen a development planner. She denies nsaid use. She denies shortness of breath or palpitations. She denies dysuria or hematuria. Her renal function did improve with hydration. 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) History of Recent Travel: No Home Medications - Allergies Allergies/Adverse Reactions: Allergies Allergy/AdvReac Type Severity Reaction Status Date / Time No Known Allergies Allergy Verified 07/04/20 15:42 - Home Medications Home Medications: Ambulatory Orders Donepezil HCl 10 mg PO DAILY 06/25/20 Eliquis - 5 mg PO BID 06/25/20 Furosemide 40 mg PO DAILY 06/25/20 Lisinopril 20 mg PO DAILY 06/25/20 Metoprolol Succinate 75 mg PO DAILY 06/25/20 Mirtazapine 7.5 mg PO HS 06/25/20 Potassium 20 meq PO DAILY 06/25/20 Vitamin D - 50,000 units WEEKLY 06/25/20 Family Medical History Family History: Denies Review of Systems - Review of Systems Constitutional: reports: Loss of Appetite, Malaise, Weakness Eyes: reports: No Symptoms HENT: reports: No Symptoms, Ocular Prosthesis Cardiovascular: reports: No Symptoms Respiratory: reports: No Symptoms Gastrointestinal: reports: Constipation Genitourinary: reports: No Symptoms Musculoskeletal: reports: No Symptoms Integumentary: reports: No Symptoms Neurological: reports: No Symptoms Endocrine: reports: No Symptoms Hematology/Lymphatic: reports: No Symptoms Psychiatric: reports: No Symptoms Physical Exam Vital Signs: Vital Signs Temperature 98.3 F 07/05/20 05:29 Pulse Rate 78 07/05/20 15:00 Respiratory Rate 16 07/05/20 15:00 Blood Pressure 128/76 07/05/20 15:00 O2 Sat by Pulse Oximetry (%) 96 07/05/20 15:00 Constitutional: Yes: Calm Eyes: Yes: Conjunctiva Clear HENT: Yes: Atraumatic Neck: Yes: Supple Cardiovascular: Yes: S1, S2 Respiratory: Yes: CTA Bilaterally Gastrointestinal: Yes: Normal Bowel Sounds, Soft Musculoskeletal: Yes: WNL Extremities: Yes: WNL Edema: No Integumentary: Yes: WNL Neurological: Yes: Confusion Psychiatric: Yes: Oriented Labs: CBC, BMP 07/05/20 07:15 07/05/20 07:15 Laboratory Tests 11/02/19 11/03/19 07/04/20 10:50 06:34 16:34 BUN Creatinine 1.4 H 1.3 Lactic Acid Urine Protein 1+ H Urine Blood 2+ H 07/04/20 07/04/20 07/04/20 17:10 17:25 21:27 BUN 121.2 H* Creatinine 4.3 H Lactic Acid 4.6 H* 3.6 H* Urine Protein Urine Blood 07/05/20 07:15 BUN 112.5 H* Creatinine 3.3 H Lactic Acid Urine Protein Urine Blood Imaging - Results Cat Scan: Report Reviewed Problem List - Problems (1) WILL (acute kidney injury) Code(s): N17.9 - ACUTE KIDNEY FAILURE, UNSPECIFIED (2) Afib Code(s): I48.91 - UNSPECIFIED ATRIAL FIBRILLATION (3) Constipation Code(s): K59.00 - CONSTIPATION, UNSPECIFIED Qualifiers: Constipation type: unspecified constipation type Qualified Code(s): K59.00 - Constipation, unspecified (4) Diastolic CHF Code(s): I50.30 - UNSPECIFIED DIASTOLIC (CONGESTIVE) HEART FAILURE Assessment/Plan Current Medications Generic Name Dose Route Start Last Admin Trade Name Freq PRN Reason Stop Dose Admin Apixaban 2.5 mg 07/04/20 22:00 07/05/20 10:13 Eliquis - PO 2.5 mg BID NEERAJ Administration Donepezil HCl 10 mg 07/05/20 22:00 Aricept - PO HS NEERAJ Gabapentin 100 mg 07/05/20 10:00 07/05/20 10:13 Neurontin - PO 100 mg BID NEERAJ Administration Ceftriaxone Sodium 1 gm/ 50 mls @ 100 mls/hr 07/05/20 10:00 07/05/20 10:13 Dextrose IVPB 100 mls/hr DAILY NEERAJ Administration Protocol Dextrose/Sodium Chloride 1,000 mls @ 100 mls/hr 07/05/20 09:00 07/05/20 09:57 D5-1/2ns - IV 100 mls/hr ASDIR NEERAJ Administration Polyethylene Glycol 17 gm 07/05/20 15:00 07/05/20 15:34 Miralax (For Daily Use) - PO 17 g DAILY NEERAJ Administration Senna 2 tab 07/05/20 14:34 Senna - PO HS PRN CONSTIPATION Impression 1. WILL 2. chf 3. constipation 4. htn 5. ckd 6. dementia 7. a-fib Plan - cont fluids - renal function improving - repeat labs in am - hold lasix - hold rajendra - check renal ultrasound - place barboza as there was fullness in collection system on ct scan - check ua, lytes and [facility] consultant to calc fena - if her blood suga rises can change d5 1/2 to just 1/2ns Dr Leal
--- NOTE | 2020-07-05 16:15 | CON.ID ---
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 Cardio/Vascular: Yes: AFIB, CHF, HTN Renal/: Yes: Renal Inusuff ...LMP: 07/04/20 ...: No Endocrine: Yes: Hypothyroidism - Past Surgical History Past Surgical History: Yes: None - Alcohol/Substance Use Hx Alcohol Use: No History of Substance Use: reports: None - Smoking History Smoking history: Never smoked Have you smoked in the past 12 months: No - Social History Usual Living Arrangement: With Spouse 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) History of Recent Travel: No Home Medications - Allergies Allergies/Adverse Reactions: Allergies Allergy/AdvReac Type Severity Reaction Status Date / Time No Known Allergies Allergy Verified 07/04/20 15:42 - Home Medications Home Medications: Ambulatory Orders Donepezil HCl 10 mg PO DAILY 06/25/20 Eliquis - 5 mg PO BID 06/25/20 Furosemide 40 mg PO DAILY 06/25/20 Lisinopril 20 mg PO DAILY 06/25/20 Metoprolol Succinate 75 mg PO DAILY 06/25/20 Mirtazapine 7.5 mg PO HS 06/25/20 Potassium 20 meq PO DAILY 06/25/20 Vitamin D - 50,000 units WEEKLY 06/25/20 Family Medical History Family History: Denies Review of Systems - Review of Systems Constitutional: denies: Chills, Fever Eyes: reports: No Symptoms HENT: reports: No Symptoms Neck: reports: No Symptoms Cardiovascular: reports: No Symptoms. denies: Chest Pain Respiratory: denies: Cough, SOB Gastrointestinal: reports: Constipation. denies: Abdominal Pain Genitourinary: reports: No Symptoms Physical Exam Vital Signs: Vital Signs Temperature 98.3 F 07/05/20 05:29 Pulse Rate 78 07/05/20 15:00 Respiratory Rate 16 07/05/20 15:00 Blood Pressure 128/76 07/05/20 15:00 O2 Sat by Pulse Oximetry (%) 96 07/05/20 15:00 Constitutional: Yes: No Distress, Calm Eyes: Yes: Conjunctiva Clear HENT: Yes: Atraumatic, Normocephalic Neck: Yes: Supple Cardiovascular: Yes: Regular Rate and Rhythm Respiratory: Yes: CTA Bilaterally, Diminished (at bases) Gastrointestinal: Yes: Normal Bowel Sounds, Soft. No: Tenderness, Rebound ...Rectal Exam: Yes: Deferred Extremities: Yes: WNL Edema: No Integumentary: Yes: Pressure Ulcer (stage 2 sacrum, clean) Psychiatric: Yes: Alert Labs: CBC, BMP 07/05/20 07:15 07/05/20 07:15 blood cultures one of 4 bottles gpc clusters Imaging - Results Chest X-ray: Report Reviewed, Image Reviewed Cat Scan: Report Reviewed Problem List - Problems (1) Bacteremia Code(s): R78.81 - BACTEREMIA (2) UTI (urinary tract infection) Code(s): N39.0 - URINARY TRACT INFECTION, SITE NOT SPECIFIED Qualifiers: Urinary tract infection type: acute cystitis Hematuria presence: with hematuria Qualified Code(s): N30.01 - Acute cystitis with hematuria (3) Lactic acidosis Code(s): E87.2 - ACIDOSIS (4) WILL (acute kidney injury) Code(s): N17.9 - ACUTE KIDNEY FAILURE, UNSPECIFIED Assessment/Plan received vancomycin and rocephin in ed given will will recheck vanco level in am before redosing continue rocephin for UTI f/u cultures for renal sonogram- r/o hydronephrosis d/w renal continue IV hydration
--- NOTE | 2020-07-05 19:55 | HOSP ---
Subjective - Review of Symptoms Events since last encounter: Hospitalist Encounter Notified by the primary RN that the patient needs a barboza catheter placement after 2 unsuccessful attempts, was asked to access. Physical Examination Vital Signs: Vital Signs Temperature 97.4 F L 07/05/20 17:36 Pulse Rate 91 H 07/05/20 17:36 Respiratory Rate 19 07/05/20 17:36 Blood Pressure 132/88 07/05/20 17:36 O2 Sat by Pulse Oximetry (%) 93 L 07/05/20 18:23 Constitutional: Yes: No Distress, Calm, Thin Eyes: Yes: Conjunctiva Clear, EOM Intact, PERRL HENT: Yes: Atraumatic, Normocephalic, Other (dry mucous membranes) Neck: Yes: Supple, Trachea Midline Cardiovascular: Yes: Regular Rate and Rhythm, S1, S2 Respiratory: Yes: Regular, CTA Bilaterally Gastrointestinal: Yes: Normal Bowel Sounds, Soft Edema: No Peripheral Pulses WNL: Yes Integumentary: Yes: Pressure Ulcer Neurological: Yes: Alert, Oriented, Cran Nerves II-XII Intact Psychiatric: Yes: Alert, Oriented Labs: CBC, BMP 07/05/20 07:15 07/05/20 07:15 Hospitalist Encounter Assessment: This is a 79 y/o female with a PMHx of Diastolic CHF, Afib (on Eliquis), HTN, Dementia, Renal Insufficiency. Admitted for Sepsis, UTI, WILL, Generalized Weakness, Dehydration. Outcome: Attempt made at barboza placement, no urine return. Order placed for Pelvic/Bladder US to check placement Per RN barboza catheter was reinserted with urine output Renal US report reviewed Will continue to monitor, PMD will resume care in am
[2020-07-05] MEDS: DONEPEZIL HCL 10 MG TABLET (FP) PO SCH (22:13)
[2020-07-05 22:59] LABS: URINE APPEARANCE Clear; URINE BILIRUBIN Negative (NEGATIVE); URINE COLOR Yellow; URINE GLUCOSE (UA) Negative (NEGATIVE); URINE KETONE Negative (NEGATIVE); URINE LEUK ESTERASE Trace (NEGATIVE); URINE NITRITE Negative (NEGATIVE); URINE PROTEIN 1+ (NEGATIVE); URINE UROBILINOGEN 0.2 mg/dL (0.2-1.0)
[2020-07-06 02:34] LABS: EPI CELLS 20.5 /uL (0-25.1); URINE RBC 11.8 /uL (0-23.9); URINE WBC 95.1 /uL (0-25.8)
[2020-07-06 02:35] LABS: HYALINE CASTS 1.54 /uL (0-3.1); URINE BACTERIA 250.4 /uL (0-1359)
[2020-07-06 08:07] LABS: ALBUMIN 2.6 g/dl (3.4-5.0); BILIRUBIN,TOTAL 0.6 mg/dL (0.2-1); BLOOD UREA NITROGEN 88.7 mg/dL (7-18); CALCIUM 8.7 mg/dL (8.5-10.1); CREATININE 2.4 mg/dL (0.55-1.3); POTASSIUM 4.1 mmol/L (3.5-5.1); TOT PROT 6.2 g/dl (6.4-8.2)
[2020-07-06] MEDS ORDERED: PT OWN MED DRAWER 7, Y5N ONE (10:04)
[2020-07-06] MEDS ORDERED: DEXTROSE 5%-WATER - 50 ML IVPB ONE (10:04)
[2020-07-06] MEDS ORDERED: cefTRIAXone SODIUM 1 GM VIAL ONE (10:04)
[2020-07-06] MEDS: GABAPENTIN 100 MG CAPSULE PO SCH ×2 (10:09→22:33)
[2020-07-06] MEDS: APIXABAN 2.5 MG TABLET PO SCH ×2 (10:09→22:33)
[2020-07-06] MEDS: POLYETHYLENE GLYCOL 3350 119 GM BTL PO SCH (10:10)
[2020-07-06] MEDS: CEFTRIAXONE 1 GM in DEXTROSE 5%-WATER - 50 ML IVPB SCH (10:11)
--- NOTE | 2020-07-06 12:08 | PN ---
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 ANTISQUEAK CHALKER Vital Signs - 24 hr 07/05/20 07/05/20 07/05/20 12:27 15:00 17:36 Temperature 97.4 F L Pulse Rate 91 H Pulse Rate [ 78 Left Apical] Respiratory 16 16 19 Rate Blood Pressure 132/88 Blood Pressure 128/76 [Right Arm] O2 Sat by Pulse 96 96 93 L Oximetry (%) 07/05/20 07/05/20 07/06/20 18:23 22:00 05:38 Temperature 97.5 F L 97.8 F Pulse Rate 88 80 Pulse Rate [ Left Apical] Respiratory 20 20 Rate Blood Pressure 134/76 125/77 Blood Pressure [Right Arm] O2 Sat by Pulse 93 L 94 L Oximetry (%) Current Medications Generic Name Dose Route Start Last Admin Trade Name Freq PRN Reason Stop Dose Admin Apixaban 2.5 mg 07/04/20 22:00 07/06/20 10:09 Eliquis - PO 2.5 mg BID NEERAJ Administration Donepezil HCl 10 mg 07/05/20 22:00 07/05/20 22:13 Aricept - PO 10 mg HS NEERAJ Administration Gabapentin 100 mg 07/05/20 10:00 07/06/20 10:09 Neurontin - PO 100 mg BID NEERAJ Administration Ceftriaxone Sodium 1 gm/ 50 mls @ 100 mls/hr 07/05/20 10:00 07/06/20 10:11 Dextrose IVPB 100 mls/hr DAILY NEERAJ Administration Protocol Dextrose/Sodium Chloride 1,000 mls @ 100 mls/hr 07/05/20 09:00 07/05/20 09:57 D5-1/2ns - IV 100 mls/hr ASDIR NEERAJ Administration Polyethylene Glycol 17 gm 07/05/20 15:00 07/06/20 10:10 Miralax (For Daily Use) - PO 17 g DAILY NEERAJ Administration Senna 2 tab 07/05/20 14:34 Senna - PO HS PRN CONSTIPATION Laboratory Results - last 24 hr 07/04/20 07/05/20 07/05/20 16:34 21:30 21:30 Sodium Potassium Chloride Carbon Dioxide Anion Gap BUN Creatinine Est GFR (CKD-EPI)AfAm Est GFR (CKD-EPI)NonAf Random Glucose Calcium Total Bilirubin AST ALT Alkaline Phosphatase Total Protein Albumin Urine Color Yellow Urine Appearance Clear Urine pH 5.0 Ur Specific [place] 1.010 Urine Protein 1+ H Urine Glucose (UA) Negative Urine Ketones Negative Urine Blood Trace-intact Urine Nitrite Negative Urine Bilirubin Negative Urine Urobilinogen 0.2 Ur Leukocyte Esterase Trace Urine WBC (Auto) 95.1 Urine RBC (Auto) 11.8 Urine Casts (Auto) 1.54 U Epithel Cells (Auto) 20.5 Urine Bacteria (Auto) 250.4 Ur Random Creatinine 62.0 Ur Random Sodium 47 Ur Random Potassium 22.0 L Ur Random Chloride 34 L Random Vancomycin COVID-19 (BRANDI) Not detected 07/06/20 07/06/20 07:00 07:00 Sodium 140 Potassium 4.1 Chloride 103 Carbon Dioxide 25 Anion Gap 12 BUN 88.7 H Creatinine 2.4 H Est GFR (CKD-EPI)AfAm 21.38 Est GFR (CKD-EPI)NonAf 18.45 Random Glucose 152 H Calcium 8.7 Total Bilirubin 0.6 AST 36 ALT 22 Alkaline Phosphatase 88 Total Protein 6.2 L Albumin 2.6 L Urine Color Urine Appearance Urine pH Ur Specific [place] Urine Protein Urine Glucose (UA) Urine Ketones Urine Blood Urine Nitrite Urine Bilirubin Urine Urobilinogen Ur Leukocyte Esterase Urine WBC (Auto) Urine RBC (Auto) Urine Casts (Auto) U Epithel Cells (Auto) Urine Bacteria (Auto) Ur Random Creatinine Ur Random Sodium Ur Random Potassium Ur Random Chloride Random Vancomycin 8.0 COVID-19 (BRANDI) Microbiology 07/04/20 17:10 Blood Culture - Preliminary Blood - Peripheral Venous Staphylococcus Coagulase Neg 07/04/20 16:45 Urine Culture - Preliminary Urine - Urine Clean Catch Lactose Fermenting Neg Bacilli 07/04/20 17:18 Blood Culture - Preliminary Blood - Peripheral Venous Pending Organism S1 S2 irregular No pallor Weak Lungs decreased breath sounds Abd- soft, NT barboza+ No edema PLAN iv fluids renal sono-- no hydronephrosis all imaging noted renal function better she had 400cc urine output when barboza was placed in blood cultures positive check Echo for vegetations iv antibiotics ID and Renal eval noted Problem List - Problems (1) WILL (acute kidney injury) Code(s): N17.9 - ACUTE KIDNEY FAILURE, UNSPECIFIED (2) Afib Code(s): I48.91 - UNSPECIFIED ATRIAL FIBRILLATION (3) Bacteremia Code(s): R78.81 - BACTEREMIA (4) Diastolic CHF Code(s): I50.30 - UNSPECIFIED DIASTOLIC (CONGESTIVE) HEART FAILURE (5) Generalized weakness Code(s): R53.1 - WEAKNESS (6) Sepsis Code(s): A41.9 - SEPSIS, UNSPECIFIED ORGANISM (7) UTI (urinary tract infection) Code(s): N39.0 - URINARY TRACT INFECTION, SITE NOT SPECIFIED Qualifiers: Urinary tract infection type: acute cystitis Hematuria presence: with hematuria Qualified Code(s): N30.01 - Acute cystitis with hematuria
--- NOTE | 2020-07-06 14:20 | PN ---
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, Physician History of Present Illness: Pt seen and examined at bedside. She is awake and appears comfortable. - Current Medication List Current Medications: Active Medications Apixaban (Eliquis -) 2.5 mg PO BID [facility] Last Admin: 07/06/20 10:09 Dose: 2.5 mg Documented by: Donepezil HCl (Aricept -) 10 mg PO HS NEERAJ Last Admin: 07/05/20 22:13 Dose: 10 mg Documented by: Gabapentin (Neurontin -) 100 mg PO BID NEERAJ Last Admin: 07/06/20 10:09 Dose: 100 mg Documented by: Ceftriaxone Sodium 1 gm/ (Dextrose) 50 mls @ 100 mls/hr IVPB DAILY NEERAJ; Protocol Last Admin: 07/06/20 10:11 Dose: 100 mls/hr Documented by: Dextrose/Sodium Chloride (D5-1/2ns -) 1,000 mls @ 100 mls/hr IV ASDIR NEERAJ Last Admin: 07/05/20 09:57 Dose: 100 mls/hr Documented by: Polyethylene Glycol (Miralax (For Daily Use) -) 17 gm PO DAILY NEERAJ Last Admin: 07/06/20 10:10 Dose: 17 g Documented by: Senna (Senna -) 2 tab PO HS PRN PRN Reason: CONSTIPATION - Objective Vital Signs: Vital Signs Temperature 97.5 F L 07/06/20 08:50 Pulse Rate 65 07/06/20 08:50 Respiratory Rate 20 07/06/20 08:50 Blood Pressure 143/69 07/06/20 08:50 O2 Sat by Pulse Oximetry (%) 93 L 07/06/20 08:50 Constitutional: Yes: Calm Eyes: Yes: Conjunctiva Clear HENT: Yes: Atraumatic Neck: Yes: Supple Cardiovascular: Yes: S1, S2 Respiratory: Yes: CTA Bilaterally Gastrointestinal: Yes: Normal Bowel Sounds, Soft Genitourinary: Yes: Barboza Present Musculoskeletal: Yes: Muscle Weakness Edema: No Neurological: Yes: Confusion Psychiatric: Yes: Oriented Labs: CBC, BMP 07/05/20 07:15 07/06/20 07:00 Problem List - Problems (1) WILL (acute kidney injury) Code(s): N17.9 - ACUTE KIDNEY FAILURE, UNSPECIFIED (2) Afib Code(s): I48.91 - UNSPECIFIED ATRIAL FIBRILLATION (3) Constipation Code(s): K59.00 - CONSTIPATION, UNSPECIFIED Qualifiers: Constipation type: unspecified constipation type Qualified Code(s): K59.00 - Constipation, unspecified (4) Diastolic CHF Code(s): I50.30 - UNSPECIFIED DIASTOLIC (CONGESTIVE) HEART FAILURE Assessment/Plan Current Medications Generic Name Dose Route Start Last Admin Trade Name Freq PRN Reason Stop Dose Admin Apixaban 2.5 mg 07/04/20 22:00 07/06/20 10:09 Eliquis - PO 2.5 mg BID NEERAJ Administration Donepezil HCl 10 mg 07/05/20 22:00 07/05/20 22:13 Aricept - PO 10 mg HS NEERAJ Administration Gabapentin 100 mg 07/05/20 10:00 07/06/20 10:09 Neurontin - PO 100 mg BID NEERAJ Administration Ceftriaxone Sodium 1 gm/ 50 mls @ 100 mls/hr 07/05/20 10:00 07/06/20 10:11 Dextrose IVPB 100 mls/hr DAILY NEERAJ Administration Protocol Dextrose/Sodium Chloride 1,000 mls @ 100 mls/hr 07/05/20 09:00 07/05/20 09:57 D5-1/2ns - IV 100 mls/hr ASDIR NEERAJ Administration Polyethylene Glycol 17 gm 07/05/20 15:00 07/06/20 10:10 Miralax (For Daily Use) - PO 17 g DAILY NEERAJ Administration Senna 2 tab 07/05/20 14:34 Senna - PO HS PRN CONSTIPATION Impression 1. WILL 2. chf 3. constipation 4. htn 5. ckd 6. dementia 7. 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
[2020-07-06 14:43] VITALS: BMI 17.8
[2020-07-06] MEDS: DEXTROSE 5%-0.45% SALINE 1,000 ML IV SCH ×2 (15:24→15:25)
--- NOTE | 2020-07-06 15:49 | PN ---
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 (short form) - Note 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: awake nad Vital Signs Period Temp Pulse Resp BP Sys/Cisneros Pulse Ox Last 24 Hr 97.3 F-97.8 F 65-91 19-20 125-143/69-88 93-98 cor-rrr lungs decreased bs at bases abd soft,nt ext no edema +barboza CBC, BMP 07/05/20 07:15 07/06/20 07:00 Microbiology 07/04/20 17:10 Blood - Peripheral Venous Blood Culture - Preliminary Staphylococcus Coagulase Neg 07/04/20 16:45 Urine - Urine Clean Catch Urine Culture - Preliminary Lactose Fermenting Neg Bacilli 07/04/20 17:18 Blood - Peripheral Venous Blood Culture - Preliminary Pending Organism vanco trough 8 a/p bacteremia uti ckd continue rocephin repeat blood cultures redose vancomycin after blood cutltures are drawn Problem List - Problems (1) Bacteremia Code(s): R78.81 - BACTEREMIA (2) UTI (urinary tract infection) Code(s): N39.0 - URINARY TRACT INFECTION, SITE NOT SPECIFIED Qualifiers: Urinary tract infection type: acute cystitis Hematuria presence: with hematuria Qualified Code(s): N30.01 - Acute cystitis with hematuria (3) Lactic acidosis Code(s): E87.2 - ACIDOSIS (4) WILL (acute kidney injury) Code(s): N17.9 - ACUTE KIDNEY FAILURE, UNSPECIFIED
--- NOTE | 2020-07-06 16:19 | ECHO ---
Version: 1 Name: SRIKANTH VALENZUELA Exam: Adult Echocardiogram Study Date: 07/06/2020, 2:12 PM Age: 79 Years MMode/2D Measurements & Calculations IVSd: 0.90 cm LVIDs: 3.4 cm LVIDd: 4.5 cm LVPWd: 0.83 cm LAV (MOD-bp): 105.0 ml ACS: 1.52 cm Ao root diam: 2.6 cm LVOT diam: 2.01 cm LA dimension: 3.5 cm Doppler Measurements & Calculations MV E max shant: 76.0 cm/sec Med E/e': 14.7 MV A max shant: 26.2 cm/sec Med Peak E' Shant: 5.2 cm/sec MV E/A: 2.9 Lat E/e': 14.7 Lat Peak E' Shant: 5.2 cm/sec MR max P.2 mmHg Ao max P.1 mmHg RALPH(I,D): 1.84 cm Ao mean P.76 mmHg LV V1 mean: 36.5 cm/sec Ao V2 max: 88.2 cm/sec LV V1 mean P.60 mmHg AI P1/2t: 428.3 msec PI end-d shant: 118.1 cm/sec TR max shant: 196.7 cm/sec TR max P.0 mmHg Procedure A complete two-dimensional transthoracic echocardiogram was performed (2D, M-mode, Doppler and color flow Doppler). Left Ventricle The left ventricular size, thickness and function are normal. Ejection Fraction = 60%. The transmitr al spectral Doppler flow pattern is suggestive of restrictive physiology. The left ventricular wall mot ion is normal. Right Ventricle The right ventricle is normal in size and function. Atria Normal left and right atrial size and function. Mitral Valve There is mild mitral annular calcification. There is moderate mitral regurgitation. Tricuspid Valve The tricuspid valve is normal in structure and function. Right ventricular systolic pressure is 21 m mhg. There is moderate tricuspid regurgitation. Aortic Valve There is mild to moderate aortic valve thickening. Mild aortic regurgitation. Pulmonic Valve The pulmonic valve is normal in structure and function. Mild pulmonic valvular regurgitation. Great Vessels The aortic root is normal size. Pericardium/Pleura There is no pericardial effusion. There is no pleural effusion. Tech Comments TDS. Patient very thin and scanned supine. Summary Statements There is no evidence of a mass or vegetation. This does not rule out endocarditis. The left ventricular size, thickness and function are normal Ejection Fraction = 60%. There is mild mitral annular calcification. There is moderate mitral regurgitation. There is moderate tricuspid regurgitation. Right ventricular systolic pressure is 21 mmhg. There is mild to moderate aortic valve thickening. Mild aortic regurgitation. Mild pulmonic valvular regurgitation. MD Jose James 07/06/2020, 4:19 PM Ordering Physician: Sobia Crystal Referring Physician: SOBIA CRYSTAL Performed By: Lydia Ty
[2020-07-06] MEDS ORDERED: VANCOMYCIN 750 MG in DEXTROSE 5%-WATER - 250 ML IVPB ONE (17:30)
[2020-07-06] MEDS: DONEPEZIL HCL 10 MG TABLET (FP) PO SCH (22:33)
[2020-07-07] MEDS: DEXTROSE 5%-0.45% SALINE 1,000 ML IV SCH (01:38)
[2020-07-07 07:26] LABS: CALCIUM 8.6 mg/dL (8.5-10.1); CREATININE 1.5 mg/dL (0.55-1.3); POTASSIUM 3.4 mmol/L (3.5-5.1)
[2020-07-07 07:30] LABS: BLOOD UREA NITROGEN 55.9 mg/dL (7-18)
[2020-07-07] MEDS ORDERED: DEXTROSE 5%-WATER - 50 ML IVPB ONE (09:08)
[2020-07-07] MEDS ORDERED: cefTRIAXone SODIUM 1 GM VIAL ONE (09:08)
[2020-07-07] MEDS: GABAPENTIN 100 MG CAPSULE PO SCH ×2 (09:32→21:05)
[2020-07-07] MEDS: CEFTRIAXONE 1 GM in DEXTROSE 5%-WATER - 50 ML IVPB SCH (09:32)
[2020-07-07] MEDS: APIXABAN 2.5 MG TABLET PO SCH ×2 (09:32→21:05)
[2020-07-07] MEDS: POLYETHYLENE GLYCOL 3350 119 GM BTL PO SCH (09:33)
--- NOTE | 2020-07-07 10:37 | PN ---
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 (short form) - Note 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: no complaints, feels well, ate breakfast Vital Signs Period Temp Pulse Resp BP Sys/Cisneros Pulse Ox Last 24 Hr 97.2 F-98 F 79-130 18-20 115-141/67-95 95-100 cor-rrr lungs decreased bs at bases abd soft,nt ext no edema small sacral ulcer stage 2 clean barboza CBC, BMP 07/05/20 07:15 07/07/20 06:13 Microbiology 07/04/20 17:18 Blood - Peripheral Venous Blood Culture - Preliminary Staphylococcus Coagulase Neg 07/04/20 17:10 Blood - Peripheral Venous Blood Culture - Preliminary Staphylococcus Coagulase Neg 07/04/20 16:45 Urine - Urine Clean Catch Urine Culture - Preliminary Lactose Fermenting Neg Bacilli a/p SCN bacteremia -vanco redosed yesterday, blood cultures repeated uti-f/u cultures on rocephin ckd -improved check echo r/o endocarditis f/u blood cultures Problem List - Problems (1) Bacteremia Code(s): R78.81 - BACTEREMIA (2) UTI (urinary tract infection) Code(s): N39.0 - URINARY TRACT INFECTION, SITE NOT SPECIFIED Qualifiers: Urinary tract infection type: acute cystitis Hematuria presence: with hematuria Qualified Code(s): N30.01 - Acute cystitis with hematuria (3) Lactic acidosis Code(s): E87.2 - ACIDOSIS (4) WILL (acute kidney injury) Code(s): N17.9 - ACUTE KIDNEY FAILURE, UNSPECIFIED
[2020-07-07] MEDS ORDERED: DONEPEZIL HCL 10 MG PO SCH (10:45)
--- NOTE | 2020-07-07 11:04 | PN ---
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 (short form) - Note 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: events noted has a barboza placed no distress afebrile not in pain HR eelavted did not get Toprol during her stay here Vital Signs - 24 hr 07/06/20 07/06/20 07/06/20 14:17 18:00 21:00 Temperature 97.3 F L 97.4 F L Pulse Rate 79 89 Respiratory 20 20 Rate Blood Pressure 129/73 115/67 O2 Sat by Pulse 98 98 Oximetry (%) 07/06/20 07/07/20 07/07/20 22:00 06:00 09:49 Temperature 97.2 F L 97.8 F 98 F Pulse Rate 84 84 130 H Respiratory 20 20 18 Rate Blood Pressure 141/87 133/81 128/95 O2 Sat by Pulse 98 100 95 Oximetry (%) Current Medications Generic Name Dose Route Start Last Admin Trade Name Freq PRN Reason Stop Dose Admin Apixaban 2.5 mg 07/04/20 22:00 07/07/20 09:32 Eliquis - PO 2.5 mg BID NEERAJ Administration Donepezil HCl 10 mg 07/07/20 22:00 Aricept - PO HS NEERAJ Gabapentin 100 mg 07/05/20 10:00 07/07/20 09:32 Neurontin - PO 100 mg BID NEERAJ Administration Ceftriaxone Sodium 1 gm/ 50 mls @ 100 mls/hr 07/05/20 10:00 07/07/20 09:32 Dextrose IVPB 100 mls/hr DAILY NEERAJ Administration Protocol Dextrose/Sodium Chloride 1,000 mls @ 100 mls/hr 07/05/20 09:00 07/07/20 01:38 D5-1/2ns - IV 100 mls/hr ASDIR NEERAJ Administration Metoprolol Succinate 75 mg 07/08/20 10:00 Toprol Xl - PO DAILY NEERAJ Polyethylene Glycol 17 gm 07/05/20 15:00 07/07/20 09:33 Miralax (For Daily Use) - PO 17 g DAILY NEERAJ Administration Senna 2 tab 07/05/20 14:34 Senna - PO HS PRN CONSTIPATION Laboratory Results - last 24 hr 07/07/20 06:13 Sodium 138 Potassium 3.4 L Chloride 104 Carbon Dioxide 21 Anion Gap 12 BUN 55.9 H Creatinine 1.5 H Est GFR (CKD-EPI)AfAm 37.74 Est GFR (CKD-EPI)NonAf 32.56 Random Glucose 138 H Calcium 8.6 S1 S2 irregular No pallor Weak Lungs decreased breath sounds Abd- soft, NT barboza+ No edema PLAN iv fluids replace potassium restart Toprol Echo--->no vegetations renal sono-- no hydronephrosis all imaging noted renal function better blood cultures positive repeated - pending iv antibiotics ID and Renal eval noted Problem List - Problems (1) WILL (acute kidney injury) Code(s): N17.9 - ACUTE KIDNEY FAILURE, UNSPECIFIED (2) Afib Code(s): I48.91 - UNSPECIFIED ATRIAL FIBRILLATION (3) Bacteremia Code(s): R78.81 - BACTEREMIA (4) Diastolic CHF Code(s): I50.30 - UNSPECIFIED DIASTOLIC (CONGESTIVE) HEART FAILURE (5) Generalized weakness Code(s): R53.1 - WEAKNESS (6) Sepsis Code(s): A41.9 - SEPSIS, UNSPECIFIED ORGANISM (7) UTI (urinary tract infection) Code(s): N39.0 - URINARY TRACT INFECTION, SITE NOT SPECIFIED Qualifiers: Urinary tract infection type: acute cystitis Hematuria presence: with hematuria Qualified Code(s): N30.01 - Acute cystitis with hematuria
[2020-07-07] MEDS ORDERED: POTASSIUM CHLORIDE ORAL LIQUID 20 MEQ/15 ML PO ONE (12:02)
--- NOTE | 2020-07-07 12:08 | PN ---
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, Physician History of Present Illness: Pt seen and examined at bedside. She is awake and alert. She denies shortness of breath. - Current Medication List Current Medications: Active Medications Apixaban (Eliquis -) 2.5 mg PO BID [facility] Last Admin: 07/07/20 09:32 Dose: 2.5 mg Documented by: Donepezil HCl (Aricept -) 10 mg PO HS NEERAJ Gabapentin (Neurontin -) 100 mg PO BID [facility] Last Admin: 07/07/20 09:32 Dose: 100 mg Documented by: Ceftriaxone Sodium 1 gm/ (Dextrose) 50 mls @ 100 mls/hr IVPB DAILY NEERAJ; Protocol Last Admin: 07/07/20 09:32 Dose: 100 mls/hr Documented by: Dextrose/Sodium Chloride (D5-1/2ns -) 1,000 mls @ 100 mls/hr IV ASDIR [facility] Last Admin: 07/07/20 01:38 Dose: 100 mls/hr Documented by: Metoprolol Succinate (Toprol Xl -) 75 mg PO DAILY [facility] Polyethylene Glycol (Miralax (For Daily Use) -) 17 gm PO DAILY [facility] Last Admin: 07/07/20 09:33 Dose: 17 g Documented by: Senna (Senna -) 2 tab PO HS PRN PRN Reason: CONSTIPATION - Objective Vital Signs: Vital Signs Temperature 98 F 07/07/20 09:49 Pulse Rate 130 H 07/07/20 09:49 Respiratory Rate 18 07/07/20 09:49 Blood Pressure 128/95 07/07/20 09:49 O2 Sat by Pulse Oximetry (%) 95 07/07/20 09:49 Constitutional: Yes: Calm Eyes: Yes: Conjunctiva Clear HENT: Yes: Atraumatic Neck: Yes: Supple Cardiovascular: Yes: S1, S2 Respiratory: Yes: CTA Bilaterally Gastrointestinal: Yes: Soft Genitourinary: Yes: WNL Edema: No Neurological: Yes: Oriented Psychiatric: Yes: Oriented Labs: CBC, BMP 07/05/20 07:15 07/07/20 06:13 Problem List - Problems (1) WILL (acute kidney injury) Code(s): N17.9 - ACUTE KIDNEY FAILURE, UNSPECIFIED (2) Afib Code(s): I48.91 - UNSPECIFIED ATRIAL FIBRILLATION (3) Constipation Code(s): K59.00 - CONSTIPATION, UNSPECIFIED Qualifiers: Constipation type: unspecified constipation type Qualified Code(s): K59.00 - Constipation, unspecified (4) Diastolic CHF Code(s): I50.30 - UNSPECIFIED DIASTOLIC (CONGESTIVE) HEART FAILURE Assessment/Plan Current Medications Generic Name Dose Route Start Last Admin Trade Name Freq PRN Reason Stop Dose Admin Apixaban 2.5 mg 07/04/20 22:00 07/07/20 09:32 Eliquis - PO 2.5 mg BID NEERAJ Administration Donepezil HCl 10 mg 07/07/20 22:00 Aricept - PO HS NEERAJ Gabapentin 100 mg 07/05/20 10:00 07/07/20 09:32 Neurontin - PO 100 mg BID NEERAJ Administration Ceftriaxone Sodium 1 gm/ 50 mls @ 100 mls/hr 07/05/20 10:00 07/07/20 09:32 Dextrose IVPB 100 mls/hr DAILY NEERAJ Administration Protocol Dextrose/Sodium Chloride 1,000 mls @ 100 mls/hr 07/05/20 09:00 07/07/20 01:38 D5-1/2ns - IV 100 mls/hr ASDIR NEERAJ Administration Metoprolol Succinate 75 mg 07/07/20 12:15 Toprol Xl - PO DAILY NEERAJ Polyethylene Glycol 17 gm 07/05/20 15:00 07/07/20 09:33 Miralax (For Daily Use) - PO 17 g DAILY NEERAJ Administration Potassium Chloride 40 meq 07/07/20 12:02 Potassium Chloride Oral Liquid PO 07/07/20 12:03 ONCE ONE Senna 2 tab 07/05/20 14:34 Senna - PO HS PRN CONSTIPATION Laboratory Tests 07/07/20 06:13 Potassium 3.4 L Impression 1. WILL 2. chf 3. constipation 4. htn 5. ckd 6. dementia 7. a-fib Plan - replace potassium - change fluids to 1/2 ns with potassium - repeat lactic acid - renal function is improving - maintain barboza for now - hold lasix - hold rajendra for now Dr Leal
[2020-07-07] MEDS: metoPROLOL SUCCINATE 25 MG TAB.SR.24H (FP) PO SCH (12:11)
--- NOTE | 2020-07-07 12:49 | EKG ---
Test Reason : Blood Pressure : / mmHG Vent. Rate : 118 BPM Atrial Rate : 394 BPM P-R Int : 192 ms QRS Dur : 080 ms QT Int : 322 ms P-R-T Axes : 000 073 216 degrees QTc Int : 451 ms ATRIAL FIBRILLATION ABNORMAL ECG Confirmed by Jose James MD ([id number]) on 07/07/2020 12:49:41 PM Referred By: MARIE BRAGG Confirmed By:Jose James MD
[2020-07-07] MEDS: POTASSIUM CHLORIDE 10 MEQ in SODIUM CHLORIDE 0.45% 1,000 ML IVPB SCH (14:14)
[2020-07-07] MEDS: DONEPEZIL HCL 10 MG TABLET (FP) PO SCH (21:05)
[2020-07-08] MEDS: POTASSIUM CHLORIDE 10 MEQ in SODIUM CHLORIDE 0.45% 1,000 ML IVPB SCH ×4 (01:57→17:11)
[2020-07-08 06:55] LABS: BASO % 0.4 % (0-2.0); EOS % 0.5 % (0-4.5); HEMATOCRIT 39.5 % (32.4-45.2); HEMOGLOBIN 13.1 GM/dL (10.7-15.3); LYMPH % 7.8 % (8-40); MCH 29.6 pg (25.7-33.7); MCHC 33.1 g/dl (32.0-36.0); MEAN CELL VOLUME 89.3 fl (80-96); MEAN PLT VOLUME 9.7 fl (7.5-11.1); MONO % 10.7 % (3.8-10.2); NEUT % 80.6 % (42.8-82.8); PLATELET COUNT 225 K/MM3 (134-434); RBC 4.42 M/mm3 (3.60-5.2); RDW 15.3 % (11.6-15.6); WHITE BLOOD COUNT 7.8 K/mm3 (4.0-10.0)
[2020-07-08 07:22] LABS: ALBUMIN 2.3 g/dl (3.4-5.0); BILIRUBIN,TOTAL 0.7 mg/dL (0.2-1); BLOOD UREA NITROGEN 37.9 mg/dL (7-18); CALCIUM 8.5 mg/dL (8.5-10.1); CREATININE 1.4 mg/dL (0.55-1.3); MAGNESIUM 1.8 mg/dL (1.8-2.4); POTASSIUM 3.9 mmol/L (3.5-5.1); TOT PROT 5.6 g/dl (6.4-8.2)
[2020-07-08] MEDS ORDERED: DEXTROSE 5%-WATER - 50 ML IVPB ONE (09:33)
[2020-07-08] MEDS ORDERED: cefTRIAXone SODIUM 1 GM VIAL ONE (09:33)
[2020-07-08] MEDS: GABAPENTIN 100 MG CAPSULE PO SCH ×2 (09:43→21:16)
[2020-07-08] MEDS: CEFTRIAXONE 1 GM in DEXTROSE 5%-WATER - 50 ML IVPB SCH (09:44)
[2020-07-08] MEDS: POLYETHYLENE GLYCOL 3350 119 GM BTL PO SCH (09:44)
[2020-07-08] MEDS: metoPROLOL SUCCINATE 25 MG TAB.SR.24H (FP) PO SCH (09:44)
[2020-07-08] MEDS: APIXABAN 2.5 MG TABLET PO SCH ×2 (09:44→21:16)
--- NOTE | 2020-07-08 11:30 | PN ---
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 (short form) - Note 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: events noted has a barboza placed no distress afebrile not in pain appetite better Vital Signs - 24 hr 07/07/20 07/07/20 07/07/20 14:46 18:30 21:00 Temperature 98.4 F 98.7 F Pulse Rate 105 H 130 H Respiratory 18 20 20 Rate Blood Pressure 125/71 142/92 O2 Sat by Pulse 97 97 97 Oximetry (%) 07/07/20 07/08/20 07/08/20 22:00 05:54 09:00 Temperature 98.8 F 99.3 F Pulse Rate 126 H 113 H Respiratory 20 20 Rate Blood Pressure 132/78 129/80 O2 Sat by Pulse 96 Oximetry (%) 07/08/20 10:00 Temperature 98 F Pulse Rate 118 H Respiratory 20 Rate Blood Pressure 123/72 O2 Sat by Pulse 96 Oximetry (%) Current Medications Generic Name Dose Route Start Last Admin Trade Name Freq PRN Reason Stop Dose Admin Apixaban 2.5 mg 07/04/20 22:00 07/08/20 09:44 Eliquis - PO 2.5 mg BID NEERAJ Administration Donepezil HCl 10 mg 07/07/20 22:00 07/07/20 21:05 Aricept - PO 10 mg HS NEERAJ Administration Gabapentin 100 mg 07/05/20 10:00 07/08/20 09:43 Neurontin - PO 100 mg BID NEERAJ Administration Ceftriaxone Sodium 1 gm/ 50 mls @ 100 mls/hr 07/05/20 10:00 07/08/20 09:44 Dextrose IVPB 100 mls/hr DAILY NEERAJ Administration Protocol Potassium Chloride 10 meq/ 1,005 mls @ 75 mls/hr 07/07/20 12:15 07/08/20 01:57 Sodium Chloride IVPB 75 mls/hr Q13H NEERAJ Administration Metoprolol Succinate 75 mg 07/07/20 12:15 07/08/20 09:44 Toprol Xl - PO 75 mg DAILY NEERAJ Administration Polyethylene Glycol 17 gm 07/05/20 15:00 07/08/20 09:44 Miralax (For Daily Use) - PO 17 g DAILY NEERAJ Administration Senna 2 tab 07/05/20 14:34 Senna - PO HS PRN CONSTIPATION Laboratory Results - last 24 hr 07/08/20 07/08/20 07/08/20 05:35 05:35 05:35 WBC RBC Hgb Hct MCV MCH MCHC RDW Plt Count MPV Absolute Neuts (auto) Neutrophils % Lymphocytes % Monocytes % Eosinophils % Basophils % Nucleated RBC % Sodium 138 Potassium 3.9 Chloride 106 Carbon Dioxide 22 Anion Gap 10 BUN 37.9 H Creatinine 1.4 H Est GFR (CKD-EPI)AfAm 41.03 Est GFR (CKD-EPI)NonAf 35.40 Random Glucose 82 Lactic Acid 1.9 Calcium 8.5 Magnesium 1.8 Total Bilirubin 0.7 AST 34 ALT 29 Alkaline Phosphatase 91 Total Protein 5.6 L Albumin 2.3 L Random Vancomycin 11.8 07/08/20 05:35 WBC 7.8 RBC 4.42 Hgb 13.1 Hct 39.5 MCV 89.3 MCH 29.6 MCHC 33.1 RDW 15.3 Plt Count 225 MPV 9.7 Absolute Neuts (auto) 6.3 Neutrophils % 80.6 Lymphocytes % 7.8 L Monocytes % 10.7 H Eosinophils % 0.5 Basophils % 0.4 Nucleated RBC % 0 Sodium Potassium Chloride Carbon Dioxide Anion Gap BUN Creatinine Est GFR (CKD-EPI)AfAm Est GFR (CKD-EPI)NonAf Random Glucose Lactic Acid Calcium Magnesium Total Bilirubin AST ALT Alkaline Phosphatase Total Protein Albumin Random Vancomycin Microbiology 07/06/20 17:00 Blood Culture - Preliminary Blood - Peripheral Venous NO GROWTH OBTAINED AFTER 24 HOURS, INCUBATION TO CONTINUE FOR 4 DAYS. 07/06/20 17:00 Blood Culture - Preliminary Blood - Peripheral Venous NO GROWTH OBTAINED AFTER 24 HOURS, INCUBATION TO CONTINUE FOR 4 DAYS. 07/04/20 17:10 Blood Culture - Final Blood - Peripheral Venous Staphylococcus Simulans 07/04/20 16:45 Urine Culture - Final Urine - Urine Clean Catch Escherichia Coli S1 S2 irregular No pallor Weak Lungs decreased breath sounds Abd- soft, NT barboza+ No edema PLAN iv fluids replace potassium restart Toprol Echo--->no vegetations renal sono-- no hydronephrosis all imaging noted renal function better blood cultures positive repeated - o growth iv antibiotics ID and Renal eval noted Urology eval -- pt had urinary retention when barboza was placed and as per nursing, it was difficult to place barboza Problem List - Problems (1) WILL (acute kidney injury) Code(s): N17.9 - ACUTE KIDNEY FAILURE, UNSPECIFIED (2) Afib Code(s): I48.91 - UNSPECIFIED ATRIAL FIBRILLATION (3) Bacteremia Code(s): R78.81 - BACTEREMIA (4) Diastolic CHF Code(s): I50.30 - UNSPECIFIED DIASTOLIC (CONGESTIVE) HEART FAILURE (5) Generalized weakness Code(s): R53.1 - WEAKNESS (6) Sepsis Code(s): A41.9 - SEPSIS, UNSPECIFIED ORGANISM (7) UTI (urinary tract infection) Code(s): N39.0 - URINARY TRACT INFECTION, SITE NOT SPECIFIED Qualifiers: Urinary tract infection type: acute cystitis Hematuria presence: with hematuria Qualified Code(s): N30.01 - Acute cystitis with hematuria
[2020-07-08] MEDS ORDERED: PT OWN MED DRAWER 7, Y5N ONE (14:25)
--- NOTE | 2020-07-08 16:07 | PN ---
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, Physician History of Present Illness: Pt seen and examined at bedside. She is tolerating diet. - Current Medication List Current Medications: Active Medications Apixaban (Eliquis -) 2.5 mg PO BID [facility] Last Admin: 07/08/20 09:44 Dose: 2.5 mg Documented by: Donepezil HCl (Aricept -) 10 mg PO HS [facility] Last Admin: 07/07/20 21:05 Dose: 10 mg Documented by: Gabapentin (Neurontin -) 100 mg PO BID [facility] Last Admin: 07/08/20 09:43 Dose: 100 mg Documented by: Ceftriaxone Sodium 1 gm/ (Dextrose) 50 mls @ 100 mls/hr IVPB DAILY [facility]; Protocol Last Admin: 07/08/20 09:44 Dose: 100 mls/hr Documented by: Potassium Chloride 10 meq/ (Sodium Chloride) 1,005 mls @ 75 mls/hr IVPB Q13H S Last Admin: 07/08/20 14:34 Dose: 75 mls/hr Documented by: Metoprolol Succinate (Toprol Xl -) 75 mg PO DAILY [facility] Last Admin: 07/08/20 09:44 Dose: 75 mg Documented by: Polyethylene Glycol (Miralax (For Daily Use) -) 17 gm PO DAILY [facility] Last Admin: 07/08/20 09:44 Dose: 17 g Documented by: Senna (Senna -) 2 tab PO HS PRN PRN Reason: CONSTIPATION - Objective Vital Signs: Vital Signs Temperature 99 F 07/08/20 15:18 Pulse Rate 101 H 07/08/20 15:18 Respiratory Rate 20 07/08/20 15:18 Blood Pressure 106/64 07/08/20 15:18 O2 Sat by Pulse Oximetry (%) 97 07/08/20 15:18 Constitutional: Yes: Calm Eyes: Yes: Conjunctiva Clear HENT: Yes: Atraumatic Neck: Yes: Supple Cardiovascular: Yes: S1, S2 Respiratory: Yes: CTA Bilaterally Gastrointestinal: Yes: Soft Genitourinary: Yes: WNL Musculoskeletal: Yes: WNL Edema: No Neurological: Yes: Oriented Psychiatric: Yes: Oriented Labs: CBC, BMP 07/08/20 05:35 07/08/20 05:35 Problem List - Problems (1) WILL (acute kidney injury) Code(s): N17.9 - ACUTE KIDNEY FAILURE, UNSPECIFIED (2) Afib Code(s): I48.91 - UNSPECIFIED ATRIAL FIBRILLATION (3) Constipation Code(s): K59.00 - CONSTIPATION, UNSPECIFIED Qualifiers: Constipation type: unspecified constipation type Qualified Code(s): K59.00 - Constipation, unspecified (4) Diastolic CHF Code(s): I50.30 - UNSPECIFIED DIASTOLIC (CONGESTIVE) HEART FAILURE Assessment/Plan Current Medications Generic Name Dose Route Start Last Admin Trade Name Freq PRN Reason Stop Dose Admin Apixaban 2.5 mg 07/04/20 22:00 07/08/20 09:44 Eliquis - PO 2.5 mg BID NEERAJ Administration Donepezil HCl 10 mg 07/07/20 22:00 07/07/20 21:05 Aricept - PO 10 mg HS NEERAJ Administration Gabapentin 100 mg 07/05/20 10:00 07/08/20 09:43 Neurontin - PO 100 mg BID NEERAJ Administration Ceftriaxone Sodium 1 gm/ 50 mls @ 100 mls/hr 07/05/20 10:00 07/08/20 09:44 Dextrose IVPB 100 mls/hr DAILY NEERAJ Administration Protocol Potassium Chloride 10 meq/ 1,005 mls @ 75 mls/hr 07/07/20 12:15 07/08/20 14:34 Sodium Chloride IVPB 75 mls/hr Q13H NEERAJ Administration Metoprolol Succinate 75 mg 07/07/20 12:15 07/08/20 09:44 Toprol Xl - PO 75 mg DAILY NEERAJ Administration Polyethylene Glycol 17 gm 07/05/20 15:00 07/08/20 09:44 Miralax (For Daily Use) - PO 17 g DAILY NEERAJ Administration Senna 2 tab 07/05/20 14:34 Senna - PO HS PRN CONSTIPATION Laboratory Tests 07/08/20 05:35 Lactic Acid 1.9 Impression 1. WILL 2. chf 3. constipation 4. htn 5. ckd 6. dementia 7. a-fib Plan - renal function improving - decrease fluids - encourage po intake - lasix on hold - lactic acid improved - maintain barboza for now - hold rajendra for now Dr Leal
[2020-07-08] MEDS: VANCOMYCIN 500 MG in DEXTROSE 5%-WATER - 100 ML IVPB SCH (18:40)
[2020-07-08] MEDS: DONEPEZIL HCL 10 MG TABLET (FP) PO SCH (21:17)
[2020-07-09] MEDS: POTASSIUM CHLORIDE 10 MEQ in SODIUM CHLORIDE 0.45% 1,000 ML IVPB SCH ×3 (06:03→17:25)
--- NOTE | 2020-07-09 08:41 | CON.GU ---
Consult Consult Specialty:: Referred by:: Kai Reason for Consultation:: urinary retention - History of Present Illness Chief Complaint: urinary retention History of Present Illness: 79 year old woman with recent on set of generalized weakness noted to be in urinary retention. She had 7 NSVDs and denies any incontinence. Her creatinine was elevated to 3.3 prior to barboza, now down to 1.4. Of note on her CT she had large amount of fecal material, despite having diarrhea. 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: Yes: Dementia Cardio/Vascular: Yes: AFIB, CHF, HTN Renal/: Yes: Renal Inusuff ...LMP: 07/04/20 ...: No Endocrine: Yes: Hypothyroidism - Past Surgical History Past Surgical History: Yes: None - Alcohol/Substance Use Hx Alcohol Use: No History of Substance Use: reports: None - Smoking History Smoking history: Never smoked Have you smoked in the past 12 months: No - Social History Usual Living Arrangement: With Spouse ADL: Family Assistance ([employer]) History of Recent Travel: No Home Medications - Allergies Allergies/Adverse Reactions: Allergies Allergy/AdvReac Type Severity Reaction Status Date / Time No Known Allergies Allergy Verified 07/04/20 15:42 - Home Medications Home Medications: Ambulatory Orders Donepezil HCl 10 mg PO DAILY 06/25/20 Eliquis - 5 mg PO BID 06/25/20 Furosemide 40 mg PO DAILY 06/25/20 Lisinopril 20 mg PO DAILY 06/25/20 Metoprolol Succinate 75 mg PO DAILY 06/25/20 Mirtazapine 7.5 mg PO HS 06/25/20 Potassium 20 meq PO DAILY 06/25/20 Vitamin D - 50,000 units WEEKLY 06/25/20 Family Medical History Family History: Denies Review of Systems - Review of Systems Genitourinary: reports: Other (retention) Physical Exam- Vital Signs: Vital Signs Temperature 98.5 F 07/09/20 06:36 Pulse Rate 94 H 07/09/20 06:36 Respiratory Rate 20 07/09/20 06:36 Blood Pressure 110/66 07/09/20 06:36 O2 Sat by Pulse Oximetry (%) 98 07/09/20 06:36 Gastrointestinal: Yes: Soft Renal/: Yes: Barboza Present Labs: CBC, BMP 07/08/20 05:35 07/08/20 05:35 Imaging - Results Cat Scan: Report Reviewed Problem List - Problems (1) Urinary retention Assessment/Plan: urinary retention with new generalilzed weakness and with constipation. will start flomax. trial of void Code(s): R33.9 - RETENTION OF URINE, UNSPECIFIED
[2020-07-09] MEDS ORDERED: cefTRIAXone SODIUM 1 GM VIAL ONE (09:30)
[2020-07-09] MEDS ORDERED: DEXTROSE 5%-WATER - 50 ML IVPB ONE (09:31)
[2020-07-09] MEDS: POLYETHYLENE GLYCOL 3350 119 GM BTL PO SCH (09:34)
[2020-07-09] MEDS: GABAPENTIN 100 MG CAPSULE PO SCH ×2 (09:34→22:25)
[2020-07-09] MEDS: APIXABAN 2.5 MG TABLET PO SCH ×2 (09:34→22:25)
[2020-07-09] MEDS: metoPROLOL SUCCINATE 25 MG TAB.SR.24H (FP) PO SCH (09:34)
[2020-07-09] MEDS: CEFTRIAXONE 1 GM in DEXTROSE 5%-WATER - 50 ML IVPB SCH (09:35)
[2020-07-09 10:55] LABS: POTASSIUM 4.4 mmol/L (3.5-5.1)
[2020-07-09 11:14] LABS: ALBUMIN 2.3 g/dl (3.4-5.0); BILIRUBIN,TOTAL 1.3 mg/dL (0.2-1); BLOOD UREA NITROGEN 27.7 mg/dL (7-18); CALCIUM 8.6 mg/dL (8.5-10.1); CREATININE 1.2 mg/dL (0.55-1.3); TOT PROT 5.7 g/dl (6.4-8.2)
--- NOTE | 2020-07-09 12:12 | PN ---
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, Physician History of Present Illness: patient seen and examined Chart is reviewed and looks better Awake And comfortable chronic ill appearance Discussed with today Grover removed for trial Flomax added Afebrile Repeat cultures negative so far - Current Medication List Current Medications: Active Medications Apixaban (Eliquis -) 2.5 mg PO BID [facility] Last Admin: 07/09/20 09:34 Dose: 2.5 mg Documented by: Donepezil HCl (Aricept -) 10 mg PO HS [facility] Last Admin: 07/08/20 21:17 Dose: 10 mg Documented by: Gabapentin (Neurontin -) 100 mg PO BID [facility] Last Admin: 07/09/20 09:34 Dose: 100 mg Documented by: Ceftriaxone Sodium 1 gm/ (Dextrose) 50 mls @ 100 mls/hr IVPB DAILY [facility]; Protocol Last Admin: 07/09/20 09:35 Dose: 100 mls/hr Documented by: Potassium Chloride 10 meq/ (Sodium Chloride) 1,005 mls @ 60 mls/hr IVPB Q13H [facility] Last Admin: 07/09/20 06:56 Dose: 60 mls/hr Documented by: Vancomycin HCl 500 mg/ (Dextrose) 100 mls @ 100 mls/hr IVPB Q24H NEERAJ; Protocol Last Admin: 07/08/20 18:40 Dose: 100 mls/hr Documented by: Metoprolol Succinate (Toprol Xl -) 75 mg PO DAILY [facility] Last Admin: 07/09/20 09:34 Dose: 75 mg Documented by: Polyethylene Glycol (Miralax (For Daily Use) -) 17 gm PO DAILY [facility] Last Admin: 07/09/20 09:34 Dose: 17 gm Documented by: Senna (Senna -) 2 tab PO HS PRN PRN Reason: CONSTIPATION Tamsulosin HCl (Flomax -) 0.4 mg PO DAILY@0830 [facility] - Objective Vital Signs: Vital Signs Temperature 98.2 F 07/09/20 10:00 Pulse Rate 91 H 07/09/20 10:00 Respiratory Rate 07/09/20 10:00 Blood Pressure 111/75 07/09/20 10:00 O2 Sat by Pulse Oximetry (%) 97 07/09/20 10:00 Constitutional: Yes: No Distress, Calm Eyes: Yes: Conjunctiva Clear Neck: Yes: Supple Cardiovascular: Yes: Regular Rate and Rhythm Respiratory: Yes: Diminished Gastrointestinal: Yes: Soft Edema: No Neurological: Yes: Alert Labs: CBC, BMP 07/08/20 05:35 07/09/20 09:12 Problem List - Problems (1) WILL (acute kidney injury) Code(s): N17.9 - ACUTE KIDNEY FAILURE, UNSPECIFIED (2) Afib Code(s): I48.91 - UNSPECIFIED ATRIAL FIBRILLATION (3) Constipation Code(s): K59.00 - CONSTIPATION, UNSPECIFIED Qualifiers: Constipation type: unspecified constipation type Qualified Code(s): K59.00 - Constipation, unspecified (4) Encounter for screening laboratory testing for COVID-19 virus Code(s): Z11.59 - ENCOUNTER FOR SCREENING FOR OTHER VIRAL DISEASES (5) Generalized weakness Code(s): R53.1 - WEAKNESS (6) Sepsis Code(s): A41.9 - SEPSIS, UNSPECIFIED ORGANISM (7) Thyroid nodule Code(s): E04.1 - NONTOXIC SINGLE THYROID NODULE (8) UTI (urinary tract infection) Code(s): N39.0 - URINARY TRACT INFECTION, SITE NOT SPECIFIED Qualifiers: Urinary tract infection type: acute cystitis Hematuria presence: with hematuria Qualified Code(s): N30.01 - Acute cystitis with hematuria (9) Dementia Code(s): F03.90 - UNSPECIFIED DEMENTIA WITHOUT BEHAVIORAL DISTURBANCE Assessment/Plan overall improved Chronic issues continue antibiotics Follow-up cultures Monitor: vancomycin level Kidney function--- back to baseline Out of bed to chair Physical therapy will continue to follow
--- NOTE | 2020-07-09 13:35 | PN ---
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 (short form) - Note 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: no complaints, feels well, barboza has been removed Vital Signs Period Temp Pulse Resp BP Sys/Cisneros Pulse Ox Last 24 Hr 98.2 F-99 F 91-117 20-20 106-118/64-75 97-99 cor-rrr lungs clear abd soft,nt ext noedema small stage 2 sacral ullcer CBC, BMP 07/08/20 05:35 07/09/20 09:12 Microbiology 07/04/20 17:18 Blood - Peripheral Venous Blood Culture - Preliminary Staphylococcus Coagulase Neg 07/06/20 17:00 Blood - Peripheral Venous Blood Culture - Preliminary NO GROWTH OBTAINED AFTER 48 HOURS, INCUBATION TO CONTINUE FOR 3 DAYS. 07/06/20 17:00 Blood - Peripheral Venous Blood Culture - Preliminary NO GROWTH OBTAINED AFTER 48 HOURS, INCUBATION TO CONTINUE FOR 3 DAYS. 07/04/20 17:10 Blood - Peripheral Venous Blood Culture - Final Staphylococcus Simulans 07/04/20 16:45 Urine - Urine Clean Catch Urine Culture - Final Escherichia Coli a/p SCN bacteremia -continue vancomycin, blood cultures repeated and negative, have asked micro to ID the other set ecoli uti-continue rocephin ckd -improved-barboza removed, voiding trial check echo r/o endocarditis-no vegetations seen f/u blood cultures Problem List - Problems (1) Bacteremia Code(s): R78.81 - BACTEREMIA (2) UTI (urinary tract infection) Code(s): N39.0 - URINARY TRACT INFECTION, SITE NOT SPECIFIED Qualifiers: Urinary tract infection type: acute cystitis Hematuria presence: with hematuria Qualified Code(s): N30.01 - Acute cystitis with hematuria (3) Lactic acidosis Code(s): E87.2 - ACIDOSIS (4) WILL (acute kidney injury) Code(s): N17.9 - ACUTE KIDNEY FAILURE, UNSPECIFIED
--- NOTE | 2020-07-09 16:17 | PN ---
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, Physician History of Present Illness: Pt seen and examined at bedside. She is awake and alert. She denies shortness of breath. - Current Medication List Current Medications: Active Medications Apixaban (Eliquis -) 2.5 mg PO BID [facility] Last Admin: 07/09/20 09:34 Dose: 2.5 mg Documented by: Donepezil HCl (Aricept -) 10 mg PO HS [facility] Last Admin: 07/08/20 21:17 Dose: 10 mg Documented by: Gabapentin (Neurontin -) 100 mg PO BID [facility] Last Admin: 07/09/20 09:34 Dose: 100 mg Documented by: Ceftriaxone Sodium 1 gm/ (Dextrose) 50 mls @ 100 mls/hr IVPB DAILY [facility]; Protocol Last Admin: 07/09/20 09:35 Dose: 100 mls/hr Documented by: Potassium Chloride 10 meq/ (Sodium Chloride) 1,005 mls @ 60 mls/hr IVPB Q13H [facility] Last Admin: 07/09/20 06:56 Dose: 60 mls/hr Documented by: Vancomycin HCl 500 mg/ (Dextrose) 100 mls @ 100 mls/hr IVPB Q24H [facility]; Protocol Last Admin: 07/08/20 18:40 Dose: 100 mls/hr Documented by: Metoprolol Succinate (Toprol Xl -) 75 mg PO DAILY [facility] Last Admin: 07/09/20 09:34 Dose: 75 mg Documented by: Polyethylene Glycol (Miralax (For Daily Use) -) 17 gm PO DAILY [facility] Last Admin: 07/09/20 09:34 Dose: 17 gm Documented by: Senna (Senna -) 2 tab PO HS PRN PRN Reason: CONSTIPATION Tamsulosin HCl (Flomax -) 0.4 mg PO DAILY@0830 [facility] - Objective Vital Signs: Vital Signs Temperature 98.3 F 07/09/20 14:07 Pulse Rate 113 H 07/09/20 14:07 Respiratory Rate 20 07/09/20 14:07 Blood Pressure 154/71 07/09/20 14:07 O2 Sat by Pulse Oximetry (%) 96 07/09/20 14:07 Constitutional: Yes: Calm Eyes: Yes: Conjunctiva Clear HENT: Yes: Atraumatic Neck: Yes: Supple Cardiovascular: Yes: S1, S2 Respiratory: Yes: CTA Bilaterally Gastrointestinal: Yes: Normal Bowel Sounds, Soft Genitourinary: Yes: WNL Musculoskeletal: Yes: WNL Edema: No Neurological: Yes: Oriented Psychiatric: Yes: Oriented Labs: CBC, BMP 07/08/20 05:35 07/09/20 09:12 Problem List - Problems (1) WILL (acute kidney injury) Code(s): N17.9 - ACUTE KIDNEY FAILURE, UNSPECIFIED (2) Afib Code(s): I48.91 - UNSPECIFIED ATRIAL FIBRILLATION (3) Constipation Code(s): K59.00 - CONSTIPATION, UNSPECIFIED Qualifiers: Constipation type: unspecified constipation type Qualified Code(s): K59.00 - Constipation, unspecified (4) Diastolic CHF Code(s): I50.30 - UNSPECIFIED DIASTOLIC (CONGESTIVE) HEART FAILURE Assessment/Plan Current Medications Generic Name Dose Route Start Last Admin Trade Name Freq PRN Reason Stop Dose Admin Apixaban 2.5 mg 07/04/20 22:00 07/09/20 09:34 Eliquis - PO 2.5 mg BID NEERAJ Administration Donepezil HCl 10 mg 07/07/20 22:00 07/08/20 21:17 Aricept - PO 10 mg HS NEERAJ Administration Gabapentin 100 mg 07/05/20 10:00 07/09/20 09:34 Neurontin - PO 100 mg BID NEERAJ Administration Ceftriaxone Sodium 1 gm/ 50 mls @ 100 mls/hr 07/05/20 10:00 07/09/20 09:35 Dextrose IVPB 100 mls/hr DAILY NEERAJ Administration Protocol Potassium Chloride 10 meq/ 1,005 mls @ 60 mls/hr 07/08/20 16:07 07/09/20 06:56 Sodium Chloride IVPB 60 mls/hr Q13H NEERAJ Administration Vancomycin HCl 500 mg/ 100 mls @ 100 mls/hr 07/08/20 17:45 07/08/20 18:40 Dextrose IVPB 100 mls/hr Q24H NEERAJ Administration Protocol Metoprolol Succinate 75 mg 07/07/20 12:15 07/09/20 09:34 Toprol Xl - PO 75 mg DAILY NEERAJ Administration Polyethylene Glycol 17 gm 07/05/20 15:00 07/09/20 09:34 Miralax (For Daily Use) - PO 17 gm DAILY NEERAJ Administration Senna 2 tab 07/05/20 14:34 Senna - PO HS PRN CONSTIPATION Tamsulosin HCl 0.4 mg 07/10/20 08:30 Flomax - PO DAILY@0830 NEERAJ Impression 1. WILL 2. chf 3. constipation 4. htn 5. ckd 6. dementia 7. a-fib Plan - renal function continues to improve - repeat labs in am - encourage po intake - lasix on hold - can restart rajendra if needed Dr Leal
[2020-07-09] MEDS: VANCOMYCIN 500 MG in DEXTROSE 5%-WATER - 100 ML IVPB SCH (17:26)
[2020-07-09] MEDS: SENNOSIDES 8.6MG TABLET (FP) PO PRN (22:25)
[2020-07-09] MEDS: DONEPEZIL HCL 10 MG TABLET (FP) PO SCH (22:26)
[2020-07-10] MEDS ORDERED: PT OWN MED DRAWER 7, Y5N ONE ×2 (08:54→17:54)
[2020-07-10] MEDS ORDERED: cefTRIAXone SODIUM 1 GM VIAL ONE (08:55)
[2020-07-10] MEDS ORDERED: DEXTROSE 5%-WATER - 50 ML IVPB ONE (08:55)
--- NOTE | 2020-07-10 09:03 | PN ---
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 (short form) - Note 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: events noted barboza removed pt did void per RN unsteady when she sits up Vital Signs - 24 hr 07/09/20 07/09/20 07/09/20 10:00 14:07 20:00 Temperature 98.2 F 98.3 F 99.3 F Pulse Rate 91 H 113 H 118 H Respiratory 20 20 20 Rate Blood Pressure 111/75 154/71 111/64 O2 Sat by Pulse 97 96 100 Oximetry (%) 07/09/20 07/10/20 07/10/20 21:00 02:00 06:00 Temperature 98.4 F 98.4 F Pulse Rate 98 H 97 H Respiratory 20 18 18 Rate Blood Pressure 105/58 L 105/59 L O2 Sat by Pulse 100 99 98 Oximetry (%) Current Medications Generic Name Dose Route Start Last Admin Trade Name Freq PRN Reason Stop Dose Admin Apixaban 2.5 mg 07/04/20 22:00 07/09/20 22:25 Eliquis - PO 2.5 mg BID NEERAJ Administration Donepezil HCl 10 mg 07/07/20 22:00 07/09/20 22:26 Aricept - PO 10 mg HS NEERAJ Administration Gabapentin 100 mg 07/05/20 10:00 07/09/20 22:25 Neurontin - PO 100 mg BID NEERAJ Administration Ceftriaxone Sodium 1 gm/ 50 mls @ 100 mls/hr 07/05/20 10:00 07/09/20 09:35 Dextrose IVPB 100 mls/hr DAILY NEERAJ Administration Protocol Vancomycin HCl 500 mg/ 100 mls @ 100 mls/hr 07/08/20 17:45 07/09/20 17:26 Dextrose IVPB 100 mls/hr Q24H NEERAJ Administration Protocol Potassium Chloride 10 meq/ 1,005 mls @ 35 mls/hr 07/09/20 16:17 07/09/20 17:25 Sodium Chloride IVPB Not Given Q28H NEERAJ Metoprolol Succinate 75 mg 07/07/20 12:15 07/09/20 09:34 Toprol Xl - PO 75 mg DAILY NEERAJ Administration Polyethylene Glycol 17 gm 07/05/20 15:00 07/09/20 09:34 Miralax (For Daily Use) - PO 17 gm DAILY NEERAJ Administration Senna 2 tab 07/05/20 14:34 07/09/20 22:25 Senna - PO 2 tab HS PRN Administration CONSTIPATION Tamsulosin HCl 0.4 mg 07/10/20 08:30 Flomax - PO DAILY@0830 [facility] Laboratory Results - last 24 hr 07/09/20 09:12 Sodium 137 Potassium 4.4 Chloride 106 Carbon Dioxide 19 L Anion Gap 13 BUN 27.7 H Creatinine 1.2 Est GFR (CKD-EPI)AfAm 49.43 Est GFR (CKD-EPI)NonAf 42.65 Random Glucose 104 Calcium 8.6 Total Bilirubin 1.3 H AST 31 ALT 28 Alkaline Phosphatase 93 Total Protein 5.7 L Albumin 2.3 L Microbiology 07/06/20 17:00 Blood Culture - Preliminary Blood - Peripheral Venous NO GROWTH OBTAINED AFTER 72 HOURS, INCUBATION TO CONTINUE FOR 2 DAYS. 07/06/20 17:00 Blood Culture - Preliminary Blood - Peripheral Venous NO GROWTH OBTAINED AFTER 72 HOURS, INCUBATION TO CONTINUE FOR 2 DAYS. 07/04/20 17:18 Blood Culture - Preliminary Blood - Peripheral Venous Staphylococcus Coagulase Neg Microbiology 07/06/20 17:00 Blood - Peripheral Venous Blood Culture - Preliminary NO GROWTH OBTAINED AFTER 72 HOURS, INCUBATION TO CONTINUE FOR 2 DAYS. 07/06/20 17:00 Blood - Peripheral Venous Blood Culture - Preliminary NO GROWTH OBTAINED AFTER 72 HOURS, INCUBATION TO CONTINUE FOR 2 DAYS. 07/04/20 17:18 Blood - Peripheral Venous Blood Culture - Preliminary Staphylococcus Coagulase Neg 07/04/20 17:10 Blood - Peripheral Venous Blood Culture - Final Staphylococcus Simulans 07/04/20 16:45 Urine - Urine Clean Catch Urine Culture - Final Escherichia Coli S1 S2 irregular No pallor Weak Lungs decreased breath sounds Abd- soft, NT No edema PLAN Echo--->no vegetations renal sono-- no hydronephrosis all imaging noted renal function good blood cultures-- no growth previous blood culture--staph simulans iv antibiotics ID and Renal eval noted Urology eval --appreciated Problem List - Problems (1) WILL (acute kidney injury) Code(s): N17.9 - ACUTE KIDNEY FAILURE, UNSPECIFIED (2) Afib Code(s): I48.91 - UNSPECIFIED ATRIAL FIBRILLATION (3) Bacteremia Code(s): R78.81 - BACTEREMIA (4) Diastolic CHF Code(s): I50.30 - UNSPECIFIED DIASTOLIC (CONGESTIVE) HEART FAILURE (5) Generalized weakness Code(s): R53.1 - WEAKNESS (6) Sepsis Code(s): A41.9 - SEPSIS, UNSPECIFIED ORGANISM (7) UTI (urinary tract infection) Code(s): N39.0 - URINARY TRACT INFECTION, SITE NOT SPECIFIED Qualifiers: Urinary tract infection type: acute cystitis Hematuria presence: with hematuria Qualified Code(s): N30.01 - Acute cystitis with hematuria
[2020-07-10] MEDS: CEFTRIAXONE 1 GM in DEXTROSE 5%-WATER - 50 ML IVPB SCH (09:28)
[2020-07-10] MEDS: TAMSULOSIN HCL 0.4 MG CAP PO SCH (09:30)
[2020-07-10] MEDS: GABAPENTIN 100 MG CAPSULE PO SCH ×2 (09:31→20:59)
[2020-07-10] MEDS: APIXABAN 2.5 MG TABLET PO SCH ×2 (09:31→20:59)
[2020-07-10] MEDS: metoPROLOL SUCCINATE 25 MG TAB.SR.24H (FP) PO SCH (09:31)
[2020-07-10] MEDS: POTASSIUM CHLORIDE 10 MEQ in SODIUM CHLORIDE 0.45% 1,000 ML IVPB SCH ×2 (09:47→20:20)
[2020-07-10] MEDS: POLYETHYLENE GLYCOL 3350 119 GM BTL PO SCH (09:56)
--- NOTE | 2020-07-10 13:14 | PN ---
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 (short form) - Note 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: no complaints, feels well, barboza has been removed eating lunch no cough Vital Signs Period Temp Pulse Resp BP Sys/Cisneros Pulse Ox Last 24 Hr 98.3 F-99.5 F 97-118 18-20 105-154/58-72 96-100 cor-rrr lungs clear abd soft, nt ext noedema CBC, BMP 07/08/20 05:35 07/09/20 09:12 Microbiology 07/06/20 17:00 Blood - Peripheral Venous Blood Culture - Preliminary NO GROWTH OBTAINED AFTER 72 HOURS, INCUBATION TO CONTINUE FOR 2 DAYS. 07/06/20 17:00 Blood - Peripheral Venous Blood Culture - Preliminary NO GROWTH OBTAINED AFTER 72 HOURS, INCUBATION TO CONTINUE FOR 2 DAYS. 07/04/20 17:18 Blood - Peripheral Venous Blood Culture - Preliminary Staphylococcus Coagulase Neg 07/04/20 17:10 Blood - Peripheral Venous Blood Culture - Final Staphylococcus Simulans 07/04/20 16:45 Urine - Urine Clean Catch Urine Culture - Final Escherichia Coli a/p SCN bacteremia -continue vancomycin, blood cultures repeated and negative, have asked micro to ID the other set ecoli uti-continue rocephin ckd -improved-barboza removed, voiding trial await if of blood culture continue vanco and rocephin Problem List - Problems (1) Bacteremia Code(s): R78.81 - BACTEREMIA (2) UTI (urinary tract infection) Code(s): N39.0 - URINARY TRACT INFECTION, SITE NOT SPECIFIED Qualifiers: Urinary tract infection type: acute cystitis Hematuria presence: with hematuria Qualified Code(s): N30.01 - Acute cystitis with hematuria (3) Lactic acidosis Code(s): E87.2 - ACIDOSIS (4) WILL (acute kidney injury) Code(s): N17.9 - ACUTE KIDNEY FAILURE, UNSPECIFIED
[2020-07-10] MEDS: VANCOMYCIN 500 MG in DEXTROSE 5%-WATER - 100 ML IVPB SCH (18:05)
--- NOTE | 2020-07-10 18:11 | PN ---
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 (short form) - Note 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: Problems 1. WILL 2. chf 3. constipation 4. htn 5. ckd 6. dementia 7. a-fib Active Medications Apixaban (Eliquis -) 2.5 mg PO BID [facility] Last Admin: 07/10/20 09:31 Dose: 2.5 mg Documented by: Donepezil HCl (Aricept -) 10 mg PO HS [facility] Last Admin: 07/09/20 22:26 Dose: 10 mg Documented by: Gabapentin (Neurontin -) 100 mg PO BID [facility] Last Admin: 07/10/20 09:31 Dose: 100 mg Documented by: Ceftriaxone Sodium 1 gm/ (Dextrose) 50 mls @ 100 mls/hr IVPB DAILY [facility]; Protocol Last Admin: 07/10/20 09:28 Dose: 100 mls/hr Documented by: Vancomycin HCl 500 mg/ (Dextrose) 100 mls @ 100 mls/hr IVPB Q24H [facility]; Protocol Last Admin: 07/10/20 18:05 Dose: 100 mls/hr Documented by: Potassium Chloride 10 meq/ (Sodium Chloride) 1,005 mls @ 35 mls/hr IVPB Q28H [facility] Last Admin: 07/10/20 09:47 Dose: 35 mls/hr Documented by: Metoprolol Succinate (Toprol Xl -) 75 mg PO DAILY [facility] Last Admin: 07/10/20 09:31 Dose: 75 mg Documented by: Polyethylene Glycol (Miralax (For Daily Use) -) 17 gm PO DAILY [facility] Last Admin: 07/10/20 09:56 Dose: 17 gm Documented by: Senna (Senna -) 2 tab PO HS PRN PRN Reason: CONSTIPATION Last Admin: 07/09/20 22:25 Dose: 2 tab Documented by: Tamsulosin HCl (Flomax -) 0.4 mg PO DAILY@0830 [facility] Last Admin: 07/10/20 09:30 Dose: 0.4 mg Documented by: Last Vital Signs Temp Pulse Resp BP Pulse Ox 99 F 102 H 18 137/72 98 07/10/20 15:00 07/10/20 15:00 07/10/20 15:00 07/10/20 09:26 07/10/20 09:26 Constitutional: Yes: Calm Eyes: Yes: Conjunctiva Clear HENT: Yes: Atraumatic Neck: Yes: Supple Cardiovascular: Yes: S1, S2 Respiratory: Yes: CTA Bilaterally Gastrointestinal: Yes: Normal Bowel Sounds, Soft Genitourinary: Yes: WNL Musculoskeletal: Yes: WNL Edema: No Neurological: Yes: Oriented Psychiatric: Yes: Oriented CBC, BMP 07/08/20 05:35 07/09/20 09:12 IMP Prerenal azotemia improved Plan - renal function continues to improve - repeat labs in am - encourage po intake - lasix on hold - can restart rajendra if needed
[2020-07-10] MEDS ORDERED: ACETAMINOPHEN 325 MG TABLET (FP) PO ONE (20:41)
[2020-07-10] MEDS: SENNOSIDES 8.6MG TABLET (FP) PO PRN (20:59)
[2020-07-10] MEDS: DONEPEZIL HCL 10 MG TABLET (FP) PO SCH (21:00)
[2020-07-10 21:58] LABS: BASO % 0.3 % (0-2.0); EOS % 0.2 % (0-4.5); HEMATOCRIT 32.7 % (32.4-45.2); HEMOGLOBIN 10.8 GM/dL (10.7-15.3); LYMPH % 4.7 % (8-40); MCH 29.5 pg (25.7-33.7); MCHC 33.1 g/dl (32.0-36.0); MEAN CELL VOLUME 89.3 fl (80-96); MEAN PLT VOLUME 9.2 fl (7.5-11.1); MONO % 13.1 % (3.8-10.2); NEUT % 81.7 % (42.8-82.8); PLATELET COUNT 210 K/MM3 (134-434); RBC 3.66 M/mm3 (3.60-5.2); RDW 15.6 % (11.6-15.6); WHITE BLOOD COUNT 9.1 K/mm3 (4.0-10.0)
[2020-07-10 22:24] LABS: ALBUMIN 1.8 g/dl (3.4-5.0); BILIRUBIN,TOTAL 0.4 mg/dL (0.2-1); BLOOD UREA NITROGEN 23.8 mg/dL (7-18); CALCIUM 8.1 mg/dL (8.5-10.1); CREATININE 1.4 mg/dL (0.55-1.3); POTASSIUM 3.8 mmol/L (3.5-5.1); TOT PROT 5.1 g/dl (6.4-8.2)
[2020-07-11 01:21] LABS: EPI CELLS 17 /uL (0-25.1); HYALINE CASTS 3 /uL (0-3.1); URINE APPEARANCE CLOUDY; URINE BACTERIA 4 /uL (0-1359); URINE BILIRUBIN NEGATIVE (NEGATIVE); URINE COLOR YELLOW; URINE GLUCOSE (UA) NEGATIVE (NEGATIVE); URINE KETONE NEGATIVE (NEGATIVE); URINE LEUK ESTERASE NEGATIVE (NEGATIVE); URINE NITRITE NEGATIVE (NEGATIVE); URINE PROTEIN 1+ (NEGATIVE); URINE RBC 20 /uL (0-23.9); URINE UROBILINOGEN 0.2 mg/dL (0.2-1.0); URINE WBC 11 /uL (0-25.8)
[2020-07-11] MEDS ORDERED: cefTRIAXone SODIUM 1 GM VIAL ONE (09:01)
[2020-07-11] MEDS ORDERED: DEXTROSE 5%-WATER - 50 ML IVPB ONE (09:01)
[2020-07-11] MEDS: metoPROLOL SUCCINATE 25 MG TAB.SR.24H (FP) PO SCH (09:10)
[2020-07-11] MEDS: TAMSULOSIN HCL 0.4 MG CAP PO SCH (09:10)
[2020-07-11] MEDS: GABAPENTIN 100 MG CAPSULE PO SCH ×2 (09:11→21:45)
[2020-07-11] MEDS: CEFTRIAXONE 1 GM in DEXTROSE 5%-WATER - 50 ML IVPB SCH (09:11)
[2020-07-11] MEDS: APIXABAN 2.5 MG TABLET PO SCH ×2 (09:11→21:44)
[2020-07-11] MEDS: POTASSIUM CHLORIDE 10 MEQ in SODIUM CHLORIDE 0.45% 1,000 ML IVPB SCH (09:17)
[2020-07-11] MEDS ORDERED: CEFTRIAXONE 1,000 MG in DEXTROSE 5%-WATER - 50 ML IVPB ONE (10:00)
--- NOTE | 2020-07-11 12:20 | PN ---
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 (short form) - Note 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: alert no complaints fever overnight Vital Signs Period Temp Pulse Resp BP Sys/Cisneros Pulse Ox Last 24 Hr 97.5 F-101.1 F 94-112 17-18 93-120/48-73 95-100 cor-rrr lungs- decreased bs at bases abd soft,nt ext no edema CBC, BMP 07/10/20 21:15 07/10/20 21:30 Microbiology 07/06/20 17:00 Blood - Peripheral Venous Blood Culture - Preliminary NO GROWTH OBTAINED AFTER 96 HOURS, INCUBATION TO CONTINUE FOR 1 DAYS. 07/06/20 17:00 Blood - Peripheral Venous Blood Culture - Preliminary NO GROWTH OBTAINED AFTER 96 HOURS, INCUBATION TO CONTINUE FOR 1 DAYS. 07/04/20 17:18 Blood - Peripheral Venous Blood Culture - Preliminary Staphylococcus Coagulase Neg 07/04/20 17:10 Blood - Peripheral Venous Blood Culture - Final Staphylococcus Simulans 07/04/20 16:45 Urine - Urine Clean Catch Urine Culture - Final Escherichia Coli a/p fever- recultured last night SCN bacteremia -continue vancomycin, blood cultures repeated and negative, have asked micro to ID the other set ecoli uti-continue rocephin ckd -improved-barboza removed, voiding trial await if of blood culture continue vanco and rocephin check labs in am vanco trough Problem List - Problems (1) Bacteremia Code(s): R78.81 - BACTEREMIA (2) UTI (urinary tract infection) Code(s): N39.0 - URINARY TRACT INFECTION, SITE NOT SPECIFIED Qualifiers: Urinary tract infection type: acute cystitis Hematuria presence: with hematuria Qualified Code(s): N30.01 - Acute cystitis with hematuria (3) Lactic acidosis Code(s): E87.2 - ACIDOSIS (4) WILL (acute kidney injury) Code(s): N17.9 - ACUTE KIDNEY FAILURE, UNSPECIFIED
[2020-07-11] MEDS: POLYETHYLENE GLYCOL 3350 119 GM BTL PO SCH (12:54)
--- NOTE | 2020-07-11 13:42 | PN ---
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 (short form) - Note 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: events noted barboza removed pt did void per RN Noted high temperature Laboratory Results - last 24 hr 07/09/20 09:12 Sodium 137 Potassium 4.4 Chloride 106 Carbon Dioxide 19 L Anion Gap 13 BUN 27.7 H Creatinine 1.2 Est GFR (CKD-EPI)AfAm 49.43 Est GFR (CKD-EPI)NonAf 42.65 Random Glucose 104 Calcium 8.6 Total Bilirubin 1.3 H AST 31 ALT 28 Alkaline Phosphatase 93 Total Protein 5.7 L Albumin 2.3 L Microbiology 07/06/20 17:00 Blood Culture - Preliminary Blood - Peripheral Venous NO GROWTH OBTAINED AFTER 72 HOURS, INCUBATION TO CONTINUE FOR 2 DAYS. 07/06/20 17:00 Blood Culture - Preliminary Blood - Peripheral Venous NO GROWTH OBTAINED AFTER 72 HOURS, INCUBATION TO CONTINUE FOR 2 DAYS. 07/04/20 17:18 Blood Culture - Preliminary Blood - Peripheral Venous Staphylococcus Coagulase Neg Microbiology 07/06/20 17:00 Blood - Peripheral Venous Blood Culture - Preliminary NO GROWTH OBTAINED AFTER 72 HOURS, INCUBATION TO CONTINUE FOR 2 DAYS. 07/06/20 17:00 Blood - Peripheral Venous Blood Culture - Preliminary NO GROWTH OBTAINED AFTER 72 HOURS, INCUBATION TO CONTINUE FOR 2 DAYS. 07/04/20 17:18 Blood - Peripheral Venous Blood Culture - Preliminary Staphylococcus Coagulase Neg 07/04/20 17:10 Blood - Peripheral Venous Blood Culture - Final Staphylococcus Simulans 07/04/20 16:45 Urine - Urine Clean Catch Urine Culture - Final Escherichia Coli S1 S2 irregular No pallor Weak Lungs decreased breath sounds Abd- soft, NT No edema PLAN feverblood cultures pending Continue with antibiotics per ID patient is voiding Echo--->no vegetations renal sono-- no hydronephrosis all imaging noted renal function good \ iv antibiotics ID and Renal eval noted Urology eval --appreciated Problem List - Problems (1) WILL (acute kidney injury) Code(s): N17.9 - ACUTE KIDNEY FAILURE, UNSPECIFIED (2) Afib Code(s): I48.91 - UNSPECIFIED ATRIAL FIBRILLATION (3) Bacteremia Code(s): R78.81 - BACTEREMIA (4) Diastolic CHF Code(s): I50.30 - UNSPECIFIED DIASTOLIC (CONGESTIVE) HEART FAILURE (5) Generalized weakness Code(s): R53.1 - WEAKNESS (6) Sepsis Code(s): A41.9 - SEPSIS, UNSPECIFIED ORGANISM (7) UTI (urinary tract infection) Code(s): N39.0 - URINARY TRACT INFECTION, SITE NOT SPECIFIED Qualifiers: Urinary tract infection type: acute cystitis Hematuria presence: with jame turia Qualified Code(s): N30.01 - Acute cystitis with hematuria
[2020-07-11] MEDS ORDERED: PT OWN MED DRAWER 7, Y5N ONE (17:28)
[2020-07-11] MEDS: VANCOMYCIN 500 MG in DEXTROSE 5%-WATER - 100 ML IVPB SCH (17:39)
[2020-07-11] MEDS ORDERED: ACETAMINOPHEN 325 MG TABLET (FP) PO PRN (18:37)
--- NOTE | 2020-07-11 18:48 | PN ---
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 (short form) - Note 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: Problems 1. WILL 2. chf 3. constipation 4. htn 5. ckd 6. dementia 7. a-fib Active Medications Acetaminophen (Tylenol -) 650 mg PO Q6H PRN PRN Reason: FEVER/PAIN Apixaban (Eliquis -) 2.5 mg PO BID [facility] Last Admin: 07/11/20 09:11 Dose: 2.5 mg Documented by: Donepezil HCl (Aricept -) 10 mg PO HS [facility] Last Admin: 07/10/20 21:00 Dose: 10 mg Documented by: Gabapentin (Neurontin -) 100 mg PO BID [facility] Last Admin: 07/11/20 09:11 Dose: 100 mg Documented by: Ceftriaxone Sodium 1 gm/ (Dextrose) 50 mls @ 100 mls/hr IVPB DAILY [facility]; Leigh col Last Admin: 07/11/20 09:11 Dose: 100 mls/hr Documented by: Vancomycin HCl 500 mg/ (Dextrose) 100 mls @ 100 mls/hr IVPB Q24H [facility]; Protocol Last Admin: 07/11/20 17:39 Dose: 100 mls/hr Documented by: Potassium Chloride 10 meq/ (Sodium Chloride) 1,005 mls @ 35 mls/hr IVPB Q28H [facility] Last Admin: 07/11/20 09:17 Dose: 35 mls/hr Documented by: Metoprolol Succinate (Toprol Xl -) 75 mg PO DAILY [facility] Last Admin: 07/11/20 09:10 Dose: 75 mg Documented by: Mirtazapine (Remeron -) 7.5 mg PO HS [facility] Polyethylene Glycol (Miralax (For Daily Use) -) 17 gm PO DAILY [facility] Last Admin: 07/11/20 12:54 Dose: 17 gm Documented by: Senna (Senna -) 2 tab PO HS PRN PRN Reason: CONSTIPATION Last Admin: 07/10/20 20:59 Dose: 2 tab Documented by: Tamsulosin HCl (Flomax -) 0.4 mg PO DAILY@0830 [facility] Last Admin: 07/11/20 09:10 Dose: 0.4 mg Documented by: Last Vital Signs Temp Pulse Resp BP Pulse Ox 98 F 90 18 117/67 97 07/11/20 12:00 07/11/20 12:00 07/11/20 12:00 07/11/20 12:00 07/11/20 12:00 Constitutional: Yes: Calm Eyes: Yes: Conjunctiva Clear HENT: Yes: Atraumatic Neck: Yes: Supple Cardiovascular: Yes: S1, S2 Respiratory: Yes: CTA Bilaterally Gastrointestinal: Yes: Normal Bowel Sounds, Soft Genitourinary: Yes: WNL Musculoskeletal: Yes: WNL Edema: No Neurological: Yes: Oriented Psychiatric: Yes: Oriented CBC, BMP 07/10/20 21:15 07/10/20 21:30 IMP Prerenal azotemia improved Plan f/u renal function
--- NOTE | 2020-07-11 21:10 | PN ---
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 (short form) - Note 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: Episodic Note: 07/11@9:10pm Called by RN patient with urinary retention of > 300 cc for the past 2 nights. She was straight catherized for the past 2 nights. Lab work reviewed. Creatinine 1.4 today >1.2. Blood pressure is normotensive. UA 07/10 negative, urine culture pending. Remains afebrile. Consider Urology evaluation . Primary Attending to review findings in am . Visit type - Emergency Visit Emergency Visit: No - New Patient This patient is new to me today: No - Critical Care Critical Care patient: No - Medication Review Med list reviewed for High Risk Meds patients 65 and older: No
[2020-07-11] MEDS: MIRTAZAPINE 15 MG TABLET (FP) PO SCH (21:44)
[2020-07-11] MEDS: SENNOSIDES 8.6MG TABLET (FP) PO PRN (21:45)
[2020-07-11] MEDS: DONEPEZIL HCL 10 MG TABLET (FP) PO SCH (21:46)
[2020-07-12] MEDS: POTASSIUM CHLORIDE 10 MEQ in SODIUM CHLORIDE 0.45% 1,000 ML IVPB SCH ×2 (00:44→12:20)
[2020-07-12] MEDS ORDERED: cefTRIAXone SODIUM 1 GM VIAL ONE (08:28)
[2020-07-12] MEDS ORDERED: DEXTROSE 5%-WATER - 50 ML IVPB ONE (08:29)
[2020-07-12 08:47] LABS: BASO % 0.1 % (0-2.0); EOS % 0.8 % (0-4.5); HEMATOCRIT 35.4 % (32.4-45.2); HEMOGLOBIN 11.6 GM/dL (10.7-15.3); LYMPH % 5.3 % (8-40); MCH 29.5 pg (25.7-33.7); MCHC 32.9 g/dl (32.0-36.0); MEAN CELL VOLUME 89.8 fl (80-96); MEAN PLT VOLUME 9.1 fl (7.5-11.1); MONO % 9.8 % (3.8-10.2); PLATELET COUNT 209 K/MM3 (134-434); RBC 3.95 M/mm3 (3.60-5.2); RDW 16.2 % (11.6-15.6); WHITE BLOOD COUNT 7.2 K/mm3 (4.0-10.0)
[2020-07-12 09:18] LABS: ALBUMIN 1.8 g/dl (3.4-5.0); BILIRUBIN,TOTAL 0.8 mg/dL (0.2-1); BLOOD UREA NITROGEN 21.5 mg/dL (7-18); CALCIUM 8.2 mg/dL (8.5-10.1); CREATININE 1.1 mg/dL (0.55-1.3); POTASSIUM 3.9 mmol/L (3.5-5.1); TOT PROT 5.1 g/dl (6.4-8.2)
[2020-07-12] MEDS: GABAPENTIN 100 MG CAPSULE PO SCH ×2 (09:23→21:42)
[2020-07-12] MEDS: TAMSULOSIN HCL 0.4 MG CAP PO SCH (09:23)
[2020-07-12] MEDS: metoPROLOL SUCCINATE 25 MG TAB.SR.24H (FP) PO SCH (09:23)
[2020-07-12] MEDS: APIXABAN 2.5 MG TABLET PO SCH ×2 (09:23→21:42)
[2020-07-12] MEDS: POLYETHYLENE GLYCOL 3350 119 GM BTL PO SCH (09:32)
--- NOTE | 2020-07-12 10:18 | CONSULT ---
Admitting History and Physical - Admission History of Present Illness: 79 y/o F admitted with sepsis r/ t UTI, weakness, WILL - constipation, distended bladder, urinary retention Reconsulted this morning for recurrent urinary retention. soft diet, thin liquids Ensure Enlive daily Ensure clear daily/Magic cup Poor PO intake Selected Entries 07/10/20 07/10/20 07/10/20 06:00 13:52 14:36 Breakfast 25% Diet Tolerated Fair Fair Fair Lunch 50% Supper Temperature Pulse Rate Blood Pressure O2 Sat by Pulse Oximetry (%) Oxygen Delivery Method 07/10/20 07/10/20 07/11/20 16:30 23:00 06:00 Breakfast Diet Tolerated Fair Fair Fair Lunch Supper 50% Temperature Pulse Rate Blood Pressure O2 Sat by Pulse Oximetry (%) Oxygen Delivery Method 07/11/20 07/11/20 07/11/20 06:39 09:00 11:22 Breakfast 0 Diet Tolerated Lunch Supper Temperature Pulse Rate Blood Pressure O2 Sat by Pulse 98 97 Oximetry (%) Oxygen Delivery Method 07/11/20 07/11/20 07/11/20 12:00 14:30 17:24 Breakfast Diet Tolerated Fair Fair Lunch 25% Supper 50% Temperature Pulse Rate Blood Pressure O2 Sat by Pulse 97 100 Oximetry (%) Oxygen Delivery Method 07/11/20 07/11/20 07/11/20 21:00 21:07 23:00 Breakfast Diet Tolerated Fair Lunch Supper Temperature Pulse Rate Blood Pressure O2 Sat by Pulse 96 96 Oximetry (%) Oxygen Delivery Room Air Method 07/12/20 07/12/20 07/12/20 02:00 06:00 06:36 Breakfast Diet Tolerated Fair Lunch Supper Temperature 98.4 F 98.8 F Pulse Rate 98 H Blood Pressure 105/70 O2 Sat by Pulse 98 Oximetry (%) Oxygen Delivery Method 07/12/20 09:31 Breakfast 25% Diet Tolerated Fair Lunch Supper Temperature Pulse Rate Blood Pressure O2 Sat by Pulse Oximetry (%) Oxygen Delivery Method Laboratory Tests 07/04/20 07/12/20 16:34 08:04 WBC 7.2 COVID-19 (BRANDI) Not detected Verbal, seen accepting/tolerating Vege elodiaroberte well id-a/p fever- recultured last night SCN bacteremia -continue vancomycin, blood cultures repeated and negative, have asked micro to ID the other set ecoli uti-continue rocephin ckd -improved-barboza removed, voiding trial cxr -new right base changes History Source: Medical Record Limitations to Obtaining History: Clinical Condition - Past Medical History [employer]: Yes: Dementia Cardiovascular: Yes: AFIB, CHF, HTN Renal/: Yes: Renal Inusuff ...LMP: 07/04/20 ...: No Endocrine: Yes: Hypothyroidism - Past Surgical History Past Surgical History: Yes: None - Smoking History Smoking history: Never smoked Have you smoked in the past 12 months: No - Alcohol/Substance Use Hx Alcohol Use: No History of Substance Use: reports: None - Social History ADL: Family Assistance ([employer]) History of Recent Travel: No History - Admission Reason For Visit: URINARY TRACT INFECTION,WEAKNESS OF BOTH LOWER - Diagnostics X-ray: Report Reviewed (new right base changes) - General Mental Status: Awake and Alert, Able to Follow Commands, Confused Attention: Intact Ability to Follow Directions: Good Head/Neck Control: Fair - Hearing Hearing: Functional Hearing: Normal Hearing Aide: No Speech Evaluation - Communication Primary Language: CHINESE Communication: Yes: Within Normal Limits Oral Expression Ability: Yes: No Impairment - Speech Production Intelligibility: Yes: WNL - Speech Characteristics Voice Loudness: Normal Voice Pitch: Yes: Normal Voice Phonatory-based Quality: Yes: Normal Speech Pattern: Normal Speech Clarity: < 100% Nasal Resonance: Normal Articulation: Yes: Precise - Language/Auditory Comprehension Follows: Yes: 1 Stage Simple Commands Observation: Able to respond to yes/no queries: Yes - Language/Verbal Expression Functional Communication Status: Yes: WNL - Swallow Evaluation/Bedside Assessment Current Nutritional Intake: Soft, Thin Liquids (soft diet, thin liquids Ensure Enlive daily Ensure clear daily/Magic cup), Other (soft diet, thin liquids Ensure Enlive daily Ensure clear daily/Magic cup) Oral Secretions: Yes: WFL Dentition: Yes: Edentulous Pucker Lips: Normal Smile: Normal Lingual Movement: Symmetric Lingual Speed of Movement: Normal Lingual Movement Strgth Against Opposition: Normal Lingual Movement Characteristics: Normal Chewing: WFL (edentulous, does well if food is soft) Oral Prep Time: WFL A-P Transit: WFL Pocketing: None Timing of Swallow: WFL Coughing/Throat Clear: No Change in Voice: No Recommendations - Speech Evaluation, Impression/Plan Impression: Verbal, seen accepting/tolerating Vege lasagne/thin liquid well. Silent aspiration can not be r/o at bedside- Not specifically suspected but. new right base changes on CXR. If aspiration suspected by medical team, may benefit from MBS - Dysphagia Impressions/Plan Dysphagia Impressions: Minimal Impairment, Ongoing Evaluation *Silent aspiration: cannot be R/O at bedside Dysphagia Treatment Plan: Small Bites, Chin Tuck/Down, Clear Pocket Food, Trial Feedings, Safe Rate, 1/2 tsp. at a time, Elevate HOB during feed Recommendations: Modified Barium Swallow (if aspiration is suspected) - Recommendations Diet Consistency: Mechanical Soft Liquids: Thin Liquids Supplement: Ensure, Magic Cup, Ensure Pudding
[2020-07-12] MEDS ORDERED: PT OWN MED DRAWER 7, Y5N ONE ×3 (12:15→21:47)
[2020-07-12 12:17] LABS: EPI CELLS >36 /uL (0-25.1); HYALINE CASTS 4 /uL (0-3.1); URINE APPEARANCE CLOUDY; URINE BACTERIA 3 /uL (0-1359); URINE BILIRUBIN NEGATIVE (NEGATIVE); URINE COLOR YELLOW; URINE GLUCOSE (UA) NEGATIVE (NEGATIVE); URINE KETONE NEGATIVE (NEGATIVE); URINE LEUK ESTERASE NEGATIVE (NEGATIVE); URINE NITRITE NEGATIVE (NEGATIVE); URINE PROTEIN 1+ (NEGATIVE); URINE UROBILINOGEN 0.2 mg/dL (0.2-1.0); URINE WBC 75 /uL (0-25.8)
--- NOTE | 2020-07-12 12:43 | PN ---
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, Physician History of Present Illness: patient seen and examined Chart is reviewed looks better Awake And comfortable feels better urinary issues persist Afebrile. - Current Medication List Current Medications: Active Medications Acetaminophen (Tylenol -) 650 mg PO Q6H PRN PRN Reason: FEVER/PAIN Apixaban (Eliquis -) 2.5 mg PO BID [facility] Last Admin: 07/12/20 09:23 Dose: 2.5 mg Documented by: Donepezil HCl (Aricept -) 10 mg PO HS [facility] Last Admin: 07/11/20 21:46 Dose: 10 mg Documented by: Gabapentin (Neurontin -) 100 mg PO BID [facility] Last Admin: 07/12/20 09:23 Dose: 100 mg Documented by: Vancomycin HCl 500 mg/ (Dextrose) 100 mls @ 100 mls/hr IVPB Q24H [facility]; Protocol Last Admin: 07/11/20 17:39 Dose: 100 mls/hr Documented by: Potassium Chloride 10 meq/ (Sodium Chloride) 1,005 mls @ 35 mls/hr IVPB Q28H [facility] Last Admin: 07/12/20 12:20 Dose: 35 mls/hr Documented by: Metoprolol Succinate (Toprol Xl -) 75 mg PO DAILY [facility] Last Admin: 07/12/20 09:23 Dose: 75 mg Documented by: Mirtazapine (Remeron -) 7.5 mg PO HS [facility] Last Admin: 07/11/20 21:44 Dose: 7.5 mg Documented by: Polyethylene Glycol (Miralax (For Daily Use) -) 17 gm PO DAILY [facility] Last Admin: 07/12/20 09:32 Dose: Not Given Documented by: Senna (Senna -) 2 tab PO HS PRN PRN Reason: CONSTIPATION Last Admin: 07/11/20 21:45 Dose: 2 tab Documented by: Tamsulosin HCl (Flomax -) 0.4 mg PO DAILY@0830 [facility] Last Admin: 07/12/20 09:23 Dose: 0.4 mg Documented by: - Objective Vital Signs: Vital Signs Temperature 97.8 F 07/12/20 10:00 Pulse Rate 100 H 07/12/20 10:00 Respiratory Rate 17 07/12/20 10:00 Blood Pressure 134/76 07/12/20 10:00 O2 Sat by Pulse Oximetry (%) 100 07/12/20 10:00 Constitutional: Yes: No Distress, Calm Neck: Yes: Supple Cardiovascular: Yes: Regular Rate and Rhythm Respiratory: Yes: Diminished Gastrointestinal: Yes: Soft Edema: No Neurological: Yes: Alert Labs: CBC, BMP 07/12/20 08:04 07/12/20 08:04 Problem List - Problems (1) WILL (acute kidney injury) Code(s): N17.9 - ACUTE KIDNEY FAILURE, UNSPECIFIED (2) Afib Code(s): I48.91 - UNSPECIFIED ATRIAL FIBRILLATION (3) Constipation Code(s): K59.00 - CONSTIPATION, UNSPECIFIED Qualifiers: Constipation type: unspecified constipation type Qualified Code(s): K59.00 - Constipation, unspecified (4) Encounter for screening laboratory testing for COVID-19 virus Code(s): Z11.59 - ENCOUNTER FOR SCREENING FOR OTHER VIRAL DISEASES (5) Generalized weakness Code(s): R53.1 - WEAKNESS (6) Sepsis Code(s): A41.9 - SEPSIS, UNSPECIFIED ORGANISM (7) Thyroid nodule Code(s): E04.1 - NONTOXIC SINGLE THYROID NODULE (8) UTI (urinary tract infection) Code(s): N39.0 - URINARY TRACT INFECTION, SITE NOT SPECIFIED Qualifiers: Urinary tract infection type: acute cystitis Hematuria presence: with hematuria Qualified Code(s): N30.01 - Acute cystitis with hematuria (9) Dementia Code(s): F03.90 - UNSPECIFIED DEMENTIA WITHOUT BEHAVIORAL DISTURBANCE Assessment/Plan overall improved Continue antibiotics Follow-up cultures-- repeat -ve Monitor: vancomycin level Kidney function--- back to baseline Out of bed to chair Physical therapy will continue to follow d/c planning -- will likely need rehab . Anticipate in 1-2 days Urology to follow. d/W pts son also today
--- NOTE | 2020-07-12 13:41 | PN ---
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 (short form) - Note 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: alert doing well Vital Signs Period Temp Pulse Resp BP Sys/Cisneros Pulse Ox Last 24 Hr 97.8 F-100.3 F 98-110 16-18 105-134/67-76 96-100 cor-rrr lungs clear abd soft,nt ext no edema CBC, BMP 07/12/20 08:04 07/12/20 08:04 Microbiology 07/04/20 17:18 Blood - Peripheral Venous Blood Culture - Final Staph Hominis Sub Sp Hominis 07/10/20 23:34 Urine - Urine - Catheterized Urine Culture - Final NO GROWTH OBTAINED 07/10/20 21:15 Blood - Peripheral Venous Blood Culture - Preliminary NO GROWTH OBTAINED AFTER 24 HOURS, INCUBATION TO CONTINUE FOR 4 DAYS. 07/10/20 21:15 Blood - Peripheral Venous Blood Culture - Preliminary NO GROWTH OBTAINED AFTER 24 HOURS, INCUBATION TO CONTINUE FOR 4 DAYS. 07/06/20 17:00 Blood - Peripheral Venous Blood Culture - Final NO GROWTH AFTER 5 DAYS INCUBATION 07/06/20 17:00 Blood - Peripheral Venous Blood Culture - Final NO GROWTH AFTER 5 DAYS INCUBATION 07/04/20 17:10 Blood - Peripheral Venous Blood Culture - Final Staphylococcus Simulans 07/04/20 16:45 Urine - Urine Clean Catch Urine Culture - Final Escherichia Coli a/p fever- recultured last night SCN bacteremia -continue vancomycin, blood cultures repeated and negative, have asked micro to ID the other set ecoli uti-d/c antibioitics has completed 7 days ckd -improved-barboza removed, voiding trial blood culture isolates do not match d/w skin contaminants can d/c vancomycin observ off antibiotics Problem List - Problems (1) Bacteremia Code(s): R78.81 - BACTEREMIA (2) UTI (urinary tract infection) Code(s): N39.0 - URINARY TRACT INFECTION, SITE NOT SPECIFIED Qualifiers: Urinary tract infection type: acute cystitis Hematuria presence: with hematuria Qualified Code(s): N30.01 - Acute cystitis with hematuria (3) Lactic acidosis Code(s): E87.2 - ACIDOSIS (4) WILL (acute kidney injury) Code(s): N17.9 - ACUTE KIDNEY FAILURE, UNSPECIFIED
--- NOTE | 2020-07-12 16:08 | PN ---
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, Physician History of Present Illness: Pt seen and examined at bedside. She is awake and alert. She denies shortness of breath. - Current Medication List Current Medications: Active Medications Acetaminophen (Tylenol -) 650 mg PO Q6H PRN PRN Reason: FEVER/PAIN Apixaban (Eliquis -) 2.5 mg PO BID [facility] Last Admin: 07/12/20 09:23 Dose: 2.5 mg Documented by: Donepezil HCl (Aricept -) 10 mg PO [facility] Last Admin: 07/11/20 21:46 Dose: 10 mg Documented by: Gabapentin (Neurontin -) 100 mg PO BID [facility] Last Admin: 07/12/20 09:23 Dose: 100 mg Documented by: Metoprolol Succinate (Toprol Xl -) 75 mg PO DAILY [facility] Last Admin: 07/12/20 09:23 Dose: 75 mg Documented by: Mirtazapine (Remeron -) 7.5 mg PO [facility] Last Admin: 07/11/20 21:44 Dose: 7.5 mg Documented by: Polyethylene Glycol (Miralax (For Daily Use) -) 17 gm PO DAILY [facility] Last Admin: 07/12/20 09:32 Dose: Not Given Documented by: Senna (Senna -) 2 tab PO HS PRN PRN Reason: CONSTIPATION Last Admin: 07/11/20 21:45 Dose: 2 tab Documented by: Tamsulosin HCl (Flomax -) 0.4 mg PO DAILY@0830 [facility] Last Admin: 07/12/20 09:23 Dose: 0.4 mg Documented by: - Objective Vital Signs: Vital Signs Temperature 98.8 F 07/12/20 14:00 Pulse Rate 102 H 07/12/20 14:00 Respiratory Rate 18 07/12/20 14:00 Blood Pressure 127/78 07/12/20 14:00 O2 Sat by Pulse Oximetry (%) 96 07/12/20 14:00 Constitutional: Yes: Calm Eyes: Yes: Conjunctiva Clear HENT: Yes: Atraumatic Neck: Yes: Supple Cardiovascular: Yes: S1, S2 Respiratory: Yes: CTA Bilaterally Gastrointestinal: Yes: Normal Bowel Sounds, Soft Genitourinary: Yes: Incontinence Musculoskeletal: Yes: WNL Edema: No Neurological: Yes: Oriented Psychiatric: Yes: Oriented Labs: CBC, BMP 07/12/20 08:04 07/12/20 08:04 Problem List - Problems (1) WILL (acute kidney injury) Code(s): N17.9 - ACUTE KIDNEY FAILURE, UNSPECIFIED (2) Afib Code(s): I48.91 - UNSPECIFIED ATRIAL FIBRILLATION (3) Constipation Code(s): K59.00 - CONSTIPATION, UNSPECIFIED Qualifiers: Constipation type: unspecified constipation type Qualified Code(s): K59.00 - Constipation, unspecified (4) Diastolic CHF Code(s): I50.30 - UNSPECIFIED DIASTOLIC (CONGESTIVE) HEART FAILURE Assessment/Plan Current Medications Generic Name Dose Route Start Last Admin Trade Name Freq PRN Reason Stop Dose Admin Acetaminophen 650 mg 07/11/20 18:37 Tylenol - PO Q6H PRN FEVER/PAIN Apixaban 2.5 mg 07/04/20 22:00 07/12/20 09:23 Eliquis - PO 2.5 mg BID [facility]ER[facility] Administration Donepezil HCl 10 mg 07/07/20 22:00 07/11/20 21:46 Aricept - PO 10 mg HS [facility]ERAJ Administration Gabapentin 100 mg 07/05/20 10:00 07/12/20 09:23 Neurontin - PO 100 mg BID [facility] Administration Metoprolol Succinate 75 mg 07/07/20 12:15 07/12/20 09:23 Toprol Xl - PO 75 mg DAILY [facility] Administration Mirtazapine 7.5 mg 07/11/20 22:00 07/11/20 21:44 Remeron - PO 7.5 mg HS [facility]ER[facility] Administration Polyethylene Glycol 17 gm 07/05/20 15:00 07/12/20 09:32 Miralax (For Daily Use) - PO Not Given DAILY [facility]ER[facility] Senna 2 tab 07/05/20 14:34 07/11/20 21:45 Senna - PO 2 tab HS PRN Administration CONSTIPATION Tamsulosin HCl 0.4 mg 07/10/20 08:30 07/12/20 09:23 Flomax - PO 0.4 mg DAILY@0830 [facility] Administration Impression 1. WILL 2. chf 3. constipation 4. htn 5. ckd 6. dementia 7. a-fib Plan - renal function improved - lasix on hold - monitor lytes - monitor volume status - po intake is poor - can restart rajendra if needed, remains on hold as bp is normal Dr Leal
--- NOTE | 2020-07-12 16:37 | PN ---
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 (short form) - Note 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: follow up on this 79 year old woman with dementia and high post void residual. Pt straight cath'd for 400 cc. She is voiding in to a diaper otherwise Problem List - Problems (1) Urinary retention Assessment/Plan: encourage timed voiding. willl add urecholine on top of flomax. continue bowel management. will recommend outpatient Urodynamics as well Code(s): R33.9 - RETENTION OF URINE, UNSPECIFIED
[2020-07-12] MEDS: DONEPEZIL HCL 10 MG TABLET (FP) PO SCH (21:41)
[2020-07-12] MEDS: BETHANECHOL CHLORIDE 10 MG TABLET PO SCH (21:41)
[2020-07-12] MEDS: MIRTAZAPINE 15 MG TABLET (FP) PO SCH (21:42)
[2020-07-13] MEDS ORDERED: PT OWN MED DRAWER 7, Y5N ONE (06:30)
[2020-07-13] MEDS: BETHANECHOL CHLORIDE 10 MG TABLET PO SCH ×3 (06:36→22:32)
[2020-07-13] MEDS: TAMSULOSIN HCL 0.4 MG CAP PO SCH (09:52)
[2020-07-13] MEDS: GABAPENTIN 100 MG CAPSULE PO SCH ×2 (09:52→22:32)
[2020-07-13] MEDS: APIXABAN 2.5 MG TABLET PO SCH ×2 (09:53→22:32)
[2020-07-13] MEDS: metoPROLOL SUCCINATE 25 MG TAB.SR.24H (FP) PO SCH (09:53)
[2020-07-13] MEDS: POLYETHYLENE GLYCOL 3350 119 GM BTL PO SCH (09:53)
--- NOTE | 2020-07-13 11:02 | PN ---
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
--- NOTE | 2020-07-13 12:31 | PN ---
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, Physician History of Present Illness: Pt seen and examined at bedside. SHe still has poor po intake. - Current Medication List Current Medications: Active Medications Acetaminophen (Tylenol -) 650 mg PO Q6H PRN PRN Reason: FEVER/PAIN Apixaban (Eliquis -) 2.5 mg PO BID [facility] Last Admin: 07/13/20 09:53 Dose: 2.5 mg Documented by: Bethanechol Chloride (Urecholine -) 10 mg PO TID [facility] Last Admin: 07/13/20 06:36 Dose: 10 mg Documented by: Donepezil HCl (Aricept -) 10 mg PO HS [facility] Last Admin: 07/12/20 21:41 Dose: 10 mg Documented by: Gabapentin (Neurontin -) 100 mg PO BID [facility] Last Admin: 07/13/20 09:52 Dose: 100 mg Documented by: Metoprolol Succinate (Toprol Xl -) 75 mg PO DAILY [facility] Last Admin: 07/13/20 09:53 Dose: 75 mg Documented by: Mirtazapine (Remeron -) 7.5 mg PO [facility] Last Admin: 07/12/20 21:42 Dose: 7.5 mg Documented by: Polyethylene Glycol (Miralax (For Daily Use) -) 17 gm PO DAILY [facility] Last Admin: 07/13/20 09:53 Dose: Not Given Documented by: Senna (Senna -) 2 tab PO HS PRN PRN Reason: CONSTIPATION Last Admin: 07/11/20 21:45 Dose: 2 tab Documented by: Tamsulosin HCl (Flomax -) 0.4 mg PO DAILY@0830 [facility] Last Admin: 07/13/20 09:52 Dose: 0.4 mg Documented by: - Objective Vital Signs: Vital Signs Temperature 98.0 F 07/13/20 10:00 Pulse Rate 98 H 07/13/20 10:00 Respiratory Rate 18 07/13/20 10:00 Blood Pressure 116/71 07/13/20 10:00 O2 Sat by Pulse Oximetry (%) 99 07/13/20 10:00 Constitutional: Yes: Calm Eyes: Yes: Conjunctiva Clear HENT: Yes: Atraumatic Cardiovascular: Yes: S1, S2 Respiratory: Yes: CTA Bilaterally Gastrointestinal: Yes: Soft Genitourinary: Yes: Incontinence Musculoskeletal: Yes: WNL Edema: No Neurological: Yes: Confusion Labs: CBC, BMP 07/12/20 08:04 07/12/20 08:04 Problem List - Problems (1) WILL (acute kidney injury) Code(s): N17.9 - ACUTE KIDNEY FAILURE, UNSPECIFIED (2) Afib Code(s): I48.91 - UNSPECIFIED ATRIAL FIBRILLATION (3) Constipation Code(s): K59.00 - CONSTIPATION, UNSPECIFIED Qualifiers: Constipation type: unspecified constipation type Qualified Code(s): K59.00 - Constipation, unspecified (4) Diastolic CHF Code(s): I50.30 - UNSPECIFIED DIASTOLIC (CONGESTIVE) HEART FAILURE Assessment/Plan Current Medications Generic Name Dose Route Start Last Admin Trade Name Freq PRN Reason Stop Dose Admin Acetaminophen 650 mg 07/11/20 18:37 Tylenol - PO Q6H PRN FEVER/PAIN Apixaban 2.5 mg 07/04/20 22:00 07/13/20 09:53 Eliquis - PO 2.5 mg BID [facility] Administration Bethanechol Chloride 10 mg 07/12/20 22:00 07/13/20 06:36 Urecholine - PO 10 mg TID [facility]ER[facility] Administration Donepezil HCl 10 mg 07/07/20 22:00 07/12/20 21:41 Aricept - PO 10 mg HS [facility] Administration Gabapentin 100 mg 07/05/20 10:00 07/13/20 09:52 Neurontin - PO 100 mg BID [facility] Administration Metoprolol Succinate 75 mg 07/07/20 12:15 07/13/20 09:53 Toprol Xl - PO 75 mg DAILY [facility] Administration Mirtazapine 7.5 mg 07/11/20 22:00 07/12/20 21:42 Remeron - PO 7.5 mg HS [facility] Administration Polyethylene Glycol 17 gm 07/05/20 15:00 07/13/20 09:53 Miralax (For Daily Use) - PO Not Given DAILY [facility] Senna 2 tab 07/05/20 14:34 07/11/20 21:45 Senna - PO 2 tab HS PRN Administration CONSTIPATION Tamsulosin HCl 0.4 mg 07/10/20 08:30 07/13/20 09:52 Flomax - PO 0.4 mg DAILY@0830 [facility] Administration Impression 1. WILL 2. chf 3. constipation 4. htn 5. ckd 6. dementia 7. a-fib Plan - renal function is improved - repeat labs in am - encourage po intake - lasix on hold - monitor lytes - monitor volume status Dr Leal
--- NOTE | 2020-07-13 13:27 | PN ---
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 (short form) - Note 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: events noted pt has voided urine no complaints Vital Signs - 24 hr 07/12/20 07/12/20 07/12/20 18:00 20:28 21:00 Temperature 99.4 F 100.6 F H Pulse Rate 103 H 113 H Respiratory 17 18 18 Rate Blood Pressure 118/72 112/73 O2 Sat by Pulse 100 99 98 Oximetry (%) 07/13/20 07/13/20 07/13/20 02:00 06:00 09:00 Temperature 98.6 F 97.8 F Pulse Rate 109 H 95 H Respiratory 18 18 18 Rate Blood Pressure 103/65 125/72 O2 Sat by Pulse 98 100 99 Oximetry (%) 07/13/20 07/13/20 10:00 13:30 Temperature 98.0 F 98.3 F Pulse Rate 98 H 94 H Respiratory 18 18 Rate Blood Pressure 116/71 111/65 O2 Sat by Pulse 99 Oximetry (%) Current Medications Generic Name Dose Route Start Last Admin Trade Name Freq PRN Reason Stop Dose Admin Acetaminophen 650 mg 07/11/20 18:37 Tylenol - PO Q6H PRN FEVER/PAIN Apixaban 2.5 mg 07/04/20 22:00 07/13/20 09:53 Eliquis - PO 2.5 mg BID [facility]ER[facility] Administration Bethanechol Chloride 10 mg 07/12/20 22:00 07/13/20 14:17 Urecholine - PO 10 mg TID NEERAJ Administration Donepezil HCl 10 mg 07/07/20 22:00 07/12/20 21:41 Aricept - PO 10 mg HS [facility]ERAJ Administration Gabapentin 100 mg 07/05/20 10:00 07/13/20 09:52 Neurontin - PO 100 mg BID [facility] Administration Metoprolol Succinate 75 mg 07/07/20 12:15 07/13/20 09:53 Toprol Xl - PO 75 mg DAILY [facility] Administration Mirtazapine 7.5 mg 07/11/20 22:00 07/12/20 21:42 Remeron - PO 7.5 mg HS [facility] Administration Polyethylene Glycol 17 gm 07/05/20 15:00 07/13/20 09:53 Miralax (For Daily Use) - PO Not Given DAILY [facility] Senna 2 tab 07/05/20 14:34 07/11/20 21:45 Senna - PO 2 tab HS PRN Administration CONSTIPATION Tamsulosin HCl 0.4 mg 07/10/20 08:30 07/13/20 09:52 Flomax - PO 0.4 mg DAILY@0830 [facility]ER[facility] Administration Laboratory Results - last 24 hr 07/10/20 21:15 Procalcitonin 0.47 H Microbiology 07/10/20 21:15 Blood Culture - Preliminary Blood - Peripheral Venous NO GROWTH OBTAINED AFTER 48 HOURS, INCUBATION TO CONTINUE FOR 3 DAYS. 07/10/20 21:15 Blood Culture - Preliminary Blood - Peripheral Venous NO GROWTH OBTAINED AFTER 48 HOURS, INCUBATION TO CONTINUE FOR 3 DAYS. 07/04/20 17:18 Blood Culture - Final Blood - Peripheral Venous Staph Hominis Sub Sp Hominis S1 S2 irregular No pallor Weak Lungs decreased breath sounds Abd- soft, NT No edema PLAN low grade fever blood cultures negative antibiotics dc-- will observe for now patient is voiding Echo--->no vegetations renal sono-- no hydronephrosis all imaging noted renal function good Urology eval --appreciated dc planning- son would like to take pt home Problem List - Problems (1) WILL (acute kidney injury) Code(s): N17.9 - ACUTE KIDNEY FAILURE, UNSPECIFIED (2) Afib Code(s): I48.91 - UNSPECIFIED ATRIAL FIBRILLATION (3) Bacteremia Code(s): R78.81 - BACTEREMIA (4) Diastolic CHF Code(s): I50.30 - UNSPECIFIED DIASTOLIC (CONGESTIVE) HEART FAILURE (5) Generalized weakness Code(s): R53.1 - WEAKNESS (6) Sepsis Code(s): A41.9 - SEPSIS, UNSPECIFIED ORGANISM (7) UTI (urinary tract infection) Code(s): N39.0 - URINARY TRACT INFECTION, SITE NOT SPECIFIED Qualifiers: Urinary tract infection type: acute cystitis Hematuria presence: with hematuria Qualified Code(s): N30.01 - Acute cystitis with hematuria
--- NOTE | 2020-07-13 16:59 | PN ---
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 (short form) - Note 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: alert doing well no further fevers Vital Signs Period Temp Pulse Resp BP Sys/Cisneros Pulse Ox Last 24 Hr 97.8 F-100.6 F 94-113 17-18 103-125/65-73 98-100 cor-rrr lungs clear abd soft,nt ext no edema CBC, BMP 07/12/20 08:04 07/12/20 08:04 Microbiology 07/10/20 21:15 Blood - Peripheral Venous Blood Culture - Preliminary NO GROWTH OBTAINED AFTER 48 HOURS, INCUBATION TO CONTINUE FOR 3 DAYS. 07/10/20 21:15 Blood - Peripheral Venous Blood Culture - Preliminary NO GROWTH OBTAINED AFTER 48 HOURS, INCUBATION TO CONTINUE FOR 3 DAYS. 07/04/20 17:18 Blood - Peripheral Venous Blood Culture - Final Staph Hominis Sub Sp Hominis 07/10/20 23:34 Urine - Urine - Catheterized Urine Culture - Final NO GROWTH OBTAINED 07/06/20 17:00 Blood - Peripheral Venous Blood Culture - Final NO GROWTH AFTER 5 DAYS INCUBATION 07/06/20 17:00 Blood - Peripheral Venous Blood Culture - Final NO GROWTH AFTER 5 DAYS INCUBATION 07/04/20 17:10 Blood - Peripheral Venous Blood Culture - Final Staphylococcus Simulans 07/04/20 16:45 Urine - Urine Clean Catch Urine Culture - Final Escherichia Coli a/p fevers resolved off antibitics 24 hours blood cultures contaminant completed rocephin for ecoli UTI please cll back if needed Problem List - Problems (1) Bacteremia Code(s): R78.81 - BACTEREMIA (2) UTI (urinary tract infection) Code(s): N39.0 - URINARY TRACT INFECTION, SITE NOT SPECIFIED Qualifiers: Urinary tract infection type: acute cystitis Hematuria presence: with hem aturia Qualified Code(s): N30.01 - Acute cystitis with hematuria (3) Lactic acidosis Code(s): E87.2 - ACIDOSIS (4) WILL (acute kidney injury) Code(s): N17.9 - ACUTE KIDNEY FAILURE, UNSPECIFIED
[2020-07-13] MEDS: MIRTAZAPINE 15 MG TABLET (FP) PO SCH (22:32)
[2020-07-13] MEDS: DONEPEZIL HCL 10 MG TABLET (FP) PO SCH (22:33)
[2020-07-14] MEDS: BETHANECHOL CHLORIDE 10 MG TABLET PO SCH ×3 (05:07→23:32)
[2020-07-14] MEDS: APIXABAN 2.5 MG TABLET PO SCH ×2 (09:25→23:32)
[2020-07-14] MEDS: GABAPENTIN 100 MG CAPSULE PO SCH ×2 (09:25→23:32)
[2020-07-14] MEDS: TAMSULOSIN HCL 0.4 MG CAP PO SCH (09:25)
[2020-07-14] MEDS: metoPROLOL SUCCINATE 25 MG TAB.SR.24H (FP) PO SCH (09:26)
[2020-07-14] MEDS: POLYETHYLENE GLYCOL 3350 119 GM BTL PO SCH (09:27)
--- NOTE | 2020-07-14 10:50 | PN ---
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 Edentulous. Needs soft foods that she enjoys. Diet reviewed with HEIDI
--- NOTE | 2020-07-14 11:27 | PN ---
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, Physician History of Present Illness: Pt seen and examined at bedside. She is awake and alert. She denies shortness of breath. - Current Medication List Current Medications: Active Medications Acetaminophen (Tylenol -) 650 mg PO Q6H PRN PRN Reason: FEVER/PAIN Apixaban (Eliquis -) 2.5 mg PO BID [facility] Last Admin: 07/14/20 09:25 Dose: 2.5 mg Documented by: Bethanechol Chloride (Urecholine -) 10 mg PO TID [facility] Last Admin: 07/14/20 05:07 Dose: 10 mg Documented by: Donepezil HCl (Aricept -) 10 mg PO HS [facility] Last Admin: 07/13/20 22:33 Dose: 10 mg Documented by: Gabapentin (Neurontin -) 100 mg PO BID [facility] Last Admin: 07/14/20 09:25 Dose: 100 mg Documented by: Metoprolol Succinate (Toprol Xl -) 75 mg PO DAILY [facility] Last Admin: 07/14/20 09:26 Dose: 75 mg Documented by: Mirtazapine (Remeron -) 7.5 mg PO [facility] Last Admin: 07/13/20 22:32 Dose: 7.5 mg Documented by: Polyethylene Glycol (Miralax (For Daily Use) -) 17 gm PO DAILY [facility] Last Admin: 07/14/20 09:27 Dose: 17 gm Documented by: Senna (Senna -) 2 tab PO HS PRN PRN Reason: CONSTIPATION Last Admin: 07/11/20 21:45 Dose: 2 tab Documented by: Tamsulosin HCl (Flomax -) 0.4 mg PO DAILY@0830 [facility] Last Admin: 07/14/20 09:25 Dose: 0.4 mg Documented by: - Objective Vital Signs: Vital Signs Temperature 98.1 F 07/14/20 06:43 Pulse Rate 102 H 07/14/20 06:43 Respiratory Rate 18 07/14/20 06:43 Blood Pressure 100/59 L 07/14/20 06:43 O2 Sat by Pulse Oximetry (%) 100 07/14/20 06:43 Constitutional: Yes: Calm Eyes: Yes: Conjunctiva Clear HENT: Yes: Atraumatic Neck: Yes: Supple Cardiovascular: Yes: S1, S2 Respiratory: Yes: CTA Bilaterally Gastrointestinal: Yes: Normal Bowel Sounds, Soft Genitourinary: Yes: Incontinence Musculoskeletal: Yes: WNL Edema: No Neurological: Yes: Confusion Labs: CBC, BMP 07/12/20 08:04 07/12/20 08:04 Problem List - Problems (1) WILL (acute kidney injury) Code(s): N17.9 - ACUTE KIDNEY FAILURE, UNSPECIFIED (2) Afib Code(s): I48.91 - UNSPECIFIED ATRIAL FIBRILLATION (3) Constipation Code(s): K59.00 - CONSTIPATION, UNSPECIFIED Qualifiers: Constipation type: unspecified constipation type Qualified Code(s): K59.00 - Constipation, unspecified (4) Diastolic CHF Code(s): I50.30 - UNSPECIFIED DIASTOLIC (CONGESTIVE) HEART FAILURE Assessment/Plan Current Medications Generic Name Dose Route Start Last Admin Trade Name Freq PRN Reason Stop Dose Admin Acetaminophen 650 mg 07/11/20 18:37 Tylenol - PO Q6H PRN FEVER/PAIN Apixaban 2.5 mg 07/04/20 22:00 07/14/20 09:25 Eliquis - PO 2.5 mg BID [facility]ERAJ Administration Bethanechol Chloride 10 mg 07/12/20 22:00 07/14/20 05:07 Urecholine - PO 10 mg TID [facility]ERAJ Administration Donepezil HCl 10 mg 07/07/20 22:00 07/13/20 22:33 Aricept - PO 10 mg HS [facility]ERAJ Administration Gabapentin 100 mg 07/05/20 10:00 07/14/20 09:25 Neurontin - PO 100 mg BID [facility] Administration Metoprolol Succinate 75 mg 07/07/20 12:15 07/14/20 09:26 Toprol Xl - PO 75 mg DAILY [facility] Administration Mirtazapine 7.5 mg 07/11/20 22:00 07/13/20 22:32 Remeron - PO 7.5 mg HS [facility]ERAJ Administration Polyethylene Glycol 17 gm 07/05/20 15:00 07/14/20 09:27 Miralax (For Daily Use) - PO 17 gm DAILY [facility] Administration Senna 2 tab 07/05/20 14:34 07/11/20 21:45 Senna - PO 2 tab HS PRN Administration CONSTIPATION Tamsulosin HCl 0.4 mg 07/10/20 08:30 07/14/20 09:25 Flomax - PO 0.4 mg DAILY@0830 [facility] Administration Impression 1. WILL 2. chf 3. constipation 4. htn 5. ckd 6. dementia 7. a-fib Plan - renal function had been improving - repeat labs in am - pt stable off of fluids - encourage po intake - diuretics on hold for now - monitor volume status Dr Leal
--- NOTE | 2020-07-14 13:28 | PN ---
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 (short form) - Note 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: has pain in right hand Vital Signs - 24 hr 07/13/20 07/13/20 07/14/20 19:16 21:00 01:00 Temperature 99.4 F 98.6 F Pulse Rate 105 H 96 H Respiratory 18 18 18 Rate Blood Pressure 116/71 114/70 O2 Sat by Pulse 100 100 100 Oximetry (%) 07/14/20 07/14/20 07/14/20 06:43 09:00 10:00 Temperature 98.1 F 98.3 F Pulse Rate 102 H 98 H Respiratory 18 18 18 Rate Blood Pressure 100/59 L 114/73 O2 Sat by Pulse 100 100 100 Oximetry (%) Current Medications Generic Name Dose Route Start Last Admin Trade Name Freq PRN Reason Stop Dose Admin Acetaminophen 650 mg 07/11/20 18:37 Tylenol - PO Q6H PRN FEVER/PAIN Apixaban 2.5 mg 07/04/20 22:00 07/14/20 09:25 Eliquis - PO 2.5 mg BID NEERAJ Administration Bethanechol Chloride 10 mg 07/12/20 22:00 07/14/20 05:07 Urecholine - PO 10 mg TID NEERAJ Administration Donepezil HCl 10 mg 07/07/20 22:00 07/13/20 22:33 Aricept - PO 10 mg HS NEERAJ Administration Gabapentin 100 mg 07/05/20 10:00 07/14/20 09:25 Neurontin - PO 100 mg BID NEERAJ Administration Metoprolol Succinate 75 mg 07/07/20 12:15 07/14/20 09:26 Toprol Xl - PO 75 mg DAILY NEERAJ Administration Mirtazapine 7.5 mg 07/11/20 22:00 07/13/20 22:32 Remeron - PO 7.5 mg HS NEERAJ Administration Polyethylene Glycol 17 gm 07/05/20 15:00 07/14/20 09:27 Miralax (For Daily Use) - PO 17 gm DAILY NEERAJ Administration Senna 2 tab 07/05/20 14:34 07/11/20 21:45 Senna - PO 2 tab HS PRN Administration CONSTIPATION Tamsulosin HCl 0.4 mg 07/10/20 08:30 07/14/20 09:25 Flomax - PO 0.4 mg DAILY@0830 NEERAJ Administration right hand swollen , warm and tender+, pt uinable to close her hand Tender right wrist Forearm also swollen S1 S2 irregular No pallor Weak Lungs decreased breath sounds Abd- soft, NT No edema PLAN blood cultures negative antibiotics dc-- will observe for now patient is voiding Echo--->no vegetations renal sono-- no hydronephrosis all imaging noted renal function good Urology eval --appreciated check xray hand and sono right arm check ESR anf Uric acid-- rule our gout Problem List - Problems (1) WILL (acute kidney injury) Code(s): N17.9 - ACUTE KIDNEY FAILURE, UNSPECIFIED (2) Afib Code(s): I48.91 - UNSPECIFIED ATRIAL FIBRILLATION (3) Bacteremia Code(s): R78.81 - BACTEREMIA (4) Diastolic CHF Code(s): I50.30 - UNSPECIFIED DIASTOLIC (CONGESTIVE) HEART FAILURE (5) Generalized weakness Code(s): R53.1 - WEAKNESS (6) Sepsis Code(s): A41.9 - SEPSIS, UNSPECIFIED ORGANISM (7) UTI (urinary tract infection) Code(s): N39.0 - URINARY TRACT INFECTION, SITE NOT SPECIFIED Qualifiers: Urinary tract infection type: acute cystitis Hematuria presence: with hematuria Qualified Code(s): N30.01 - Acute cystitis with hematuria
[2020-07-14] MEDS ORDERED: predniSONE 20 MG TABLET (UD) PO ONE (15:30)
[2020-07-14] MEDS: MIRTAZAPINE 15 MG TABLET (FP) PO SCH (23:33)
[2020-07-14] MEDS: DONEPEZIL HCL 10 MG TABLET (FP) PO SCH (23:33)
[2020-07-15] MEDS: BETHANECHOL CHLORIDE 10 MG TABLET PO SCH ×2 (05:49→13:27)
[2020-07-15 08:30] LABS: BLOOD UREA NITROGEN 31.8 mg/dL (7-18); CALCIUM 8.2 mg/dL (8.5-10.1); CREATININE 1.4 mg/dL (0.55-1.3); POTASSIUM 4.3 mmol/L (3.5-5.1); URIC ACID 9.9 mg/dL (2.6-7.2)
[2020-07-15] MEDS: metoPROLOL SUCCINATE 25 MG TAB.SR.24H (FP) PO SCH (09:35)
[2020-07-15] MEDS: TAMSULOSIN HCL 0.4 MG CAP PO SCH (09:36)
[2020-07-15] MEDS: APIXABAN 2.5 MG TABLET PO SCH (09:36)
[2020-07-15] MEDS: GABAPENTIN 100 MG CAPSULE PO SCH (09:36)
[2020-07-15] MEDS: POLYETHYLENE GLYCOL 3350 119 GM BTL PO SCH (09:37)
[2020-07-15] MEDS ORDERED: predniSONE 10 MG TABLET (UD) PO SCH (12:30)
--- NOTE | 2020-07-15 12:32 | DS ---
Physical Examination Vital Signs: Vital Signs Temperature 97.4 F L 07/15/20 10:37 Pulse Rate 77 07/15/20 10:37 Respiratory Rate 19 07/15/20 10:37 Blood Pressure 122/76 07/15/20 10:37 O2 Sat by Pulse Oximetry (%) 97 07/15/20 10:37 Labs: CBC, BMP 07/12/20 08:04 07/15/20 06:10 Discharge Summary Problems reviewed: Yes Reason For Visit: URINARY TRACT INFECTION,WEAKNESS OF BOTH LOWER Current Active Problems WILL (acute kidney injury) (Acute) Afib (Acute) Bacteremia (Acute) Constipation (Acute) Diastolic CHF (Acute) Encounter for screening laboratory testing for COVID-19 virus (Acute) Generalized weakness (Acute) Lactic acidosis (Acute) Leg weakness, bilateral (Acute) Sepsis (Acute) Thyroid nodule (Acute) UTI (urinary tract infection) (Acute) Urinary retention (Acute) Condition: Stable - Instructions Disposition: VNS/HOME HEALTH CARE - Home Medications Comprehensive Discharge Medication List: Ambulatory Orders Donepezil HCl 10 mg PO DAILY 06/25/20 Metoprolol Succinate 75 mg PO DAILY 06/25/20 Mirtazapine 7.5 mg PO HS 06/25/20 Vitamin D - 50,000 units WEEKLY 06/25/20 Apixaban [Eliquis -] 2.5 mg PO BID #120 tablet 07/15/20 Bethanechol Chloride [Bethanechol Chloride -] 10 mg PO TID #90 tablet 07/15/20 Tamsulosin HCl [Flomax -] 0.4 mg PO DAILY@0830 #30 tab 07/15/20 predniSONE [Deltasone -] See Taper PO DAILY #12 tablet 07/15/20
[2020-07-15] MEDS ORDERED: PT OWN MED DRAWER 7, Y5N ONE (13:20)
--- NOTE | 2020-07-15 14:29 | PN ---
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, Physician History of Present Illness: Pt seen and examined at bedside. Her PO intake is improved. - Current Medication List Current Medications: Active Medications Acetaminophen (Tylenol -) 650 mg PO Q6H PRN PRN Reason: FEVER/PAIN Last Admin: 07/15/20 01:41 Dose: 650 mg Documented by: Apixaban (Eliquis -) 2.5 mg PO BID [facility] Last Admin: 07/15/20 09:36 Dose: 2.5 mg Documented by: Bethanechol Chloride (Urecholine -) 10 mg PO TID [facility] Last Admin: 07/15/20 13:27 Dose: 10 mg Documented by: Donepezil HCl (Aricept -) 10 mg PO HS [facility] Last Admin: 07/14/20 23:33 Dose: 10 mg Documented by: Gabapentin (Neurontin -) 100 mg PO BID [facility] Last Admin: 07/15/20 09:36 Dose: 100 mg Documented by: Metoprolol Succinate (Toprol Xl -) 75 mg PO DAILY [facility] Last Admin: 07/15/20 09:35 Dose: 75 mg Documented by: Mirtazapine (Remeron -) 7.5 mg PO HS [facility] Last Admin: 07/14/20 23:33 Dose: 7.5 mg Documented by: Polyethylene Glycol (Miralax (For Daily Use) -) 17 gm PO DAILY [facility] Last Admin: 07/15/20 09:37 Dose: 17 gm Documented by: Prednisone (Deltasone -) 30 mg PO DAILY [facility] Last Admin: 07/15/20 13:28 Dose: 30 mg Documented by: Senna (Senna -) 2 tab PO HS PRN PRN Reason: CONSTIPATION Last Admin: 07/11/20 21:45 Dose: 2 tab Documented by: Tamsulosin HCl (Flomax -) 0.4 mg PO DAILY@0830 [facility] Last Admin: 07/15/20 09:36 Dose: 0.4 mg Documented by: - Objective Vital Signs: Vital Signs Temperature 97.4 F L 07/15/20 10:37 Pulse Rate 77 07/15/20 10:37 Respiratory Rate 19 07/15/20 10:37 Blood Pressure 122/76 07/15/20 10:37 O2 Sat by Pulse Oximetry (%) 97 07/15/20 10:37 Constitutional: Yes: Calm Eyes: Yes: Conjunctiva Clear HENT: Yes: Atraumatic Neck: Yes: Supple Cardiovascular: Yes: S1, S2 Respiratory: Yes: CTA Bilaterally Gastrointestinal: Yes: Soft Genitourinary: Yes: Incontinence Musculoskeletal: Yes: WNL Edema: No Integumentary: Yes: WNL Neurological: Yes: Confusion Psychiatric: Yes: Oriented Labs: CBC, BMP 07/12/20 08:04 07/15/20 06:10 Problem List - Problems (1) WILL (acute kidney injury) Code(s): N17.9 - ACUTE KIDNEY FAILURE, UNSPECIFIED (2) Afib Code(s): I48.91 - UNSPECIFIED ATRIAL FIBRILLATION (3) Constipation Code(s): K59.00 - CONSTIPATION, UNSPECIFIED Qualifiers: Constipation type: unspecified constipation type Qualified Code(s): K59.00 - Constipation, unspecified (4) Diastolic CHF Code(s): I50.30 - UNSPECIFIED DIASTOLIC (CONGESTIVE) HEART FAILURE Assessment/Plan Current Medications Generic Name Dose Route Start Last Admin Trade Name Freq PRN Reason Stop Dose Admin Acetaminophen 650 mg 07/11/20 18:37 07/15/20 01:41 Tylenol - PO 650 mg Q6H PRN Administration FEVER/PAIN Apixaban 2.5 mg 07/04/20 22:00 07/15/20 09:36 Eliquis - PO 2.5 mg BID NEERAJ Administration Bethanechol Chloride 10 mg 07/12/20 22:00 07/15/20 13:27 Urecholine - PO 10 mg TID NEERAJ Administration Donepezil HCl 10 mg 07/07/20 22:00 07/14/20 23:33 Aricept - PO 10 mg HS NEERAJ Administration Gabapentin 100 mg 07/05/20 10:00 07/15/20 09:36 Neurontin - PO 100 mg BID NEERAJ Administration Metoprolol Succinate 75 mg 07/07/20 12:15 07/15/20 09:35 Toprol Xl - PO 75 mg DAILY NEERAJ Administration Mirtazapine 7.5 mg 07/11/20 22:00 07/14/20 23:33 Remeron - PO 7.5 mg HS NEERAJ Administration Polyethylene Glycol 17 gm 07/05/20 15:00 07/15/20 09:37 Miralax (For Daily Use) - PO 17 gm DAILY NEERAJ Administration Prednisone 30 mg 07/15/20 12:30 07/15/20 13:28 Deltasone - PO 30 mg DAILY NEERAJ Administration Senna 2 tab 07/05/20 14:34 07/11/20 21:45 Senna - PO 2 tab HS PRN Administration CONSTIPATION Tamsulosin HCl 0.4 mg 07/10/20 08:30 07/15/20 09:36 Flomax - PO 0.4 mg DAILY@0830 NEERAJ Administration Impression 1. WILL 2. chf 3. constipation 4. htn 5. ckd 6. dementia 7. a-fib Plan - cont to monitor renal function - encourage po intake - pt stable off of fluids - will need one to one feeds - diuretics on hold for now - monitor volume status - will need outpt follow up after discharge Dr Leal
[2020-07-15 14:32] VITALS: PULSE 94; TEMP 97.5
[2020-07-15 15:39] VITALS: BP 100/64
== END 2020-07-15 17:50 | disposition home health service (06) | DRG 872 ==
LOC: JER 15:29 → JERBED 17:20 → J7W 07-05 17:18
PROVIDERS: ADMIT Internal Medicine; ATTEND Internal Medicine
DX: A41.89 Other specified sepsis (principal); N17.9 Acute kidney failure, unspecified; N30.01 Acute cystitis with hematuria; E87.2 Acidosis; I50.30 Unspecified diastolic (congestive) heart failure; I13.0 Hypertensive heart and chronic kidney disease with heart failure and stage 1 through stage 4 chronic kidney disease, or unspecified chronic kidney disease; K59.09 Other constipation; N18.9 Chronic kidney disease, unspecified; I48.91 Unspecified atrial fibrillation; I11.0 Hypertensive heart disease with heart failure; F03.90 Unspecified dementia, unspecified severity, without behavioral disturbance, psychotic disturbance, mood disturbance, and anxiety; D72.829 Elevated white blood cell count, unspecified; E04.1 Nontoxic single thyroid nodule; E03.9 Hypothyroidism, unspecified; R33.9 Retention of urine, unspecified; R53.1 Weakness; B96.20 Unspecified Escherichia coli [E. coli] as the cause of diseases classified elsewhere; Z11.59 Encounter for screening for other viral diseases
CPT/HCPCS: 36415; 70450-TC; 71045-TC-FY; 71250-TC; 72125-TC; 73110-TC-RT-FY; 73130-TC-RT-FY; 74176-TC; 76775-TC; 76856-TC; 80048; 80053; 81003; 82308; 82436; 82550; 82553; 82565; 82962; 83605; 83735; 83880; 84100; 84133; 84300; 84484; 84550; 85025; 85651; 87040; 87086; 87186; 93005; 93010; 93306-TC; 97116-GP; 97162-GP; 99291; 99292; G0480; U0003

== ENCOUNTER 2020-08-08 02:50 | Emergency (ER) | payer OTHER ==
--- OUTSIDE RECORDS SUMMARY | 2020-08-08 03:01 | XMS ---
:1940 Author Organization [facility] Support Name Relationship Address Phone RE, RETIRED Unavailable Unavailable Unavailable CONNIE VALENZUELA SON [address] [place] [address] RE Unavailable Unavailable Unavailable MARILYN VALENZUELA JR SON [address] [place] [address] CONNIE VALENZUELA Child [address] [place] [address] Re-disclosure Warning The records that you are about to access may contain information from federally- assisted alcohol or drug abuse programs. If such information is present, then the following federally mandated warning applies: This information has been disclosed to you from records protected by federal confidentiality rules (42 CFR part 2). The federal rules prohibit you from making any further disclosure of this information unless further disclosure is expressly permitted by the written consent of the person to whom it pertains or as otherwise permitted by 42 CFR part 2. A general authorization for the release of medical or other information is NOT sufficient for this purpose. The Federal rules restrict any use of the information to criminally investigate or prosecute any alcohol or drug abuse patient.The records that you are about to access may contain highly sensitive health information, the redisclosure of which is protected by Article 27-F of the [facility] Public Health law. If you continue you may haveaccess to information: Regarding HIV / AIDS; Provided by facilities licensed or operated by the [facility] Office of Mental Health; or Provided by the [facility] Office for People With Developmental Disabilities. If such information is present, then the following [facility] mandated warning applies: This information has been disclosed to you from confidential records which are protected by state law. State law prohibits you from making any further disclosure of this information without the specific written consent of the person to whom it pertains, or as otherwise permitted by law. Any unauthorized further disclosure in violation of state law may result in a fine or alf sentence or both. A general authorization for the release of medical or other information is NOT sufficient authorization for further disclosure. Insurance Providers Payer name Policy type Policy ID Covered Covered green party's Policy P pao / Coverage green party ID relationship to [employer] type [employer] MEDICARE [id number] SP [id number] 59 [id number] MEDICAID [id number] SP [id number] MEDICARE [id number] [address] [id number] SP [id number] SOLUTIONS 8 1Lay MEDICARE [id number] SP [id number] A Results ID Date Data Source [id number] 07/04/2020 04:34:00 PM EDT [facility] Name Value Range Interpretation Description Data Sup porting Code Source(s) Document(s ) SARS [facility] coronavirus 2 RNA This lab was ordered by [facility] and reported by [facility]. Procedure
[2020-08-08 03:11] VITALS: BMI 27.4
[2020-08-08] MEDS ORDERED: SODIUM CHLORIDE 2,041 ML IV ONE (03:32)
--- NOTE | 2020-08-08 03:51 | PDOC ---
History of Present Illness - General Chief Complaint: Altered Mental Status Stated Complaint: ALTERED MENTAL STATUS Time Seen by Provider: 08/08/20 03:31 - History of Present Illness Initial Comments: 79 YOF h/o dementia, CHF presents with ams and hypothermia since today. Per patients son, patient complained of feeling cold this evening. Son took oral temp at home which read in high 80s. Called EMS who did SpO2 in field which read to 70s. Patient was treated for sepsis 2/2 UTI 2 weeks ago and DCd. Patient is A&Ox1 and unable to provide ROS but denies pain or discomfort. Past History - Travel History Traveled outside of the country in the last 30 days: No Close contact w/someone who was outside of country & ill: No - Medical History Allergies/Adverse Reactions: Allergies Allergy/AdvReac Type Severity Reaction Status Date / Time No Known Allergies Allergy Verified 08/08/20 03:02 Home Medications: Ambulatory Orders Donepezil HCl 10 mg PO DAILY 06/25/20 Metoprolol Succinate 75 mg PO DAILY 06/25/20 Mirtazapine 7.5 mg PO HS 06/25/20 Vitamin D - 50,000 units WEEKLY 06/25/20 Apixaban [Eliquis -] 2.5 mg PO BID #120 tablet 07/15/20 Bethanechol Chloride [Bethanechol Chloride -] 10 mg PO TID #90 tablet 07/15/20 Tamsulosin HCl [Flomax -] 0.4 mg PO DAILY@0830 #30 tab 07/15/20 predniSONE [Deltasone -] See Taper PO DAILY #12 tablet 07/15/20 Anemia: Yes Asthma: No Cancer: No Cardiac Disorders: Yes (Afib -on eliquis) CVA: No COPD: No CHF: No Dementia: Yes Diabetes: No GI Disorders: No Disorders: No HTN: Yes Hypercholesterolemia: No Liver Disease: No Seizures: No Thyroid Disease: No - Surgical History Abdominal Surgery: No Appendectomy: No Cardiac Surgery: No Cholecystectomy: No Lung Surgery: No Neurologic Surgery: No Orthopedic Surgery: No - Reproductive History Is Patient Now?: No - Immunization History Immunization Up to Date: No - Psycho-Social/Smoking History Smoking History: Unknown if ever smoked Have you smoked in the past 12 months: No Information on smoking cessation initiated: No - Substance Abuse Hx (Audit-C & DAST Scrn) How often the patient has a drink containing alcohol: Never Score: In Men: 4 or > Positive; In Women: 3 or > Positive: 0 Screen Result (Pos requires Nsg. Audit-10AR): Negative In the last yr the pt used illegal drug/Rx for NonMed reason: No Score: Yes response is considered Positive: 0 Screen Result (Positive result requires Nsg. DAST-10): Negative Review of Systems - Review of Systems Able to Perform ROS?: No *Physical Exam - Vital Signs Last Vital Signs Temp Pulse Resp BP Pulse Ox 98.5 F 94 H 20 117/82 94 L 08/08/20 03:02 08/08/20 03:02 08/08/20 03:02 08/08/20 03:02 08/08/20 03:02 - Physical Exam General Appearance: Yes: Nourished, Appropriately Dressed HEENT: positive: EOMI, LISA, Normal ENT Inspection, Normal Voice Neck: positive: Trachea midline, Normal Thyroid Respiratory/Chest: positive: Lungs Clear, Normal Breath Sounds Cardiovascular: positive: Regular Rhythm, S1, S2, Tachycardia Gastrointestinal/Abdominal: positive: Normal Bowel Sounds, Flat, Soft Neurologic: positive: Other (Patient appears somnolent, lethargic, A&Ox1) ED Treatment Course - LABORATORY CBC & Chemistry Diagram: 08/08/20 04:45 08/08/20 04:45 - ADDITIONAL ORDERS Additional order review: Laboratory Results 08/08/20 03:23 POC Glucometer 110 08/08/20 03:23 POC Glucometer 110 - RADIOLOGY Radiology Studies Ordered: Category Date Time Status CHEST X-RAY PORTABLE* [RAD] Stat Radiology 08/08/20 03:32 Ordered Medical Decision Making - Medical Decision Making 79 YOF h/o dementia, CHF, sepsis presents for hypothermia and AMS - Patient unable to provide clear history - tachy to 120s-130 - rectal temp 94 - will do sepsis w/u - labs reveal lactate of 4, creatinine 1.9, bili 1.3 - admit patient for sepsis 08/08/20 06:27 Discharge - Discharge Information Problems reviewed: Yes Clinical Impression/Diagnosis: Sepsis - Follow up/Referral - Patient Discharge Instructions - Post Discharge Activity
[2020-08-08 05:09] LABS: BASO % 0.4 % (0-2.0); HEMATOCRIT 41.2 % (32.4-45.2); HEMOGLOBIN 13.2 GM/dL (10.7-15.3); LYMPH % 5.8 % (8-40); MCH 30.9 pg (25.7-33.7); MCHC 32.1 g/dl (32.0-36.0); MEAN CELL VOLUME 96.4 fl (80-96); MEAN PLT VOLUME 10.5 fl (7.5-11.1); MONO % 4.2 % (3.8-10.2); NEUT % 87.6 % (42.8-82.8); PLATELET COUNT 186 K/MM3 (134-434); RBC 4.27 M/mm3 (3.60-5.2); WHITE BLOOD COUNT 7.6 K/mm3 (4.0-10.0)
[2020-08-08 05:23] LABS: INR 2.22 (0.83-1.09); PROTHROMBIN TIME (PATIENT) 26.4 SEC (9.7-13.0)
[2020-08-08 05:26] LABS: ACTIVATED PTT 35.1 SECONDS (25.2-36.5)
--- NOTE | 2020-08-08 05:34 | PDOC ---
Attending Attestation - Resident Resident Name: LeifvineetRob - ED Attending Attestation I have performed the following: I have examined & evaluated the patient, The case was reviewed & discussed with the resident, I agree w/resident's findings & plan - HPI HPI: 08/08/20 05:40 Pt is altered mental status; son states that she is normally demented, but that she was en point day before yesterday. Slowly getting worse. - Physicial Exam PE: 08/08/20 05:54 Pt is arousable but confused. She thinks we are in [facility]; she doesnt know the date. Afebrile VSS Abd soft NT ND HEENT: NCAT; pupils pinpoint bilat. ears cerumen impaction; no pharyngeal swelling Heart S1S2 RRR Lungs CTA B No c/C/E - Medical Decision Making 08/08/20 05:[address] result pending. Pt 's CT appears to have atrophy consistent with age. Official result pending 08/08/20 06:00 Pt has normal labs -- slightly elevated LFTs but this is normal for the patient 08/08/20 06:00 Pt has afib and is on blood thinners and she has a INR of 2.22 08/08/20 06:30 Pt received IVF; abx; she will be signed out to the day team. Imaging pending. Admitted to med/surg Heart Score/ECG Review - ECG Intrepretation Rhythm: Irregularly Irregular - [place]: Normal - QRS Poor R Wave Progression: Yes Q Wave Present: No - ST and T Early Repolarization: No Non Specific ST-T Wave changes: No Flattened T Waves: No Prolonged Q-T Interval: No - ECG Impressions Normal ECG: No Non-specific ST Elevation: No Ischemic Changes: No Tachycardia: Afib w/rapid Vent rate (RATE IS 105 BPM) Discharge - Discharge Information Problems reviewed: Yes Clinical Impression/Diagnosis: Sepsis Qualifiers: Sepsis type: sepsis due to unspecified organism Sepsis acute organ dysfunction status: unspecified Qualified Code(s): A41.9 - Sepsis, unspecified organism Condition: - Follow up/Referral - Patient Discharge Instructions - Post Discharge Activity
[2020-08-08 05:37] LABS: ALBUMIN 2.6 g/dl (3.4-5.0); ALK PHOS 233 U/L (45-117); ANION GAP 9 MMOL/L (8-16); BILIRUBIN,TOTAL 1.3 mg/dL (0.2-1); BLOOD UREA NITROGEN 36.8 mg/dL (7-18); CALCIUM 8.6 mg/dL (8.5-10.1); CHLORIDE 111 mmol/L (98-107); CO2 25 mmol/L (21-32); CREATININE 1.9 mg/dL (0.55-1.3); GLUCOSE,RANDOM 118 mg/dL (74-106); POTASSIUM 4.6 mmol/L (3.5-5.1); SGOT/AST 46 U/L (15-37); SGPT/ALT 62 U/L (13-61); SODIUM 145 mmol/L (136-145); TOT PROT 6.3 g/dl (6.4-8.2)
[2020-08-08] MEDS ORDERED: AZITHROMYCIN IVPB 500 MG in DEXTROSE 5%-WATER - 250 ML IVPB ONE (06:26)
[2020-08-08] MEDS ORDERED: CEFTRIAXONE 1 GM in DEXTROSE 5%-WATER - 50 ML IVPB ONE (06:26)
[2020-08-08] MEDS ORDERED: cefTRIAXone SODIUM 1 GM VIAL ONE (06:58)
[2020-08-08] MEDS ORDERED: AZITHROMYCIN IVPB 500 MG/250 ML BAG IVPB ONE (06:58)
--- NOTE | 2020-08-08 07:13 | PDOC ---
*Physical Exam - Vital Signs Last Vital Signs Temp Pulse Resp BP Pulse Ox 94.3 F L 107 H 21 H 129/91 100 08/08/20 07:24 08/08/20 07:24 08/08/20 08:02 08/08/20 07:24 08/08/20 07:24 <Anna Domingo - Last Filed: 08/08/20 08:38> - Vital Signs Last Vital Signs Temp Pulse Resp BP Pulse Ox 98.5 F 94 H 20 117/82 94 L 08/08/20 03:02 08/08/20 03:02 08/08/20 03:02 08/08/20 03:02 08/08/20 03:02 <Jose Ceja - Last Filed: 08/08/20 15:03> ED Treatment Course - LABORATORY CBC & Chemistry Diagram: 08/08/20 04:45 08/08/20 04:45 - ADDITIONAL ORDERS Additional order review: Laboratory Results 08/08/20 08/08/20 08/08/20 04:45 04:45 04:45 PT with INR INR PTT (Actin FS) Sodium 145 Potassium 4.6 Chloride 111 H Carbon Dioxide 25 Anion Gap 9 BUN 36.8 H Creatinine 1.9 H Est GFR (CKD-EPI)AfAm 28.36 Est GFR (CKD-EPI)NonAf 24.47 POC Glucometer Random Glucose 118 H Lactic Acid 4.0 H* Calcium 8.6 Total Bilirubin 1.3 H AST 46 H ALT 62 H Alkaline Phosphatase 233 H Troponin I < 0.02 Cancelled Total Protein 6.3 L Albumin 2.6 L 08/08/20 08/08/20 04:45 03:23 PT with INR 26.40 H INR 2.22 H PTT (Actin FS) 35.1 Sodium Potassium Chloride Carbon Dioxide Anion Gap BUN Creatinine Est GFR (CKD-EPI)AfAm Est GFR (CKD-EPI)NonAf POC Glucometer 110 Random Glucose Lactic Acid Calcium Total Bilirubin AST ALT Alkaline Phosphatase Troponin I Total Protein Albumin 08/08/20 08/08/20 04:45 03:23 RBC 4.27 MCV 96.4 H D MCHC 32.1 RDW 22.0 H MPV 10.5 D Neutrophils % 87.6 H Lymphocytes % 5.8 L Monocytes % 4.2 Eosinophils % 2.0 D Basophils % 0.4 D POC Glucometer 110 - Medications Given in the ED: ED Medications Discontinued Medications Generic Name Dose Route Start Last Admin Trade Name Starr PRN Reason Stop Dose Admin Sodium Chloride 2,041 mls @ 1,020.5 mls/hr 08/08/20 03:32 08/08/20 06:52 Normal Saline - 30 ml/kg infuse over 2 hr (2041 ml) 08/08/20 05:31 1,020.5 mls/hr IV Administration ONCE ONE Ceftriaxone Sodium 1 gm/ 50 mls @ 100 mls/hr 08/08/20 06:26 08/08/20 07:04 Dextrose IVPB 08/08/20 06:55 100 mls/hr ONCE ONE Administration Azithromycin 500 mg/ Dextrose 250 mls @ 250 mls/hr 08/08/20 06:26 08/08/20 07:04 IVPB 08/08/20 07:25 250 mls/hr ONCE ONE Administration <Anna Domingo - Last Filed: 08/08/20 08:38> - LABORATORY CBC & Chemistry Diagram: 08/08/20 04:45 08/08/20 04:45 - ADDITIONAL ORDERS Additional order review: Laboratory Results 08/08/20 08/08/20 08/08/20 04:45 04:45 04:45 PT with INR INR PTT (Actin FS) Sodium 145 Potassium 4.6 Chloride 111 H Carbon Dioxide 25 Anion Gap 9 BUN 36.8 H Creatinine 1.9 H Est GFR (CKD-EPI)AfAm 28.36 Est GFR (CKD-EPI)NonAf 24.47 POC Glucometer Random Glucose 118 H Lactic Acid 4.0 H* Calcium 8.6 Total Bilirubin 1.3 H AST 46 H ALT 62 H Alkaline Phosphatase 233 H Troponin I < 0.02 Cancelled Total Protein 6.3 L Albumin 2.6 L 08/08/20 08/08/20 04:45 03:23 PT with INR 26.40 H INR 2.22 H PTT (Actin FS) 35.1 Sodium Potassium Chloride Carbon Dioxide Anion Gap BUN Creatinine Est GFR (CKD-EPI)AfAm Est GFR (CKD-EPI)NonAf POC Glucometer 110 Random Glucose Lactic Acid Calcium Total Bilirubin AST ALT Alkaline Phosphatase Troponin I Total Protein Albumin 08/08/20 08/08/20 04:45 03:23 RBC 4.27 MCV 96.4 H D MCHC 32.1 RDW 22.0 H MPV 10.5 D Neutrophils % 87.6 H Lymphocytes % 5.8 L Monocytes % 4.2 Eosinophils % 2.0 D Basophils % 0.4 D POC Glucometer 110 - Medications Given in the ED: ED Medications Discontinued Medications Generic Name Dose Route Start Last Admin Trade Name Starr PRN Reason Stop Dose Admin Sodium Chloride 2,041 mls @ 1,020.5 mls/hr 08/08/20 03:32 08/08/20 06:52 Normal Saline - 30 ml/kg infuse over 2 hr (2041 ml) 08/08/20 05:31 1,020.5 mls/hr IV Administration ONCE ONE Ceftriaxone Sodium 1 gm/ 50 mls @ 100 mls/hr 08/08/20 06:26 08/08/20 07:04 Dextrose IVPB 08/08/20 06:55 100 mls/hr ONCE ONE Administration <Jose Ceja - Last Filed: 08/08/20 15:03> Medical Decision Making - Medical Decision Making 08/08/20 08:38 Late entry. Patient received at 7am shift change, presented with progressively worsening mental status, found to have lactic acidosis, hypothermia, suspected sepsis. Was awaiting UA at time of shift change. Patient became unresponsive shortly before 8am, in PEA. ACLS protocol was initiated with ROSC after 18 minutes of CPR, 4 rounds of medication. Patient returned to afib with RVR. At ap proximately 8:28, she was becoming bradycardic, no respiratory effort again. Bedside sono showed no cardiac activity, PEA on monitor. D/w family at bedside, they opted to discontinue resuscitative efforts. Time of 08:32am. <Anna Domingo - Last Filed: 08/08/20 08:38> - Medical Decision Making 08/08/20 07:12 Pt received on s/o from Dr. Mota. This is a 79 y/o female BIBEMS for altered mental status and hypothermia. Lactic acid elevated. Started on zithro/rocephin. Pending: urine, CXR, admission. 08/08/20 07:58 Called to the bedside. Patient found to be without pulses. ACLS protocol initiated immediately. Pt in PEA rhythm. Pt underwent 18 minutes of CPR. 4 rounds of epi, bicarb x1, D50 x1 given. Pt intubated, see procedure n ote. ROSC achieved at 0748. Pt in a-fib with RVR on EKG. Please see code sheet for details. Post cardiac arrest care ordered: joyce bhatt CBC, CMP trop lactic ABG CXR s/p intubation EKG 08/08/20 08:33 Pt reassessed and found to be bradycardic. HR on the monitor in the 30s without palpable pulses. D/w pt's and family at bedside. Opted to make the patient a DNR and stated that they didn't want her to suffer. Time of 08. 08/08/20 09:57 Case d/w medical oncology physician/deputy sheriff/investigator Kiah. Case #[id number]. <Jose Ceja - Last Filed: 08/08/20 15:03> Discharge <Anna Domingo - Last Filed: 08/08/20 08:38> - Discharge Information Problems reviewed: Yes <Jose Ceja - Last Filed: 08/08/20 15:03> - Discharge Information Clinical Impression/Diagnosis: Sepsis Qualifiers: Sepsis type: sepsis due to unspecified organism Sepsis acute organ dysfunction status: unspecified Qualified Code(s): A41.9 - Sepsis, unspecified organism Condition:
[2020-08-08 07:26] VITALS: BP 129/91; PULSE 107; TEMP 94.3
--- NOTE | 2020-08-08 08:12 | PDOC ---
*Physical Exam - Vital Signs Last Vital Signs Temp Pulse Resp BP Pulse Ox 94.3 F L 107 H 21 H 129/91 100 08/08/20 07:24 08/08/20 07:24 08/08/20 08:02 08/08/20 07:24 08/08/20 07:24 ED Treatment Course - LABORATORY CBC & Chemistry Diagram: 08/08/20 04:45 08/08/20 04:45 - ADDITIONAL ORDERS Additional order review: Laboratory Results 08/08/20 08/08/20 08/08/20 04:45 04:45 04:45 PT with INR INR PTT (Actin FS) Sodium 145 Potassium 4.6 Chloride 111 H Carbon Dioxide 25 Anion Gap 9 BUN 36.8 H Creatinine 1.9 H Est GFR (CKD-EPI)AfAm 28.36 Est GFR (CKD-EPI)NonAf 24.47 POC Glucometer Random Glucose 118 H Lactic Acid 4.0 H* Calcium 8.6 Total Bilirubin 1.3 H AST 46 H ALT 62 H Alkaline Phosphatase 233 H Troponin I < 0.02 Cancelled Total Protein 6.3 L Albumin 2.6 L 08/08/20 08/08/20 04:45 03:23 PT with INR 26.40 H INR 2.22 H PTT (Actin FS) 35.1 Sodium Potassium Chloride Carbon Dioxide Anion Gap BUN Creatinine Est GFR (CKD-EPI)AfAm Est GFR (CKD-EPI)NonAf POC Glucometer 110 Random Glucose Lactic Acid Calcium Total Bilirubin AST ALT Alkaline Phosphatase Troponin I Total Protein Albumin 08/08/20 08/08/20 04:45 03:23 RBC 4.27 MCV 96.4 H D MCHC 32.1 RDW 22.0 H MPV 10.5 D Neutrophils % 87.6 H Lymphocytes % 5.8 L Monocytes % 4.2 Eosinophils % 2.0 D Basophils % 0.4 D POC Glucometer 110 - RADIOLOGY Radiology Studies Ordered: Category Date Time Status CHEST X-RAY PORTABLE* [RAD] Stat Radiology 08/08/20 07:54 Ordered - Medications Given in the ED: ED Medications Discontinued Medications Generic Name Dose Route Start Last Admin Trade Name Freq PRN Reason Stop Dose Admin Sodium Chloride 2,041 mls @ 1,020.5 mls/hr 08/08/20 03:32 08/08/20 06:52 Normal Saline - 30 ml/kg infuse over 2 hr (2041 ml) 08/08/20 05:31 1,020.5 mls/hr IV Administration ONCE ONE Ceftriaxone Sodium 1 gm/ 50 mls @ 100 mls/hr 08/08/20 06:26 08/08/20 07:04 Dextrose IVPB 08/08/20 06:55 100 mls/hr ONCE ONE Administration Azithromycin 500 mg/ Dextrose 250 mls @ 250 mls/hr 08/08/20 06:26 08/08/20 07:04 IVPB 08/08/20 07:25 250 mls/hr ONCE ONE Administration Discharge - Discharge Information Problems reviewed: Yes Clinical Impression/Diagnosis: Sepsis Qualifiers: Sepsis type: sepsis due to unspecified organism Sepsis acute organ dysfunction status: unspecified Qualified Code(s): A41.9 - Sepsis, unspecified organism - Follow up/Referral - Patient Discharge Instructions - Post Discharge Activity Procedures - Intubation Time of Intubation: 07:45 Intubation Method: orotracheal Blade used: Mac Tube Size (Fr): 7.5 Tube position @ lip (cm): 22 Tube position confirmed by: Direct visualization, CO2 detector, Chest x-ray, Breath sounds Breath Sounds after Intubation: equal Intubation Complications: no complications Post Intubation Xray: Yes (ETT above the tracy)
[2020-08-08 08:48] LABS: EPI CELLS >36 /uL (0-25.1); HYALINE CASTS 32 /uL (0-3.1); URINE APPEARANCE TURBID; URINE BACTERIA >9,000 /uL (0-1359); URINE BILIRUBIN 2+ (NEGATIVE); URINE COLOR DK YELLOW; URINE GLUCOSE (UA) NEGATIVE (NEGATIVE); URINE KETONE NEGATIVE (NEGATIVE); URINE LEUK ESTERASE 2+ (NEGATIVE); URINE NITRITE NEGATIVE (NEGATIVE); URINE PROTEIN 2+ (NEGATIVE); URINE WBC 3993 /uL (0-25.8)
--- NOTE | 2020-08-08 09:24 | EKG ---
Test Reason : Blood Pressure : / mmHG Vent. Rate : 137 BPM Atrial Rate : 137 BPM P-R Int : 000 ms QRS Dur : 076 ms QT Int : 308 ms P-R-T Axes : 000 091 244 degrees QTc Int : 465 ms ATRIAL FIBRILLATION WITH RAPID VENTRICULAR RESPONSE RIGHTWARD AXIS PULMONARY DISEASE PATTERN SEPTAL INFARCT , AGE UNDETERMINED ABNORMAL ECG WHEN COMPARED WITH ECG OF 08-AUG-2020 04:18, ATRIAL FIBRILLATION HAS REPLACED ATRIAL FLUTTER SEPTAL INFARCT IS NOW PRESENT INVERTED T WAVES HAVE REPLACED NONSPECIFIC T WAVE ABNORMALITY IN LATERAL LEADS Confirmed by Amy Garcia ([id number]) on 08/08/2020 9:24:26 AM Referred By: Confirmed By:Amy Garcia
--- NOTE | 2020-08-08 09:25 | EKG ---
Test Reason : Blood Pressure : / mmHG Vent. Rate : 105 BPM Atrial Rate : 326 BPM P-R Int : 000 ms QRS Dur : 074 ms QT Int : 382 ms P-R-T Axes : 000 077 -76 degrees QTc Int : 504 ms ATRIAL FLUTTER WITH VARIABLE A-V BLOCK LOW VOLTAGE QRS NONSPECIFIC ST AND T WAVE ABNORMALITY ABNORMAL ECG WHEN COMPARED WITH ECG OF 07-JUL-2020 10:15, ATRIAL FLUTTER HAS REPLACED ATRIAL FIBRILLATION T WAVE INVERSION NO LONGER EVIDENT IN LATERAL LEADS Confirmed by Amy Garcia ([id number]) on 08/08/2020 9:25:11 AM Referred By: Confirmed By:Amy Garcia
[2020-08-08 13:25] LABS: ANISOCYTOSIS 2+; MACROCYTOSIS 1+; PLATELET ESTIMATE NORMAL
[2020-08-08 14:39] LABS: URINE RBC 7.7 /uL (0-23.9); YEAST POSITIVE (NEGATIVE)
== END 2020-08-08 09:00 | disposition expired ==
LOC: JER 02:50
PROC: 3E03329 Introduction of Other Anti-infective into Peripheral Vein, Percutaneous Approach (ICD-10-PCS; principal; 2020-08-08)
PROC: 3E033GC Introduction of Other Therapeutic Substance into Peripheral Vein, Percutaneous Approach (ICD-10-PCS; 2020-08-08)
PROC: 3E0337Z Introduction of Electrolytic and Water Balance Substance into Peripheral Vein, Percutaneous Approach (ICD-10-PCS; 2020-08-08)
DX: I46.9 Cardiac arrest, cause unspecified (principal); A41.9 Sepsis, unspecified organism
CPT/HCPCS: 36415; 70450-TC; 71045-TC-FY; 80053; 81003; 82962; 83605; 84484; 85025; 85610; 85730; 87040; 87086; 87186; 93005; 93010; 99285-25